=== PATIENT | male | born 1960 | race Caucasian/White ===

== ENCOUNTER 2017-07-24 09:09 | Emergency (ER) | payer OTHER, SELFPAY ==
[2017-07-24 09:10] VITALS: BP 201/116; PULSE 80; RESP 18; TEMP 36.2; O2SAT 95; BMI 38.9
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
[2017-07-24 09:46] LABS: Absolute Lymphocyte Count 0.96 X10^3/ul (0.83-4.51); Basophil# 0.01 X10^3/uL; Basophil% 0.2 % (0-1); Eosinophil# 0.09 X10^3/uL; Eosinophils% 1.6 % (0-5); Hematocrit 44.6 % (40-54); Hemoglobin 14.7 g/dl (13.0-16.5); Lymphocyte # 0.96 X10^3/ul (4.0); Lymphocyte % 17.1 % (19-41); Mean Corpuscular Hgb 29.1 pg (27.0-32.0); Mean Corpuscular Volume 88.1 fL (80-94); Mean Platelet Vol. 10.1 fl (6.2-12.0); Monocyte# 0.52 X10^3/uL; Monocyte% 9.2 % (0-10); Neutrophil # 4.04 X10^3/uL (2.7-7.7); Neutrophil % 71.7 % (47-70); POSITIVE COUNT NO; POSITIVE DIFFERENTIAL NO; POSITIVE MORPHOLOGY NO; Platelet Count 222 K/mm3 (150-450); RBC Distribution Width SD 41.1 fl (35.1-43.9); Red Blood Count 5.06 M/mm3 (4.6-6.2); White Blood Count 5.6 K/mm3 (4.4-11.0)
[2017-07-24 09:53] LABS: Prothrombin Time (Protime)PT. 13.3 SECONDS (11.7-14.9)
[2017-07-24 10:01] LABS: Anion Gap 5 (5-15); BUN 12 mg/dL (7-18); BUN/Creat Ratio 11.8 RATIO (10-20); Calcium,Total 9.2 mg/dL (8.5-10.1); Chloride 103 mmol/L (98-107); Creatinine, Serum 1.02 mg/dL (0.70-1.30); EST Glomerular Filtration Rate 80 mL/min (>60); Est Glom Filt Rate - Afr Amer 96 mL/min (>60); Estimated Creatinine Clearance 71.24 ml/min; Glucose 122 mg/dL (74-106); Potassium 3.8 mmol/L (3.5-5.1); Sodium Level 137 mmol/L (136-145)
[2017-07-24 12:08] VITALS: BP 160/90; PULSE 86; RESP 18; O2SAT 96
[2017-07-24] MEDS: 0.9% Normal Saline 1,000 ML 999 ML IV (12:09)
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
[2017-07-24 12:26] VITALS: BP 160/84; PULSE 82; RESP 18; O2SAT 98
== END 2017-07-24 12:27 | disposition home or self-care (01) ==
PROVIDERS: Emergency Provider Emergency Medicine; Family Provider Family Medicine; PCP Family Medicine
DX: S01.01XA Laceration without foreign body of scalp, initial encounter (principal); S60.511A Abrasion of right hand, initial encounter; S50.811A Abrasion of right forearm, initial encounter; V89.2XXA Person injured in unspecified motor-vehicle accident, traffic, initial encounter; Y93.89 Activity, other specified; Y92.9 Unspecified place or not applicable; Z72.0 Tobacco use
CPT/HCPCS: 70450; 71045; 72125; 80048; 80320; 85025; 85610; 93005; 99285; J7030; A4216; G0480

== ENCOUNTER 2024-06-24 14:37 | Inpatient (IN) | payer MEDICARE, SELFPAY ==
[2024-06-24 15:00] VITALS: BMI 43.7
[2024-06-24] MEDS: oxyCODONE 5 MG Tablet 10 MG PO ×2 (15:06→21:27)
[2024-06-24 15:23] VITALS: BP 189/82; PULSE 82; RESP 18; TEMP 36.8; O2SAT 92
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
[2024-06-24 17:15] VITALS: BP 168/78; PULSE 80
[2024-06-24] MEDS: HYDROmorphone 1 MG/ML Syringe IV (17:17)
[2024-06-24 19:34] VITALS: O2SAT 94
[2024-06-24] MEDS: Acetaminophen 500 MG Tablet 1000 MG PO (21:20)
[2024-06-24] MEDS: cycloBENZAPRine HCl 5 MG TABLET PO (21:20)
[2024-06-24] MEDS: Gabapentin 100 MG Capsule 200 MG PO (21:26)
[2024-06-24 21:32] VITALS: PULSE 80; O2SAT 94
[2024-06-25 03:37] LABS: Absolute Neutrophil Count 5.5 X10^3/uL (2.0-7.7); Basophil# 0.03 X10^3/uL; Basophil% 0.4 % (0-1); Eosinophil# 0.24 X10^3/uL; Hematocrit 42.3 % (40-54); Hemoglobin 13.8 g/dL (13.0-16.5); Lymphocyte % 18.5 % (19-41); Mean Corp Hgb Conc 32.6 g/dL (32-36); Mean Corpuscular Hgb 29.7 pg (27.0-32.0); Mean Platelet Vol. 9.4 fl (6.2-12.0); Monocyte# 0.78 X10^3/uL; Monocyte% 9.6 % (0-10); NRBC Flagged by Analyzer 0 % (0-5); Neutrophil # 5.49 X10^3/uL (2.7-7.7); Neutrophil % 67.6 % (47-70); Platelet Count 278 K/mm3 (150-450); RBC Distribution Width CV 13.2 % (11.6-14.6); RBC Distribution Width SD 44.4 fl (35.1-43.9); Red Blood Count 4.65 M/mm3 (4.6-6.2); White Blood Count 8.1 K/mm3 (4.4-11.0)
[2024-06-25] MEDS: HYDROmorphone 0.5 MG/0.5 ML SYRINGE IV ×2 (03:52→19:04)
[2024-06-25] MEDS: 0.9% Saline Lock 10 ML Syringe IV (03:52)
[2024-06-25 04:25] LABS: Magnesium 2.4 mg/dL (1.5-2.2); Phosphorus 3.4 mg/dL (2.7-4.5)
[2024-06-25 04:29] LABS: ALB/GLOB Ratio 1.4 RATIO (0.9-2.4); AST(SGOT) 45 U/L (<=37); Alanine Aminotransfer ALT/SGPT 43 U/L (<=46); Alkaline Phosphatase 50 U/L (40-129); Anion Gap 11 (5-15); BUN 12 mg/dL (4-19); BUN/Creat Ratio 15.9 RATIO (10-20); Calcium,Total 9.3 mg/dL (7.6-11.0); Carbon Dioxide 26.4 mmol/L (21.0-32.0); Chloride 99 mmol/L (98-108); Creatinine, Serum 0.76 mg/dL (0.70-1.20); EST Glomerular Filtration Rate 100 (>60); Estimated Creatinine Clearance 113.91 ml/min (50-250); Globulin 2.9 g/dL (2.2-4.2); Glucose 108 mg/dL (70-99); Potassium 4.2 mmol/L (3.3-5.1); Protein, Total 6.9 g/dL (5.9-8.4); Sodium Level 136 mmol/L (133-145); Total Bilirubin 1.05 mg/dL (0.00-1.30)
[2024-06-25 06:00] VITALS: BP 158/71; PULSE 68; RESP 18; TEMP 36.8; O2SAT 94
[2024-06-25] MEDS: Acetaminophen 500 MG Tablet 1000 MG PO ×3 (07:02→20:58)
[2024-06-25] MEDS: Lidocaine 5% Patch 2 PATCH TOPICAL (07:02)
[2024-06-25] MEDS: cycloBENZAPRine HCl 5 MG TABLET PO ×3 (07:03→20:57)
[2024-06-25] MEDS: Enoxaparin 40 MG/0.4 ML Syringe SC (07:03)
[2024-06-25] MEDS: oxyCODONE 5 MG Tablet 10 MG PO ×4 (07:03→20:59)
[2024-06-25] MEDS: Polyethylene Glycol 3350 17 GM PACKET PO (07:50)
[2024-06-25] MEDS: Senna/Docusate Sodium 1 Tablet 2 TABLET PO ×2 (07:50→20:58)
[2024-06-25 09:25] VITALS: O2SAT 93
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
[2024-06-25 10:20] VITALS: PULSE 82
[2024-06-25] MEDS: Metoprolol(XL)Succ 25 MG Tablet PO (10:20)
[2024-06-25] MEDS: guaiFENesin 1,200 MG Tablet 1200 MG PO ×2 (10:21→20:57)
--- NOTE | 2024-06-25 10:30 | RAD_ITS ---
PROCEDURE: CHEST PA AND LATERAL 06/25/2024 REASON FOR EXAM: COUGH TECHNIQUE: Frontal and lateral views of the chest. COMPARISON: No relevant prior. FINDINGS: Lungs: Lungs clear of pneumonia and congestion. Pleura: Pleural fluid blunts the lateral and posterior costophrenic angles, left Heart: Normal in size and configuration. Mediastinum/Whit: Unremarkable. Great vessels: Unremarkable. Bones/soft tissues: Postoperative findings related to dorsal fusion with instrumentation, upper thoracic. Multilevel spondylosis. RAD/Chest PA and Lateral IMPRESSION: Left pleural effusion. Postoperative findings related to upper thoracic dorsal fusion. Multilevel spondylosis. Reading Location: [id number]
[2024-06-25 13:04] LABS: Erythrocyte Sedimentation Rate 33 mm/hr (0-20)
[2024-06-25 14:47] LABS: Rheumatoid Factor 30.7 IU/mL (<15)
[2024-06-25 17:18] VITALS: BP 136/65; PULSE 64; RESP 18; TEMP 36.6; O2SAT 97
[2024-06-25] MEDS: Gabapentin 100 MG Capsule 200 MG PO (20:57)
[2024-06-25 22:02] VITALS: PULSE 77; O2SAT 92
[2024-06-26] MEDS: 0.9% Saline Lock 10 ML Syringe IV ×2 (01:03→21:09)
[2024-06-26] MEDS: HYDROmorphone 0.5 MG/0.5 ML SYRINGE IV ×2 (01:04→14:04)
[2024-06-26 06:00] VITALS: BP 129/69; PULSE 63; RESP 18; TEMP 36.4; O2SAT 93
[2024-06-26] MEDS: oxyCODONE 5 MG Tablet 10 MG PO ×4 (06:26→21:09)
[2024-06-26] MEDS: cycloBENZAPRine HCl 5 MG TABLET PO (06:26)
[2024-06-26] MEDS: Enoxaparin 40 MG/0.4 ML Syringe SC (06:27)
[2024-06-26] MEDS: Acetaminophen 500 MG Tablet 1000 MG PO ×3 (06:27→21:05)
[2024-06-26 06:47] VITALS: O2SAT 92
[2024-06-26] MEDS: guaiFENesin 1,200 MG Tablet 1200 MG PO ×2 (08:04→21:05)
[2024-06-26] MEDS: Juven (unflavored) Packet 1 PACKET PO ×2 (08:04→17:08)
[2024-06-26] MEDS: Lidocaine 5% Patch 2 PATCH TOPICAL (08:04)
[2024-06-26 08:06] VITALS: BP 128/57; PULSE 70
[2024-06-26] MEDS: Senna/Docusate Sodium 1 Tablet 2 TABLET PO ×2 (08:06→21:05)
[2024-06-26] MEDS: Metoprolol(XL)Succ 25 MG Tablet PO (08:06)
[2024-06-26] MEDS: Polyethylene Glycol 3350 17 GM PACKET PO (08:06)
[2024-06-26] MEDS: Methocarbamol 500 MG Tablet 1000 MG PO ×4 (08:57→21:05)
[2024-06-26 17:12] VITALS: BP 131/41; PULSE 58; RESP 16; TEMP 36.7; O2SAT 93
[2024-06-26] MEDS: Gabapentin 100 MG Capsule 200 MG PO (21:05)
[2024-06-27] MEDS: oxyCODONE 5 MG Tablet 10 MG PO ×4 (05:47→21:08)
[2024-06-27] MEDS: Acetaminophen 500 MG Tablet 1000 MG PO ×3 (05:47→21:08)
[2024-06-27] MEDS: Enoxaparin 40 MG/0.4 ML Syringe SC (05:47)
[2024-06-27] MEDS: Lidocaine 5% Patch 2 PATCH TOPICAL (05:48)
[2024-06-27 05:54] VITALS: BP 126/67; PULSE 59; RESP 17; TEMP 36.2; O2SAT 95
[2024-06-27] MEDS: guaiFENesin 1,200 MG Tablet 1200 MG PO ×2 (07:36→21:06)
[2024-06-27] MEDS: Senna/Docusate Sodium 1 Tablet 2 TABLET PO (07:36)
[2024-06-27] MEDS: Methocarbamol 500 MG Tablet 1000 MG PO ×4 (07:36→21:08)
[2024-06-27] MEDS: Juven (unflavored) Packet 1 PACKET PO ×2 (07:36→17:10)
[2024-06-27] MEDS: Polyethylene Glycol 3350 17 GM PACKET PO (07:36)
[2024-06-27 07:37] VITALS: PULSE 71
[2024-06-27] MEDS: Metoprolol(XL)Succ 25 MG Tablet PO (07:37)
[2024-06-27] MEDS: Magnesium Hydroxide 30 ML UDC PO (07:45)
[2024-06-27 17:14] VITALS: BP 132/51; PULSE 58; RESP 16; TEMP 37; O2SAT 94
[2024-06-27] MEDS: Gabapentin 100 MG Capsule 200 MG PO (21:07)
[2024-06-27] MEDS: 0.9% Saline Lock 10 ML Syringe IV (21:10)
[2024-06-28] MEDS: HYDROmorphone 0.5 MG/0.5 ML SYRINGE IV ×3 (00:17→22:59)
[2024-06-28] MEDS: 0.9% Saline Lock 10 ML Syringe IV ×3 (00:18→22:58)
[2024-06-28 05:01] VITALS: BP 142/71; PULSE 57; RESP 16; TEMP 36.6; O2SAT 97
[2024-06-28] MEDS: Enoxaparin 40 MG/0.4 ML Syringe SC (05:11)
[2024-06-28] MEDS: Acetaminophen 500 MG Tablet 1000 MG PO ×3 (05:11→20:47)
[2024-06-28] MEDS: oxyCODONE 5 MG Tablet 10 MG PO ×4 (05:11→20:51)
[2024-06-28] MEDS: Lidocaine 5% Patch 2 PATCH TOPICAL (05:11)
[2024-06-28] MEDS: Polyethylene Glycol 3350 17 GM PACKET PO (08:09)
[2024-06-28] MEDS: Juven (unflavored) Packet 1 PACKET PO ×2 (08:09→17:03)
[2024-06-28] MEDS: guaiFENesin 1,200 MG Tablet 1200 MG PO ×2 (08:09→20:46)
[2024-06-28] MEDS: Methocarbamol 500 MG Tablet 1000 MG PO ×4 (08:09→20:46)
[2024-06-28 08:10] VITALS: BP 142/71; PULSE 62
[2024-06-28] MEDS: Metoprolol(XL)Succ 25 MG Tablet PO (08:10)
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
[2024-06-28 12:08] LABS: ANTINUCLEAR ANTIBODIES DIRECT Negative (Negative)
--- NOTE | 2024-06-28 14:12 | CASEMGMT ---
Social Work IDT met with patient, ex-, janesdtr for Team meeting. Discussed patient's progress in PT/OT/SN. Educated to [facility] insurance with [employer] 06/29 and continued stay is not guaranteed with each review; advanced notice is not given for LCD. Pt's goal is to return home alone. Pt is improving well and has good safety awareness, using AE with ADLs. However, pt is still needing pain medication to manage daily pain. Pt is still having limitations to daily tasks and fatigues easily with therapy. See Dr de santiago for additional barriers to DC at this time. There is no family to assist at home. All family members work full-time. Pt will need AE and device at home and continued therapy at time of DC. Will ReTeam weekly. SW will continue to follow for DC planning. Fabienne Rodriguez TOPOGRAPHICAL SURVEYOR [employer]FET[employer]IA COOK
--- NOTE | 2024-06-28 16:01 | ECHOD_ITS ---
Reason For Study Reason For Study: Dyspnea/SOB Procedure This was a 2D Doppler, Color Flow transthoracic echocardiogram. Patient was scanned in supine position during reflux assessment. Exam performed portable in patient room. Left Ventricle Normal LV size. The estimated ejection fraction is 65 %. No evidence for diastolic dysfunction. No regional wall motion abnormalities noted. Right Ventricle Normal RV size. Normal systolic function. Atria Normal left atrium. Normal right atrium. Bubble study is positive for [id number] shunt with contrast reaching the left atrium in about 6 beats. Hypermobile atrial septum. Mitral Valve There is no mitral valve stenosis. Trivial mitral valve insufficiency. Tricuspid Valve There is no tricuspid stenosis. Trivial tricuspid valve insufficiency. Pulmonary artery systolic pressure is 50 mmHg. Aortic Valve Moderate diffuse aortic valve thickening. Trisinus/trileaflet aortic valve. Mild aortic stenosis. No aortic valve insufficiency. Pulmonic Valve There is no pulmonic valvular stenosis. No pulmonic valve insufficiency. Great Vessels Normal sized aortic root. Pericardium/Pleural No pericardial effusion. Medication Performed a rapid injection of agitated mix of 9 cc saline and 1cc air to assess for atrial septal defect. MMode/2D Measurements & Calculations LVIDd: 5.5 cm IVSd: 1.6 cm LVOT diam: 2.1 cm LVIDs: 2.8 cm LVPWd: 1.3 cm RVDd: 4.9 cm FS: 49.2 % LVOT area: 3.5 cm2 Ao root diam: 3.0 cm LAV(MOD-bp): 49.6 ml LVAd ap4: 24.5 cm2 LAV(MOD-bp) Indexed: 21.8 ml/m2 LVLd ap4: 7.2 cm LAV(MOD-sp2): 53.4 ml EDV(MOD-sp4): 68.9 ml LAV(MOD-sp4): 40.1 ml EDV(sp4-el): 70.7 ml LVAs ap4: 12.0 cm2 LVLs ap4: 6.0 cm ESV(MOD-sp4): 20.8 ml ESV(sp4-el): 20.2 ml EF(MOD-sp4): 69.8 % EF(sp4-el): 71.5 % SV(MOD-sp4): 48.1 ml SV(sp4-el): 50.6 ml LA A4 area: 16.5 cm2 SI(MOD-sp4): 21.1 ml/m2 LA dimension(2D): 3.4 cm RA A4 area: 15.3 cm2 TAPSE: 2.5 cm Time Measurements MV dec time: 0.24 sec Doppler Measurements & Calculations MV E max julio: 92.3 cm/sec Lat Peak E' Julio: 12.4 cm/sec Med Peak E' Julio: 12.3 cm/sec MV A max julio: 70.7 cm/sec E/E' lat: 7.5 E/E' med: 7.5 MV E/A: 1.3 MV dec slope: 388.9 cm/sec2 Ao V2 max: 283.1 cm/sec LV V1 max: 147.0 cm/sec Ao max P.1 mmHg LV V1 max P.7 mmHg Ao V2 mean: 194.7 cm/sec LV V1 mean P.4 mmHg Ao mean P.0 mmHg LV V1 mean: 112.3 cm/sec Ao V2 VTI: 58.3 cm LV V1 VTI: 31.3 cm AV (velocity ratio): 0.54 NUPUR(I,D): 1.9 cm2 NUPUR(V,D): 1.8 cm2 SV(LVOT): 110.1 ml PA V2 max: 98.1 cm/sec TR max julio: 334.5 cm/sec TR max P.8 mmHg ECHO/Echo Complete Interpretation Summary The estimated ejection fraction is 65 %. No evidence for diastolic dysfunction. Bubble study is positive for [id number] shunt with contrast reaching the lef t atrium in about 6 beats. Hypermobile atrial septum. Trivial mitral valve insufficiency. Mild aortic stenosis. Ordering Physician: Imelda Garcia Referring Physician: Brayden Montesinos Performed By: Alejandra Caballero, NELACS, RVT
[2024-06-28 18:00] VITALS: BP 137/62; PULSE 62; RESP 16; TEMP 36.1; O2SAT 94
[2024-06-28] MEDS: Gabapentin 100 MG Capsule 200 MG PO (20:46)
[2024-06-28] MEDS: Senna/Docusate Sodium 1 Tablet 2 TABLET PO (20:47)
[2024-06-29] MEDS: Acetaminophen 500 MG Tablet 1000 MG PO ×3 (05:29→21:40)
[2024-06-29] MEDS: oxyCODONE 5 MG Tablet 10 MG PO ×4 (05:29→21:41)
[2024-06-29] MEDS: Enoxaparin 40 MG/0.4 ML Syringe SC (05:29)
[2024-06-29] MEDS: Lidocaine 5% Patch 2 PATCH TOPICAL (05:29)
[2024-06-29 06:00] VITALS: BP 138/68; PULSE 61; RESP 15; TEMP 36.1; O2SAT 93
[2024-06-29 06:18] LABS: Hemoglobin A1c 5.9 % (<=5.6)
[2024-06-29 06:37] LABS: Cholesterol 155 mg/dL (<=200); High Density Lipoprotein 22 mg/dL; Low Density Lipoprotein Calc. 78 mg/dL; Triglycerides 275 mg/dL; Very Low Density Lipoprotein 55 mg/dL (5-40); cholesterol:hdl ratio screen 7.14
[2024-06-29] MEDS: Polyethylene Glycol 3350 17 GM PACKET PO (08:10)
[2024-06-29] MEDS: Juven (unflavored) Packet 1 PACKET PO ×2 (08:10→16:20)
[2024-06-29 08:11] VITALS: PULSE 61
[2024-06-29] MEDS: guaiFENesin 1,200 MG Tablet 1200 MG PO ×2 (08:11→21:40)
[2024-06-29] MEDS: Metoprolol(XL)Succ 25 MG Tablet PO (08:11)
[2024-06-29] MEDS: Senna/Docusate Sodium 1 Tablet 2 TABLET PO (08:11)
[2024-06-29] MEDS: Methocarbamol 500 MG Tablet 1000 MG PO ×4 (08:11→21:40)
[2024-06-29] MEDS: HYDROmorphone 0.5 MG/0.5 ML SYRINGE IV (10:17)
[2024-06-29] MEDS: 0.9% Saline Lock 10 ML Syringe IV (10:19)
[2024-06-29 17:00] VITALS: BP 148/55; PULSE 65; RESP 17; TEMP 36.6; O2SAT 95
[2024-06-29] MEDS: Gabapentin 100 MG Capsule 200 MG PO (21:40)
[2024-06-30 03:24] VITALS: BMI 43.2
[2024-06-30 03:25] VITALS: BP 167/74; PULSE 60; RESP 15; TEMP 36.3; O2SAT 98
[2024-06-30] MEDS: Enoxaparin 40 MG/0.4 ML Syringe SC (06:01)
[2024-06-30] MEDS: oxyCODONE 5 MG Tablet 10 MG PO (06:01)
[2024-06-30] MEDS: Acetaminophen 500 MG Tablet 1000 MG PO ×3 (06:01→21:16)
[2024-06-30] MEDS: Lidocaine 5% Patch 2 PATCH TOPICAL (06:02)
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
[2024-06-30 08:54] VITALS: PULSE 80
[2024-06-30] MEDS: guaiFENesin 1,200 MG Tablet 1200 MG PO ×2 (08:54→21:17)
[2024-06-30] MEDS: Metoprolol(XL)Succ 25 MG Tablet PO (08:54)
[2024-06-30] MEDS: Methocarbamol 500 MG Tablet 1000 MG PO ×4 (08:55→21:16)
[2024-06-30] MEDS: Polyethylene Glycol 3350 17 GM PACKET PO (08:55)
[2024-06-30] MEDS: Senna/Docusate Sodium 1 Tablet 2 TABLET PO ×2 (08:55→21:17)
[2024-06-30] MEDS: Juven (unflavored) Packet 1 PACKET PO (08:55)
[2024-06-30] MEDS: oxyCODONE 5 MG Tablet PO ×3 (10:12→21:20)
[2024-06-30] MEDS: hydroCHLOROthiazide 25 MG Tablet PO (10:13)
[2024-06-30 17:50] VITALS: BP 136/79; PULSE 64; RESP 17; TEMP 37.1; O2SAT 97
[2024-06-30] MEDS: Gabapentin 100 MG Capsule 200 MG PO (21:20)
[2024-07-01] MEDS: oxyCODONE 5 MG Tablet PO ×2 (05:22→14:09)
[2024-07-01] MEDS: Acetaminophen 500 MG Tablet 1000 MG PO ×3 (05:23→21:02)
[2024-07-01] MEDS: Lidocaine 5% Patch 2 PATCH TOPICAL (05:23)
[2024-07-01] MEDS: Enoxaparin 40 MG/0.4 ML Syringe SC (05:24)
[2024-07-01 06:00] VITALS: BP 165/80; PULSE 66; RESP 16; TEMP 36.2; O2SAT 96
[2024-07-01 07:28] VITALS: PULSE 66
[2024-07-01] MEDS: Metoprolol(XL)Succ 25 MG Tablet PO (07:28)
[2024-07-01] MEDS: Methocarbamol 500 MG Tablet 1000 MG PO ×4 (07:28→21:02)
[2024-07-01] MEDS: Juven (unflavored) Packet 1 PACKET PO (07:28)
[2024-07-01] MEDS: Polyethylene Glycol 3350 17 GM PACKET PO (07:28)
[2024-07-01] MEDS: hydroCHLOROthiazide 25 MG Tablet PO (07:28)
[2024-07-01] MEDS: guaiFENesin 1,200 MG Tablet 1200 MG PO ×2 (07:29→21:02)
[2024-07-01] MEDS: Senna/Docusate Sodium 1 Tablet 2 TABLET PO ×2 (07:29→21:02)
--- NOTE | 2024-07-01 11:18 | CASEMGMT ---
Addendum entered by Fabienne Rodriguez 07/01/24 15:46: samson applied for [facility] for pt. Pt now may apply for food and jett assistance, if he chooses. SW updated stepdtr. Original Note: Social Work SW spoke with pt to update on insurance approval with NRD 07/06. Pt inquired about assistance to apply for disability now that pt cannot return to work and has lost income. SW agreed to provide information on how to apply and what is needed, but it is an online application and family will likely need to assist pt. SW also offered to refer to Medicaid for jett and/or food assistance. Pt agreed and appreciative. - KELL sent referral to [facility] via secure email. - SW returned and provided information on SSDI application to pt. Fabienne Rodriguez VEGETABLE FARM WORKER PRINTING ESTIMATOR
[2024-07-01 14:00] VITALS: BP 136/62; PULSE 59
[2024-07-01 17:43] VITALS: BP 143/70; PULSE 57; RESP 17; TEMP 36; O2SAT 96
[2024-07-01] MEDS: Gabapentin 100 MG Capsule 200 MG PO (21:02)
[2024-07-01] MEDS: 0.9% Saline Lock 10 ML Syringe IV (21:04)
[2024-07-01 22:00] VITALS: BP 140/70; PULSE 63
[2024-07-02] MEDS: Acetaminophen 500 MG Tablet 1000 MG PO ×3 (05:32→21:12)
[2024-07-02] MEDS: Enoxaparin 40 MG/0.4 ML Syringe SC (05:32)
[2024-07-02] MEDS: Lidocaine 5% Patch 2 PATCH TOPICAL (05:33)
[2024-07-02 06:00] VITALS: BP 136/73; PULSE 80; RESP 17; TEMP 35.6; O2SAT 92
[2024-07-02 07:51] VITALS: PULSE 80
[2024-07-02] MEDS: Metoprolol(XL)Succ 25 MG Tablet PO (07:51)
[2024-07-02] MEDS: Methocarbamol 500 MG Tablet 1000 MG PO ×4 (07:51→21:12)
[2024-07-02] MEDS: guaiFENesin 1,200 MG Tablet 1200 MG PO ×2 (07:51→21:12)
[2024-07-02] MEDS: Polyethylene Glycol 3350 17 GM PACKET PO (07:51)
[2024-07-02] MEDS: oxyCODONE 5 MG Tablet PO ×3 (07:51→21:15)
[2024-07-02] MEDS: Senna/Docusate Sodium 1 Tablet 2 TABLET PO ×2 (07:51→21:12)
[2024-07-02] MEDS: hydroCHLOROthiazide 25 MG Tablet PO (07:51)
[2024-07-02 10:00] VITALS: BP 132/80; PULSE 60
[2024-07-02 14:00] VITALS: BP 128/74; PULSE 64
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
[2024-07-02 15:08] LABS: CCP IgG Antibodies 9 units (0-19)
[2024-07-02 17:08] LABS: HLA B27 Negative (.)
[2024-07-02 17:48] VITALS: BP 152/77; PULSE 60; RESP 16; TEMP 36.8; O2SAT 96
[2024-07-02 21:09] VITALS: BP 149/59; PULSE 59; RESP 16; O2SAT 95
[2024-07-02] MEDS: Gabapentin 100 MG Capsule 200 MG PO (21:12)
[2024-07-03] VITALS (7 sets, daily range): BP systolic 133–152; BP diastolic 52–71; PULSE 58–66; RESP 16–19; TEMP 36.1–36.6; O2SAT 92–94
[2024-07-03] MEDS: Enoxaparin 40 MG/0.4 ML Syringe SC (05:55)
[2024-07-03] MEDS: Lidocaine 5% Patch 2 PATCH TOPICAL (05:57)
[2024-07-03] MEDS: Acetaminophen 500 MG Tablet 1000 MG PO ×3 (05:57→21:58)
[2024-07-03] MEDS: Methocarbamol 500 MG Tablet 1000 MG PO ×4 (08:23→21:58)
[2024-07-03] MEDS: guaiFENesin 1,200 MG Tablet 1200 MG PO ×2 (08:24→21:57)
[2024-07-03] MEDS: Senna/Docusate Sodium 1 Tablet 2 TABLET PO ×2 (08:24→21:57)
[2024-07-03] MEDS: Metoprolol(XL)Succ 25 MG Tablet PO (08:24)
[2024-07-03] MEDS: Polyethylene Glycol 3350 17 GM PACKET PO (08:24)
[2024-07-03] MEDS: hydroCHLOROthiazide 25 MG Tablet PO (08:25)
[2024-07-03] MEDS: oxyCODONE 5 MG Tablet PO (10:41)
--- NOTE | 2024-07-03 13:20 | NURSING ---
Patient ambulated around unit with this RN x2 laps.
[2024-07-03] MEDS: Arthritis Pain Compound 60 CLICK TUBE TOPICAL ×2 (14:17→21:57)
[2024-07-03] MEDS: 0.9% Saline Lock 10 ML Syringe IV (20:12)
[2024-07-03] MEDS: Gabapentin 100 MG Capsule 200 MG PO (22:01)
[2024-07-04] MEDS: Arthritis Pain Compound 60 CLICK TUBE TOPICAL ×3 (05:55→22:07)
[2024-07-04] MEDS: Enoxaparin 40 MG/0.4 ML Syringe SC (05:58)
[2024-07-04] MEDS: Acetaminophen 500 MG Tablet 1000 MG PO ×3 (05:59→22:07)
[2024-07-04 06:00] VITALS: BP 143/75; PULSE 65; RESP 16; TEMP 36.3; O2SAT 96
[2024-07-04] MEDS: hydroCHLOROthiazide 25 MG Tablet PO (09:00)
[2024-07-04] MEDS: Senna/Docusate Sodium 1 Tablet 2 TABLET PO ×2 (09:00→22:07)
[2024-07-04] MEDS: guaiFENesin 1,200 MG Tablet 1200 MG PO ×2 (09:00→22:07)
[2024-07-04] MEDS: Methocarbamol 500 MG Tablet 1000 MG PO ×4 (09:00→22:08)
[2024-07-04 09:01] VITALS: PULSE 65
[2024-07-04] MEDS: Metoprolol(XL)Succ 25 MG Tablet PO (09:01)
[2024-07-04 10:00] VITALS: BP 145/68; PULSE 65; RESP 16; TEMP 36.6; O2SAT 95
[2024-07-04 14:00] VITALS: BP 141/66; PULSE 62; RESP 16; TEMP 36.4; O2SAT 94
[2024-07-04 18:00] VITALS: BP 129/74; PULSE 94; RESP 16; TEMP 37; O2SAT 95
[2024-07-04] MEDS: 0.9% Saline Lock 10 ML Syringe IV (20:37)
[2024-07-04 22:00] VITALS: BP 148/63; PULSE 65; RESP 16; TEMP 36.9; O2SAT 95
[2024-07-04] MEDS: Gabapentin 100 MG Capsule 200 MG PO (22:07)
[2024-07-05 00:26] VITALS: O2SAT 98
--- NOTE | 2024-07-05 00:26 | NURSING ---
Per S request for random O2 check, pt SpO2 level was 98% on 2L O2 while sleeping.
[2024-07-05] MEDS: Acetaminophen 500 MG Tablet 1000 MG PO ×3 (06:19→20:11)
[2024-07-05] MEDS: Arthritis Pain Compound 60 CLICK TUBE TOPICAL ×3 (06:20→20:12)
[2024-07-05] MEDS: Enoxaparin 40 MG/0.4 ML Syringe SC (06:20)
[2024-07-05 06:23] VITALS: BP 143/71; PULSE 61; RESP 16; TEMP 36.3; O2SAT 96
[2024-07-05 07:50] VITALS: PULSE 61
[2024-07-05] MEDS: guaiFENesin 1,200 MG Tablet 1200 MG PO ×2 (07:50→20:12)
[2024-07-05] MEDS: Metoprolol(XL)Succ 25 MG Tablet PO (07:50)
[2024-07-05] MEDS: Polyethylene Glycol 3350 17 GM PACKET PO (07:50)
[2024-07-05] MEDS: hydroCHLOROthiazide 25 MG Tablet PO (07:50)
[2024-07-05] MEDS: Methocarbamol 500 MG Tablet 1000 MG PO ×4 (07:51→20:11)
[2024-07-05] MEDS: Senna/Docusate Sodium 1 Tablet 2 TABLET PO (07:51)
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
--- NOTE | 2024-07-05 13:35 | CASEMGMT ---
Social Work IDT met with patient, ex- and stepdtr for Team meeting. Discussed patient's progress in PT/OT/SN. [facility] Pt is progressing well and IDT recommending DC. Pt and family agreeable. Sleep study can be scheduled for 5/6 prior to DC home. All in agreement. SW to finalize DC. SW offered skilled HHC vs OP therapy and any DME needs. Pt/family prefers HHC since pt cannot drive. SW offered list of skilled HHC agencies within geographical area, INN with insurance, that include quality and resource data via [employer] guide. Pt denied and family/pt agreed to [facility]. Pt needs a FWW and a cane. SW to coordinate [place] [facility] and family to buy a cane. Pt/family appreciative. Pt will DC to ex-'s home - received address and updated in [employer]. - SW phoned referral to [facility] PT/OT/SN SW sent [place] [facility] [place] [employer] [place] FWW and overnight O2. Plan: DC 5/ to sleep study, then home, with [facility] PT/OT/SN, FWW and overnight O2. Fabienne Rodriguez PRODUCT SUPPORT TECHNICIAN CONTROL ROOM TENDER
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
[2024-07-05 17:16] VITALS: BP 142/70; PULSE 75; RESP 16; TEMP 36.6; O2SAT 95
[2024-07-05 20:00] VITALS: PULSE 75; RESP 16; O2SAT 95
[2024-07-05] MEDS: Gabapentin 100 MG Capsule 200 MG PO (20:12)
[2024-07-06 05:48] LABS: Hematocrit 40.6 % (40-54); Hemoglobin 13.8 g/dL (13.0-16.5); Mean Corpuscular Hgb 29.5 pg (27.0-32.0); Mean Corpuscular Volume 86.8 fL (80-94); Platelet Count 338 K/mm3 (150-450); RBC Distribution Width CV 12.8 % (11.6-14.6); RBC Distribution Width SD 39.9 fl (35.1-43.9); Red Blood Count 4.68 M/mm3 (4.6-6.2); White Blood Count 8.9 K/mm3 (4.4-11.0)
[2024-07-06 06:00] VITALS: BP 145/61; PULSE 70; RESP 17; TEMP 36.3; O2SAT 93
[2024-07-06 06:17] LABS: Anion Gap 12 (5-15); BUN 20 mg/dL (4-19); BUN/Creat Ratio 23.8 RATIO (10-20); Calcium,Total 9.8 mg/dL (7.6-11.0); Carbon Dioxide 26.3 mmol/L (21.0-32.0); Chloride 99 mmol/L (98-108); Creatinine, Serum 0.83 mg/dL (0.70-1.20); EST Glomerular Filtration Rate 97 (>60); Estimated Creatinine Clearance 109.04 ml/min (50-250); Glucose 110 mg/dL (70-99); Potassium 3.9 mmol/L (3.3-5.1); Sodium Level 137 mmol/L (133-145)
[2024-07-06] MEDS: Enoxaparin 40 MG/0.4 ML Syringe SC (06:21)
[2024-07-06] MEDS: Acetaminophen 500 MG Tablet 1000 MG PO ×3 (06:21→19:55)
[2024-07-06] MEDS: Arthritis Pain Compound 60 CLICK TUBE TOPICAL ×3 (06:21→20:01)
[2024-07-06 07:37] VITALS: PULSE 70
[2024-07-06] MEDS: guaiFENesin 1,200 MG Tablet 1200 MG PO ×2 (07:37→19:56)
[2024-07-06] MEDS: Metoprolol(XL)Succ 25 MG Tablet PO (07:37)
[2024-07-06] MEDS: Methocarbamol 500 MG Tablet 1000 MG PO ×4 (07:37→19:55)
[2024-07-06] MEDS: hydroCHLOROthiazide 25 MG Tablet PO (07:37)
--- NOTE | 2024-07-06 12:26 | PCM.DC ---
Discharge Instructions Diet Discharge Diet: Low fat / Low cholesterol, Carb Control Diet and - (low salt) DC O2, CPAP, BIPAP needs Home O2 Discharge instructions: Yes Type of respiratory needs?: Oxygen (2 LPM) Oxygen frequency: With Sleeping Oxygen liters per minute when sleepin LPM Dressing / Incision Discharge Activity: May Not Drive, May Shower and Use Walker (use a walker or a can when ambulating) Weight Bearing Status: Full weight bearing Lifting Restrictions: No more than 8 lbs until surgery releases you to lift more. Dressing / Incision Call your doctor if your incision/area has: Continuous Slow Oozing, Sudden Increased Bleeding, Increased Pain/ Swelling, Increased Redness, Foul Smelling Discharge and Swelling at the incision site Call your doctor if you observe: Fever of 101 or Higher, Shortness of breath, Dizziness, Fainting spells, Swelling in the ankles, Chest pain, Increased palpitations (irregular heartbeat), Calf discomfort and Uncontrolled pain Cleanse incision/area with: Soap & Water Follow Up Care Please Follow Up With: Trey Marte, SECURITY INSTALLATION SALES TECHNICIAN-C When: appts are listed later on in this document. Test Results: Test results from this visit will be discussed in further detail at your follow-up appointment, if applicable. Pending Tests Upon Discharge: None Discharge Plan Admission Admit Date/Time: 06/24/24 14:37 Primary Reason for Your Visit: DEBILITY DUE TO MULTIPLE TRAUMATIC INJURIES Attending Provider: Imelda Garcia Primary Care Provider: Brayden Montesinos Instructions Patient Instructions: Patent Foramen [place]vale, Understanding Oxygen Therapy, What Are Snoring and Sleep Apnea?, CPAP, CAD, Understanding Lumbar Radiculopathy, Caring for Your Incision, Cervical Radiculopathy Additional Instructions / Restrictions: 1. An appointment has been scheduled for you to follow-up with Dr. Bola Brown for suspected right rotator cuff tear. 2. You will follow up with Dr. 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 You also have calcification of the arteries in your heart that were seen on the CT scan of the chest. This can be seen with coronary artery disease. It addition to the calcifications in the arteries you have been having shortness of breath with exertion and stair climbing and this can be associated with heart disease. I suspect he may want o have you do a stress test to make sure that you do not have significant coronary artery disease. 3. You have a lot of disease in the spine and there are dinesh bridges between the vertebrae that cause stiffness and chronic back pain. This is called DISH and I gave you a handout that describes what this is. You have degenerating discs and with the degenerating discs and the increased bone osteophytes (spurs) in the spine you have some neuroforaminal stenosis. This is narrowing of the openings where the nerves come out of the spine and then go into the arms and legs. This can lead to nerve pain....also called radicular pain). Nerve pain causes burning pain and electric shock like pain in the extremities. Any swelling due to trauma/strain on the back will make this worse. You have disease in all 3 areas of the spine...the cervical, thoracic and lumbar spine. You are taking a medication called Gabapentin (also called Neurontin) which treats nerve pain. You need to avoid any further trauma to the spine or things will get a lot worse. I suspect you are going to have some more problems going forward due to DISH. You may want to see a attending radiologist. Excess weight really puts a burden on the back and it would be best if you could lose weight. There are medications now that can help with appetite control and weight loss. Your new PCP will be able to discuss these meds with you and help you with weight loss. Bending, lifting and twisting all can increase back pain when you have DISH. 4. You are prediabetic. You are not diabetic but, you are at risk for developing diabetes if you do not get your weight under control and start some type of regular exercise routine. Watch your carbohydrate intake. The dietitians at the hospital have a program called why weight and they can see you as an outpatient to help you with your diet and appropriate carbohydrate restriction. Carbohydrates increase blood sugar. 5. Your oxygen drops at night when you are sleeping and this can lead to many different problems......problems with the rhythm of the heart called AF which can lead to strokes, depression, poor sleep quality and chronic fatigue, falling asleep while driving, restless legs, memory loss, high blood pressure in the lungs, etc. After the sleep study you will follow up with the pulmonary dept to discuss the results. You will likely need CPAP and they will explain this to you. Until you can get treated for sleep apnea you are going to need to wear oxygen anytime you are sleeping and the social studies teacher is arranging this for you. 6. I have given you a lot to think about. You are only 64 years old and hopefully will have a long life ahead of you. If you take care of some of these problems it will be a much healthier, less painful life. 7. We have made you an appt to follow up with Dr. Toscano from pain management. He can help manage the chronic back pain and the nerve pain. 8. If you or your family have any questions after you leave rehab please do not hesitate to call me. OFFICE: [phone] CELL: [phone] NURSES ST[facility] ON REHAB: [phone] Discharge Orders/Prescriptions Prescriptions: New Arthritis Pain Compound 2 click topical TID Qty: 0 0RF hydrochlorothiazide 25 mg Tablet 25 mg PO DAILY Qty: 30 0RF tizanidine 2 mg tablet 2 mg PO TID PRN (Reason: muscle spasticity) Qty: 90 0RF Rx Instructions: take 1-2 tabs every 8 hours as needed for muscle spasms. This can make you sleepy. niacin 500 mg Tablet Extended Release 24 Hr 500 mg PO QHS Qty: 30 0RF metoprolol succinate 25 mg Tablet Extended Release 24 Hr 25 mg PO DAILY Qty: 30 0RF oxycodone 5 mg Tablet 5 - 10 mg PO Q4H PRN PRN (Reason: pain 3-10) 7 Days Qty: 40 0RF Continued acetaminophen 500 mg tablet 1,000 mg PO Q8 Discontinued cyclobenzaprine 5 mg tablet 5 mg PO TID gabapentin 100 mg capsule 200 mg PO QHS lidocaine [Lidoderm] 5 % adhesive patch,medicated 2 patch topical DAILY Rx Instructions: leave on most painful area for up to 12 hrs Referrals / Follow Up: Jyoti Richardson [Other] - 07/07/24 2:15 pm Andre Castro [Other] - 08/03/24 2:20 pm Claire Vera MD [Med Staff - Active Staff] - 08/04/24 10:00 am Sadi Toscano MD [Med Staff - Active Staff] - 07/13/24 3:00 pm Bola Brown MD [Med Staff - Active Staff] - 07/12/24 11:00 am Trey Marte NP-C [[facility]] - 07/08/24 2:15 pm Disposition Disposition (needs filled in before D/C Order can be placed): Home Health Service
--- NOTE | 2024-07-06 13:29 | PCM.DC.SUM ---
Providers Date of Admission: 06/24/24 Date of Discharge: 07/06/24 Primary Care Physician: Dr. Brayden Montesinos MD Reason For Visit: MULTIPLE TRAUMA Diagnosis Discharge Diagnosis (1) Physical debility: Status: Acute Code(s): R53.81 - Other malaise (2) Multiple injuries due to trauma: Status: Acute Code(s): T07.XXXA - Unspecified multiple injuries, initial encounter Plan: Sustained in an encounter with a steer he was trimming the hooves on. (3) Multiple fractures of ribs: Status: Acute Code(s): S22.49XA - Multiple fractures of ribs, unspecified side, initial encounter for closed fracture Qualifiers: Encounter type: subsequent encounter Fracture type: closed Laterality: left Plan: Left anterolateral fractures of the 4th, 5th and 6th ribs and posterior fractures of the left 8th, 9th and 10th ribs. (4) History of thoracic spinal fusion: Status: Acute Code(s): Z98.1 - Arthrodesis status Plan: Posterior thoracic fusion of T4-T7 for a closed 3 column vertebral fracture at [facility]. (5) Cough: Status: Resolved Code(s): R05.9 - Cough, unspecified Qualifiers: Cough type: subacute Qualified Code(s): R05.2 - Subacute cough Plan: More likely than not due to atelectasis. (6) Pleural effusion: Status: Resolved Code(s): J90 - Pleural effusion, not elsewhere classified Plan: traumatic (7) DISH (diffuse idiopathic skeletal hyperostosis): Status: Suspected Code(s): M48.10 - Ankylosing hyperostosis [[place]], site unspecified Plan: Involves the cervical, thoracic and lumbosacral spine. (8) Radicular pain of lower extremity: Status: Chronic Code(s): M54.10 - Radiculopathy, site unspecified (9) Neural foraminal stenosis of lumbar spine: Status: Chronic Code(s): M48.061 - Spinal stenosis, lumbar region without neurogenic claudication (10) Lumbar canal stenosis: Status: Chronic Code(s): M48.061 - Spinal stenosis, lumbar region without neurogenic claudication Qualifiers: Neurogenic claudication status: unspecified Qualified Code(s): M48.061 - Spinal stenosis, lumbar region without neurogenic claudication (11) Protrusion of lumbar intervertebral disc: Status: Chronic Code(s): M51.26 - Other intervertebral disc displacement, lumbar region (12) Spinal stenosis of cervicothoracic region: Status: Chronic Code(s): M48.03 - Spinal stenosis, cervicothoracic region (13) Thoracic disc herniation: Status: Chronic Code(s): M51.24 - Other intervertebral disc displacement, thoracic region (14) Degenerative disc disease, thoracic: Status: Chronic Code(s): M51.34 - Other intervertebral disc degeneration, thoracic region (15) Protrusion of cervical intervertebral disc: Status: Chronic Code(s): M50.20 - Other cervical disc displacement, unspecified cervical region (16) Foraminal stenosis of cervical region: Status: Chronic Code(s): M48.02 - Spinal stenosis, cervical region (17) Morbid obesity with BMI of 40.0-44.9, adult: Status: Chronic Code(s): E66.01 - Morbid (severe) obesity due to excess calories; Z68.41 - Body mass index [BMI] 40.0-44.9, adult (18) ROBSON (obstructive sleep apnea): Status: Chronic Code(s): G47.33 - Obstructive sleep apnea (adult) (pediatric) Plan: STOP BANG score is 7 out of a possible 8. Overnight trending pulse ox abnormal. Scheduled for a overnight sleep study on the night of discharge from acute rehab. Will follow-up with pulmonary medicine. Supplemental oxygen has been ordered by the social media specialist and he is to wear this anytime he is sleeping. (19) Mild aortic stenosis by prior echocardiogram: Status: Chronic Code(s): I35.0 - Nonrheumatic aortic (valve) stenosis (20) Cardiomegaly: Status: Chronic Code(s): I51.7 - Cardiomegaly (21) Interatrial cardiac shunt: Status: Chronic Code(s): Q24.8 - Other specified congenital malformations of heart Plan: PFO with R-L shunt between the atria and a hypermobile septum. Follow-up has been scheduled with Dr. Vera from cardiology. (22) PFO (patent foramen ovale): Status: Chronic Code(s): Q21.12 - Patent foramen ovale (23) Coronary artery calcification seen on CAT scan: Status: Chronic Code(s): I25.10 - Atherosclerotic heart disease of [place] coronary artery without angina pectoris (24) Low HDL (under 40): Status: Chronic Code(s): E78.6 - Lipoprotein deficiency Plan: HDL is only 22 and he was started on Niaspan at at bedtime. (25) Hypertriglyceridemia without hypercholesterolemia: Status: Chronic Code(s): E78.1 - Pure hyperglyceridemia (26) Prediabetes: Status: Chronic Code(s): R73.03 - Prediabetes Plan: Hemoglobin A1c is 5.9%. Patient counseled to lose weight and has met with the dietitian on a few occasions to discuss alterations in diet. (27) Colon polyps: Status: Chronic Code(s): K63.5 - Polyp of colon Qualifiers: Colon polyp type: unspecified Plan: Follow-up as directed for repeat colonoscopies. (28) Diverticulosis: Status: Chronic Code(s): K57.90 - Diverticulosis of intestine, part unspecified, without perforation or abscess without bleeding (29) HTN (hypertension): Status: Chronic Code(s): I10 - Essential (primary) hypertension Qualifiers: Hypertension type: primary hypertension Qualified Code(s): I10 - Essential (primary) hypertension (30) Fatty infiltration of liver: Status: Chronic Code(s): K76.0 - Fatty (change of) liver, not elsewhere classified Plan 1. Discharge to the sleep lab for an overnight sleep study and then home with home health care in the a.m. 2. The patient is unsafe to use a cane and requires a walker for ambulation in the home and the community. 3. Overnight trending pulse ox last night confirms need for Oxygen 2 LPM anytime he is sleeping. I reviewed the documentation and agree with the findings. SW is arranging home O2. 4. Will follow up with [facility] spine surgery tomorrow to have abigail removed. 5. F/U scheduled with Cryus Marte BINGO CASHIER, [facility] to establish Darci as a new primary care patient 6. Follow-up has been scheduled with Dr. Bola Brown for suspected right rotator cuff tear. 7. Follow-up has been scheduled with Dr. Sadi Toscano for chronic pain management 8. Follow-up has been scheduled with Dr. Vera for PFO, aortic stenosis, increased coronary calcifications with dyspnea with minimal exertion....suspect he may have CAD. Medications at Discharge Home Medications acetaminophen 500 mg tablet 1,000 mg PO Q8 pain 06/24/24 Arthritis Pain Compound 2 click topical TID #0 tubes 07/06/24 gabapentin 300 mg capsule 300 mg PO TID #90 caps 07/06/24 hydrochlorothiazide 25 mg tablet 25 mg PO DAILY #30 tabs 07/06/24 metoprolol succinate 25 mg tablet,extended release 24 hr 25 mg PO DAILY #30 tabs 07/06/24 niacin 500 mg tablet,extended release 24 hr 500 mg PO QHS #30 tabs 07/06/24 oxycodone 5 mg tablet 5 - 10 mg (1 - 2 x 5 mg) PO Q4H PRN PRN pain 3-10 7 days #40 tabs 07/06/24 tizanidine 2 mg tablet 2 mg PO TID PRN muscle spasticity #90 tabs 07/06/24 Hospital Course Operations - (Posterior spinal fusion of thoracic vertebrae T4-T7 at [facility] on 06/21/2024) Procedures 2-D Echocardiogram (Interpretation Summary The estimated ejection fraction is 65 %. No evidence for diastolic dysfunction. Bubble study is positive for wlvri-ko-orsa shunt with contrast reaching the left atrium in about 6 beats. Hypermobile atrial septum. Trivial mitral valve insufficiency. Mild aortic stenosis.) Summary of Care Provided Minutes Spent on Discharge: 42 Hospital Course: DARCI HAMM, is a 64-year-old M with a past medical history of hypertension, morbid obesity, basal cell carcinoma of the face, diastases rectus abdominis, chronic back pain, ROBSON (diagnosed on a home sleep study but, has never been treated), diverticulosis and colon polyps who presented to [facility] on 06/19/24 after he had been dragged to the ground and kicked/stomped by a steer. He was trimming the hoofs. He had a LOC at the scene but, presented to the ED by private car. He was confused and c/o R shoulder pain and left side rib and back pain. X-rays of the pelvis showed no acute fracture or dislocation. Right shoulder x-ray showed no acute abnormality. CT of the cervical spine showed no acute fracture or traumatic malalignment. CT of the brain showed no acute intracranial abnormality. CT of the chest/abdomen/pelvis showed numerous rib fractures present on the left (anterolateral fourth, fifth, 6 ribs and posterior fractures of the left 8th, 9th and 10th ribs. . All of which were nondisplaced. There was no pneumothorax and no hemothorax. There was an unstable fracture extending through an anterior bridging osteophyte at the T5/T6 level (due to hyperextension) in the setting of DISH. He had bridging osteophytes present between T3 and T12-L1 compatible with DISH. He had marked cardiomegaly. No evidence of visceral injury in the abdomen/pelvis. No bony abnormality of the lumbar spine. He was transferred to [facility] on 06/20/2024 to see spine surgery. On 06/21/2024 he underwent posterior thoracic fusion T4-7 for a closed 3 column vertebral fracture. He was transferred to the acute inpt rehab unit at [facility] on 06/24/24 for 3 hours of therapy daily to restore function/independence at or near his baseline prior to the trauma. At presentation to acute rehab Darci was noted to have a systolic ejection murmur at the second right intercostal space that radiated to the left ventricular outflow tract, lower left sternal border, apex and into the left axilla. He denied any history of rheumatic fever and had never had an echocardiogram. Documentation from [facility] and [facility] showed significant cardiomegaly on the CT chest. Darci complained of shortness of breath with stair climbing and even with minimal exertion that caused him to stop. He denied chest pain or palpitations prior to his recent trauma. The CT scan of the chest also showed an increased amount of coronary calcifications. Blood pressure was uncontrolled at admission on 25 mg of metoprolol daily. We could not increase the beta-torie due to bradycardia and so he was started on hydrochlorothiazide 25 mg daily and the blood pressure has improved although the systolic is frequently mildly above 140. Diastolics are controlled. An echocardiogram was obtained and surprisingly showed a [id number] intra-atrial shunt with contrast reaching the left atrium and about 6 beats. The atrial septum was hypermobile. Ejection fraction was 65% with no evidence of diastolic dysfunction. There was mild aortic valve stenosis present with moderate diffuse aortic valve thickening. The right ventricle was normal size and had normal systolic function. Both atria were of normal size. I reviewed all the imaging reports from the previous hospitals and there are spinal changes consistent with DISH. HLA B-27 and JOANN were negative. The RF was 30 but, CCP was negative. He has disease present in the cervical, thoracic and LS spines with disc protrusions, DDD, neuroforaminal stenosis and spinal canal stenosis. He has had radicular pain in his right lower extremity in the past. He complains of chronic back pain and stiffness, especially in the AM. Pain was adequately controlled on rehab with Tylenol 1 g p.o. every 8 hours, Robaxin 1000 mg every 6 hours, gabapentin 300 mg twice daily and 400 mg at at bedtime and PRN Oxycodone which he has not needed for a few days prior to DC. He has also been getting a compounded arthritis cream containing baclofen, Voltaren and lidocaine TID with good relief of the posterior rib pain. He is sleeping well at night and pain control is good. Darci did well in therapy and at the time of DC he has ambulated up to 525 feet on various surfaces at supervision with a front wheel walker. He is ambulated 165 feet with a straight cane at supervision. He is able to ascend/descend 20 steps with 2 handrails at supervision. He is independent with eating and supervision/set up for grooming. He requires minimal assistance with bathing and upper body dressing. He is supervision/set up for lower body dressing, toileting, toilet transfer and tub/shower transfer. Darci has a STOP BANG score of 7 out of a possible 8....he lives alone and says no one has said he stops breathing when sleeping but, his told me when they lived together she would wake him up because he was not breathing which would make the STOP BANG score 8 out of a possible 8. An overnight trending pulse ox was abnormal with hypoxia and desaturations. He was placed on supplemental oxygen at 2 L/min while sleeping. Mansoor was discharged on 07/06/2024 and will go directly to the sleep lab for an overnight sleep study. He will follow-up with pulmonary medicine for the results. The social media specialist arranged for 2 L/min oxygen supplementation at night when he is sleeping. He has a follow-up appointment with the spine surgeon on 07/07/2024 to remove the abigail. He has a follow-up appointment with a new PCP, Cyrus MOLINAC at the [facility] on 07/08/24. An appt was made for him to follow up christopher Vera from cardiology for PFO and . I suspect he needs a stress test to evaluate for CAD since he has RANGEL with even minimal exertion (prior to the trauma) and has increased coronary calcifications on a CT chest. While on rehab he had a HGBA1C that was elevated at 5.9% consistent with glucose intolerance/prediabetes. He was seen by the housemaid and counselled on a carb restricted/wt loss diet. He may be a good candidate for pharmacologic intervention to assist with weight loss. Wt loss would also be beneficial for chronic back pain. He is also going to follow up with Dr. Toscano from pain management for chronic back pain with radicular pain. He also has an appointment with Dr. Bola Brown from orthopedics to be evaluated for suspected right rotator cuff tear. The patient is unsafe to use a cane and requires a walker for ambulation in the home and the community. I have reviewed the oxygen testing, and this patient qualifies for the home equipment and portability. The patient is mobile in the home and the community. He will need 2 LPM of oxygen supplementation anytime he is sleeping. Physical Exam Const alert, oriented x3 and no apparent distress Constitutional Narrative: Has not had any oxycodone today and tolerated therapy well with no yelling out. Has not had to take Oxycodone since 07/03/24 and has not had to have Dilaudid since prior to 07/03/24. General Appearance: cooperative, comfortable and well kempt HEENT moist oral mucous membranes Head and Scalp: normocephalic and atraumatic Eyes PERRL, EOMs intact bilaterally, conjunctivae normal and no scleral icterus Eyes Narrative: No discharge from the eyes. Neck No nodes and no carotid bruits General: trachea midline Resp clear to auscultation bilaterally Resp Narrative: No conversational dyspnea. No cough with deep breathing. Symmetrical chest expansion. Effort and Inspection: able to speak in complete sentences; Negative for tachypneic or labored Cardio regular rate, regular rhythm and no gallops Cardio Narrative: No ectopy. He has a 2/6 systolic ejection murmur heard at the second right intercostal space with radiation to the left ventricular outflow tract, lower left sternal border, apex and into the left axilla. GI normal to inspection, nondistended, normoactive bowel sounds, soft to palpation and non-tender Extremity no calf tenderness Extremity Narrative: He has weakness with external rotation in the right upper extremity and pain with raising his arm above his head. A rotator cuff tear is suspected. General Extremity: Negative for edema Skin no jaundice General Skin Exam: no breakdown Rashes: no rashes Wound Narrative: Abigail are intact with no dehiscence. There is no melody-incisional erythema and no swelling around the incisions. No discharge from the incisions. Neuro CN's II-XII intact bilaterally and moves all extremities Psych thought process normal, cooperative and affect normal Appearance: appropriate Weight / BMI Weight Weight: 267 lb 13.786 oz Body Mass Index (BMI) 43.2 ABG / Lab / Microbiology Data 07/06/24 05:34 07/06/24 05:34 Laboratory: Laboratory Results - last 24 hr 07/06/24 05:34: WBC 8.9, RBC 4.68, Hgb 13.8, Hct 40.6, MCV 86.8, MCH 29.5, MCHC 34.0, RDW Std Deviation 39.9, RDW Coeff of Theresa 12.8, Plt Count 338, MPV 9.0, Sodium 137, Potassium 3.9, Chloride 99, Carbon Dioxide 26.3, Anion Gap 12, BUN 20 H, Creatinine 0.83, Estim Creat Clear Calc 109.04, Est GFR (MDRD) Non-Af 97, BUN/Creatinine Ratio 23.8 H, Glucose 110 H, Calcium 9.8 D/C Instructions Discharge Diet: Low fat / Low cholesterol, Carb Control Diet and - (low salt) Weight Bearing Status: Full weight bearing Call your doctor if your incision/area has: Continuous Slow Oozing, Sudden Increased Bleeding, Increased Pain/ Swelling, Increased Redness, Foul Smelling Discharge and Swelling at the incision site Call your doctor if you observe: Fever of 101 or Higher, Shortness of breath, Dizziness, Fainting spells, Swelling in the ankles, Chest pain, Increased palpitations (irregular heartbeat), Calf discomfort and Uncontrolled pain Cleanse incision/area with: Soap & Water DC O2, CPAP, BIPAP Needs Home O2 Discharge instructions: Yes Type of respiratory needs?: Oxygen (2 LPM) Oxygen frequency: With Sleeping Oxygen liters per minute when sleepin LPM DC home with Oxygen: Yes Home O2 MD Review: I have reviewed the oxygen testing, and the patient qualifies for home oxygen equipment and portability. The patient is mobile in the home and the community. Pending Tests Upon Discharge: None Please Follow Up With: Trey Marte, GLORIA When: appts are listed later on in this document. Meaningful Use Info Meaningful Use Meaningful Use Diagnoses (Choose all that apply): None applicable Ischemic Stroke Statin Dosing Therapy Reference: STATIN DOSE THERAPY REFERENCE: * Patients > 75 years receive moderate or high dose statin therapy. * Patients 75 years or YOUNGER should receive HIGH intensity statin dose unless contraindicated. You will be required to document reason for non-treatment if statin daily dose does not meet guidelines. HIGH DOSE STATIN THERAPY DAILY Atorvastatin > than or = to 40 mg Rosuvastatin > than or = to 20 mg Amlodipine + Atorvastatin > than or = to 2.5/40 mg Ezetimibe + Simvastatin 10/80 mg Simvastatin 80mg Discharge Plan Admission Admit Date/Time: 06/24/24 14:37 Primary Reason for Your Visit: DEBILITY DUE TO MULTIPLE TRAUMATIC INJURIES Attending Provider: Imelda Garcia Primary Care Provider: Brayden Montesinos Instructions Patient Instructions: Patent Foramen [place], Understanding Oxygen Therapy, What Are Snoring and Sleep Apnea?, CPAP, CAD, Understanding Lumbar Radiculopathy, Caring for Your Incision, Cervical Radiculopathy Additional Instructions / Restrictions: 1. An appointment has been scheduled for you to follow-up with Dr. Bola Brown for suspected right rotator cuff tear. 2. You will follow up with Dr. Vera who is a retail advertising account executive for the hole between the upper 2 chambers of your heart (called a PFO) and for aortic valve disease. You also have calcification of the arteries in your heart that were seen on the CT scan of the chest. This can be seen with coronary artery disease. It addition to the calcifications in the arteries you have been having shortness of breath with exertion and stair climbing and this can be associated with heart disease. I suspect he may want o have you do a stress test to make sure that you do not have significant coronary artery disease. 3. You have a lot of disease in the spine and there are dinesh bridges between the vertebrae that cause stiffness and chronic back pain. This is called DISH and I gave you a handout that describes what this is. You have degenerating discs and with the degenerating discs and the increased bone osteophytes (spurs) in the spine you have some neuroforaminal stenosis. This is narrowing of the openings where the nerves come out of the spine and then go into the arms and legs. This can lead to nerve pain....also called radicular pain). Nerve pain causes burning pain and electric shock like pain in the extremities. Any swelling due to trauma/strain on the back will make this worse. You have disease in all 3 areas of the spine...the cervical, thoracic and lumbar spine. You are taking a medication called Gabapentin (also called Neurontin) which treats nerve pain. You need to avoid any further trauma to the spine or things will get a lot worse. I suspect you are going to have some more problems going forward due to DISH. You may want to see a before school babysitter. Excess weight really puts a burden on the back and it would be best if you could lose weight. There are medications now that can help with appetite control and weight loss. Your new PCP will be able to discuss these meds with you and help you with weight loss. Bending, lifting and twisting all can increase back pain when you have DISH. 4. You are prediabetic. You are not diabetic but, you are at risk for developing diabetes if you do not get your weight under control and start some type of regular exercise routine. Watch your carbohydrate intake. The dietitians at the hospital have a program called why weight and they can see you as an outpatient to help you with your diet and appropriate carbohydrate restriction. Carbohydrates increase blood sugar. 5. Your oxygen drops at night when you are sleeping and this can lead to many different problems......problems with the rhythm of the heart called AF which can lead to strokes, depression, poor sleep quality and chronic fatigue, falling asleep while driving, restless legs, memory loss, high blood pressure in the lungs, etc. After the sleep study you will follow up with the pulmonary dept to discuss the results. You will likely need CPAP and they will explain this to you. Until you can get treated for sleep apnea you are going to need to wear oxygen anytime you are sleeping and the social media specialist is arranging this for you. 6. I have given you a lot to think about. You are only 64 years old and hopefully will have a long life ahead of you. If you take care of some of these problems it will be a much healthier, less painful life. 7. We have made you an appt to follow up with Dr. Toscano from pain management. He can help manage the chronic back pain and the nerve pain. 8. If you or your family have any questions after you leave rehab please do not hesitate to call me. OFFICE: [phone] CELL: [phone] NURSES STATION ON REHAB: [phone] Discharge Orders/Prescriptions Prescriptions: New Arthritis Pain Compound 2 click topical TID Qty: 0 0RF hydrochlorothiazide 25 mg Tablet 25 mg PO DAILY Qty: 30 0RF tizanidine 2 mg tablet 2 mg PO TID PRN (Reason: muscle spasticity) Qty: 90 0RF Rx Instructions: take 1-2 tabs every 8 hours as needed for muscle spasms. This can make you sleepy. niacin 500 mg Tablet Extended Release 24 Hr 500 mg PO QHS Qty: 30 0RF metoprolol succinate 25 mg Tablet Extended Release 24 Hr 25 mg PO DAILY Qty: 30 0RF oxycodone 5 mg Tablet 5 - 10 mg PO Q4H PRN PRN (Reason: pain 3-10) 7 Days Qty: 40 0RF gabapentin 300 mg capsule 300 mg PO TID Qty: 90 0RF Continued acetaminophen 500 mg tablet 1,000 mg PO Q8 Discontinued cyclobenzaprine 5 mg tablet 5 mg PO TID gabapentin 100 mg capsule 200 mg PO QHS lidocaine [Lidoderm] 5 % adhesive patch,medicated 2 patch topical DAILY Rx Instructions: leave on most painful area for up to 12 hrs Referrals / Follow Up: Jyoti Richardson [Other] - 07/07/24 2:15 pm Andre Castro [Other] - 08/03/24 2:20 pm Claire Vera MD [Med Staff - Active Staff] - 08/04/24 10:00 am Sadi Toscano MD [Med Staff - Active Staff] - 07/13/24 3:00 pm Bola Brown MD [Med Staff - Active Staff] - 07/12/24 11:00 am Trey Marte, BINGO CASHIER-C [[facility]] - 07/08/24 2:15 pm Disposition Disposition (needs filled in before D/C Order can be placed): Home Health Service Charges/Coding Visit Charges Inpatient E&M: 81281 Disch Hosp >30min
[2024-07-06 17:20] VITALS: BP 138/60; PULSE 70; RESP 18; TEMP 36.8; O2SAT 94
[2024-07-06] MEDS: Niacin SA 500 MG Tablet PO (19:55)
[2024-07-06] MEDS: Gabapentin 100 MG Capsule 200 MG PO (19:56)
[2024-07-06] MEDS: oxyCODONE 5 MG Tablet PO (19:59)
--- NOTE | 2024-07-06 20:00 | NURSING ---
Discharged at this time to sleep lab for appointment. Verbalized understanding to discharge instruct provided.
== END 2024-07-06 20:00 | disposition home health service (06) | DRG 560 ==
PROVIDERS: Admitting Provider Internal Medicine; PCP Family Medicine; Referring Provider Internal Medicine; Visit Provider Internal Medicine
DX: S22.42XD Multiple fractures of ribs, left side, subsequent encounter for fracture with routine healing (principal); Z68.41 Body mass index [BMI] 40.0-44.9, adult; J90 Pleural effusion, not elsewhere classified; Q21.12 Patent foramen ovale; I10 Essential (primary) hypertension; K76.0 Fatty (change of) liver, not elsewhere classified; K57.90 Diverticulosis of intestine, part unspecified, without perforation or abscess without bleeding; I25.10 Atherosclerotic heart disease of native coronary artery without angina pectoris; G47.33 Obstructive sleep apnea (adult) (pediatric); K63.5 Polyp of colon; M51.17 Intervertebral disc disorders with radiculopathy, lumbosacral region; M51.16 Intervertebral disc disorders with radiculopathy, lumbar region; E66.01 Morbid (severe) obesity due to excess calories; M51.14 Intervertebral disc disorders with radiculopathy, thoracic region; M48.061 Spinal stenosis, lumbar region without neurogenic claudication; E78.1 Pure hyperglyceridemia; M50.10 Cervical disc disorder with radiculopathy, unspecified cervical region; M75.101 Unspecified rotator cuff tear or rupture of right shoulder, not specified as traumatic; M48.03 Spinal stenosis, cervicothoracic region; M85.80 Other specified disorders of bone density and structure, unspecified site; G89.29 Other chronic pain; Z98.1 Arthrodesis status; R73.03 Prediabetes; R09.02 Hypoxemia; S22.058D Other fracture of T5-T6 vertebra, subsequent encounter for fracture with routine healing; W55.89XD Other contact with other mammals, subsequent encounter; Z79.899 Other long term (current) drug therapy
CPT/HCPCS: 36415; 71046; 80048; 80053; 80061; 81374; 83036; 83735; 84100; 85025; 85027; 85652; 86038; 86140; 86200; 86225; 86235; 86431; 93306; 94668; 94762; 97110; 97116; 97162; 97166; 97530; 97535; 97802; 97803; A4216

== ENCOUNTER → 2024-07-06 | Outpatient (CLI) | payer MEDICARE, SELFPAY | END | disposition home or self-care (01) | LOC: SL 20:10 | PROVIDERS: PCP Family Medicine; Referring Provider Internal Medicine; Visit Provider Internal Medicine | DX: G47.33 Obstructive sleep apnea (adult) (pediatric) (principal) | CPT/HCPCS: 95811 ==

== ENCOUNTER → 2024-08-04 | Outpatient (CLI) | payer MEDICARE, SELFPAY ==
--- OUTSIDE RECORDS SUMMARY | 2024-08-04 21:55 | XMS RPT_ITS | CCD ---
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] 07/27/2021 Elevated hemoglobin A1c [R73.09] 07/28/2021 Basal cell carcinoma (BCC) of skin of face [C44*09/13/2021 Skin cancer screening [Z12.83] 07/31/2022 History of colonic polyps [Z86.0100] 08/01/2023 Screening for colon cancer [Z12.11] 08/01/2023 Closed fracture of multiple ribs of left side [*07/05/2024 Closed fracture of fifth thoracic vertebra (HCC*07/05/2024 Encounter Status:Closed by TAMIKA MICHAUD on 07/08/24 Normal [facility] Anion gap in Serum or Plasma Ordered By: Kelly Garcia on 05-06-2025 Anion gap [Moles/Vol] 12 mmol/L 5-15 [facility] BUN/creatinine ratioOrdered By: Kelly Garcia on 07-06-2024 Urea nitrogen/Creatinine [Mass ratio] 23.8 mg/mg High 10- [facility] Basic Metabolic Profile (BMP )on 07-06-2024 BUN/CRE 23.8 RATIO High 10- [facility] Comment on above: Performed By: #### L 100.0500, L500.2500 ####[facility] [address] [place], [address] Calcium [Mass/Vol] 9.8 mg/dL Normal 7.6-11.0 [facility] Comment on above: Performed By: #### L 100.0500, L500.2500 ####[facility] [address] [place], [address] Chloride [Moles/Vol] 99 mmol/L Normal 98-108 [facility] Comment on above: Performed By: #### L 100.0500, L500.2500 ####[facility] [address] [place], [address] CO2 [Moles/Vol] 26.3 mmol/L Normal 21.0-32.0 [facility] Comment on above: Performed By: #### L 100.0500, L500.2500 ####[facility] [address] [place], [address] Creatinine [Mass/Vol] 0.83 mg/dL Normal 0.70-1.20 [facility] Comment on above: Performed By: #### L 100.0500, L500.2500 ####[facility] [address] [place], [address] ECRCL 109.04 ml/min Normal 50-250 [facility] Comment on above: Performed By: #### L 100.0500, L500.2500 ####[facility] [address] [place], [address] GAP 12 Normal 5-15 [facility] Comment on above: Performed By: #### L 100.0500, L500.2500 ####[facility] [address] [place], [address] GFR/1.73 sq M.predicted among non-blacks MDRD (S/P/Bld) [Vol rate/Area] 97 mL/min/{1.73_m2} Normal >60 [facility] Comment on above: Result Comment: mL/m in/1.73m2 CKD-EPI Creatinine Equation (2020) Performed By: #### L 100.0500, L500.2500 ####[facility] [address] [place], [address] Glucose [Mass/Vol] 110 mg/dL High 70-99 [facility] Comment on above: Performed By: #### L 100.0500, L500.2500 ####[facility] [address] [place], [address] Potassium [Moles/Vol] 3.9 mmol/L Normal 3.3-5.1 [facility] Comment on above: Performed By: #### L 100.0500, L500.2500 ####[facility] [address] [place], [address] Sodium [Moles/Vol] 137 mmol/L Normal 133-145 [facility] Comment on above: Performed By: #### L 100.0500, L500.2500 ####[facility] [address] [place], [address] Urea nitrogen [Mass/Vol] 20 mg/dL High 4-19 [facility] Comment on above: Performed By: #### L 100.0500, L500.2500 ####[facility] [address] [place], [address] CBC-Complete Blood Cnt No Di ffon 07-06-2024 Erythrocyte distribution width (RBC) [Ratio] 12.8 % Normal 11.6-14.6 [facility] Comment on above: Performed By: #### L 100.0500, L500.2500 ####[facility] [address] [place], [address] Hematocrit (Bld) [Volume fraction] 40.6 % Normal 40-54 [facility] Comment on above: Performed By: #### L 100.0500, L500.2500 ####[facility] [address] [place], [address] Hemoglobin (Bld) [Mass/Vol] 13.8 g/dL Normal 13.0-16.5 [facility] Comment on above: Performed By: #### L 100.0500, L500.2500 ####[facility] [address] [place], [address] MCH (RBC) [Entitic mass] 29.5 pg Normal 27.0-32.0 [facility] Comment on above: Performed By: #### L 100.0500, L500.2500 ####[facility] [address] [place], [address] MCHC (RBC) [Mass/Vol] 34.0 g/dL Normal 32-36 [facility] Comment on above: Performed By: #### L 100.0500, L500.2500 ####[facility] [address] [place], [address] MCV (RBC) [Entitic vol] 86.8 fL Normal 80-94 [facility] Comment on above: Performed By: #### L 100.0500, L500.2500 ####[facility] [address] [place], [address] Platelet mean volume (Bld) [Entitic vol] 9.0 fL Normal 6.2-12.0 [facility] Comment on above: Performed By: #### L 100.0500, L500.2500 ####[facility] [address] [place], [address] Platelets (Bld) [#/Vol] 338 10*3/uL Normal 150-450 [facility] Comment on above: Performed By: #### L 100.0500, L500.2500 ####[facility] [address] [place], [address] RBC (Bld) [#/Vol] 4.68 10*6/uL Normal 4.6-6.2 [facility] Comment on above: Performed By: #### L 100.0500, L500.2500 ####[facility] [address] [place], [address] RDW SD 39.9 fl Normal 35.1-43.9 [facility] Comment on above: Performed By: #### L 100.0500, L500.2500 ####[facility] [address] [place], [address] WBC (Bld) [#/Vol] 8.9 10*3/uL Normal 4.4-11.0 [facility] Comment on above: Performed By: #### L 100.0500, L500.2500 ####[facility] [address] [place], [address] CNPChandrika 07-06-2024 [facility] DARCI HAMM ([id number]) 1960 M Date Time Provider Department 07/06/24 BRAYDEN CHAO [facility] During your visit today, we recorded the following information about you: Swetha Fernandez, JD 07/06/2024 12:56 PM Signed Gladys from [facility] calls and states that patient was discharged from [facility] on 07/06/2024 with the diagnosis of spinal surgery. Gladys asking if provider willing to follow patient with orders for care home, physical therapy, and occupational therapy. If agreeable please give Gladys a call back . Thank you, JD Gray Jeffrey A, MD 07/06/2024 1:10 PM Signed Yes I will follow. The F2F form needs signed by the provider who ordered HHC and felt the patient qualified for it. Angella Krishna RN 07/06/2024 1:29 PM Signed Phoned Gladys and given provider's message below with verbalized understanding. Gladys agreeable. Allergies As of Date: 07/06/2024 (No Known Allergies) Date Reviewed: 12/24/2023 Reviewed by: Chelsea Caballero RN - Fully Assessed Reason for Visit: Home Health Orders [Other] Prescriptions as of 07/06/2024 - benzonatate (TESSALON PERLES) 100 mg capsule Take 1 capsule by mouth three times a day as needed for cough. - fluconazole (DIFLUCAN) 200 mg tablet Take 400 mg by mouth one time a week. Per Derm: Dr. Akbar - Blood Pressure Kit-Extra Large kit Check BP as directed by physician. Dx: I10 - naproxen sodium (ANAPROX) 220 mg tablet Take 220 mg by mouth as needed. 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] 07/27/2021 Elevated hemoglobin A1c [R73.09] 07/28/2021 Basal cell carcinoma (BCC) of skin of face [C44*09/13/2021 Skin cancer screening [Z12.83] 07/31/2022 History of colonic polyps [Z86.0100] 08/01/2023 Screening for colon cancer [Z12.11] 08/01/2023 Closed fracture of multiple ribs of left side [*07/05/2024 Closed fracture of fifth thoracic vertebra (HCC*07/05/2024 Encounter Status:Closed by Angella KRISHNA on 07/06/24 [facility] Carbon dioxide, total [Moles /volume] in Central venous bloodOrdered By: Kelly Garcia on 07-06-2024 CO2 [Moles/Vol] 26.3 mmol/L 21.0-32.0 [facility] Chloride assayOrdered By: Kartik Garcia on 07-06-2024 Chloride [Moles/Vol] 99 mmol/L 98-108 [facility] Discharge Instructionon Discharge Instruction [facility] Medical Records Department [address] [place] [address] Instructions for Home/Discharge Instructions 07/06/24 1226 MR#: [id number] Acct: [id number] Name: DARCI HAMM Rep #: [id number] : 1960 64 From: Kelly Garcia DO PCP: Dr. Brayden Chao MD Status:ADM IN Discharge Instructions Diet Discharge Diet: Low fat / Low cholesterol, Carb Control Diet and - (low salt) DC O2, CPAP, BIPAP needs Home O2 Discharge instructions: Yes Type of respiratory needs?: Oxygen (2 LPM) Oxygen frequency: With Sleeping Oxygen liters per minute when sleepin LPM Dressing / Incision Discharge Activity: May Not Drive, May Shower and Use Walker (use a walker or a can when ambulating) Weight Bearing Status: Full weight bearing Lifting Restrictions: No more than 8 lbs until surgery releases you to lift more. Dressing / Incision Call your doctor if your incision/area has: Continuous Slow Oozing, Sudden Increased Bleeding, Increased Pain/ Swelling, Increased Redness, Foul Smelling Discharge and Swelling at the incision site Call your doctor if you observe: Fever of 101 or Higher, Shortness of breath, Dizziness, Fainting spells, Swelling in the ankles, Chest pain, Increased palpitations (irregular heartbeat), Calf discomfort and Uncontrolled pain Cleanse incision/area with: Soap Water Follow Up Care Please Follow Up With: Trey Marte, MECHANISM ASSEMBLERPaulineC When: appts are listed later on in this document. Test Results: Test results from this visit will be discussed in further detail at your follow-up appointment, if applicable. Pending Tests Upon Discharge: None Discharge Plan Admission Admit Date/Time: 06/24/24 14:37 Primary Reason for Your Visit: DEBILITY DUE TO MULTIPLE TRAUMATIC INJURIES Attending Provider: Kelly Garcia Primary Care Provider: Brayden Chao Instructions Patient Instructions: Patent Foramen [place], Understanding Oxygen Therapy, What Are Snoring and Sleep Apnea?, CPAP, CAD, Understanding Lumbar Radiculopathy, Caring for Your Incision, Cervical Radiculopathy Additional Instructions / Restrictions: 1. An appointment has been scheduled for you to follow-up with Dr. Bola Brown for suspected right rotator cuff tear. 2. You will follow up with Dr. Vera who is a manager workers compensation for the hole between the upper 2 chambers of your heart (called a PFO) and for aortic valve disease. You also have calcification of the arteries in your heart that were seen on the CT scan of the chest. This can be seen with coronary artery disease. It addition to the calcifications in the arteries you have been having shortness of breath with exertion and stair climbing and this can be associated with heart disease. I suspect he may want o have you do a stress test to make sure that you do not have significant coronary artery disease. 3. You have a lot of disease in the spine and there are dinesh bridges between the vertebrae that cause stiffness and chronic back pain. This is called DISH and I gave you a handout that describes what this is. You have degenerating discs and with the degenerating discs and the increased bone osteophytes (spurs) in the spine you have some neuroforaminal stenosis. This is narrowing of the openings where the nerves come out of the spine and then go into the arms and legs. This can lead to nerve pain....also called radicular pain). Nerve pain causes burning pain and electric shock like pain in the extremities. Any swelling due to trauma/strain on the back will make this worse. You have disease in all 3 areas of the spine...the cervical, thoracic and lumbar spine. You are taking a medication called Gabapentin (also called Neurontin) which treats nerve pain. You need to avoid any further trauma to the spine or things will get a lot worse. I suspect you are going to have some more problems going forward due to DISH. You may want to see a ent consultant. Excess weight really puts a burden on the back and it would be best if you could lose weight. There are medications now that can help with appetite control and weight loss. Your new PCP will be able to discuss these meds with you and help you with weight loss. Bending, lifting and twisting all can increase back pain when you have DISH. 4. You are prediabetic. You are not diabetic but, you are at risk for developing diabetes if you do not get your weight under control and start some type of regular exercise routine. Watch your carbohydrate intake. The dietitians at the hospital have a program called why weight and they can see you as an outpatient to help you with your diet and appropriate carbohydrate restriction. Carbohydrates increase blood sugar. 5. Your oxygen drops at night when you are sleeping and this can lead to many different problems......problems with the rhythm of the heart called AF which can lead to strokes, depression, poor sleep (more content not included)... Normal [facility] Erythrocyte distribution wid th (RBC) [Ratio]Ordered By: Kelly Garcia on 07-06-2024 Erythrocyte distribution width (RBC) [Entitic vol] 39.9 fL 35.1-43.9 [facility] Erythrocyte distribution wid th ratioOrdered By: Kelly Garcia on 07-06-2024 Erythrocyte distribution width (RBC) [Ratio] 12.8 % 11.6-14.6 [facility] Erythrocyte distribution wid th standard deviationOrdered By: Kelly Garcia on 07-06-2024 Erythrocyte distribution width (RBC) [Ratio] 39.9 fl 35.1-43.9 [facility] Estimation of creatinine jeffrey aranceOrdered By: Kelly Garcia on 07-06-2024 Estimated Creatinine Clearance Calc 109.04 ml/min 50-250 [facility] GFR/1.73 sq M.predicted rip g non-blacks MDRD (S/P/Bld) [Vol rate/Area]Ordered By: Kelly Garcia on 07-06-2024 Estimated GFR (MDRD) Non-Af Amer 97 >60 [facility] Comment on above: mL/min/1.73m2 CKD-EP I Creatinine Equation (2020) Glomerular filtration rate ( GFR) estimation/1.73 sq m using serum, plasma, or whole bOrdered By: Kelly Garcia on 07-06-2024 GFR/1.73 sq M.predicted among non-blacks MDRD (S/P/Bld) [Vol rate/Area] 97 mL/min/{1.73_m2} >60 [facility] Comment on above: mL/min/1.73m2 CKD-EP I Creatinine Equation (2020) Hematocrit Auto (Bld) [Volum e fraction]Ordered By: Kelly Garcia on 07-06-2024 Hematocrit (Bld) [Volume fraction] 40.6 % 40-54 [facility] Hemoglobin measurementOrdere d By: Kelly Garcia on 07-06-2024 Hemoglobin (Bld) [Mass/Vol] 13.8 g/dL 13.0-16.5 [facility] MCV (mean corpuscular volume ) determinationOrdered By: Kelly Garcia on 07-06-2024 MCV (RBC) [Entitic vol] 86.8 fL 80-94 [facility] Mean corpuscular hemoglobin (MCH) determinationOrdered By: Kelly Garcia on 07-06-2024 MCH (RBC) [Entitic mass] 29.5 pg 27.0-32.0 [facility] Mean corpuscular hemoglobin concentration (MCHC) determinationOrdered By: Kelly Garcia on 07-06-2024 MCHC (RBC) [Mass/Vol] 34.0 g/dL 32-36 [facility] Mean platelet volume determi nationOrdered By: Kelly Garcia on 07-06-2024 Platelet mean volume (Bld) [Entitic vol] 9.0 fL 6.2-12.0 [facility] Platelet countOrdered By: Kartik Garcia on 07-06-2024 Platelets (Bld) [#/Vol] 338 10*3/uL 150-450 [facility] Potassium (Unsp spec) [Mass/ Vol]Ordered By: Kelly Garcia on 07-06-2024 Potassium [Moles/Vol] 3.9 mmol/L 3.3-5.1 [facility] Potassium measurement (mass/ volume)Ordered By: Kelly Radha on 07-06-2024 Potassium (Unsp spec) [Mass/Vol] 3.9 mmol/L 3.3-5.1 [facility] RBC Auto (Bld) [#/Vol]Ordere d By: Kelly Radha on 07-06-2024 RBC (Bld) [#/Vol] 4.68 10*6/uL 4.6-6.2 [facility] Serum creatinine measurement (mass/volume)Ordered By: Kelly Radha on 07-06-2024 Creatinine [Mass/Vol] 0.83 mg/dL 0.70-1.20 [facility] Serum glucose measurement (m ass/volume)Ordered By: Kelly Garcia on 07-06-2024 Glucose [Mass/Vol] 110 mg/dL High 70-99 [facility] Serum or plasma calcium erik urement (mass/volume)Ordered By: Kelly Garcia on 07-06-2024 Calcium [Mass/Vol] 9.8 mg/dL 7.6-11.0 [facility] Serum or plasma urea nitroge n measurement (mass/volume)Ordered By: Kelly Radha on 07-06-2024 Urea nitrogen [Mass/Vol] 20 mg/dL High 4-19 [facility] Sodium levelOrdered By: Kelly Radha on 07-06-2024 Sodium [Moles/Vol] 137 mmol/L 133-145 [facility] White blood cell (WBC) count Ordered By: Kelly Radha on 07-06-2024 WBC (Bld) [#/Vol] 8.9 10*3/uL 4.4-11.0 [facility] CCP IgG Antibodieson 025 CCP IgG Ab. 9 units Normal 0-19 [facility] Comment on above: Result Comment: Nega tive <20 Weak positive 20 - 39 Moderate positive 40 - 59 Strong positive >59 Performed By: #### L 4600.0100 ####[facility] [address] [place], [address] HLA B27on 07-02-2024 HLA B27 Negative Normal . [facility] Comment on above: Result Comment: HLA- B*27 Negative B27 allele interpretation for all loci based on IMGT/HLA database version 3.58 This test was developed and its performance characteristics determined by [facility]. It has not been cleared or approved by the Food and Drug Administration. The FDA has determined that such clearance or approval is not necessary. [facility] CLIA ID Number [id number] This test was performed using Polymerase Chain Reaction (PCR) and Sequence Specific Oligonucleotide Probes (SSOP) technique. Sequence Based Typing (SBT) may be used as a supplemental method when necessary. If you have questions, please call HLA customer service at or email at [email or web address]. Performed at: [facility] [address] [id number] Director Of Strategic Initiatives: Polina Mcgregor PhD, Phone: [phone] Performed By: #### L 501.6710, L3100.5450, L101.9900, L505.7010, L3410.1400 ####[facility] [address] [place], [address] Calculated very low density lipoprotein (VLDL) cholesterol measurementOrdered By: Kelly Garcia on 06-29-2024 Calculated very low density lipoprotein (VLDL) cholesterol measurement 55 mg/dL High 5-40 [facility] VLDL Cholesterol 55 mg/dL High 5-40 [facility] Echocardiogram study reportO rdered By: Randall Moscoso on 06-29-2024 Study report [facility] [address] [place] [address] Echo Complete 06/29/24 1021 MR#: [id number] Acct: [id number] Name: DARCI HAMM Rep #:[id number] : 1960 64 From: Randall blakely MD Attending Dr: Dr. Kelly Garcia, Status: ADM IN Ordering Dr: Kelly Garcia DO Date: 06/28/24 Location: RU Sex: M C Admitted: 06/24/24 Reason For Study Reason For Study: Dyspnea/SOB Procedure This was a 2D Doppler, Color Flow transthoracic echocardiogram. Patient was scanned in supine position during reflux assessment. Exam performed portable in patient room. Left Ventricle Normal LV size. The estimated ejection fraction is 65 %. No evidence for diastolic dysfunction. No regional wall motion abnormalities noted. Right Ventricle Normal RV size. Normal systolic function. Atria Normal left atrium. Normal right atrium. Bubble study is positive for kifhz-fa-odck shunt with contrast reaching the left atrium in about 6 beats. Hypermobile atrial septum. Mitral Valve There is no mitral valve stenosis. Trivial mitral valve insufficiency. Tricuspid Valve There is no tricuspid stenosis. Trivial tricuspid valve insufficiency. Pulmonaryartery systolic pressure is 50 mmHg. Aortic Valve Moderate diffuse aortic valve thickening. Trisinus/trileaflet aortic valve. Mildaortic stenosis. No aortic valve insufficiency. Pulmonic Valve There is no pulmonic valvular stenosis. No pulmonic valve insufficiency. Great Vessels Normal sized aortic root. Pericardium/Pleural No pericardial effusion. Medication Performed a rapid injection of agitated mix of 9 cc saline and 1cc air to assessfor atrial septal defect. MMode/2D Measurements & Calculations LVIDd: 5.5 cm IVSd: 1.6 cm LVOT diam: 2.1 cm LVIDs: 2.8 cm LVPWd: 1.3 cm RVDd: 4.9 cm FS: 49.2 % LVOT area: 3.5 cm2 Ao root diam: 3.0 cm LAV(MOD-bp): 49.6 ml LVAd ap4: 24.5 cm2 LAV(MOD-bp) Indexed: 21.8 ml/m2 LVLd ap4: 7.2 cm LAV(MOD-sp2): 53.4 ml EDV(MOD-sp4): 68.9 ml LAV(MOD-sp4): 40.1 ml EDV(sp4-el): 70.7 ml LVAs ap4: 12.0 cm2 LVLs ap4: 6.0 cm ESV(MOD-sp4): 20.8 ml ESV(sp4-el): 20.2 ml EF(MOD-sp4): 69.8 % EF(sp4-el): 71.5 % SV(MOD-sp4): 48.1 ml SV(sp4-el): 50.6 ml LA A4 area: 16.5 cm2 SI(MOD-sp4): 21.1 ml/m2 LA dimension(2D): 3.4 cm RA A4 area: 15.3 cm2 TAPSE: 2.5 cm Time Measurements MV dec time: 0.24 sec Doppler Measurements & Calculations MV E max dimitri: 92.3 cm/sec Lat Peak E' Dimitri: 12.4 cm/sec Med Peak E' Dimitri: 12.3 cm/sec MV A max dimitri: 70.7 cm/sec E/E' lat: 7.5 E/E' med: 7.5 MV E/A: 1.3 MV dec slope: 388.9 cm/sec2 Ao V2 max: 283.1 cm/sec LV V1 max: 147.0 cm/sec Ao max P.1 mmHg LV V1 max P.7 mmHg Ao V2 mean: 194.7 cm/sec LV V1 mean P.4 mmHg Ao mean P.0 mmHg LV V1 mean: 112.3 cm/sec Ao V2 VTI: 58.3 cm LV V1 VTI: 31.3 cm AV (velocity ratio): 0.54 NUPUR(I,D): 1.9 cm2 NUPUR(V,D): 1.8 cm2 SV(LVOT): 110.1 ml PA V2 max: 98.1 cm/sec TR max dimitri: 334.5 cm/sec TR max P.8 mmHg ECHO/Echo Complete Interpretation Summary The estimated ejection fraction is 65 %. No evidence for diastolic dysfunction. Bubble study is positive for bwlkf-zn-hgxx shunt with contrast reaching the leftatrium in about 6 beats. Hypermobile atrial septum. Trivial mitral valve insufficiency. Mild aortic stenosis. Ordering Physician: Kelly Garcia Referring Physician: Brayden Chao Performed By: Alejandra Caballero, NELACS, RVT 06/29/24 1518 Date _ Randall Moscoso MD CC: Dr. Brayden Chao MD; Dr. Kelly Garcia, DO ~ Date Dictated: 06/29/24 1021 Date Transcribed: 06/29/24 1518 Car Storer: Signed [facility] Work Phone: Hemoglobin A1con 06-29-2024 HbA1c (Bld) [Mass fraction] 5.9 % High <=5.6 [facility] Comment on above: Result Comment: Norm al < 5.7 % Prediabetic 5.7 - 6.4 % Diabetic >or= 6.5 % Please note range changes. Performed By: #### L 501.9985, L500.4100 #### [facility] [address] [place], [place], [id number] Hemoglobin A1c percentageOrd ered By: Kelly Garcia on 06-29-2024 HbA1c (Bld) [Mass fraction] 5.9 % High <5.7 [facility] Comment on above: Normal < 5.7 % Predi abetic 5.7 - 6.4 % Diabetic >or= 6.5 % Please note range changes. LDL calc ser/plasOrdered By: Kelly Radha on 06-29-2024 Cholesterol in LDL [Mass/Vol] 78 mg/dL [facility] Comment on above: Yescxdppkw=008-784 m g/dL & Higher Skun=392 mg/dL or greater LDL Cholesterol, Calculated 78 mg/dL [facility] Comment on above: Bfsybfkohv=063-944 m g/dL & Higher Hgxy=100 mg/dL or greater Lipid Profileon 06-29-2024 CHOL:HDL 7.14 Normal [facility] Comment on above: Performed By: #### L 501.9985, L500.4100 #### [facility] [address] [place], [place], [id number] Cholesterol [Mass/Vol] 155 mg/dL Normal <=200 [facility] Comment on above: Result Comment: Chol esterol level, Desirable <200 mg/dL Borderline high cholesterol 200-239 mg/dL High cholesterol >=240 mg/dL Recommendations of the NCEP Adult Treatment Panel for the following risk-cutoff thresholds for the [place] population. Performed By: #### L 501.9985, L500.4100 #### [facility] [address] [place], [address] Cholesterol in HDL [Mass/Vol] 22 mg/dL Low [facility] Comment on above: Result Comment: Christina onal Cholesterol Education Program (NCEP) guidelines: <40 mg/dL: Low HDL-cholesterol (major risk factor for CHD) >= 60 mg/dL: High HDL-cholesterol (negative risk factor for CHD) HDL-cholesterol is affected by a number of factors, e.g. smoking, exercise, hormones, sex and age. Performed By: #### L 501.9985, L500.4100 #### [facility] [address] [place], [address] Cholesterol in LDL [Mass/Vol] 78 mg/dL Normal [facility] Comment on above: Result Comment: Bord hngbnu=662-677 mg/dL Higher Hpco=476 mg/dL or greater Performed By: #### L 501.9985, L500.4100 #### [facility] [address] [place], [address] Cholesterol in VLDL [Mass/Vol] 55 mg/dL High 5-40 [facility] Comment on above: Performed By: #### L 501.9985, L500.4100 #### [facility] [address] [place], [address] Triglyceride [Mass/Vol] 275 mg/dL High [facility] Comment on above: Result Comment: The drugs N-Acetylcysteine and Metamizole may falsely depress this assay. Normal range: <150 mg/dL Borderline High: 150-199 mg/dL High: 200-499 mg/dL Very High: >500 mg/dL Performed By: #### L 501.9985, L500.4100 #### [facility] [address] [place], [address] Screening total cholesterol/ high density lipoprotein (HDL) cholesterol ratioOrdered By: Kelly Garcia on 06-29-2024 Cholesterol.total/Chol esterol in HDL [Mass ratio] 7.14 {ratio} [facility] Serum or plasma cholesterol in HDL measurement (mass/volume)Ordered By: Kelly Garcai on 06-29-2024 Cholesterol in HDL [Mass/Vol] 22 mg/dL Low >40 [facility] Comment on above: National Cholesterol Education Program (NCEP) guidelines:<40 mg/dL: Low HDL-cholesterol (major risk factor for CHD)>= 60 mg/dL: High HDL-cholesterol (negative risk factor for CHD)HDL-cholesterol is affected by a number of factors, e.g. smoking, exercise, hormones, sex and age. Serum or plasma cholesterol measurement (mass/volume)Ordered By: Kelly Hongchiki on 06-29-2024 Cholesterol [Mass/Vol] 155 mg/dL <201 [facility] Comment on above: Cholesterol level, D esirable <200 mg/dLBorderline high cholesterol 200-239 mg/dLHigh cholesterol >=240 mg/dLRecommendations of the NCEP Adult Treatment Panel for the following risk-cutoff thresholds for the [place] population. Triglycerides measurementOrd ered By: Kelly Garcia on 06-29-2024 Triglyceride [Mass/Vol] 275 mg/dL High <199 [facility] Comment on above: The drugs N-Acetylcy steine and Metamizole may falsely depress this assay. Normal range: <150 mg/dLBorderline High: 150-199 mg/dLHigh: 200-499 mg/dLVery High: >500 mg/dL Cyclic citrullinated peptide IgG QnOrdered By: Kelly Garcia on 06-28-2024 Cyclic Citrullinated Peptide IgG Ab 9 units 0-19 [facility] Comment on above: Negative <20 Weak po sitive 20 - 39 Moderate positive 40 - 59 Strong positive >59 Echo Completeon 06-28-2024 Echo Complete [facility] [address] [place] [address] Echo Complete 06/29/24 1021 MR#: [id number] Acct: [id number] Name: DARCI HAMM Rep #: [id number] : 1960 64 From: Randall Moscoso MD Attending Dr: DO Nano Burroughs tus: ADM IN Ordering Dr: Kelly Garcia DO Date: 06/28/24 Location: Sex: M C Admitted: 06/24/24 Reason For Study Reason For Study: Dyspnea/SOB Procedure This was a 2D Doppler, Color Flow transthoracic echocardiogram. Patient was scanned in supine position during reflux assessment. Exam performed portable in patient room. Left Ventricle Normal LV size. The estimated ejection fraction is 65 %. No evidence for diastolic dysfunction. No regional wall motion abnormalities noted. Right Ventricle Normal RV size. Normal systolic function. Atria Normal left atrium. Normal right atrium. 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 Hypermobile atrial septum. Mitral Valve There is no mitral valve stenosis. Trivial mitral valve insufficiency. Tricuspid Valve There is no tricuspid stenosis. Trivial tricuspid valve insufficiency. Pulmonary artery systolic pressure is 50 mmHg. Aortic Valve Moderate diffuse aortic valve thickening. Trisinus/trileaflet aortic valve. Mild aortic stenosis. No aortic valve insufficiency. Pulmonic Valve There is no pulmonic valvular stenosis. No pulmonic valve insufficiency. Great Vessels Normal sized aortic root. Pericardium/Pleural No pericardial effusion. Medication Performed a rapid injection of agitated mix of 9 cc saline and 1cc air to assess for atrial septal defect. MMode/2D Measurements Calculations LVIDd: 5.5 cm IVSd: 1.6 cm LVOT diam: 2.1 cm LVIDs: 2.8 cm LVPWd: 1.3 cm RVDd: 4.9 cm FS: 49.2 % LVOT area: 3.5 cm2 Ao root diam: 3.0 cm LAV(MOD-bp): 49.6 ml LVAd ap4: 24.5 cm2 LAV(MOD-bp) Indexed: 21.8 ml/m2 LVLd ap4: 7.2 cm LAV(MOD-sp2): 53.4 ml EDV(MOD-sp4): 68.9 ml LAV(MOD-sp4): 40.1 ml EDV(sp4-el): 70.7 ml LVAs ap4: 12.0 cm2 LVLs ap4: 6.0 cm ESV(MOD-sp4): 20.8 ml ESV(sp4-el): 20.2 ml EF(MOD-sp4): 69.8 % EF(sp4-el): 71.5 % SV(MOD-sp4): 48.1 ml SV(sp4-el): 50.6 ml LA A4 area: 16.5 cm2 SI(MOD-sp4): 21.1 ml/m2 LA dimension(2D): 3.4 cm RA A4 area: 15.3 cm2 TAPSE: 2.5 cm Time Measurements MV dec time: 0.24 sec Doppler Measurements Calculations MV E max dimitri: 92.3 cm/sec Lat Peak E' Dimitri: 12.4 cm/sec Med Peak E' Dimitri: 12.3 cm/sec MV A max dimitri: 70.7 cm/sec E/E' lat: 7.5 E/E' med: 7.5 MV E/A: 1.3 MV dec slope: 388.9 cm/sec2 Ao V2 max: 283.1 cm/sec LV V1 max: 147.0 cm/sec Ao max P.1 mmHg LV V1 max P.7 mmHg Ao V2 mean: 194.7 cm/sec LV V1 mean P.4 mmHg Ao mean P.0 mmHg LV V1 mean: 112.3 cm/sec Ao V2 VTI: 58.3 cm LV V1 VTI: 31.3 cm AV (velocity ratio): 0.54 NUPUR(I,D): 1.9 cm2 NUPUR(V,D): 1.8 cm2 SV(LVOT): 110.1 ml PA V2 max: 98.1 cm/sec TR max dimitri: 334.5 cm/sec TR max P.8 mmHg ECHO/Echo Complete Interpretation Summary The estimated ejection fraction is 65 %. No evidence for diastolic dysfunction. Bubble study is positive for dcipe-sl-ndfl shunt with contrast reaching the left atrium in about 6 beats. Hypermobile atrial septum. Trivial mitral valve insufficiency. Mild aortic stenosis. Ordering Physician: Kelly Garcia Referring Physician: Brayden Chao Performed By: Alejandra Caballero, RDTRAN, RVT 06/29/24 1518 Date Randall Moscoso MD CC: Dr. Brayden Chao MD; Dr. Kelly Garcia, Date Dictated: 06/29/24 1021 Date Transcribed: 06/29/241517 Car Storer: Signed Normal [facility] Serum or plasma cyclic citru llinated peptide IgG antibody assay (units/volume)Ordered By: Kelly Garcia on 06-28-2024 Cyclic citrullinated peptide IgG Qn 9 units 0-19 [facility] Comment on above: Negative <20 Weak po sitive 20 - 39 Moderate positive 40 - 59 Strong positive >59 JOANN serumOrdered By: Kelly roe on 06-25-2024 Anti-Nuclear Antibody Screen Negative Negative [facility] Comment on above: Performed at: [place] [id number] Director: Jose M Allan PhD, Phone: [phone] Absolute lymphocyte countOrd ered By: Kelly Garcia on 06-25-2024 Lymphocytes Auto (Unsp spec) [#/Vol] 1.50 10*3/uL 0.83-4.51 [facility] Absolute neutrophil countOrd ered By: Kelly Garcia on 06-25-2024 Neutrophils (Bld) [#/Vol] 5.5 10*3/uL 2.0-7.7 [facility] Automated lymphocyte count a s percentage of total leukocytesOrdered By: Kelly Garcia on 06-25-2024 Lymphocytes/100 WBC Auto (Unsp spec) 18.5 % Low 19-41 [facility] Basophil percentageOrdered B y: Kelly Garcia on 06-25-2024 Basophils/100 WBC (Bld) 0.4 % 0-1 [facility] Bilirubin, totalOrdered By: Kelly Garcia on 06-25-2024 Bilirubin [Mass/Vol] 1.05 mg/dL 0.00-1.30 [facility] CBC W/Diff, Automatedon 06-02 Absolute Lymph 1.50 X10 3/uL Normal 0.83-4.51 [facility] Comment on above: Performed By: #### L 501.5200, L500.4050, L100.0100, L501.2300 #### [facility] [address] [place], [address] Absolute Neut 5.5 X10 3/uL Normal 2.0-7.7 [facility] Comment on above: Performed By: #### L 501.5200, L500.4050, L100.0100, L501.2300 #### [facility] [address] [place], [address] Basophils/100 WBC (Bld) 0.4 % Normal 0-1 [facility] Comment on above: Performed By: #### L 501.5200, L500.4050, L100.0100, L501.2300 #### [facility] [address] [place], [address] Eosinophils/100 WBC (Bld) 3.0 % Normal 0-5 [facility] Comment on above: Performed By: #### L 501.5200, L500.4050, L100.0100, L501.2300 #### [facility] [address] [place], [address] Erythrocyte distribution width (RBC) [Ratio] 13.2 % Normal 11.6-14.6 [facility] Comment on above: Performed By: #### L 501.5200, L500.4050, L100.0100, L501.2300 #### [facility] [address] [place], [address] Hematocrit (Bld) [Volume fraction] 42.3 % Normal 40-54 [facility] Comment on above: Performed By: #### L 501.5200, L500.4050, L100.0100, L501.2300 #### [facility] [address] [place], [address] Hemoglobin (Bld) [Mass/Vol] 13.8 g/dL Normal 13.0-16.5 [facility] Comment on above: Performed By: #### L 501.5200, L500.4050, L100.0100, L501.2300 #### [facility] [address] [place], [address] IG% 0.900 Normal 0.0-0.9 [facility] Comment on above: Result Comment: IG% - Immature Granulocytes (promyelocytes, myelocytes and metamyelocytes) > 1% indicates that a LEFT SHIFT is Present. Performed By: #### L 501.5200, L500.4050, L100.0100, L501.2300 #### [facility] [address] [place], [address] Lymphocytes/100 WBC (Bld) 18.5 % Low 19-41 [facility] Comment on above: Performed By: #### L 501.5200, L500.4050, L100.0100, L501.2300 #### [facility] [address] [place], [address] MCH (RBC) [Entitic mass] 29.7 pg Normal 27.0-32.0 [facility] Comment on above: Performed By: #### L 501.5200, L500.4050, L100.0100, L501.2300 #### [facility] [address] [place], [address] MCHC (RBC) [Mass/Vol] 32.6 g/dL Normal 32-36 [facility] Comment on above: Performed By: #### L 501.5200, L500.4050, L100.0100, L501.2300 #### [facility] [address] [place], [address] MCV (RBC) [Entitic vol] 91.0 fL Normal 80-94 [facility] Comment on above: Performed By: #### L 501.5200, L500.4050, L100.0100, L501.2300 #### [facility] [address] [place], [address] Monocytes/100 WBC (Bld) 9.6 % Normal 0-10 [facility] Comment on above: Performed By: #### L 501.5200, L500.4050, L100.0100, L501.2300 #### [facility] [address] [place], [address] Neutrophils/100 WBC (Bld) 67.6 % Normal 47-70 [facility] Comment on above: Performed By: #### L 501.5200, L500.4050, L100.0100, L501.2300 #### [facility] [address] [place], [address] Nucleated RBC (Bld) [#/Vol] 0 10*3/uL Normal 0-5 [facility] Comment on above: Performed By: #### L 501.5200, L500.4050, L100.0100, L501.2300 #### [facility] [address] [place], [address] Platelet mean volume (Bld) [Entitic vol] 9.4 fL Normal 6.2-12.0 [facility] Comment on above: Performed By: #### L 501.5200, L500.4050, L100.0100, L501.2300 #### [facility] [address] [place], [address] Platelets (Bld) [#/Vol] 278 10*3/uL Normal 150-450 [facility] Comment on above: Performed By: #### L 501.5200, L500.4050, L100.0100, L501.2300 #### [facility] [address] [place], [address] RBC (Bld) [#/Vol] 4.65 10*6/uL Normal 4.6-6.2 [facility] Comment on above: Performed By: #### L 501.5200, L500.4050, L100.0100, L501.2300 #### [facility] [address] [place], [address] RDW SD 44.4 fl High 35.1-43.9 [facility] Comment on above: Performed By: #### L 501.5200, L500.4050, L100.0100, L501.2300 #### [facility] [address] [place], [address] WBC (Bld) [#/Vol] 8.1 10*3/uL Normal 4.4-11.0 [facility] Comment on above: Performed By: #### L 501.5200, L500.4050, L100.0100, L501.2300 #### [facility] [address] [place], [address] CRPon 06-25-2024 C-REACTIVE PROT 68.90 mg/L High 0.0-3.0 [facility] Comment on above: Performed By: #### L 501.6710, L3100.5450, L101.9900, L505.7010, L3410.1400 ####[facility] [address] [place], [address] CRP [Mass/Vol]Ordered By: Kartik Garcia on 06-25-2024 C-Reactive Protein Extended Range 68.90 mg/L High 0.0-3.0 [facility] Chest PA and Lateralon 06-25 Chest PA and Lateral [facility] [address] [place], [place] [address] Chest PA and Lateral MR#: [id number] Acct: [id number] Name: DARCI HAMM Rep #: [id number] : 1960 M 64 From: Alvin Plasencia MD PCP: Dr. Brayden Chao MD Status: ADM IN Study: Chest PA and Lateral Date of Exam: 06/25/24 Exam# [id number] Ordering Dr: Kelly Garcia DO PROCEDURE: CHEST PA AND LATERAL 06/25/2024 REASON FOR EXAM: COUGH TECHNIQUE: Frontal and lateral views of the chest. COMPARISON: No relevant prior. FINDINGS: Lungs: Lungs clear of pneumonia and congestion. Pleura: Pleural fluid blunts the lateral and posterior costophrenic angles, left Heart: Normal in size and configuration. Mediastinum/Whit: Unremarkable. Great vessels: Unremarkable. Bones/soft tissues: Postoperative findings related to dorsal fusion with instrumentation, upper thoracic. Multilevel spondylosis. RAD/Chest PA and Lateral IMPRESSION: Left pleural effusion. Postoperative findings related to upper thoracic dorsal fusion. Multilevel spondylosis. Reading Location: [id number] CC: Dr. Brayden Chao MD; Dr. Kelly Garcia DO Car Storer: Signed Normal [facility] Comprehensive Metabolic Prof ilon 06-25-2024 Albumin [Mass/Vol] 4.0 g/dL Normal 3.4-4.8 [facility] Comment on above: Performed By: #### L 501.5200, L500.4050, L100.0100, L501.2300 #### [facility] [address] [place], [place], [id number] Albumin/Globulin [Mass ratio] 1.4 {ratio} Normal 0.9-2.4 [facility] Comment on above: Performed By: #### L 501.5200, L500.4050, L100.0100, L501.2300 #### [facility] [address] [place], [address] ALK PHOS 50 U/L Normal 40-129 [facility] Comment on above: Performed By: #### L 501.5200, L500.4050, L100.0100, L501.2300 #### [facility] [address] [place], [address] ALT [Catalytic activity/Vol] 43 U/L Normal <=46 [facility] Comment on above: Performed By: #### L 501.5200, L500.4050, L100.0100, L501.2300 #### [facility] [address] [place], [address] AST [Catalytic activity/Vol] 45 U/L High <=37 [facility] Comment on above: Performed By: #### L 501.5200, L500.4050, L100.0100, L501.2300 #### [facility] [address] [place], [address] Bilirubin [Mass/Vol] 1.05 mg/dL Normal 0.00-1.30 [facility] Comment on above: Performed By: #### L 501.5200, L500.4050, L100.0100, L501.2300 #### [facility] [address] [place], [address] BUN/CRE 15.9 RATIO Normal 10-20 [facility] Comment on above: Performed By: #### L 501.5200, L500.4050, L100.0100, L501.2300 #### [facility] [address] [place], [address] Calcium [Mass/Vol] 9.3 mg/dL Normal 7.6-11.0 [facility] Comment on above: Performed By: #### L 501.5200, L500.4050, L100.0100, L501.2300 #### [facility] [address] [place], [address] Chloride [Moles/Vol] 99 mmol/L Normal 98-108 [facility] Comment on above: Performed By: #### L 501.5200, L500.4050, L100.0100, L501.2300 #### [facility] [address] [place], [address] CO2 [Moles/Vol] 26.4 mmol/L Normal 21.0-32.0 [facility] Comment on above: Performed By: #### L 501.5200, L500.4050, L100.0100, L501.2300 #### [facility] [address] [place], [address] Creatinine [Mass/Vol] 0.76 mg/dL Normal 0.70-1.20 [facility] Comment on above: Performed By: #### L 501.5200, L500.4050, L100.0100, L501.2300 #### [facility] [address] [place], [address] ECRCL 113.91 ml/min Normal 50-250 [facility] Comment on above: Performed By: #### L 501.5200, L500.4050, L100.0100, L501.2300 #### [facility] [address] [place], [address] GAP 11 Normal 5-15 [facility] Comment on above: Performed By: #### L 501.5200, L500.4050, L100.0100, L501.2300 #### [facility] [address] [place], [address] GFR/1.73 sq M.predicted among non-blacks MDRD (S/P/Bld) [Vol rate/Area] 100 mL/min/{1.73_m2} Normal >60 [facility] Comment on above: Result Comment: mL/m in/1.73m2 CKD-EPI Creatinine Equation (2020) Performed By: #### L 501.5200, L500.4050, L100.0100, L501.2300 #### [facility] [address] [place], [address] Globulin (S) [Mass/Vol] 2.9 g/dL Normal 2.2-4.2 [facility] Comment on above: Performed By: #### L 501.5200, L500.4050, L100.0100, L501.2300 #### [facility] [address] [place], [address] Glucose [Mass/Vol] 108 mg/dL High 70-99 [facility] Comment on above: Performed By: #### L 501.5200, L500.4050, L100.0100, L501.2300 #### [facility] [address] [place], [address] Potassium [Moles/Vol] 4.2 mmol/L Normal 3.3-5.1 [facility] Comment on above: Result Comment: Hemo lysis present, Results??could be affected. ?? Performed By: #### L 501.5200, L500.4050, L100.0100, L501.2300 #### [facility] [address] [place], [address] Sodium [Moles/Vol] 136 mmol/L Normal 133-145 [facility] Comment on above: Performed By: #### L 501.5200, L500.4050, L100.0100, L501.2300 #### [facility] [address] [place], [address] T PROT 6.9 g/dL Normal 5.9-8.4 [facility] Comment on above: Performed By: #### L 501.5200, L500.4050, L100.0100, L501.2300 #### [facility] [address] [place], [address] Urea nitrogen [Mass/Vol] 12 mg/dL Normal 4-19 [facility] Comment on above: Performed By: #### L 501.5200, L500.4050, L100.0100, L501.2300 #### [facility] [address] [place], [address] Eosinophil percentageOrdered By: Kelly Garcia on 06-25-2024 Eosinophils/100 WBC (Bld) 3.0 % 0-5 [facility] Erythrocyte Sed Rateon 06-25 SED RATE 33 mm/hr High 0-20 [facility] Comment on above: Performed By: #### L 501.6710, L3100.5450, L101.9900, L505.7010, L3410.1400 ####[facility] [address] [place], [address] Erythrocyte sedimentation ra teOrdered By: Kelly Garcia on 06-25-2024 ESR (Bld) [Velocity] 33 mm/h High 0-20 [facility] Human leukocyte antigen (HLA ) B27 typingOrdered By: Kelly Garcia on 06-25-2024 HLA-B27 Negative . [facility] Comment on above: HLA-B*27 LwxfkhzpD38 allele interpretation for all loci based on IMGT/HLAdatabase version 3.58This test was developed and its performance characteristicsdetermined by [employer]. It has not been cleared or approvedby the Food and Drug Administration.The FDA has determined that such clearance or approval isnot necessary.[facility] CLIA ID Number [id number] test was performed using Polymerase Chain Reaction(PCR) and Sequence Specific Oligonucleotide Probes (SSOP)technique. Sequence Based Typing (SBT) may be used as asupplemental method when necessary.If you have questions, please call [facility] customer service or email at [email or web address].Performed at: [address] [place] [id number] Director: Polina Mcgregor PhD, Phone: [phone] Immature granulocytes/100 WB C Auto (Bld)Ordered By: Kelly Garcia on 06-25-2024 Immature granulocytes/100 WBC (Bld) 0.900 % 0.0-0.9 [facility] Comment on above: IG% - Immature Granu locytes (promyelocytes, myelocytes and metamyelocytes) > 1% indicates that a LEFT SHIFT is Present. Laboratory - Chemistry and C hemistry - challengeOrdered By: Kelly Hongchiki on 06-25-2024 AST [Catalytic activity/Vol] 45 U/L High <38 [facility] Lymphocytes Auto (Unsp spec) [#/Vol]Ordered By: Kelly Hongchiki on 06-25-2024 Lymphocytes (Bld) [#/Vol] 1.50 10*3/uL 0.83-4.51 [facility] Lymphocytes/100 WBC Auto (Un sp spec)Ordered By: Kelly Hongchiki on 06-25-2024 Lymphocytes/100 WBC (Bld) 18.5 % Low 19-41 [facility] Magnesiumon 06-25-2024 Magnesium [Mass/Vol] 2.4 mg/dL High 1.5-2.2 [facility] Comment on above: Performed By: #### L 501.5200, L500.4050, L100.0100, L501.2300 #### [facility] [address] [place] [address], [address] Magnesium (Unsp spec) [Mass/ Vol]Ordered By: Kelly Hongchiki on 06-25-2024 Magnesium [Mass/Vol] 2.4 mg/dL High 1.5-2.2 [facility] Magnesium measurement (mass/ volume)Ordered By: Kelly Hongchiki on 06-25-2024 Magnesium (Unsp spec) [Mass/Vol] 2.4 mg/dL High 1.5-2.2 [facility] Monocyte percentageOrdered B y: Kelly Hongchiki on 06-25-2024 Monocytes/100 WBC (Bld) 9.6 % 0-10 [facility] Neutrophil percentageOrdered By: Kelly Hongchiki on 06-25-2024 Neutrophils/100 WBC (Bld) 67.6 % 47-70 [facility] Nucleated red blood cell per centageOrdered By: Kelly Hongchiki on 06-25-2024 Nucleated RBC/100 WBC (Bld) [Ratio] 0 % 0-5 [facility] Phosphoruson 06-25-2024 Phosphate [Mass/Vol] 3.4 mg/dL Normal 2.7-4.5 [facility] Comment on above: Performed By: #### L 501.5200, L500.4050, L100.0100, L501.2300 #### [facility] [address] [place], [place], [address] Rheumatoid Factoron 06-26-19 RHEUMATOID FAC 30.7 IU/mL High <15 [facility] Comment on above: Performed By: #### L 501.6710, L3100.5450, L101.9900, L505.7010, L3410.1400 ####[facility] [address] [place], [place], [id number] Rheumatoid factor Ql (S)Orde red By: Kelly Radha on 06-25-2024 Rheumatoid Factor 30.7 IU/mL High <15 [facility] SCL-70 extractable nuclear A b Qn (S)Ordered By: Kelly Garcia on 06-25-2024 Scl-70 (Scleroderma) Antibody [facility] Comment on above: Test not performed Serum DNA double strand anti body assay (units/volume)Ordered By: Kelyl Garcia on 06-25-2024 DNA double strand Ab Qn (S) [facility] Comment on above: Test not performed Serum Scl-70 antibody assay (units/volume)Ordered By: Kelly Garcia on 06-25-2024 SCL-70 extractable nuclear Ab Qn (S) [facility] Comment on above: Test not performed Serum globulin measurementOr dered By: Kelly Garcia on 06-25-2024 Globulin (S) [Mass/Vol] 2.9 g/dL 2.2-4.2 [facility] Serum or plasma C reactive p rotein measurement (mass/volume)Ordered By: Kelly Garcia on 06-25-2024 CRP [Mass/Vol] 68.90 mg/L High 0.0-3.0 [facility] Serum or plasma alanine sneed otransferase (ALT) measurementOrdered By: Kelly Hongchiki on 06-25-2024 ALT [Catalytic activity/Vol] 43 U/L <47 [facility] Serum or plasma albumin erik urement (mass/volume)Ordered By: Kelly Radha on 06-25-2024 Albumin [Mass/Vol] 4.0 g/dL 3.4-4.8 [facility] Serum or plasma albumin/glob ulin mass ratioOrdered By: Kelly Radha on 06-25-2024 Albumin/Globulin [Mass ratio] 1.4 {ratio} 0.9-2.4 [facility] Serum or plasma alkaline chayo sphatase measurementOrdered By: Kelly Radha on 06-25-2024 ALP [Catalytic activity/Vol] 50 U/L 40-129 [facility] Serum phosphorus measurement Ordered By: Kelly Radha on 06-25-2024 Phosphorus Level 3.4 mg/dL 2.7-4.5 [facility] Serum rheumatoid factor dete ctionOrdered By: Kelly Radha on 06-25-2024 Rheumatoid factor Ql (S) 30.7 IU/mL High <15 [facility] Total proteinOrdered By: Heide desouza Radha on 06-25-2024 Protein [Mass/Vol] 6.9 g/dL 5.9-8.4 [facility] EXTRA MINT GREEN TOPon 06-24 [facility] PLATELET COUNTon 06-24-2024 Interpretation and review of laboratory results Normal [facility] Platelet mean volume (Bld) [Entitic vol] 9.5 fL 8.7 - 12.3 fL [facility] Platelets (Bld) [#/Vol] 235 10*3/uL 146 - 337 K/uL [facility] Platelet mean volume (Bld) [Entitic vol] 9.5 fL Normal 8.7-12.3 [facility] Comment on above: Performed By: #### P LAT #### [facility] (DEFAULT) [address] [place] [address] Platelets (Bld) [#/Vol] 235 10*3/uL Normal 146-337 [facility] Comment on above: Performed By: #### P [facility] #### [facility] (DEFAULT) [address] [place] [address] CBC,PLATELETSon 06-23-2024 Erythrocyte distribution width (RBC) [Ratio] 13.2 % 10.9 - 14.3 % [facility] Hematocrit (Bld) [Volume fraction] 41.7 % 39.6 - 48.8 % [facility] Hemoglobin (Bld) [Mass/Vol] 13.3 g/dL Low 13.4 - 16.8 g/dL [facility] Interpretation and review of laboratory results Abnormal [facility] MCH (RBC) [Entitic mass] 30 pg 26.1 - 33.3 pg [facility] MCHC (RBC) [Mass/Vol] 31.9 g/dL 31.9 - 36.5 g/dL [facility] MCV (RBC) [Entitic vol] 94.1 fL 79.0 - 94.5 fL [facility] Platelet mean volume (Bld) [Entitic vol] 9.9 fL 8.7 - 12.3 fL [facility] Platelets (Bld) [#/Vol] 190 10*3/uL 146 - 337 K/uL [facility] RBC (Bld) [#/Vol] 4.43 10*6/uL [facility] WBC (Bld) [#/Vol] 9.2 10*3/uL 3.73 - 10.10 K/uL [facility] Hematocrit (Bld) [Volume fraction] 41.7 % Normal 39.6-48.8 [facility] Comment on above: Performed By: #### H [facility] #### [facility] (DEFAULT) [address] [place] [address] Hemoglobin (Bld) [Mass/Vol] 13.3 g/dL Low 13.4-16.8 [facility] Comment on above: Performed By: #### H [facility] #### [facility] (DEFAULT) [address] [place] [address] MCV (RBC) [Entitic vol] 94.1 fL Normal 79.0-94.5 [facility] Comment on above: Performed By: #### H EMOGC #### [facility] (DEFAULT) [address] [place] [address] Mean Cell Hgb 30.0 pg Normal 26.1-33.3 [facility] Comment on above: Performed By: #### H EMOGC #### [facility] (DEFAULT) [address] [address] Mean Cell Hgb Conc 31.9 g/dL Normal 31.9-36.5 [facility] Comment on above: Performed By: #### H EMOGC #### [facility] (DEFAULT) [address] [place] [address] Platelet mean volume (Bld) [Entitic vol] 9.9 fL Normal 8.7-12.3 [facility] Comment on above: Performed By: #### H EMO #### [facility] (DEFAULT) [address] [address] Platelets (Bld) [#/Vol] 190 10*3/uL Normal 146-337 [facility] Comment on above: Performed By: #### H EMOGC #### [facility] (DEFAULT) [address] [address] RBC (Bld) [#/Vol] 4.43 10*6/uL Normal 4.38-5.83 [facility] Comment on above: Performed By: #### H EMOGC #### [facility] (DEFAULT) [address] [address] RBC Distribution 13.2 % Normal 10.9-14.3 [facility] Comment on above: Performed By: #### H EMOGC #### [facility] (DEFAULT) [address] [address] WBC (Bld) [#/Vol] 9.20 10*3/uL Normal 3.73-10.10 [facility] Comment on above: Performed By: #### H [facility] #### [facility] (DEFAULT) [address] [place] [address] CHEM 7 (LYTES,BUN,CREA,GLUC) on 06-23-2024 Anion gap [Moles/Vol] 14 mmol/L 7 - 17 mmol/L [facility] Chloride [Moles/Vol] 100 mmol/L 98 - 10 8 [facility] CO2 [Moles/Vol] 27 mmol/L 21 - 31 mmol/L [facility] Creatinine [Mass/Vol] 0.64 mg/dL Low 0.70 - 1.30 mg/dL [facility] eGFR, CKD-EPI, Male - PINF [facility] Comment on above: Reported eGFR is bas ed on the CKD-EPI 2020 equation using creatinine, age, and sex. Glucose [Mass/Vol] 133 mg/dL 70 - 179 mg/dL [facility] Interpretation and review of laboratory results Abnormal [facility] Osmolality Calc [Osmolality] 289 [facility] Potassium [Moles/Vol] 4.4 mmol/L 3.5 - 5.0 mmol/L [facility] Sodium [Moles/Vol] 137 mmol/L 135 - 145 mmol/L [facility] Urea nitrogen [Mass/Vol] 9 mg/dL 7 - 25 mg/dL [facility] Urea nitrogen/Creatinine [Mass ratio] 14 mg/mg [facility] Anion gap [Moles/Vol] 14 mmol/L Normal 7-17 [facility] Comment on above: Performed By: #### M JENNI ABARCA, IPB #### [facility] (DEFAULT) [address] [place] [address] Chloride [Moles/Vol] 100 mmol/L Normal 98-108 [facility] Comment on above: Performed By: #### JENNI GARNER, IPB #### [facility] (DEFAULT) [address] [place] [address] CO2 [Moles/Vol] 27 mmol/L Normal 21-31 [facility] Comment on above: Performed By: #### JENNI GARNER, IPB #### [facility] (DEFAULT) [address] [place] [address] Creatinine [Mass/Vol] 0.64 mg/dL Low 0.70-1.30 [facility] Comment on above: Performed By: #### JENNI GARNER, IPB #### [facility] (DEFAULT) [address] [place] [address] eGFR, CKD-EPI, Male > Normal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 High 1.8-7.7 [facility] Comment on above: Performed By: #### . Automated Diff #### [address] [address] Neutro Auto 77.9 % High 47.2-70.8 [facility] Comment on above: Performed By: #### . Automated Diff #### [address] [address] MRSA, PCRon 06-20-2024 LAB ONLY Result Called? No Normal [facility] Comment on above: Performed By: #### M RSAPC #### [address] [address] Methicillin Resistant Staph aurus(MRSA) Not detected Normal Not Detected [facility] Comment on above: Result Comment: Mut ations or polymorphisms in primer or probe binding regions may affect detection of new or unknown MRSA variants resulting in a false negative. The [employer] Xpert MRSA Assay is a qualitative in vitro diagnostic test designed for rapid detection of Methicillin-Resistant Staphylococcus aureus (MRSA) from nasal swabs in patients at risk for nasal colonization.The test utilizes automated real-time polymerase chain reaction (PCR) to detect MRSA DNA,because the detection of MRSA is dependent on the number of organisms present. A positive test result does not necessarily indicate the presence of viable organism. It is however,presumptive for the presence of MRSA.Test results might be affected by concurrent antibiotic therapy. Therefore, therapeutic success or failure cannot be assessed using this test because DNA might persist following antimicrobial therapy. Mutations or polymorphisms in primer or probe binding regions may affect detection of new or unknown MRSA variants resulting in a false negative result. Results from the Xpert MRSA Assay should be interpreted in conjunction with other laboratory and clinical data available to the clinician. Performed By: #### M RSAPC #### [address] [address] Magnesiumon 06-20-2024 Magnesium [Mass/Vol] 2.1 mg/dL Normal 1.7-2.4 [facility] Comment on above: Performed By: #### E GFR #### [facility] [address] [place] [address] Phosphoruson 06-20-2024 Phosphate [Mass/Vol] 4.8 mg/dL High 2.5-4.6 [facility] Comment on above: Performed By: #### P HOS #### [facility] [address] [place] [address] Surgical Progress Noteon Surgical Progress Note pain controlled w ith rib block and flexeril/dilaudid saturating well denies weakness sleepy this am abd soft nontender, abrasion left upper abdomen posterior scalp ecchymosis without cephalohematoma warm well perfused distal extremities Trampled by steer DVT prophylaxis Added Narcan Concussion reorientation Limit narcotics No plan for interval CT given no blood thinners multiple left-sided rib fractures without pneumothorax, flail chest, hemothorax Multimodal pain control limit narcotics dilaudid oxycodone ofirmev Rib block completed Flexeril T4-T5 osteophyte fracture in the setting of DISH Discussed with our neurosurgery team who is on-call tomorrow given the anatomy of this could be unstable patient's comorbidities not a candidate for neurosurgical intervention at our hospital recommend transfer, discussed with family they would like transfer to [facility] we will work on this today. Hold on MRI given plans for transfer bedrest Electronically signed by Kymberly Bills MD 06/20/24 09:12 EDT Normal [facility] .eGFRon 06-19-2024 GFR/1.73 sq M.predicted MDRD (S/P/Bld) [Vol rate/Area] mL/min/{1.73_m2} Normal >=60 [facility] Comment on above: Result Comment: [facility] have implemented the eGFR calculation approach that does not have a coefficient for race and that conforms to the NKF-ASN Task Force Recommendations. Stages of Chronic Kidney Disease GFR Stage 3a Mild to moderate loss of kidney function 59 to 45 Stage 3b Moderate to severe loss of kidney function 44 to 33 Stage 4 Severe loss of kidney function 29 to 15 Stage 5 Kidney failure Less than 15 GFR calculated using the CKD-Epi Creatinine Equation (2020): eGFR = 142 X min(SCr/?, 1)? X max(SCr /?, 1)-1.200 X 0.9938Age X 1.012 [if female] Abbreviations/Units: eGFR (estimated glomerular filtration rate) = mL/min/1.73 m2 SCr (standardized serum creatinine) = mg/dL ? = 0.7 (females) or 0.9 (males) ? = -0.241 (females) or -0.302 (males) min = indicates the minimum of SCr/? or 1 max = indicates the maximum of SCr/? or 1 Age = years Performed By: #### E GFR #### [place] [address] CBC w/ Diffon 06-19-2024 Erythrocyte distribution width (RBC) [Ratio] 14.0 % Normal 11.6-14.8 [facility] Comment on above: Performed By: #### C BC #### [place] [id number] Hematocrit (Bld) [Volume fraction] 45.2 % Normal 41.0-53.0 [facility] Comment on above: Performed By: #### C BC #### [place] [id number] Hemoglobin (Bld) [Mass/Vol] 15.5 g/dL Normal 13.5-17.5 [facility] Comment on above: Performed By: #### C BC #### [place] [id number] MCH (RBC) [Entitic mass] 30.5 pg Normal 27.0-35.0 [facility] Comment on above: Performed By: #### C BC #### [place] [id number] MCHC 34.3 % Normal 31.0-37.0 [facility] Comment on above: Performed By: #### C BC #### [address] [address] MCV (RBC) [Entitic vol] 88.8 fL Normal 80.0-100.0 [facility] Comment on above: Performed By: #### C BC #### [address] [address] Platelet 233 x10*3/mcL Normal 150-450 [facility] Comment on above: Performed By: #### C BC #### [address] [address] Platelet mean volume (Bld) [Entitic vol] 8.4 fL Normal 6.7-10.6 [facility] Comment on above: Performed By: #### C BC #### [address] [address] RBC 5.09 x10*6/mcL Normal 4.30-5.80 [facility] Comment on above: Performed By: #### C BC #### [address] [address] WBC 7.2 x10*3/mcL Normal 4.5-11.0 [facility] Comment on above: Performed By: #### C BC #### [address] [address] CMPon 06-19-2024 Albumin [Mass/Vol] 4.1 g/dL Normal 3.2-4.9 [facility] Comment on above: Performed By: #### C OMP #### [address] [address] Albumin/Globulin [Mass ratio] 1.2 {ratio} Normal 1.1-2.2 [facility] Comment on above: Performed By: #### C OMP #### [address] [address] Alk Phos 43 IU/L Normal 32-91 [facility] Comment on above: Performed By: #### C OMP #### [address] [address] ALT [Catalytic activity/Vol] 39 U/L Normal 17-63 [facility] Comment on above: Performed By: #### C OMP #### [address] [address] Anion gap [Moles/Vol] 10 mmol/L Normal 4-12 [facility] Comment on above: Performed By: #### C OMP #### [address] [address] AST [Catalytic activity/Vol] 29 U/L Normal 15-41 [facility] Comment on above: Performed By: #### C OMP #### [address] [address] Bili Total 1.0 mg/dL Normal 0.3-1.2 [facility] Comment on above: Performed By: #### C OMP #### [address] [address] Calcium [Mass/Vol] 9.4 mg/dL Normal 8.5-10.3 [facility] Comment on above: Performed By: #### C OMP #### [address] [address] Chloride [Moles/Vol] 99 mmol/L Normal 98-110 [facility] Comment on above: Performed By: #### C OMP #### [address] [place] [address] CO2 [Moles/Vol] 28 mmol/L Normal 22-32 [facility] Comment on above: Performed By: #### C OMP #### [address] [place] [address] Creatinine [Mass/Vol] 0.92 mg/dL Normal 0.61-1.24 [facility] Comment on above: Performed By: #### C OMP #### [address] [place] [address] Glucose [Mass/Vol] 147 mg/dL High 70-99 [facility] Comment on above: Performed By: #### C OMP #### [address] [place] [address] Potassium [Moles/Vol] 3.9 mmol/L Normal 3.4-4.8 [facility] Comment on above: Performed By: #### C OMP #### [address] [address] Protein [Mass/Vol] 7.5 g/dL Normal 6.5-8.1 [facility] Comment on above: Performed By: #### C OMP #### [address] [address] Sodium [Moles/Vol] 137 mmol/L Normal 133-142 [facility] Comment on above: Performed By: #### C OMP #### [address] [address] Urea nitrogen [Mass/Vol] 17 mg/dL Normal 8-26 [facility] Comment on above: Performed By: #### C OMP #### [address] [address] Urea nitrogen/Creatinine [Mass ratio] 18.5 mg/mg Normal 10.0-20.0 [facility] Comment on above: Performed By: #### C OMP #### [address] [address] [address] Brain w/o Contraston 06-01 CT Brain w/o Contrast EXAMINATION: CT Ch est Abd Pelvis w/ IV + TS/LS Recon, CT Brain w/o Contrast HISTORY: Injury. COMPARISON: None. TECHNIQUE: CT brain without IV contrast. Coronal and sagittal reformations were performed. Images of the chest, abdomen, and pelvis obtained with IV contrast. Dose reduction techniques were achieved by using automated exposure control and/or adjustment of mA and/or kV according to patient size and/or use of iterative reconstruction technique. FINDINGS: The visualized paranasal sinuses and mastoid air cells are clear. Orbital contents are normal. No evidence of intracranial hemorrhage, mass effect, or midline shift. Ventricles and cisternal spaces are age appropriate. There is no axillary or mediastinal thoracic lymphadenopathy. Heart is enlarged. Aorta is normal caliber. No pericardial fluid. Lung volumes are low. There is no consolidation or effusion. No evidence of pneumothorax. There are nondisplaced fractures on the left involving the anterolateral fourth, fifth, sixth ribs as well as the posterior left eighth, ninth, tenth ribs. The ribs on the right appear intact. Thoracic alignment is normal. There are bridging anterior osteophytes present between T3 and T12-L1 compatible with DISH. There is a fracture noted extending through a bridging anterior osteophyte at the T5-T6 level, with mild diastasis of the disc space and distraction of the fracture measuring 5 mm. There is no associated bony retropulsion or osseous canal stenosis. No adrenal mass or retroperitoneal lymphadenopathy. No obstructive uropathy. No indication of splenic, renal, or hepatic laceration. No bowel obstruction, pneumatosis, or pneumoperitoneum. No abdominal or pelvic ascites or hemoperitoneum. Lumbar alignment is normal. There is no evidence of lumbar fracture. There are bilateral pars defects present at the L2 level which are chronic and not associated with any significant malalignment. Osseous structures in the pelvis are intact. Spinous processes and transverse processes are intact. IMPRESSION: 1. No acute intracranial abnormality. 2. Numerous rib fractures are present on the left all of which are nondisplaced. No evidence of hemothorax or pneumothorax. 3. There is a mildly distracted fracture extending through an anterior bridging osteophyte at the T5-T6 level in the setting of DISH. There is no associated subluxation. 4. Marked cardiomegaly. Lung volumes are low. 5. No evidence of visceral injury in the abdomen/pelvis. 6. No acute bony abnormality of the lumbar spine. Radiation Dose Estimate: CTDI(mGy):0.541438 / / / kVp:120.673192 / mAs:0.403772 / / / DLP(mGy-cm):6.948971Uxkd Part: Head CTDI(mGy):51.040338 / / / kVp:120.275038 / mAs:205.983818 / / / DLP(mGy-cm):989.090177Oseo Part: Head CTDI(mGy):33.788366 / / / kVp:120.063501 / mAs:347.660959 / / / DLP(mGy-cm):592.139903Mtib Part: Final Dictated by: Jose BONILLABruce Dictated DT/TM: 06.19.2024 1:30 pm Signed by: Bruce Garcia MD Signed (Electronic Signature): 06.19.2024 1:57 pm Transcribed DT/TM: 06.19.2024 1:54 pm (If Report Is Signed, Electronically Signed in Other Vendor System) Normal [facility] CT Chest Abd Pelvis w/ IV + TS/LS Reconon 06-19-2024 CT Chest Abd Pelvis w/ IV + TS/LS Recon EXAMINATION: CT Chest Abd Pelvis w/ IV + TS/LS Recon, CT Brain w/o Contrast HISTORY: Injury. COMPARISON: None. TECHNIQUE: CT brain without IV contrast. Coronal and sagittal reformations were performed. Images of the chest, abdomen, and pelvis obtained with IV contrast. Dose reduction techniques were achieved by using automated exposure control and/or adjustment of mA and/or kV according to patient size and/or use of iterative reconstruction technique. FINDINGS: The visualized paranasal sinuses and mastoid air cells are clear. Orbital contents are normal. No evidence of intracranial hemorrhage, mass effect, or midline shift. Ventricles and cisternal spaces are age appropriate. There is no axillary or mediastinal thoracic lymphadenopathy. Heart is enlarged. Aorta is normal caliber. No pericardial fluid. Lung volumes are low. There is no consolidation or effusion. No evidence of pneumothorax. There are nondisplaced fractures on the left involving the anterolateral fourth, fifth, sixth ribs as well as the posterior left eighth, ninth, tenth ribs. The ribs on the right appear intact. Thoracic alignment is normal. There are bridging anterior osteophytes present between T3 and T12-L1 compatible with DISH. There is a fracture noted extending through a bridging anterior osteophyte at the T5-T6 level, with mild diastasis of the disc space and distraction of the fracture measuring 5 mm. There is no associated bony retropulsion or osseous canal stenosis. No adrenal mass or retroperitoneal lymphadenopathy. No obstructive uropathy. No indication of splenic, renal, or hepatic laceration. No bowel obstruction, pneumatosis, or pneumoperitoneum. No abdominal or pelvic ascites or hemoperitoneum. Lumbar alignment is normal. There is no evidence of lumbar fracture. There are bilateral pars defects present at the L2 level which are chronic and not associated with any significant malalignment. Osseous structures in the pelvis are intact. Spinous processes and transverse processes are intact. IMPRESSION: 1. No acute intracranial abnormality. 2. Numerous rib fractures are present on the left all of which are nondisplaced. No evidence of hemothorax or pneumothorax. 3. There is a mildly distracted fracture extending through an anterior bridging osteophyte at the T5-T6 level in the setting of DISH. There is no associated subluxation. 4. Marked cardiomegaly. Lung volumes are low. 5. No evidence of visceral injury in the abdomen/pelvis. 6. No acute bony abnormality of the lumbar spine. Radiation Dose Estimate: CTDI(mGy):0.439174 / / / kVp:120.298393 / mAs:0.718639 / / / DLP(mGy-cm):5.963258Gjsq Part: Chest CTDI(mGy):28.330097 / / / kVp:140.958143 / mAs:223.388249 / / / DLP(mGy-cm):848.684303Mzsk Part: Chest CTDI(mGy):47.946973 / / / kVp:140.794370 / mAs:163.254647 / / / DLP(mGy-cm):2427.439362Lzmf Part: Abdomen Final Dictated by: Bruce Garcia MD Dictated DT/TM: 06.19.2024 1:30 pm Signed by: Bruce Garcia MD Signed (Electronic Signature): 06.19.2024 1:57 pm Transcribed DT/TM: 06.19.2024 1:54 pm (If Report Is Signed, Electronically Signed in Other Vendor System) Normal [facility] CT Spine Cervical w/o Contra ston 06-19-2024 CT Spine Cervical w/o Contrast EXAM TYPE: CT Spine Cervical w/o Contrast EXAM DATE AND TIME: 06/19/2024 1:12 PM EDT INDICATION: 64 years old Male with pain following trauma COMPARISON: None. TECHNIQUE: CT imaging of the cervical spine was obtained without contrast. Dose reduction techniques were achieved by using automated exposure control and/or adjustment of mA and/or kV according to patient size and/or use of iterative reconstruction technique. FINDINGS: There is normal cervical lordosis. No subluxation. Vertebral body heights are maintained. No fracture. Craniocervical junction is normal in appearance. Atlantodental distance is not widened. No prevertebral soft tissue swelling. Moderate to severe multilevel degenerative disc facet arthropathy, most C5-C6 and C6 levels. No CT or spinal canal stenosis. IMPRESSION: No acute fracture or traumatic malalignment. Final Dictated by: Saji Veliz MD Dictated DT/TM: 06.19.2024 3:11 pm Signed by: Saji Veliz MD Signed (Electronic Signature): 06.19.2024 3:13 pm (If Report Is Signed, Electronically Signed in Other Vendor System) Normal [facility] Diff Autoon 06-19-2024 Baso Absolute 0.0 x10*3/mcL Normal 0.0-0.2 [facility] Comment on above: Performed By: #### . Automated Diff #### [address] [address] Basophils/100 WBC (Bld) 0.5 % Normal 0.0-1.2 [facility] Comment on above: Performed By: #### . Automated Diff #### [address] [address] Eos Absolute 0.2 x10*3/mcL Normal 0.0-0.4 [facility] Comment on above: Performed By: #### . Automated Diff #### [address] [address] Eosinophils/100 WBC (Bld) 2.2 % Normal 0.0-6.1 [facility] Comment on above: Performed By: #### . Automated Diff #### [address] [address] Lymph Absolute 1.4 x10*3/mcL Normal 1.0-4.8 [facility] Comment on above: Performed By: #### . Automated Diff #### [address] [address] Lymphocytes/100 WBC (Bld) 19.6 % Low 27.2-40.8 [facility] Comment on above: Performed By: #### . Automated Diff #### [address] [address] Mower Absolute 0.6 x10*3/mcL Normal 0.3-1.1 [facility] Comment on above: Performed By: #### . Automated Diff #### [address] [address] Monocytes/100 WBC (Bld) 8.2 % Normal 4.7-13.9 [facility] Comment on above: Performed By: #### . Automated Diff #### [address] [address] Neutro Absolute 5.0 x10*3/mcL Normal 1.8-7.7 [facility] Comment on above: Performed By: #### . Automated Diff #### [address] [address] Neutro Auto 69.5 % Normal 47.2-70.8 [facility] Comment on above: Performed By: #### . Automated Diff #### [address] [address] ED Clinical Summaryon 2024 ED Clinical Summary (Inserted Image. Phoebe ble to display) [place] [id number] ED Clinical Summary Person Information Name: Darci Hamm [facility] Age: 64 Years : 1960 Sex: Male PCP: Kymberly Dolan MD Marital Status: Phone: Race: White Ethnicity: Not or Language: Tongan Visit Reason: Back pain; trampled by steer Acuity: 2 Enc Type: Inpatient Med Service: Surgery Arrival: 06/19/2024 12:09:46 Discharge: LOS: 000 04:25 Checkin: 06/19/2024 12:09:46 Checkout: 06/19/2024 16:34:09 Dispo Type: Address: [address] [id number] Provider Notes: Diagnosis: 1:Victim of trampling from animal; 2:Multiple abrasions; 3:Sprain of right shoulder; 4:Multiple rib fractures Problems No Problems Documented Smoking Status: Smoking Status Smoker, current status unknown Functional Status: Sensory Deficits: History of Falls: Mobility Assistance Prior to Admission: ADLs: Current Level of Assistance for Self-Care/Mobility: Cognitive Status: Allergies No Known Medication Allergies Laboratory or Other Results This Visit (last charted value for your 06/19/2024 visit) Hematology 06/19/2024 12:30 PM WBC: 7.2 x10 RBC: 5.09 x10 Neutro Auto: 69.5 % -- Normal range between ( 47.2 and 70.8 ) Lymph Auto: 19.6 % -- Normal range between ( 27.2 and 40.8 ) Mower Auto: 8.2 % -- Normal range between ( 4.7 and 13.9 ) Eos Auto: 2.2 % -- Normal range between ( 0.0 and 6.1 ) Basophil Auto: 0.5 % -- Normal range between ( 0.0 and 1.2 ) Baso Absolute: 0.0 x10 MCV: 88.8 fL -- Normal range between ( 80.0 and 100.0 ) MCHC: 34.3 % -- Normal range between ( 31.0 and 37.0 ) Lymph Absolute: 1.4 x10 Hct: 45.2 % -- Normal range between ( 41.0 and 53.0 ) Mower Absolute: 0.6 x10 MCH: 30.5 pg -- Normal range between ( 27.0 and 35.0 ) Neutro Absolute: 5.0 x10 Hgb: 15.5 g/dL -- Normal range between ( 13.5 and 17.5 ) Mean Platelet Volume: 8.4 fL -- Normal range between ( 6.7 and 10.6 ) Platelet: 233 x10 Eos Absolute: 0.2 x10 RDW: 14.0 % -- Normal range between ( 11.6 and 14.8 ) Coagulation 06/19/2024 12:30 PM PT: 11.0 seconds -- Normal range between ( 10.2 and 12.9 ) INR: 0.9 ratio PTT: 32.0 seconds -- Normal range between ( 25.1 and 36.5 ) Chemistry 06/19/2024 12:30 PM Creatinine Lvl: 0.92 mg/dL -- Normal range between ( 0.61 and 1.24 ) BUN: 17 mg/dL -- Normal range between ( 8 and 26 ) Glucose Lvl: 147 mg/dL -- Normal range between ( 70 and 99 ) Potassium Lvl: 3.9 mmol/L -- Normal range between ( 3.4 and 4.8 ) AST: 29 IU/L -- Normal range between ( 15 and 41 ) ALT: 39 IU/L -- Normal range between ( 17 and 63 ) Sodium Lvl: 137 mmol/L -- Normal range between ( 133 and 142 ) Calcium Lvl: 9.4 mg/dL -- Normal range between ( 8.5 and 10.3 ) Albumin Lvl: 4.1 g/dL -- Normal range between ( 3.2 and 4.9 ) Total Protein: 7.5 g/dL -- Normal range between ( 6.5 and 8.1 ) Bili Total: 1.0 mg/dL -- Normal range between ( 0.3 and 1.2 ) Alk Phos: 43 IU/L -- Normal range between ( 32 and 91 ) Chloride: 99 mmol/L -- Normal range between ( 98 and 110 ) CO2: 28 mmol/L -- Normal range between ( 22 and 32 ) Anion Gap: 10 -- Normal range between ( 4 and 12 ) Estimated GFR: >60 mL/min/1.73m? BUN Crea Ratio: 18.5 -- Normal range between ( 10.0 and 20.0 ) AG Ratio: 1.2 -- Normal range between ( 1.1 and 2.2 ) hs Troponin I: 12 ng/L -- Normal range between ( 0 and 20 ) Toxicology 06/19/2024 12:30 PM Ethanol, Plasma: <10 mg/dL Computed Tomography 06/19/2024 1:[address] Spine Cervical w/o Contrast: CT Spine Cervical w/o Contrast CT Brain w/o Contrast: CT Brain w/o Contrast CT Chest Abd Pelvis w/ IV & TS/LS Recon: CT Chest Abd Pelvis w/ IV & TS/LS Recon Diagnostic Radiology 06/19/2024 1:58 PM XR Shoulder Complete Right: XR Shoulder Complete Right 06/19/2024 12:33 PM XR Pelvis 1 or 2 Views: XR Pelvis 1 or 2 Views XR Chest 1 View: XR Chest 1 View Measurements: Height: Weight: 121.9 kg Blood Pressure: /73 mmHg BMI: Procedures No Procedures Documented Immunizations tetanus/diphth/pertuss (Tdap) adult/adol (06/19/2024) Final Med List: Medications that have not changed Other Medications folic acid (folic acid 1 mg oral tablet) 1 Tabs Oral (given by mouth) every day. Last Dose: Misc Medication (Tumeric) 500 Milligram Oral (given by mouth) every day. Last Dose: multivitamin with minerals (Alive Men's Multivitamin) 1 Tabs Oral (given by mouth) every day. Last Dose: omega-3 polyunsaturated fatty acids (Fish Oil 1200 mg oral capsule) 1 Capsules Oral (given by mouth) every day. Last Dose: zinc (as bisglycinate)-copper (as bisglycinate) (zinc (as bisglycinate)-copper (as bisglycinate) 25 mg-2 mg oral capsule) 1 Capsules Oral (given by mouth) every day. Last Dose: (more content not included)... Normal [facility] ED Note-Physicianon 06-20-19 ED Note-Physician Chief Complaint arrived via private car. was kicked/stomped by a steer. c/o back pain. does not remember incident History of Present Illness Patient is 64 year old male presenting to the ED status post-trauma. 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 They were trying to pham the steer, and the patient was holding the steer by a rope when the steer pulled the rope, causing the patient to fall forward onto his stomach. After this, the steer bucked back, and the steer's legs hit the patient's back. Patient states that he does not think he lost consciousness, but he does not remember the event fully. He is experiencing pain in his mid-upper back and right shoulder. Patient denies numbness, tingling, nausea, vomiting, or vision issues. He did not was EMS to be called, so his friend helped him up, and he was able to walk to the vehicle to be brought in. Patient has a history of a prior back injury from wrestling but no prior back surgeries. He is not on blood thinners. His last tetanus was many years ago. Review of Systems As reviewed in the HPI. All other systems reviewed are negative or normal. Physical Exam CONSTITUTIONAL: [morbidly obese, minimal distress secondary to ongoing pain, FAST exam was negative] SKIN: [abrasion over anterior abdomen, abrasion to upper back, warm, dry, no jaundice, hives or petechiae] EYES: [pupils are equally round, extraocular movements intact without nystagmus, clear conjunctiva, non-icteric sclera] HENT: [small superficial laceration to base of occiput, normocephalic, atraumatic, moist mucus membranes, oropharynx clear without exudates] NECK: [Nontender and supple with no nuchal rigidity, no lymphadenopathy, full range of motion] PULMONARY: [clear to auscultation without wheezes, rhonchi, or rales, normal excursion, no accessory muscle use and no stridor] CARDIOVASCULAR: [regular rate, rhythm, normal S1 and S2. No appreciated murmurs. Strong radial pulses with intact distal perfusion] GASTROINTESTINAL: [soft, non-tender, non-distended, no palpable masses, no rebound or guarding] GENITOURINARY: [No costovertebral angle tenderness to palpation] LYMPHATICS: [no edema in lower extremities, no lymphadenopathy] MUSCULOSKELETAL: [Tenderness with active and passive ROM to right shoulder, neurovascularly intact. midline tenderness to mid and lower thoracic spine. Extremities are nontender to palpation and have no gross deformity, no edema, redness, or swelling] NEUROLOGIC: [alert, normal mentation and speech. Moves all extremities x 4 without motor or sensory deficit] PSYCHIATRIC: [normal mood and affect, thought process is clear and linear] Vitals & Measurements T: 37.1 ?C (Axillary) HR: 67 (Monitored) RR: 15 BP: 131/73 SpO2: 99% HT: 185 cm WT: 121.5 kg WT: 121.5 kg (Dosing) BMI: 35.5 Additional Vitals No qualifying data available. Procedure No qualifying data available. ASA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 denies eye injury/surgery, does not wear glasses or contacts. Ear/Nose/Throat: The patient denies allergies, denies hayfever, denies ear infections, and denies bloody noses. Cardiovascular: The patient denies chest pain, denies heart disease, NOTES high blood pressure,denies cardiac stent, denies prior heart attack, denies irregular heart beat, denies high cholesterol, denies poor circulation, denies heart failure, other cardiac issues, denies claudication, denies cold feet, denies peripheral arterial stent. Respiratory: The patient denies tuberculosis, denies pneumonia, denies frequent cough, denies pulmonary embolism, denies shortness of breath, and denies coughing up blood. Gastrointestinal: The patient denies difficulty swallowing, denies acid reflux, denies ulcers, denies vomiting, denies jaundice/hepatitis, denies gallbladder problems, denies black or tarry stools, NOTES hemorrhoids, denies bleeding from rectum, denies diverticulitis, denies constipation, denies diarrhea, denies loss of stool control, and NOTES hernias. Kidney/Bladder: The patient denies kidney stones, denies urine infections, and denies bloody urine. Skin: The patient NOTES a history of skin cancer, denies bleeding/changing moles, and denies a history of skin rash. Neurologic: The patient denies a history of epilepsy/convulsions, denies headaches, denies head/spinal injuries, and denies stroke/TIA. Psychiatric: The patient denies psychiatric medications, denies depression, and denies voices, denies substance abuse. Endocrine: The patient denies thyroid disorders, denies diabetes, and denies hormonal problems. Hematologic: The patient denies a history (more content not included)... [facility] NURSING PROGon 12-24-2023 NURSING PROG HNO ID: [id number] Author: CHELSEA CABALLERO RN Service: ? Author Type: Registered Nurse Type: Nursing Progress Note Filed: 12/24/2023 10:53 Note Text: Arrived in phase II via cart. Left lateral position. Sedated, but responds to verbal stimuli. Color normal; skin warm and dry. Respirations wnl and unlabored. Abdomen soft and with + bowel sounds in quads X 4. Patient resting comfortably. Family at bedside. Dr. Valles at bedside to review procedure and recommendations. Chelsea Caballero RN [facility] SURGICAL PATHOLOGYon 024 CASE REPORT [facility] Comment on above: Order Comment: Speci men Type: TISSUE SPECIMENOrdering Facility: [facility] Address: [address] [place] [address] Result Comment: Surg ica Pathology Report Case: [id number] Authorizing Provider: Jed Valles MD Collected: 12/24/2023 10:04 AM Ordering Location: Ambulatory Surgery Received: 12/24/2023 12:19 PM Pathologist: Lake Weaver MD Specimen: Colon, Descending, Polyp, Proximal descending colon polyp Performed By: #### S ####[facility] [id number] [place] FINAL DIAGNOSIS [facility] Comment on above: Order Comment: Speci men Type: TISSUE SPECIMENOrdering Facility: [facility] Address: [address] [place] [address] Result Comment: Janell benz descending, polyp, polypectomy: -Fragments of tubular adenoma. Performed By: #### S ####[facility] [id number] [address] OF [facility] FINAL PERFORMING LAB Normal [facility] Comment on above: Order Comment: Speci men Type: TISSUE SPECIMENOrdering Facility: [facility] Address: [address] [place] [address] Result Comment: Diag nostic interpretation performed at [facility], [address] [place] [address] CLIA# [id number] [place] Net: Rigo Rodas M.D. Performed By: #### S ####[facility] [id number] [address] OF [place]OSS DESCRIPTION Normal [facility] Comment on above: Order Comment: Speci men Type: TISSUE SPECIMENOrdering Facility: [facility] Address: [address] [place] [address] Result Comment: Cassie. Sander benz, Descending, Polyp Received in formalin are multiple segments of mallory-brown polypoid tissue ranging in size from 0.8 x 0.5 x 0.1 cm to 0.2 x 0.1 x 0.1 cm. No stalks are noted. The lines of resections are noted. The larger specimens are bisected. The smaller specimens are not sectioned. Totally submitted in formalin in two cassettes. December 24, 2023 8:44 PM Gross examination performed at [facility], [address] [place] [address] Performed By: #### S ####[facility] [id number] [address] [id number] [address] [place] CNPChandrika 11-07-2023 CNPN Telephone ([facility]) DARCI HAMM ([id number]) 1960 M Date Time Provider Department 11/07/23 CHERISE RIBEIRO [facility] During your visit today, we recorded the following information about you: Cherise Ribeiro PA 11/07/2023 7:18 AM Signed Negative for COVID flu RSV Emi Kincaid LPN 11/07/2023 7:41 AM Signed Patient given results and verbalized understanding of instructions given. Emi Kincaid LPN Allergies As of Date: 11/07/2023 (No Known Allergies) Date Reviewed: 11/06/2023 Reviewed by: Emi Kincaid LPN - Fully Assessed Reason for Visit: Results [95] Prescriptions as of 11/07/2023 - benzonatate (TESSALON PERLES) 100 mg capsule Take 1 capsule by mouth three times a day as needed for cough. - fluconazole (DIFLUCAN) 200 mg tablet Take 400 mg by mouth one time a week. Per Derm: Dr. Akbar - Blood Pressure Kit-Extra Large kit Check BP as directed by physician. Dx: I10 - naproxen sodium (ANAPROX) 220 mg tablet Take 220 mg by mouth as needed. Problem List As Of Date 11/07/2023 Noted Resolved Umbilical hernia without obstruction or gangren*11/14/2014 07/27/2021 Hypertension, essential [I10] 02/16/2019 Cough syncope [R55, R05.4] 02/16/2019 Obesity, Class III, BMI 40-49.9 (morbid obesity*02/16/2019 Diastasis of rectus abdominis [M62.08] 04/07/2019 Screening for prostate cancer [Z12.5] 07/27/2021 Encounter for screening for diabetes mellitus [*07/27/2021 Well adult exam [Z00.00] 07/27/2021 Absent testis, acquired [Z90.79] 07/27/2021 Elevated hemoglobin A1c [R73.09] 07/28/2021 Basal cell carcinoma (BCC) of skin of face [C44*09/13/2021 Skin cancer screening [Z12.83] 07/31/2022 History of colonic polyps [Z86.010] 08/01/2023 Screening for colon cancer [Z12.11] 08/01/2023 Encounter Status:Closed by EMI KINCAID on 11/07/23 [facility] CNOVon 11-06-2023 CNOV Office Visit ([facility] ) DARCI HAMM ([id number]) 1960 M Date Time Provider Department 11/06/23 5:45 PM JOANN WARREN [facility] During your visit today, we recorded the following information about you: Temperature Pulse Respiration Blood pressure 102 degrees 94/minute 20/minute 188/96 Weight 121 kg Lavell Traylor APRN.CNP 11/06/2023 6:58 PM Signed CC: Patient presents with: Cough: Chest congestion, fever, chill, heaviness in chest, rattle x 4 days HPI: Darci Hamm is a 63 year old male who presents to the office with complaint of cough, nonproductive and fever for a few days. Symptoms are staying the same. Associated symptoms includes bodyaches and fatigue chills. Denies nausea, vomiting , and diarrhea. Treatments tried include nothing so far. with no relief of symptoms. Sick contacts: unknown. History of asthma, frequent episodes of bronchitis, chronic bronchitis, bronchiectasis or COPD: No Smoker: No Seasonal/environmental allergies: No The ROS is otherwise negative. The patient's pmh, medications, allergies, and past visits are reviewed. PHYSICAL EXAM: BP 188/96 Pulse 94 Temp (!) 38.9 ?C (102 ?F) Resp 20 Wt 121 kg (266 lb 12.1 oz) SpO2 97% BMI 44.39 kg/m? General appearance: alert, cooperative, pleasant, in no acute distress Head: Normocephalic Eyes: EOM's intact, conjunctiva pink and moist, no icterus, sclera white, non-injected Ears: Right ear: External ear/canal- Normal, TM - clear with good landmarks. Left ear: External ear/canal- Normal, TM - clear with good landmarks Oropharynx:moist without lesions, No erythema, exudates or tonsillar hypertrophy. Neck:mild cervical adenopathy Heart: Negative. RRR without obvious murmur, gallop, or rubs. No ectopy. Lungs: diminished breath sounds, wheezing expiratory right middle lobe PAST MEDICAL HISTORY 07/27/2021: Absent testis, acquired Comment: On the right No date: Arthritis 09/13/2021: Basal cell carcinoma (BCC) of skin of face Comment: Above left mid eyebrow. Removed 08/202102/16/2019: Cough syncope 04/07/2019: Diastasis of rectus abdominis 07/28/2021: Elevated hemoglobin A1c 03/07/2015: Hernia, umbilical 02/16/2019: Hypertension, essential 02/16/2019: Obesity, Class III, BMI 40-49.9 (morbid obesity) (FORMERLY [facility]) 07/27/2021: Screening for prostate cancer 07/31/2022: Skin cancer screening Comment: Dr. Akbar No date: Tubular adenoma of colon 07/27/2021: Well adult exam Comment: Last done: 07/27/2021 PAST SURGICAL HISTORY No date: ABDOMINAL SURGERY HX No date: APPENDECTOMY No date: APPENDECTOMY HX 04/16/2019: COLONOSCOPY FLX DX W/COLLJ SPEC WHEN PFRMD Comment: Colonoscopy 09/19/2021: COLONOSCOPY SCREENING No date: FRACTURE SURGERY No date: HERNIA REPAIR HX : LX UMBILICAL HERNIA REPAIR Comment: [facility] No date: PAST SURGICAL HISTORY OF Comment: orif left lower leg No date: PAST SURGICAL HISTORY OF Comment: amputation left ring finger No date: PAST SURGICAL HISTORY OF Comment: removal right testicle due to trauma 03/07/2015: REPAIR UMBILICAL HERNIA No date: SKIN BIOPSY HX ALLERGIES Patient has no known allergies. MEDICATIONS fluconazole (DIFLUCAN) 200 mg tablet Take 400 mg by mouth one time a week. Per Derm: Dr. Akbar Blood Pressure Kit-Extra Large kit Check BP as directed by physician. Dx: I10 naproxen sodium (ANAPROX) 220 mg tablet Take 220 mg by mouth as needed. FAMILY HISTORY Problem Relation Age of Onset Dementia Mother Coronary Artery Disease Father Diabetes Father type 2 DM Migraines Sister Prostate Cancer Brother 57 Social History Tobacco Use Smoking status: Never Smokeless tobacco: Current Types: Snuff Vaping Use Vaping status: Never Used Substance Use Topics Alcohol use: No Drug use: No ASSESSMENT/PLAN: 1. Acute cough - ICD9: 786.2, ICD10: R05.1 (primary diagnosis) - XR CHEST 2V FRONTAL/LAT * * * * Physician Interpretation * * * * CHEST X-RAY CLINICAL HISTORY: Acute cough TECHNIQUE: Upright frontal and lateral views. COMPARISON: None. RESULT: Heart/mediastinum: Within normal limits. Lungs/pleura: Clear. Bones/soft tissues: Unremarkable. Lines/tubes/devices: None visualized. IMPRESSION IMPRESSION: No active disease in the chest. Car Storer: MALIHA Transcribe Date/Time: Nov 06 2023 6:44P Dictated by : TORI BARROW MD - COVID AND INFLUENZA A/B AND RSV PCR, ROUTINE 2. URI, acute - ICD9: 465.9, ICD10: J06.9 - COVID AND INFLUENZA A/B AND RSV PCR, ROUTINE Tessalon pearls prescribed. Potential red flag symptoms discussed with the patient. Reviewed appropriate action plan to take if red flag symptoms occur. Patient agreeable to treatment plan. Lavell Traylor APRN.[employer] Allergies As of Date: 11/06/2023 (No Known Allergies) Date Reviewed: 11/06/2023 Reviewed by: Emi Kincaid LPN - Fully Assessed Reason for V (more content not included)... Normal [facility] COVID AND INFLUENZA A/B AND RSV PCR, ROUTINEon 11-06-2023 SARS-CoV-2 (COVID-19) RNA YORDAN+probe Ql (Unsp spec) SARS-COV-2 (AGENT OF COVID-19) RNA: Not detected INFLUENZA A RNA: Not detected INFLUENZA B RNA: Not detected RESPIRATORY SYNCYTIAL VIRUS (RSV) RNA: Not detected Normal [facility] Comment on above: Performed By: #### C VFLRS ####[facility]CLIA [id number] [address] OF [facility] XR CHEST 2V FRONTAL/LATon XR CHEST 2V FRONTAL/LAT * * *Final Report* * * DATE OF EXAM: Nov 06 2023 6:33PM WOX [id number] - XR CHEST 2V FRONTAL/LAT / PROCEDURE REASON: Acute cough * * * * Physician Interpretation * * * * CHEST X-RAY CLINICAL HISTORY: Acute cough TECHNIQUE: Upright frontal and lateral views. COMPARISON: None. RESULT: Heart/mediastinum: Within normal limits. Lungs/pleura: Clear. Bones/soft tissues: Unremarkable. Lines/tubes/devices: None visualized. IMPRESSION: No active disease in the chest. Car Storer: [employer] Transcribe Date/Time: Nov 06 2023 6:44P Dictated by : TORI BARROW MD This examination was interpreted and the report reviewed and electronically signed by: TORI BARROW MD on Nov 06 2023 6:44PM EST [id number] Normal [facility] XR Chest PA and Lateralon IMPRESSION: No active disease in the chest. Car Storer: [employer] Transcribe Date/Time: Nov 06 2023 6:44P Dictated by : TORI BARROW MD This examination was interpreted and the report reviewed and electronically signed by: TORI BARROW MD on Nov 06 2023 6:44PM EST DIVISION OF RADIOLOGY * * *Final Report* * * DATE OF EXAM: Nov 06 2023 6:33PM WOX [id number] - XR CHEST 2V FRONTAL/LAT / PROCEDURE REASON: Acute cough * * * * Physician Interpretation * * * * CHEST X-RAY CLINICAL HISTORY: Acute cough TECHNIQUE: Upright frontal and lateral views. COMPARISON: None. RESULT: Heart/mediastinum: Within normal limits. Lungs/pleura: Clear. Bones/soft tissues: Unremarkable. Lines/tubes/devices: None visualized. DIVISION OF RADIOLOGY Provider, Angelita galvin [place] - 11/06/2023 * * *Final Report* * * DATE OF EXAM: Nov 06 2023 6:33PM WOX 5291 - XR CHEST 2V FRONTAL/LAT / PROCEDURE REASON: Acute cough * * * * Physician Interpretation * * * * CHEST X-RAY CLINICAL HISTORY: Acute cough TECHNIQUE: Upright frontal and lateral views. COMPARISON: None. RESULT: Heart/mediastinum: Within normal limits. Lungs/pleura: Clear. Bones/soft tissues: Unremarkable. Lines/tubes/devices: None visualized. IMPRESSION IMPRESSION: No active disease in the chest. Car Storer: PSCKenna Transcribe Date/Time: Nov 06 2023 6:44P Dictated by : TORI BARROW MD This examination was interpreted and the report reviewed and electronically signed by: TORI BARROW MD on Nov 06 2023 6:44PM EST [facility] Radiology Study observation (narrative) [facility] XR Chest PA and LateralOrder ed By: [facility] Provider on 11-06-2023 [facility] CNOVon 09-01-2023 CNOV Office Visit (GENSWS ) DARCI HAMM ([id number]) 1960 M Date Time Provider Department 09/01/23 8:15 AM KERLINE EDWARDS GENSHMUEL During your visit today, we recorded the following information about you: Temperature Pulse Blood pressure Weight 97.2 degrees 68/minute 130/86 119.5 kg Height 1.651 m Kerline Edwards MD 09/02/2023 7:33 AM Signed HISTORY AND PHYSICAL Darci Hamm 1960 REFERRING PHYSICIAN: Brayden Chao MD CHIEF COMPLAINT: Consult (colonoscopy) HPI: The patient is a 63 year old male referred for endoscopy. Darci notes rectal bleeding. It is intermittent and noted for unknown period of time He had undergone colonoscopy in 2021 with findings of < 1 cm tubular adenoma. He denies chronic abdominal pain. He denies changes in bowel habits. He notes no family history of colon cancer. Patient has BMI 43, DM with persistent elevated HgbA1c, hypertension - anesthesia assessment - ASA III PAST MEDICAL HISTORY Diagnosis Date Absent testis, acquired 07/27/2021 On the right Arthritis Basal cell carcinoma (BCC) of skin of face 09/13/2021 Above left mid eyebrow. Removed 08/2021 Cough syncope 02/16/2019 Diastasis of rectus abdominis 04/07/2019 Elevated hemoglobin A1c 07/28/2021 Hernia, umbilical 03/07/2015 Hypertension, essential 02/16/2019 Obesity, Class III, BMI 40-49.9 (morbid obesity) ([facility]) 02/16/2019 Screening for prostate cancer 07/27/2021 Skin cancer screening 07/31/2022 Dr. Akbar Tubular adenoma of colon Well adult exam 07/27/2021 Last done: 07/27/2021 PAST SURGICAL HISTORY Procedure Laterality Date ABDOMINAL SURGERY HX APPENDECTOMY APPENDECTOMY HX COLONOSCOPY FLX DX W/COLLJ SPEC WHEN PFRMD 04/16/2019 Colonoscopy COLONOSCOPY SCREENING 09/19/2021 FRACTURE SURGERY HERNIA REPAIR HX LX UMBILICAL HERNIA REPAIR [facility] PAST SURGICAL HISTORY OF orif left lower leg PAST SURGICAL HISTORY OF amputation left ring finger PAST SURGICAL HISTORY OF removal right testicle due to trauma REPAIR UMBILICAL HERNIA 03/07/2015 SKIN BIOPSY HX Current Outpatient Medications Medication Sig fluconazole (DIFLUCAN) 200 mg tablet Take 400 mg by mouth one time a week. Per Derm: Dr. Akbar Blood Pressure Kit-Extra Large kit Check BP as directed by physician. Dx: I10 naproxen sodium (ANAPROX) 220 mg tablet Take 220 mg by mouth as needed. peg 3350-Electrolytes (GOLYTELY) 236-22.74-6.74 -5.86 gram suspension Take 4,000 mL by mouth one time only for 1 dose. Refer to printed prep instructions from your provider. No current facility-administered medications for this visit. ALLERGIES: Patient has no known allergies. PERSONAL HISTORY: Social History Tobacco Use Smoking status: Never Smokeless tobacco: Current Types: Snuff Vaping Use Vaping Use: Never used Substance Use Topics Alcohol use: No Drug use: No FAMILY HISTORY Problem Relation Age of Onset Dementia Mother Coronary Artery Disease Father Diabetes Father type 2 DM Migraines Sister Prostate Cancer Brother 57 The review of systems data was entered by the nurse and reviewed by me Nursing Notes: Kasey Gray RN 09/01/2023 8:15 AM Signed REVIEW OF SYSTEMS: General: The patient denies fatigue, denies weight loss, denies weight gain, denies feeling hot, and denies feelings of cold. Eyes: The patient denies glaucoma, denies eye injury/surgery, does not wear glasses or contacts. Ear/Nose/Throat: The patient denies allergies, denies hayfever, denies ear infections, and denies bloody noses. Cardiovascular: The patient denies chest pain, denies heart disease, NOTES high blood pressure,denies cardiac stent, denies prior heart attack, denies irregular heart beat, denies high cholesterol, denies poor circulation, denies heart failure, other cardiac issues, denies claudication, denies cold feet, denies peripheral arterial stent. Respiratory: The patient denies tuberculosis, denies pneumonia, denies frequent cough, denies pulmonary embolism, denies shortness of breath, and denies coughing up blood. Gastrointestinal: The patient denies difficulty swallowing, denies acid reflux, denies ulcers, denies vomiting, denies jaundice/hepatitis, denies gallbladder problems, denies black or tarry stools, NOTES hemorrhoids, denies bleeding from rectum, denies diverticulitis, denies constipation, denies diarrhea, denies loss of stool control, and NOTES hernias. Kidney/Bladder: The patient denies kidney stones, denies urine infections, and denies bloody urine. Skin: The patient NOTES a history of skin cancer, denies bleeding/changing moles, and denies a history of skin rash. Neurologic: The patient denies a history of epilepsy/convulsions, denies headaches, denies head/spinal injuries, and denies stroke/TIA. Psychiatric: The patient denies psychiatric medications, denies depression (more content not included)... Normal [facility] CNOVon 08-22-2023 CNOV Office Visit (FAMPWS ) DARCI HAMM ([id number]) 1960 M Date Time Provider Department 08/22/23 8:00 AM TERRI ROMERO During your visit today, we recorded the following information about you: Temperature Pulse Respiration Blood pressure 97.7 degrees 60/minute 18/minute 124/74 Weight 119.3 kg Terri Romero PA-C 08/22/2023 8:27 AM Signed Chief Complaint Patient presents with: Recheck: Blood pressure HPI Darci Hamm is a 63 year old male who presents here today for BP recheck. At last visit, patient's bp was elevated. He has not been checking bp at home yet. Not sure if insurance will cover BP cuff. Last 3 Encounter BP Readings: Date: BP: 08/22/2023 124/74 08/01/2023 150/84 07/31/2022 138/84 Past medical history, appointments, medications, allergies reviewed. Previous Medical History PAST MEDICAL HISTORY Diagnosis Date Absent testis, acquired 07/27/2021 On the right Arthritis Basal cell carcinoma (BCC) of skin of face 09/13/2021 Above left mid eyebrow. Removed 08/2021 Cough syncope 02/16/2019 Diastasis of rectus abdominis 04/07/2019 Elevated hemoglobin A1c 07/28/2021 Hernia, umbilical 03/07/2015 Hypertension, essential 02/16/2019 Obesity, Class III, BMI 40-49.9 (morbid obesity) (HCC) 02/16/2019 Screening for prostate cancer 07/27/2021 Skin cancer screening 07/31/2022 Dr. Akbar Well adult exam 07/27/2021 Last done: 07/27/2021 Previous Surgical History PAST SURGICAL HISTORY Procedure Laterality Date ABDOMINAL SURGERY HX APPENDECTOMY APPENDECTOMY HX COLONOSCOPY FLX DX W/COLLJ SPEC WHEN PFRMD 04/16/2019 Colonoscopy COLONOSCOPY SCREENING 09/19/2021 FRACTURE SURGERY HERNIA REPAIR HX LX UMBILICAL HERNIA REPAIR [facility] PAST SURGICAL HISTORY OF orif left lower leg PAST SURGICAL HISTORY OF amputation left ring finger PAST SURGICAL HISTORY OF removal right testicle due to trauma REPAIR UMBILICAL HERNIA 03/07/2015 SKIN BIOPSY HX Family History FAMILY HISTORY Problem Relation Age of Onset Dementia Mother Coronary Artery Disease Father Diabetes Father type 2 DM Migraines Sister Prostate Cancer Brother 57 Patient Allergies ALLERGIES No Known Allergies Current Medications Current Outpatient Medications on File Prior to Visit Medication Sig fluconazole (DIFLUCAN) 200 mg tablet Take 400 mg by mouth one time a week. Per Derm: Dr. Akbar naproxen sodium (ANAPROX) 220 mg tablet Take 220 mg by mouth as needed. Blood Pressure Kit-Extra Large kit Check BP as directed by physician. Dx: I10 No current facility-administered medications on file prior to visit. Social History Social History Tobacco Use Smoking status: Never Smokeless tobacco: Current Types: Snuff Vaping Use Vaping Use: Never used Substance Use Topics Alcohol use: No Drug use: No Review of Symptoms REVIEW OF SYSTEMS GENERAL: No weight loss, malaise or fevers EXAM: BP 124/74 (BP Site: Right Arm, BP Position: Sitting, BP Cuff Size: Large Adult) Pulse 60 Temp 36.5 ?C (97.7 ?F) Resp 18 Wt 119.3 kg (263 lb) BMI 43.10 kg/m? General Appearance: Well appearing, alert, in no acute distress, well-hydrated, well nourished. and Morbidly obese. Health Maintenance List Colorectal Cancer Screening due on 09/20/2023 Behavioral Health Screening due on 03/02/2024 RSV Vaccine(1 - 1-dose 60+ series) due on 07/31/2024 Influenza Vaccine(Season Ended) due on 11/02/2023 Annual PCP Team Chronic Disease Visit due on 07/31/2024 BP Controlled (<130/80) due on 07/31/2024 DTaP,Tdap,Td Vaccine(3 - Td or Tdap) due on 08/09/2025 Diabetes Screening due on 07/31/2026 Lipid Screening due on 07/31/2028 Prostate Cancer Screening Discussion due on 07/31/2028 Hepatitis C Screening Completed HPV Vaccine Aged Out HIV Screening Discontinued Shingrix Vaccine Discontinued Covid-19 Vaccine Discontinued Data reviewed ASSESSMENT/PLAN: 1. Hypertension, essential - ICD9: 401.9, ICD10: I10 (primary diagnosis) - Improving control - Recommend home blood pressure monitoring, to bring results to next visit - Encouraged sodium restriction, DASH or Mediterranean diet - Recommend regular aerobic exercise 2. Obesity, Class III, BMI 40-49.9 (morbid obesity) ([facility]) - ICD9: 278.01, ICD10: E66.01 Stable - Behavioral intervention Terri Romero PA-C Referring Provider: BRAYDEN CHAO [[id number]] Allergies As of Date: 08/22/2023 (No Known Allergies) Date Reviewed: 08/22/2023 Reviewed by: Millie Villegas LPN - Fully Assessed Reason for Visit: Recheck [92] Cmt: Blood pressure Primary Visit Diagnosis:Hypertension, essential [I10] Other Visit Diagnosis:Obesity, Class III, BMI 40-49.9 (morbid obesity) ([facility]) [E66.01] Prescriptions as of 08/22/2023 - fluconazole (DIFLUCAN) 200 mg tablet Take 400 mg by mouth one time a week. Per Derm: Dr. Akbar (more content not included)... [facility] D[facility]M ([id number]) 1960 M Date Time Provider Department 08/03/23 BRAYDEN CHAO [facility] During your visit today, we recorded the following information about you: Brayden Chao MD 08/03/2023 8:08 PM Signed Let patient now his lipid panel showed his Trigs elevated at 231 (goal<150), HDL low at 33 (goal>40) and LDL good at 82. Increased exercise such as walking can help and reduced fat in diet. HIs A1c is higher at 5.9%, goal is 5.6% or less and diabetes is 6.5% and higher and was 5.7%. work on reduced carbs, sugars, sweets and starches in diet. The rest of his labs and UA were all ok. Ryder Traylor MA 08/04/2023 10:05 AM Signed Patient notified and voiced understanding. Ryder Traylor MA Allergies As of Date: 08/03/2023 (No Known Allergies) Date Reviewed: 08/01/2023 Reviewed by: Brayden Chao MD - Fully Assessed Reason for Visit: Results [95] Prescriptions as of 08/04/2023 - fluconazole (DIFLUCAN) 200 mg tablet Take 400 mg by mouth one time a week. Per Derm: Dr. Akbar - Blood Pressure Kit-Extra Large kit Check BP as directed by physician. Dx: I10 - naproxen sodium (ANAPROX) 220 mg tablet Take 220 mg by mouth as needed. 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] 07/27/2021 Elevated hemoglobin A1c [R73.09] 07/28/2021 Basal cell carcinoma (BCC) of skin of face [C44*09/13/2021 Skin cancer screening [Z12.83] 07/31/2022 History of colonic polyps [Z86.010] 08/01/2023 Screening for colon cancer [Z12.11] 08/01/2023 Encounter Status:Closed by RYDER TRAYLOR on 08/04/23 Normal [facility] CBC W Auto Differential pane l (Bld)on 08-01-2023 Basophils (Bld) [#/Vol] 0.05 10*3/uL [facility] Basophils/100 WBC (Bld) 0.7 % [facility] Differential cell count method Nom (Bld) Auto [facility] Eosinophils (Bld) [#/Vol] 0.16 10*3/uL [facility] Eosinophils/100 WBC (Bld) 2.1 % [facility] Erythrocyte distribution width (RBC) [Ratio] 13.1 % 11.5 - 15.0 % [facility] Hematocrit (Bld) [Volume fraction] 46.7 % 39.0 - 51.0 % [facility] Hemoglobin (Bld) [Mass/Vol] 15.2 g/dL 13.0 - 17.0 g/dL [facility] Immature granulocytes (Bld) [#/Vol] [facility].05 10[facility] Immature granulocytes/100 WBC (Bld) 0.7 % [facility] Lymphocytes (Bld) [#/Vol] 1.60 10*3/uL [facility] Lymphocytes/100 WBC (Bld) 21.1 % [facility] MCH (RBC) [Entitic mass] 29.2 pg 26.0 - 34.0 pg [facility] MCHC (RBC) [Mass/Vol] 32.5 g/dL 30.5 - 36.0 g/dL [facility] MCV (RBC) [Entitic vol] 89.6 fL 80.0 - 100.0 fL [facility] Monocytes (Bld) [#/Vol] 0.77 10[facility] Monocytes/100 WBC (Bld) 10.2 % [facility] Neutrophils (Bld) [#/Vol] 4.95 10*3/uL [facility] Neutrophils/100 WBC (Bld) 65.2 % [facility] Nucleated RBC (Bld) [#/Vol] NINF [facility] Nucleated RBC/100 WBC (Bld) [Ratio] 0.0 % /100 WBC [facility] Platelet mean volume (Bld) [Entitic vol] 10.8 fL 9.0 - 12.7 fL [facility] Platelets (Bld) [#/Vol] 229 10*3/uL [facility] RBC (Bld) [#/Vol] 5.21 10*6/uL 4.20 - 6.00 m/uL [facility] WBC (Bld) [#/Vol] 7.58 10*3/uL [facility] Comprehensive metabolic 2000 panelon 08-01-2023 Albumin [Mass/Vol] 4.3 g/dL 3.9 - 4.9 g/dL [facility] ALP [Catalytic activity/Vol] 48 U/L 38 - 113 U/L [facility] ALT [Catalytic activity/Vol] 30 U/L 10 - 54 U/L [facility] Anion gap [Moles/Vol] 10 mmol/L 9 - 18 mmol/L [facility] AST [Catalytic activity/Vol] 24 U/L 14 - 40 U/L [facility] Bilirubin [Mass/Vol] 0.6 mg/dL 0.2 - 1 .3 mg/dL [facility] Calcium [Mass/Vol] 9.5 mg/dL 8.5 - 10. 2 mg/dL [facility] Chloride [Moles/Vol] 102 mmol/L 97 - 10 5 mmol/L [facility] CO2 [Moles/Vol] 25 mmol/L 22 - 30 mmol/L [facility] Creatinine [Mass/Vol] 0.90 mg/dL 0.73 - 1.22 mg/dL [facility] GFR/1.73 sq M.predicted among non-blacks MDRD (S/P/Bld) [Vol rate/Area] 95 mL/min/{1.73_m2} - PINF [facility] Comment on above: Estimated Glomerular Filtration Rate (eGFR) is calculated using the 2020 CKD-EPI creatinine equation. This equation utilizes serum creatinine, sex, and age as parameters. The creatinine assay has traceable calibration to isotope dilution-mass spectrometry. Refer to KDIGO guidelines for clinical interpretation. In patients with unstable renal function, e.g. those with acute kidney injury, the eGFR may not accurately reflect actual GFR. Glucose [Mass/Vol] 102 mg/dL High 74 - 99 mg/dL [facility] Comment on above: The [place] Diabete s Association (ADA) provides guidance for cutoff values for fasting glucose and random glucose. The ADA defines fasting as no caloric intake for at least 8 hours. Fasting plasma glucose results between 100 to 125 mg/dL indicate increased risk for diabetes (prediabetes). Fasting plasma glucose results greater than or equal to 126 mg/dL meet the criteria for diagnosis of diabetes. In the absence of unequivocal hyperglycemia, results should be confirmed by repeat testing. In a patient with classic symptoms of hyperglycemia or hyperglycemic crisis, random plasma glucose results greater than or equal to 200 mg/dL meet the criteria for diagnosis of diabetes. Reference: Standards of Medical Care in Diabetes 2016, [place] Diabetes Association. Diabetes Care. 2016.39(Suppl 1). Potassium [Moles/Vol] 4.6 mmol/L 3.7 - 5.1 mmol/L [facility] Protein [Mass/Vol] 7.2 g/dL 6.3 - 8.0 g/dL [facility] Sodium [Moles/Vol] 137 mmol/L 136 - 144 mmol/L [facility] Urea nitrogen [Mass/Vol] 16 mg/dL 9 - 24 mg/dL [facility] HbA1c (Bld)on 08-01-2023 Average glucose Estimated from glycated hemoglobin (Bld) [Mass/Vol] 123 mg/dL [facility] Comment on above: eAG: (Estimated aver age glucose) is a calculated value from HgbA1c and is food service sales representatives of the average blood glucose level in the last 2-3 month period. HbA1c (Bld) [Mass fraction] 5.9 % High 4.3 - 5.6 % [facility] Comment on above: [place] Diabetes As sociation guidelines indicate that patients with HgbA1c in the range 5.7-6.4% are at increased risk for development of diabetes, and intervention by lifestyle modification may be beneficial. HgbA1c greater or equal to 6.5% is considered diagnostic of diabetes. Interpretation and review of laboratory results Abnormal [facility] LIPID PANEL, NONFASTINGon Cholesterol [Mass/Vol] 161 mg/dL NINF - 200 mg/dL [facility] Comment on above: <200 mg/dL, Desirabl e 200-239 mg/dL, Borderline high >239 mg/dL, High HDL Cholesterol, Nonfasting 33 mg/dL Low 39 - PINF mg/dL [facility] Comment on above: 40-59 mg/dL, Accepta ble >59 mg/dL, High: Negative risk factor for coronary heart disease <40 mg/dL, Low: Positive risk factor for coronary heart disease LDL Cholesterol, Nonfasting 82 mg/dL NINF - 100 mg/dL [facility] Comment on above: <100 mg/dL, Optimal 100-129 mg/dL, Near optimal/above optimal 130-159 mg/dL, Borderline high 160-189 mg/dL, High >189 mg/dL, Very high Secondary prevention optimal LDL Cholesterol levels are recommended to be < 70 mg/dL LDL/HDL Ratio, Nonfasting 2.48 mg/dL NINF - 2.54 mg/dL [facility] Comment on above: Reference: 1. National Cholesterol Education Program ATP III Guideline At-A-Glance Quick Desk Reference: National Heart, Lung, and Blood [place]. National Institutes of Health. 2001: NIH Publication No. 01-3305. 2. An International Atherosclerosis Society position paper: global recommendations for the management of dyslipidemia: executive summary, Atherosclerosis. 2014: 232(2):410-413. Non HDL Cholesterol, Nonfasting 128 mg/dL NINF - 130 mg/dL [facility] Comment on above: <130 mg/dL, Optimal 130-159 mg/dL, Near optimal/above optimal 160-189 mg/dL, Borderline high 190-219 mg/dL, High >219 mg/dL, Very high Secondary prevention optimal non HDL Cholesterol levels are recommended to be <100 mg/dL Total Chol/HDL Ratio, Nonfasting 4.88 mg/dL NINF - 5.10 mg/dL [facility] Triglycerides, Nonfasting 231 mg/dL High NINF - 150 mg/dL [facility] Comment on above: <150 mg/dL, Normal 150-199 mg/dL, Borderline high 200-499 mg/dL, High >499 mg/dL, Very high VLDL Cholesterol, Nonfasting 46 mg/dL High NINF - 30 mg/dL [facility] No Panel Informationon 07-31 Interpretation and review of laboratory results Normal [facility] Interpretation and review of laboratory results Abnormal [facility] PROSTATE-SPECIFIC ANTIGEN DI AGNOSTICon 08-01-2023 Prostate specific Ag [Mass/Vol] 0.62 ng/mL NINF - 2.60 ng/mL [facility] Comment on above: Total PSA test metho dology used is the Electrochemiluminescence Immunoassay by [employer]. Total PSA values by differing methodologies cannot be interchanged. Prostate specific Ag [Mass/V ol]on 08-01-2023 Interpretation and review of laboratory results Normal [facility] T4 FREE/FREE THYROXINEon Free T4 [Mass/Vol] 1.1 ng/dL 0.9 - 1.7 ng/dL [facility] THYROID STIMULATING HORMONEo n 08-01-2023 TSH Qn 3.230 m[IU]/L [facility] Urinalysis complete panel (U )on 08-01-2023 Bacteria LM.HPF (Urine sed) [#/Area] Negative Negative /HPF [facility] Bilirubin Ql (U) Negative Negative [facility] Clarity (Unsp spec) Clear Clear [place] Color (U) Yellow Yellow [facility] Epithelial cells LM.HPF (Urine sed) [#/Area] None Seen /HPF [facility] Glucose Test strip (U) [Mass/Vol] Negative Negative [facility] Hemoglobin Ql (U) Negative Negative [facility] Hyaline casts (Urine sed) [#/Area] 0 /[LPF] 0 /LPF [facility] Ketones Ql (U) Negative Negative [facility] Leukocyte esterase Test strip Ql (U) Negative Negative [facility] Nitrite Ql (U) Negative Negative [facility] pH (U) 6.0 [pH] NINF - 8.5 [facility] Protein (U) [Mass/Vol] Negative Negative Cl [facility] RBC LM.HPF (Urine sed) [#/Area] 0-2 /HPF 0-2 /HPF [facility] Specific gravity (U) [Rel density] 1.016 1.005 - 1.030 [facility] Urobilinogen Ql (U) 0.2 EU/dL 0.2-1.0 EU/dL [facility] WBC LM.HPF (Urine sed) [#/Area] 0-5 /HPF 0-5 /HPF [facility] This test was chan cruz and its performance characteristics determined by [facility]'s [facility] [place] [facility] It has not been cleared or approved by the FDA. [facility] is regulated under CLIA as qualified to perform high-complexity testing. This test is used for clinical purposes. It should not be regarded as investigational or for research. [facility] Comprehensive metabolic 2000 panelon 07-31-2022 Albumin [Mass/Vol] 4.4 g/dL 3.9 - 4.9 g/dL [facility] ALP [Catalytic activity/Vol] 44 U/L 38 - 113 U/L [facility] ALT [Catalytic activity/Vol] 32 U/L 10 - 54 U/L [facility] Anion gap [Moles/Vol] 10 mmol/L 9 - 18 mmol/L [facility] AST [Catalytic activity/Vol] 29 U/L 14 - 40 U/L [facility] Bilirubin [Mass/Vol] 0.5 mg/dL 0.2 - 1 .3 mg/dL [facility] Calcium [Mass/Vol] 9.8 mg/dL 8.5 - 10. 2 mg/dL [facility] Chloride [Moles/Vol] 102 mmol/L 97 - 10 5 mmol/L [facility] CO2 [Moles/Vol] 26 mmol/L 22 - 30 mmol/L [facility] Creatinine [Mass/Vol] 0.88 mg/dL 0.73 - 1.22 mg/dL [facility] Estimated Glomerular Filtration Rate 97 mL/min/1.73m >=60 mL/min/1.7 3m [facility] Glucose [Mass/Vol] 107 mg/dL High 74 - 99 mg/dL [facility] Potassium [Moles/Vol] 4.2 mmol/L 3.7 - 5.1 mmol/L [facility] Protein [Mass/Vol] 7.1 g/dL 6.3 - 8.0 g/dL [facility] Sodium [Moles/Vol] 138 mmol/L 136 - 144 mmol/L [facility] Urea nitrogen [Mass/Vol] 19 mg/dL 9 - 24 mg/dL [facility] LIPID PANEL, NONFASTINGon Cholesterol [Mass/Vol] 150 mg/dL <200 mg/dL [facility] HDL Cholesterol, Nonfasting 31 mg/dL Low >39 mg/dL [facility] LDL Cholesterol, Nonfasting 89 mg/dL <100 mg/dL [facility] LDL/HDL Ratio, Nonfasting 2.87 mg/dL High <2.54 mg/dL [facility] Non HDL Cholesterol, Nonfasting 119 mg/dL <130 mg/dL [facility] Total Chol/HDL Ratio, Nonfasting 4.84 mg/dL <5.10 mg/dL [facility] Triglycerides, Nonfasting 148 mg/dL <150 mg/dL [facility] VLDL Cholesterol, Nonfasting 30 mg/dL High <30 mg/dL [facility] PSA/PROSTSPECAG DIAGon 07-31 Prostate specific Ag [Mass/Vol] 0.77 ng/mL <2.60 ng/mL [facility] Urinalysis complete panel (U )on 07-31-2022 Bilirubin Ql (U) Negative Negative [facility] Clarity (Unsp spec) Clear Clear [place] Color (U) Light Yellow Yellow [facility] Glucose Test strip (U) [Mass/Vol] Negative Trace, Negative [facility] Hemoglobin Ql (U) Trace Negative, Trace [facility] Ketones Ql (U) Negative Trace, Negative [facility] Leukocyte esterase Test strip Ql (U) Negative Negative, 25 Anjel/uL [facility] Nitrite Ql (U) Negative Negative [facility] pH (U) 6.5 [pH] 5.0 - 8.0 [facility] Protein (U) [Mass/Vol] Negative Trace , Negative [facility] RBC LM.HPF (Urine sed) [#/Area] 0-3 /HPF 0-3 /HPF [facility] Specific gravity (U) [Rel density] 1.021 1.005 - 1.030 [facility] Urobilinogen Ql (U) Negative Negative [place] WBC LM.HPF (Urine sed) [#/Area] 0-5 /HPF 0-5 /HPF [facility] SURGICAL PATHOLOGYon 022 Case Report Surgical Pathology R eport Case: [id number] Authorizing Provider: Brayden Chao MD Collected: 10/04/2021 12:39 PM Ordering Location: [facility] Received: 10/04/2021 01:09 PM Pathologist: Jyoti Rojas MD Specimen: SKIN EXCISION [facility] Clinical History area with Basal cell . re-excision for completeness. the extra small piece was a deeper portion that I was concened about at the oriniginal biopsy. [facility] Gross Description A. SKIN EXCISION. Received in formalin labeled as skin excision is a segment of unoriented white-mallory skin measuring 1.8 x 0.5 x 0.4 cm. No epidermal lesions are present. The soft tissue margin is inked black. Also appreciated detached is a segment of smaller unoriented yellow-mallory soft tissue measuring 0.8 x 0.5 x 0.5 cm which is entirely inked black and bisected. The specimen is entirely submitted as follows: A1 largest piece serially sectioned, A2 small piece bisected. TN/los 10/05/2021 Gross examination performed at [facility], [address] [id number] CLIA# [id number] [facility] Performing Lab Diagnostic interpret ation performed at [facility], [address] [facility] [address] CLIA# [id number] [employer]: Rigo Rodas M.D. [facility] COLONOSCOPY SCREENINGon 09-01 [facility] SURGICAL PATHOLOGYon 022 Case Report Surgical Pathology R eport Case: [id number] Authorizing Provider: Brayden Chao MD Collected: 09/05/2021 08:47 PM Ordering Location: [facility] Received: 09/06/2021 07:41 AM Pathologist: Keily Mendez MD Specimen: SKIN EXCISION [facility] Clinical History suspecious for cancer [facility] Diagnosis Comment A. Carcinoma appears excised within the planes of section available for examination. [facility] FINAL DIAGNOSIS A. Skin, left forehe ad above medial upper eyebrow, excision: - Basal cell carcinoma, nodular type, see comment. SR/NL/kr 09/07/2021 [facility] Gross Description A. SKIN EXCISION. Received in formalin is an unoriented elliptical segment of skin and subcutaneous tissue measuring 1.9 x 1.1 x 0.6 cm. The skin surface demonstrates an irregular mallory elevated area measuring 1.1 x 0.9 cm, and extends to both margins. The marigns are inked black. The specimen is sectioned and totally submitted as follows: A1 tips, A2 A3 remainder of tissue. Gross examination performed at [facility], [address] [place] [address] FFS 09/06/2021 6:19 PM [facility] Performing Lab Diagnostic interpret ation performed at [facility], [address] [place] [address] CLIA# [id number] [employer]: Rigo Rodas M.D. [facility] Vital Signs Date Time Vital Sign Value Performing Clinician Facility 07-21-2024 09:18-0400 Body mass index (BMI) [Ratio] 40.6 kg/m2 Dr. Brayden Chao MD Work Phone: [facility] 07-21-2024 09:18-040 Body temperature 97.3 [degF] Dr. Brayden Chao MD Work Phone: [facility] 07-21-2024 09:18-0400 Body weight 114.[address] Brayden Chao MD Work Phone: [facility] 07-21-2024 09:18-0400 Diastolic blood pressure 81 mm[Hg] Dr. Brayden Chao MD Work Phone: [facility] 07-21-2024 09:18-0400 Heart rate 67 /min Dr. Brayden Chao MD Work Phone: [facility] 07-21-2024 09:18-0400 Respiratory rate 16 /min Dr. Brayden Chao MD Work Phone: [facility] 07-21-2024 09:18-0400 SaO2% (BldA) [Mass fraction] 97 % Dr. Brayden Chao MD Work Phone: [facility] 07-21-2024 09:18-0400 Systolic blood pressure 135 mm[Hg] Dr. Brayden Chao MD Work Phone: [facility] 07-07-2024 14:05-0400 Body height 167.6 cm Jyoti Mojicaodell [facility] DIRECTOR-[employer] Work Phone: [facility] 07-07-2024 14:05-0400 Body mass index (BMI) [Ratio] 40.35 kg/m2 Jyoti Mojicaodell [facility] DIRECTOR-[employer] Work Phone: [facility] 07-07-2024 14:05-0400 Body temperature 98.1 [degF] Jyoti Mojicaodell [facility] DIRECTOR-[employer] Work Phone: [facility] 07-07-2024 14:05-0400 Body weight 113.4 kg Jyoti Mojicaodell [facility] DIRECTOR[employer] Work Phone: [facility] 07-07-2024 14:05-0400 Heart rate 86 /min Jyoti Dylan [facility] DIRECTOR[employer] Work Phone: [facility] 07-07-2024 14:05-0400 SaO2% (BldA) [Mass fraction] 96 % Jyoti Richardson [facility] DIRECTOR[employer] Work Phone: [facility] 07-06-2024 17:20-0400 Body temperature 98.2 [degF] Dr. Brayden Chao MD Work Phone: 3(455)164-974070 [place] [address] 07-06-2024 17:20-0400 Diastolic blood pressure 60 mm[Hg] Dr. Brayden Chao MD Work Phone: 3(166)061-099670 [place] [address] 07-06-2024 17:20-0400 Heart rate 70 /min Dr. Brayden Chao MD Work Phone: 3(784)951-063070 [place] [address] 07-06-2024 17:20-0400 Respiratory rate 18 /min Dr. Brayden Chao MD Work Phone: 6(071)385-506870 [place] [address] 07-06-2024 17:20-0400 SaO2% (BldA) [Mass fraction] 94 % Dr. Brayden Chao MD Work Phone: 0(013)707-534870 [place] [address] 07-06-2024 17:20-0400 Systolic blood pressure 138 mm[Hg] Dr. Brayden Chao MD Work Phone: 6(298)129-872970 [place] [address] 07-06-2024 13:07-0400 Body height 167.[address] Braydne Chao MD Work Phone: 5(536)705-037970 [place] [address] 07-06-2024 13:07-0400 Body weight 121.[address] Brayden Chao MD Work Phone: 4(479)379-712370 [place] [address] 07-05-2024 06:23-0400 Inhaled oxygen flow rate 2 L/min Dr. Brayden Chao MD Work Phone: 7(651)845-788070 [place] [address] 06-30-2024 03:24-0400 Body mass index (BMI) [Ratio] 43.2 kg/m2 Dr. Brayden Chao MD Work Phone: 8(541)303-214370 [place] [address] 06-25-2024 22:02-0400 Inhaled oxygen concentration 21 % Dr. Brayden Chao MD Work Phone: 8(695)416-026470 [place] [address] 06-24-2024 07:36-0400 Body temperature 98.49 [degF] Jose Roper MD Work Phone: [facility] 06-24-2024 07:36-0400 Diastolic blood pressure 67 mm[Hg] Jose Roper MD Work Phone: [facility] 06-24-2024 07:36-0400 Heart rate 76 /min Jose Roper MD Work Phone: [facility] 06-24-2024 07:36-0400 Respiratory rate 16 /min Jose Roper MD Work Phone: [facility] 06-24-2024 07:36-0400 SaO2% (BldA) [Mass fraction] 94 % Jose Roper MD Work Phone: [facility] 06-24-2024 07:36-0400 Systolic blood pressure 147 mm[Hg] Jose Roper MD Work Phone: [facility] 06-21-2024 00:00-0400 Body height 167.6 cm Jose Roper MD Work Phone: [facility] 06-21-2024 00:00-0400 Body mass index (BMI) [Ratio] 43.74 kg/m2 Jose Roper MD Work Phone: [facility] 06-21-2024 00:00-0400 Body weight 122.92 kg Jose Roper MD Work Phone: [facility] 12-24-2023 10:50-0400 Diastolic blood pressure 68 mm[Hg] Jed Valles MD Work Phone: [facility] 12-24-2023 10:50-0400 Heart rate 63 /min Jed Valles MD Work Phone: [facility] 12-24-2023 10:50-0400 Respiratory rate 16 /min Jed Valles MD Work Phone: [facility] 12-24-2023 10:50-0400 SaO2% (BldA) [Mass fraction] 94 % Jed Valles MD Work Phone: [facility] 12-24-2023 10:50-0400 Systolic blood pressure 134 mm[Hg] Jed Valles MD Work Phone: [facility] 12-24-2023 08:59-0400 Body mass index (BMI) [Ratio] 44.39 kg/m2 Jed Valles MD Work Phone: [facility] 12-24-2023 08:59-0400 Body temperature 97.11 [degF] Jed Valles MD Work Phone: [facility] 12-24-2023 08:59-0400 Body weight 121 kg Jed Valles MD Work Phone: [facility] 11-06-2023 17:41-0400 Body mass index (BMI) [Ratio] 44.39 kg/m2 Joann Warren [facility] DIRECTOR.[employer] Work Phone: [facility] 11-06-2023 17:41-0400 Body temperature 102 [degF] Joann Warren [facility] DIRECTOR.[employer] Work Phone: [facility] 11-06-2023 17:41-0400 Body weight 121 kg Joann Warren [facility] [facility] DIRECTOR.[employer] Work Phone: [facility] 11-06-2023 17:41-0400 Diastolic blood pressure 96 mm[Hg] Joann Warren [facility] DIRECTOR.[employer] Work Phone: [facility] 11-06-2023 17:41-0400 Heart rate 94 /min Joann Wraren [facility] DIRECTOR.[employer] Work Phone: [facility] 11-06-2023 17:41-0400 Respiratory rate 20 /min Joann Warren [facility] DIRECTOR.[employer] Work Phone: [facility] 11-06-2023 17:41-0400 SaO2% (BldA) [Mass fraction] 97 % Joann Warren [facility] DIRECTOR.[employer] Work Phone: [facility] 11-06-2023 17:41-0400 Systolic blood pressure 188 mm[Hg] Joann Warren GERALD Work Phone: [facility] 09-01-2023 08:17-0400 Body height 165.1 cm Kerline Edwards MD Work Phone: [facility] 09-01-2023 08:17-0400 Body mass index (BMI) [Ratio] 43.83 kg/m2 Kerline Edwards MD Work Phone: [facility] 09-01-2023 08:17-0400 Body temperature 97.2 [degF] Kerline Edwards MD Work Phone: [facility] 09-01-2023 08:17-0400 Body weight 119.48 kg Kerline Edwards MD Work Phone: [facility] 09-01-2023 08:17-0400 Diastolic blood pressure 86 mm[Hg] Kerline Edwards MD Work Phone: [facility] 09-01-2023 08:17-0400 Heart rate 68 /min Kerline Edwards MD Work Phone: [facility] 09-01-2023 08:17-0400 SaO2% (BldA) [Mass fraction] 93 % Kerline Edwards MD Work Phone: [facility] 09-01-2023 08:17-0400 Systolic blood pressure 130 mm[Hg] Kerline Edwards MD Work Phone: [facility] 08-22-2023 08:00-0400 Body mass index (BMI) [Ratio] 43.1 kg/m2 Terri Romero PA-C Work Phone: [facility] 08-22-2023 08:00-0400 Body temperature 97.7 [degF] Terri Romero PA-C Work Phone: [facility] 08-22-2023 08:00-0400 Body weight 119.3 kg Terri Romero PA-C Work Phone: [facility] 08-22-2023 08:00-0400 Diastolic blood pressure 74 mm[Hg] Terri Romero PA-C Work Phone: [facility] 08-22-2023 08:00-0400 Heart rate 60 /min Terri DELGADO-C Work Phone: [facility] 08-22-2023 08:00-0400 Respiratory rate 18 /min Terri Romero PA-C Work Phone: [facility] 08-22-2023 08:00-0400 Systolic blood pressure 124 mm[Hg] Terri DELGADO-C Work Phone: [facility] 08-01-2023 08:58-0400 Diastolic blood pressure 84 mm[Hg] Brayden Chao MD Work Phone: [facility] 08-01-2023 08:58-0400 Systolic blood pressure 150 mm[Hg] Brayden Chao MD Work Phone: [facility] 08-01-2023 08:00-0400 Heart rate 74 /min Brayden Chao MD Work Phone: [facility] 08-01-2023 07:53-0400 Body height 166.4 cm Brayden Chao MD Work Phone: [facility] 08-01-2023 07:53-0400 Body mass index (BMI) [Ratio] 42.94 kg/m2 Brayden Chao MD Work Phone: [facility] 08-01-2023 07:53-0400 Body weight 118.84 kg Brayden Chao MD Work Phone: [facility] 08-01-2023 07:53-0400 Respiratory rate 18 /min Brayden Chao MD Work Phone: [facility] 07-31-2022 08:06-0400 Body height 166 cm Brayden Chao MD Work Phone: [facility] 07-31-2022 08:06-0400 Body weight 115.21 kg Brayden Chao MD Work Phone: [facility] 07-31-2022 08:06-0400 Diastolic blood pressure 84 mm[Hg] Brayden Chao MD Work Phone: [facility] 07-31-2022 08:06-0400 Heart rate 78 /min Brayden Chao MD Work Phone: [facility] 07-31-2022 08:06-0400 Respiratory rate 14 /min Brayden Chao MD Work Phone: [facility] 07-31-2022 08:06-0400 Systolic blood pressure 138 mm[Hg] Brayden Chao MD Work Phone: [facility] 10-15-2021 07:50-0400 Body temperature 97.39 [degF] Terri Romero PA-C Work Phone: [facility] 10-15-2021 07:50-0400 Body weight 115.67 kg Terri Romreo PA-C Work Phone: [facility] 10-15-2021 07:50-0400 Diastolic blood pressure 86 mm[Hg] Terri Romero PA-C Work Phone: [facility] 10-15-2021 07:50-0400 Heart rate 60 /min Terri Romero PA-C Work Phone: [facility] 10-15-2021 07:50-0400 Respiratory rate 18 /min Terri Romero PA-C Work Phone: [facility] 10-15-2021 07:50-0400 Systolic blood pressure 138 mm[Hg] Terri Romero PA-C Work Phone: [facility] 10-04-2021 08:04-0400 Body weight 112.95 kg Brayden Chao MD Work Phone: [facility] 10-04-2021 08:04-0400 Diastolic blood pressure 80 mm[Hg] Brayden Chao MD Work Phone: [facility] 10-04-2021 08:04-0400 Heart rate 60 /min Brayden Chao MD Work Phone: [facility] 10-04-2021 08:04-0400 Respiratory rate 16 /min Brayden Chao MD Work Phone: [facility] 10-04-2021 08:04-0400 Systolic blood pressure 140 mm[Hg] Brayden Chao MD Work Phone: [facility] 10-03-2021 10:39-0400 Body height 167.6 cm Mary [place] PA-C Work Phone: [facility] 10-03-2021 10:39-0400 Body temperature 97.39 [degF] Mary Landen PA-C Work Phone: [facility] 10-03-2021 10:39-0400 Body weight 111.58 kg Mary [place] PA-C Work Phone: [facility] 10-03-2021 10:39-0400 Diastolic blood pressure 70 mm[Hg] Mary Landen PA-C Work Phone: [facility] 10-03-2021 10:39-0400 Heart rate 76 /min Mary [place] PA-C Work Phone: [facility] 10-03-2021 10:39-0400 SaO2% (BldA) [Mass fraction] 94 % Mary Landen PA-C Work Phone: [facility] 10-03-2021 10:39-0400 Systolic blood pressure 150 mm[Hg] Mary Landen PA-C Work Phone: [facility] 09-19-2021 09:22-0400 Body temperature 97.39 [degF] Terri Romero PA-C Work Phone: [facility] 09-19-2021 09:22-0400 Body weight 111.58 kg Terri Romero PA-C Work Phone: [facility] 09-19-2021 09:22-0400 Diastolic blood pressure 70 mm[Hg] Terri Romero PA-C Work Phone: [facility] 09-19-2021 09:22-0400 Heart rate 60 /min Terri Romero PA-C Work Phone: [facility] 09-19-2021 09:22-0400 Respiratory rate 16 /min Terri Romero PA-C Work Phone: [facility] 09-19-2021 09:22-0400 Systolic blood pressure 120 mm[Hg] Terri Romero PA-C Work Phone: [facility] 09-19-2021 08:50-0400 Diastolic blood pressure 70 mm[Hg] Kerline Edwards MD Work Phone: [facility] 09-19-2021 08:50-0400 Heart rate 66 /min Kerline Edwards MD Work Phone: [facility] 09-19-2021 08:50-0400 SaO2% (BldA) [Mass fraction] 94 % Kerline Edwards MD Work Phone: [facility] 09-19-2021 08:50-0400 Systolic blood pressure 148 mm[Hg] Kerline Edwards MD Work Phone: [facility] 09-19-2021 08:40-0400 Respiratory rate 16 /min Kerline Edwards MD Work Phone: [facility] 09-19-2021 07:37-0400 Body temperature 97.59 [degF] Kerline Edwards MD Work Phone: [facility] 09-05-2021 19:16-0400 Body weight 114.31 kg Brayden Chao MD Work Phone: [facility] 09-05-2021 19:16-0400 Diastolic blood pressure 84 mm[Hg] Brayden Chao MD Work Phone: [facility] 09-05-2021 19:16-0400 Systolic blood pressure 136 mm[Hg] Brayden Chao MD Work Phone: [facility] Encounters Encounter Date Encounter Type Care Provider Facility Start: 08-04-2024 ambulatory Amy Hilli ty:[facility] Start: 08-03-2024 ambulatory SELF SELF Facility:[facility] Start: 07-30-2024 End: 07-30-2024 Home visit Brayden Chao MD Work Phone: [facility] Comment on above: Spinal stenosis, lum bar region, without neurogenic claudication (Primary Dx) Start: 07-21-2024 End: 07-21-2024 Patient encounter procedure MECH[employer]ISM [employer]SEM[employer]ER Amy Campbell [facility] Work Phone: Start: 07-21-2024 End: 07-21-[address] Brayden Chao MD Work Phone: [facility] Work Phone: Start: 07-15-2024 End: 07-15-2024 Chart abstracting Ryder Traylor MA [facility] [place] Comment on above: Hospital F[facility] ([facility] ) Start: 07-15-2024 End: 07-15-2024 Telephone encounter Brayden Chao MD Work Phone: Family [facility] [place] Comment on above: Home Care Management Start: 07-12-2024 End: 07-12-[address] Darell Peguero MD -[facility] Start: 07-12-2024 End: 07-12-2024 ambulatory Brayden Chao Facility:[facility] Start: 07-08-2024 End: 07-08-2024 Telephone encounter Brayden Chao MD Work Phone: Family [facility] [place] Comment on above: Patient Update Start: 07-07-2024 End: 07-07-2024 Postop follow up visit related to original px Jyoti Mojicau FAMILY SERVICE CENTER DIRECTOR-SAMPLE MAKER HAND Work Phone: [facility] Comment on above: Status post thoracic spinal fusion (Primary Dx) Start: 07-07-2024 ambulatory SELF SELF Facility:[facility] Start: 07-06-2024 End: 07-06-[address] Brayden Chao MD Work Phone: [facility] Work Phone: Start: 07-06-2024 End: 07-06-[address] Kelly Garcia DO -Sleep Lab Work Phone: Start: 07-06-2024 End: 07-06-2024 Telephone encounter Brayden Chao MD Work Phone: [facility] [place] Comment on above: Home Health Orders Start: 07-06-2024 Non-patient / Non-visit Dr. Kartik Garcia [facility] Work Phone: Start: 07-06-2024 End: 07-06-2024 ambulatory Kelly Garcia Facility:[facility] Start: 07-05-2024 Non-patient / Non-visit Dr. Kartik Garcia [facility] Work Phone: Start: 07-02-2024 Non-patient / Non-visit Dr. Kartik Garcia [facility] Work Phone: Start: 06-30-2024 Non-patient / Non-visit Dr. Kartik Garcia [facility] Work Phone: Start: 06-29-2024 ambulatory Randall Moscoso Fa cility:[facility] Start: 06-29-2024 Non-patient / Non-visit Dr. Astrid Moscoso MD -[facility] Start: 06-28-2024 Non-patient / Non-visit Dr. Kartik Garcia [facility] Work Phone: Start: 06-25-2024 Non-patient / Non-visit Dr. Kartik Garcia [facility] Work Phone: Start: 06-24-2024 Non-patient / Non-visit Dr. Kartik Garcia [facility] Work Phone: Start: 06-24-2024 ambulatory Kelly Palafox Halchiki Facility:[facility] Start: 06-24-2024 End: 07-06-2024 Evaluation and management of inpatient Dr. Kelly Garcia DO -Rehab Unit Work Phone: Start: 06-20-2024 End: 06-24-2024 Evaluation and management of inpatient Jose Roper MD Work Phone: [facility] Comment on above: Thoracic spine fract ure Start: 06-19-2024 End: 06-20-2024 Evaluation and management of inpatient Kymberly Bills MD Facility:[facility] Start: 01-06-2024 End: 01-06-2024 ambulatory JED VALLES Facility:[facility] Start: 01-06-2024 End: 01-06-2024 Patient encounter procedure Nuria Horne FAMILY SERVICE CENTER DIRECTOR.SAMPLE MAKER [employer] Work Phone: General Surgery Comment on above: History of colonic p olyps (Primary Dx) Start: 01-01-2024 End: 01-01-2024 Telephone encounter Jed Valles MD Work Phone: General Surgery Comment on above: Results Start: 12-24-2023 End: 12-24-2023 ambulatory [facility] Facility:[facility] Start: 12-24-2023 End: 12-24-2023 Subsequent hospital visit by physician Jed Valles MD Work Phone: Ambulatory Surgery Comment on above: Rectal bleeding [K62 .5] Start: 11-07-2023 End: 11-07-2023 Telephone encounter Cherise DELGADO Work Phone: [facility] Comment on above: Results Start: 11-06-2023 End: 11-06-2023 Subsequent hospital visit by physician Nusrat [facility] [place] Work Phone: Radiology Comment on above: Acute cough [R05.1] Start: 11-06-2023 End: 11-06-2023 ambulatory [facility] Facility:[facility] Start: 11-06-2023 End: 11-06-2023 Patient encounter procedure Joann Diandra FAMILY SERVICE CENTER DIRECTOR.SAMPLE MA[employer] Work Phone: [facility] Comment on above: Acute cough (Primary Dx); URI, acute Start: 09-01-2023 End: 09-01-2023 [facility] Facility:[facility] Start: 09-01-2023 End: 09-01-2023 Patient encounter procedure Kerline Edwards MD Work Phone: General Surgery Comment on above: Rectal bleeding (Ilda kelly Dx); History of colonic polyps; Screening for colon cancer Start: 08-22-2023 End: 08-22-2023 ambulatory BRAYDEN CHAO Facility:[facility] Start: 08-22-2023 End: 08-22-2023 Patient encounter procedure Terri Romero PA-C Work Phone: [facility] [place] Comment on above: Hypertension, essent ial (Primary Dx); Obesity, Class III, BMI 40-49.9 (morbid obesity) (HCC) Start: 08-03-2023 Telephone encounter Brayden Chao MD Work Phone: [facility] [place] Comment on above: Results Start: 08-01-2023 End: 08-01-2023 Patient encounter procedure Brayden Chao MD Work Phone: [facility] [place] Comment on above: Well adult exam (Ilda kelly Dx); Hypertension, essential; Elevated hemoglobin A1c; Obesity, Class III, BMI 40-49.9 (morbid obesity) (HCC); Cold intolerance; Heat intolerance; Plantar fasciitis, bilateral; History of colonic polyps; Skin cancer screening; Screening for colon cancer; Screening for prostate cancer Start: 08-01-2023 End: 08-01-2023 Patient encounter status Brayden Chao MD Work Phone: [facility] Work Phone: Start: 08-01-2022 Telephone encounter Brayden Chao MD Work Phone: [facility] [place] Comment on above: Results Start: 07-31-2022 End: 07-31-2022 Patient encounter procedure Brayden Chao MD Work Phone: [facility] [place] Comment on above: Well adult exam (Ilda kelly Dx); Hypertension, essential; Elevated hemoglobin A1c; Obesity, Class III, BMI 40-49.9 (morbid obesity) (HCC); AK (actinic keratosis); Screening for prostate cancer; Encounter for screening for diabetes mellitus Start: 07-31-2022 End: 07-31-2022 Patient encounter status Brayden Chao MD Work Phone: [facility] [place] Start: 11-19-2021 Telephone encounter Terri bruce PA-C Work Phone: [facility] [place] Comment on above: Results Start: 10-15-2021 End: 10-15-2021 Patient encounter procedure Terri Romero PA-C Work Phone: [facility] [place] Comment on above: Visit for suture rem oval (Primary Dx); Basal cell carcinoma (BCC) of skin of face, unspecified part of face; Epidermal inclusion cyst Start: 10-09-2021 Telephone encounter Brayden Chao MD Work Phone: [facility] [place] Comment on above: Results Start: 10-04-2021 End: 10-04-2021 Patient encounter procedure Brayden Chao MD Work Phone: [facility] [place] Comment on above: Basal cell carcinoma (BCC) of skin of face, unspecified part of face (Primary Dx); Epidermal inclusion cyst Start: 10-03-2021 End: 10-03-2021 Patient encounter procedure Mary Schuster PA-C Work Phone: General Surgery Comment on above: Tubular adenoma (Ilda kelly Dx); History of colonic polyps Start: 09-28-2021 Telephone encounter Terri bruce PA-C Work Phone: [facility] [place] Comment on above: Results Start: 09-19-2021 End: 09-19-2021 Patient encounter procedure Terri Romero PA-C Work Phone: [facility] [place] Comment on above: Visit for suture rem oval (Primary Dx); Basal cell carcinoma (BCC) of skin of face, unspecified part of face; Snoring; Hypersomnia Start: 09-19-2021 End: 09-19-2021 Subsequent hospital visit by physician Kerline Edwards MD Work Phone: Ambulatory Surgery Comment on above: History of colonic p olyps [Z86.010] Start: 09-13-2021 Telephone encounter Brayden Chao MD Work Phone: [facility] [place] Comment on above: Results Start: 09-05-2021 End: 09-05-2021 Patient encounter procedure Brayden Chao MD Work Phone: [facility] [place] Comment on above: Basal cell carcinoma (BCC) of skin of face, unspecified part of face (Primary Dx); Neoplasm of uncertain behavior of skin of forehead Start: 08-06-2021 Telephone encounter Kerline Hung MD Work Phone: General Surgery Comment on above: 09/19 colon asc Start: 08-01-2021 Telephone encounter Brayden Chao MD Work Phone: [facility] [place] Comment on above: error Start: 07-31-2021 Telephone encounter Kerline Hung MD Work Phone: General Surgery Comment on above: Schedule Surgery Start: 07-28-2021 Telephone encounter Brayden Chao MD Work Phone: [facility] [place] Comment on above: Results Start: 07-27-2021 Orders Only Kerline velasquez MD Work Phone: General Surgery Comment on above: History of colonic p olyps (Primary Dx); Colon cancer screening Start: 07-27-2021 Patient encounter status Kerline Edwards MD Work Phone: [facility] Work Phone: Procedures Date Procedure Procedure Detail Performing Clinician Start: 07-12-2024 Plain X-ray of shoulder Dr. Brayden pina MD Work Phone: Start: 07-06-[address] Rudy Chao MD Work Phone: Start: 06-25-[address] Brayedn Chao MD Work Phone: Comment on above: Performed at: [facility] [place], [place] [id number] Director: Jose M Allan PhD, Phone: [phone] Start: 06-25-2024 Antibody to TERESA-[address] Brayden Chao MD Work Phone: Comment on above: Test not performed Start: 06-25-2024 Antibody to SS-A measurement Dr. Brayden Chao MD Work Phone: Comment on above: Test not performed Start: 06-25-2024 Human leukocyte antigen B27 antigen phenotyping Dr[address] Brayden Chao MD Work Phone: Comment on above: HLA-B*27 [id number] allele interpretati on for all loci based on IMGT/HLAdatabase version 3.58This test was developed and its performance characteristicsdetermined by [employer]. It has not been cleared or approvedby the Food and Drug Administration.The FDA has determined that such clearance or approval isnot necessary.[facility] CLIA ID Number [id number] test was performed using Polymerase Chain Reaction(PCR) and Sequence Specific Oligonucleotide Probes (SSOP)technique. Sequence Based Typing (SBT) may be used as asupplemental method when necessary.If you have questions, please call [employer] serviceat or email at [email or web address].Performed at: [facility] [id number] [place], [place] [id number] Director: Polina Mcgregor PhD, Phone: [phone] Start: 06-25-2024 X-ray of chest, PA and lateral views Dr. Brayden Chao MD Work Phone: Start: 06-25-2024 Serum inorganic phosphate measurement Dr. Brayden Chao MD Work Phone: Start: 06-24-2024 Blood count platelet automated An Singer MD Work Phone: Start: 06-24-2024 EXTRA MINT GREEN TOP Provider Not In System Start: 06-24-2024 EXTRA TUBES Provider Not In System Start: 06-23-2024 Radex entir thrc lmbr crv sac spi w/skull 2/3 vw Liz Singer MD Work Phone: Start: 06-23-2024 Assay of magnesium Sydni Gutierrez MD Work Phone: Start: 06-22-2024 Assay of magnesium Sydni Gutierrez MD Work Phone: Start: 06-21-2024 End: 06-21-2024 Arthrodesis posterior/posterolateral thoracic Andre Castro MD Work Phone: Start: 06-21-2024 End: 06-21-2024 Stereotactic computer assisted px spinal Andre Castro MD Work Phone: Start: 06-21-2024 Mri spinal canal lumbar w/o contrast material Pancho Sheldon MD Work Phone: Start: 06-21-2024 Ct abdomen & pelvis w/contrast material Sydni Gutierrez MD Work Phone: Start: 06-21-2024 Radex humerus minimum 2 views John mays MD Work Phone: Start: 06-21-2024 Radiologic exam chest single view Coby Gutierrez MD Work Phone: Start: 06-21-2024 Antibody screen Jose Roper MD Work Phone: Start: 06-21-2024 ABORH TYPE RECONFIRMATION Halie Townsend DO Work Phone: Start: 06-21-2024 Antibody screen SELF SELF Comment on above: Performed By: #### MGO, CHM7, IPB #### [facility] [address] [place] [address] Start: 06-21-2024 Bilirubin direct Sydni Gutierrez MD Work Phone: Start: 06-21-2024 Blood typing serologic abo Sydni Gutierrez MD Work Phone: Start: 06-21-2024 CBC AND ELECTRONIC DIFF Sydni Gutierrez MD Work Phone: Start: 06-21-2024 Complete blood count with white cell differential, automated Sydni Gutierrez MD Work Phone: Start: 12-24-2023 Colonoscopy flx dx w/collj spec when pfrmd Kerline Edwards MD Work Phone: Start: 12-24-2023 Colonoscopy Jed Valles MD Work Phone: Start: 09-05-2024 Radiologic exam chest 2 views Lavell Traylor FAMILY SERVICE CENTER DIRECTOR.SAMPLE MAKER [employer] Work Phone: Start: 08-01-2023 Lipid 1996 panel - Serum or Plasma Rudy Chao MD Work Phone: Start: 10-04-2021 SURGICAL PATHOLOGY Brayden Chao MD Work Phone: Start: 09-19-2021 Colon ca scrn not hi rsk ind Kerline Edwards MD Work Phone: Start: 09-19-2021 Colonoscopy Terri Romero PA-C Work Phone: Start: 09-05-2021 Level iv surg pathology gross&microscopic exam Brayden Chao MD Work Phone: Start: 07-27-2021 Adult depression screening assessment Kerline Edwards MD Work Phone: Start: 07-12-2020 Colonoscopy Kerline Edwards MD Work Phone: Plan of Treatment Date Care Activity Detail Author Start: 09-20-2031 Colonoscopy COLONOSCOPY [facility] Start: 09-20-2031 COLORECTAL CANCER SCREENING COLORECTAL CANCER SCREENING [facility] Start: 07-12-2030 Colonoscopy COLONOSCOPY [facility] Start: 07-12-2030 COLORECTAL CANCER SCREENING COLORECTAL CANCER SCREENING [facility] Start: 07-31-2028 Lipid panel Lipid Screening [facility] Start: 07-31-2028 Prostate specific an tigen measurement Prostate Cancer Screening Discussion [facility] Start: 08-01-2027 LIPID SCREEN LIPID SCREEN [facility] Start: 08-01-2027 PROSTATE CANCER SCRE ENING DISCUSSION PROSTATE CANCER SCREENING DISCUSSION [facility] Start: 07-31-2026 Diabetes Screening Diabetes Screenin g [facility] Start: 07-27-2026 LIPID SCREEN LIPID SCREEN [facility] Start: 07-27-2026 PROSTATE CANCER SCRE ENING DISCUSSION PROSTATE CANCER SCREENING DISCUSSION [facility] Start: 12-23-2025 Screening for malign ant neoplasm of colon [facility] Start: 08-09-2025 [facility] Start: 08-09-2025 Urine microalbumin profile [facility] Start: 07-31-2025 DIABETES SCREEN [facility] Start: 11-01-2024 Influenza vaccination INFLUENZ A VACCINE (Season Ended) [facility] Start: 09-16-2024 End: 09-16-2024 Patient encounter procedure 09/16/2024 1:30 PM EDT Office Visit [facility] [address] [place] [address] Jyoti Richardson, FAMILY SERVICE CENTER DIRECTOR-SAMPLE MAKER HAND [address] [place] [address] [facility] Start: 08-21-2024 Annual PCP Team [employer] Rep[employer] concetta Disease Visit Annual PCP Team Chronic Disease Visit [facility] Start: 08-21-2024 BP Controlled (<130/80) BP Controlle d (<130/80) [facility] Start: 08-03-2024 End: 08-03-2024 Patient encounter procedure 08/03/2024 2:20 PM EDT Office Visit [facility] [address] [place] [address] Andre Castro MD [address] [place] [address] [facility] [place] Start: 07-31-2024 Annual PCP Team [employer] concetta Disease Visit Annual PCP Team Chronic Disease Visit [facility] Start: 07-31-2024 BP Controlled (<130/80) BP Controlle d (<130/80) [facility] Start: 07-31-2024 RSV Vaccine (1 - 1-d ose 60+ series) RSV Vaccine (1 - 1-dose 60+ series) [facility] Comment on above: Postponed from 01/19 (Declined at this time) Start: 07-31-2024 RSV Vaccine (1 - Ris k 60-74 years 1-dose series) RSV Vaccine (1 - Risk 60-74 years 1-dose series) [facility] Comment on above: Postponed from 01/19 (Declined at this time) Start: 07-30-2024 End: 07-30-2024 Patient encounter procedure [facility] [place] Comment on above: physical Start: 07-27-2024 DIABETES SCREEN DIABETES SCREEN [facility] Start: 07-12-2024 Plain X-ray of shoulder Shoulder min 2 Views [facility] Start: 07-12-2024 XR Shoulder GE 2 Views [facility] Start: 07-06-2024 End: 07-06-2024 Patient encounter procedure 07/06/2024 2:30 PM EDT Office Visit [facility] [address] [phone] Jyoti Richardson, FAMILY SERVICE CENTER DIRECTOR-SAMPLE MAKER HAND [address] [phone] [facility] Start: 07-06-2024 Patient discharge [facility] Start: 07-05-2024 Referral to service [facility] Start: 06-30-2024 [facility] Start: 06-24-2024 Following clinical pathway protocol [facility] Start: 06-24-2024 Recommendation to continue with treatment [facility] Start: 06-24-2024 Referral to service [facility] Start: 06-24-2024 Urinary bladder training [facility] Start: 06-24-2024 Admission procedure [facility] Start: 06-24-2024 Measuring intake and output [facility] Start: 06-24-2024 Patient referral to dietitian [facility] Start: 06-24-2024 Referral to occupati onal therapist [facility] Start: 06-24-2024 Vital signs measurements [facility] Start: 06-24-2024 End: 06-24-2024 [facility] Start: 06-24-2024 Catheterization of vein [facility] Start: 04-14-2024 LIPID SCREEN LIPID SCREEN [facility] Start: 04-14-2024 PROSTATE CANCER SCRE ENING DISCUSSION PROSTATE CANCER SCREENING DISCUSSION [facility] Start: 03-03-2024 Advance Directive Discussion Advance Directive Discussion [facility] Start: 03-02-2024 Behavioral Health Screening Behavioral Health Screening [facility] Comment on above: Postponed from 03/03 (Declined at this time) Start: 01-20-2024 Abdominal aortic ane urysm screening ABDOMINAL AORTIC ANEURYSM HIGH RISK SCREEN [facility] Start: 01-06-2024 End: 01-06-2024 Patient encounter procedure 01/06/2024 11:30 AM EST Office Visit General Surgery [address] [place] [address] Nuria Horne APRN.SAMPLE MAKER HAND [address] [place] [address] 12-23 colonoscopy follow up General Surgery Comment on above: 12-23 colonoscopy fo llow up Start: 12-24-2023 End: 12-24-2023 Patient encounter procedure 12/24/2023 8:15 AM EDT Appointment Ambulatory Surgery [address] [place] [address] Rectal bleeding [K62.5] Ambulatory Surgery Comment on above: Rectal bleeding [K62 .5] Start: 11-02-2023 COVID-19 VACCINE ( season) COVID-19 VACCINE () [facility] Start: 11-02-2023 Influenza vaccination [facility] Start: 10-01-2023 End: 10-01-2023 Patient encounter procedure 10/01/2023 7:30 AM EDT Appointment Ambulatory Surgery [address] [place], [place] [phone] Kerline Edwards MD [address] [place] [phone] Ambulatory Surgery Start: 09-20-2023 Colonoscopy COLONOSCOPY [facility] Start: 09-20-2023 COLORECTAL CANCER SCREENING COLORECTAL CANCER SCREENING [facility] Start: 09-20-2023 Screening for malign ant neoplasm of colon [facility] Start: 09-01-2023 End: 09-01-2023 Patient encounter procedure 09/01/2023 8:15 AM EDT Office Visit General Surgery [address] [place], [place] [phone] Kerline Edwards MD [address] [place] [phone] History of colonic polyps [Z86.010] General Surgery Comment on above: History of colonic p olyps [Z86.010] Start: 08-22-2023 End: 08-22-2023 Patient encounter procedure 08/22/2023 8:00 AM EDT Office Visit [facility] [place] [address] [place], [place] [phone] Terri Romero PA-C [address] [place], [place] [phone] recheck bp [facility] Comment on above: recheck bp Start: 08-01-2023 ANNUAL PCP TEAM [employer]NER [employer] DISEASE VISIT ANNUAL PCP TEAM CHRONIC DISEASE VISIT [facility] Start: 08-01-2023 COVID-19 VACCINE (#1) COVID-19 VACCI NE (#1) [facility] Comment on above: Postponed from 07/19 (Declined at this time) Start: 11-01-2022 Influenza vaccination INFLUENZ A (Season Ended) [facility] Start: 10-15-2022 ANNUAL PCP TEAM S[employer]IOR [employer]NER [employer] DISEASE VISIT ANNUAL PCP TEAM CHRONIC DISEASE VISIT [facility] Start: 10-04-2022 ANNUAL PCP TEAM SENIOR [employer]S PLANNER [employer] DISEASE VISIT ANNUAL PCP TEAM CHRONIC DISEASE VISIT [facility] Start: 09-19-2022 ANNUAL PCP TEAM S[employer]IOR [employer]NER [employer] DISEASE VISIT ANNUAL PCP TEAM CHRONIC DISEASE VISIT [facility] Start: 09-19-2022 BP CONTROLLED (<130/80) BP CONTROLLE D (<130/80) [facility] Start: 09-05-2022 ANNUAL PCP TEAM [employer] DISEASE VISIT ANNUAL PCP TEAM CHRONIC DISEASE VISIT [facility] Start: 07-31-2022 End: 09-30-2022 Hemoglobin A1c in Blood [facility] Work Phone: Comment on above: Expected: 07/31/2022 , Expires: 09/30/2022 Start: 07-27-2022 Adult depression screening assessment DEPRESSION SCREENING [facility] Start: 07-27-2022 ANNUAL PCP TEAM [employer]IOR [employer] DISEASE VISIT ANNUAL PCP TEAM CHRONIC DISEASE VISIT [facility] Start: 07-27-2022 BP CONTROLLED (<130/80) BP CONTROLLE D (<130/80) [facility] Start: 07-27-2022 COVID-19 VACCINE (#1) COVID-19 VACCI NE (#1) [facility] Comment on above: Postponed from 01/19 (Declined at this time) Postponed from 07/19 (Declined at this time) Start: 04-14-2022 DIABETES SCREEN DIABETES SCREEN [facility] Start: 11-01-2021 Influenza vaccination [facility] Start: 07-12-2021 Screening for malign ant neoplasm of colon COLORECTAL CANCER SCREENING DISCUSSION [facility] Start: 2019 RSV VACCINE (1 - Ris k 60-74 years 1-dose series) RSV VACCINE (1 - Risk 60-74 years 1-dose series) [facility] Start: 2014 Prostate specific an tigen measurement PROSTATE CANCER SCREENING DISCUSSION [facility] Start: 2009 Pneumococcal vaccination PNEUM OCOCCAL VACCINE SERIES (1 of 1 - PCV) [facility] Start: 2009 Pneumococcal Vaccine : 50+ (1 of 1 - PCV) Pneumococcal Vaccine: 50+ (1 of 1 - PCV) [facility] Start: 2009 Zoster vaccine hzv l jannie for subcutaneous use ZOSTER (SHINGLES) VACCINE (1 of 2) [facility] Start: 01-20-2004 COLOGUARD (FIT-DNA) COLOGUARD (FIT-D NA) [facility] Start: 01-20-[address] COLONOGRAPHY [facility] Start: 01-20-2004 FECAL OCCULT BLOOD FECAL OCCULT BLOO D [facility] Start: 01-20-2004 Screening for malign ant neoplasm of colon [facility] Start: 01-20-2004 SIGMOIDOSCOPY SIGMOIDOSCOPY [facility] Start: 1999 Lipid panel LIPID SCREENING [facility] Start: 1977 Anxiety Screening Anxiety Screening [facility] Start: 1977 Depression Screening Depression Scre ening [facility] Start: 1959 Hepatitis C screening HEPATITI S C VIRUS SCREENING [facility] Antibody to SS-A measurement [facility] COVID & INFLUENZA A/ B & RSV PCR, ROUTINE COVID & INFLUENZA A/B & RSV PCR, ROUTINE Microbiology Routine Acute cough URI, acute Ordered: 11/06/2023 [facility] Work Phone: Comment on above: Ordered: 11/06/2023 DNA double strand Ab [Units/volume] in [facility] End: 08-31-2024 Flexible sigmoidoscopy study COLONOSCOPY DIAGNOSTIC Endoscopy Routine Rectal bleeding 1 Occurrences starting 09/01/2023 until 08/31/2024 [facility] Work Phone: Comment on above: 1 Occurrences starti ng 09/01/2023 until 08/31/2024 End: 10-01-2022 HOME SLEEP APNEA TEST (HSAT) HOME SLEEP APNEA TEST (HSAT) Procedures Routine Hypersomnia Snoring 1 Occurrences starting 10/01/2021 until 10/01/2022 [facility] Work Phone: Comment on above: 1 Occurrences starti ng 10/01/2021 until 10/01/2022 Teresa-1 extractable nuc lear Ab [Units/volume] in [facility] MR Lower Extremity Joint [facility] End: 12-19-2022 PAP TITRATION PSG (CPAP, BIPAP, ASV) PAP TITRATION PSG (CPAP, BIPAP, ASV) Procedures Routine ROBSON (obstructive sleep apnea) 1 Occurrences starting 11/19/2021 until 12/19/2022 [facility] Work Phone: Comment on above: 1 Occurrences starti ng 11/19/2021 until 12/19/2022 Patient Education Patent Foramen Ovale Understanding Oxygen Therapy What Are Snoring and Sleep Apnea? CPAP CAD Understanding Lumbar Radiculopathy Caring for Your Incision Cervical Radiculopathy [facility] Work Phone: Patient referral [facility] Work Phone: End: 06-21-2024 RF Greater than 1 hour [facility] Comment on above: One Time for 1 Occur rences starting 06/21/2024 until 06/21/2024 End: 07-27-2022 Screening colonoscopy COLONOSCOPY SCREENING Endoscopy Routine History of colonic polyps 1 Occurrences starting 07/27/2021 until 07/27/2022 [facility] Work Phone: Comment on above: 1 Occurrences starti ng 07/27/2021 until 07/27/2022 SURGICAL PATHOLOGY [facility]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 hyperextension) in the setting of DISH. He had bridging osteophytes present between T3 and T12-L1 compatible with DISH. He had marked cardiomegaly. No evidence of visceral injury in the abdomen/pelvis. No bony abnormality of the lumbar spine. He was transferred to [facility] on 06/20/2024 to see spine surgery. On 06/21/2024 he underwent posterior thoracic fusion T4-7 for a closed 3 column vertebral fracture. He was transferred to the acute inpt rehab unit at [facility] on 06/24/24 for 3 hours of therapy daily to restore function/independence at or near his baseline prior to the trauma. At presentation to acute rehab Darci was noted to have a systolic ejection murmur at the second right intercostal space that radiated to the left ventricular outflow tract, lower left sternal border, apex and into the left axilla. He denied any history of rheumatic fever and had never had an echocardiogram. Documentation from [facility] and [facility] showed significant cardiomegaly on the CT chest. Darci complained of shortness of breath with stair climbing and even with minimal exertion that caused him to stop. He denied chest pain or palpitations prior to his recent trauma. The CT scan of the chest also showed an increased amount of coronary calcifications. Blood pressure was uncontrolled at admission on 25 mg of metoprolol daily. We could not increase the beta-torie due to bradycardia and so he was started on hydrochlorothiazide 25 mg daily and the blood pressure has improved although the systolic is frequently mildly above 140. Diastolics are controlled. An echocardiogram was obtained and surprisingly showed a [id number]-[id number]-bobt intra-atrial shunt with contrast reaching the left atrium and about 6 beats. The atrial septum was hypermobile. Ejection fraction was 65% with no evidence of diastolic dysfunction. There was mild aortic valve stenosis present with moderate diffuse aortic valve thickening. The right ventricle was normal size and had normal systolic function. Both atria were of normal size. I reviewed all the imaging reports from the previous hospitals and there are spinal changes consistent with DISH. HLA B-27 and JOANN were negative. The RF was 30 but, CCP was negative. He has disease present in the cervical, thoracic and LS spines with disc protrusions, DDD, neuroforaminal stenosis and spinal canal stenosis. He has had radicular pain in his right lower extremity in the past. He complains of chronic back pain and stiffness, especially in the AM. Pain was adequately controlled on rehab with Tylenol 1 g p.o. every 8 hours, Robaxin 1000 mg every 6 hours, gabapentin 300 mg twice daily and 400 mg at at bedtime and PRN Oxycodone which he has not needed for a few days prior to DC. He has also been getting a compounded arthritis cream containing baclofen, Voltaren and lidocaine TID with good relief of the posterior rib pain. He is sleeping well at night and pain control is good. Darci did well in therapy and at the time of DC he has ambulated up to 525 feet on various surfaces at supervision with a front wheel walker. He is ambulated 165 feet with a straight cane at supervision. He is able to ascend/descend 20 steps with 2 handrails at supervision. He is independent with eating and supervision/set up for grooming. He requires minimal assistance with bathing and upper body dressing. He is supervision/set up for lower body dressing, toileting, toilet transfer and tub/shower transfer. Darci has a STOP BANG score of 7 out of a possible 8....he lives alone and says no one has said he stops breathing when sleeping but, his told me when they lived together she would wake him up because he was not breathing which would make the STOP BANG score 8 out of a possible 8. An overnight trending pulse ox was abnormal with hypoxia and desaturations. He was placed on supplemental oxygen at 2 L/min while sleeping. Mansoor was discharged on 07/06/2024 and will go directly to the sleep lab for an overnight sleep study. He will follow-up with pulmonary medicine for the results. The manager social arranged for 2 L/min oxygen supplementation at night when he is sleeping. He has a follow-up appointment with the spine surgeon on 07/07/2024 to remove the jalyn. He has a follow-up appointment with a new PCP, Cyrus MEDINA at the [facility] on 07/08/24. An appt was made for him to follow up christopher Vera from cardiology for PFO and . I suspect he needs a stress test to evaluate for CAD since he has RANGEL with even minimal exertion (prior to the trauma) and has increased coronary calcifications on a CT chest. While on rehab he had a HGBA1C that was elevated at 5.9% consistent with glucose intolerance/prediabetes. He was seen by the letter of credit document examiner and counselled on a carb restricted/wt loss diet. He may be a good candidate for pharmacologic intervention to assist with weight loss. Wt loss would also be beneficial for chronic back pain. He is also going to follow up with Dr. Toscano from pain management for chronic back pain with radicular pain. He also has an appointment with Dr. Bola Brown from orthopedics to be evaluated for suspected right rotator cuff tear. The patient is unsafe to use a cane and requires a walker for ambulation in the home and the community. I have reviewed the oxygen testing, and this patient qualifies for the home equipment and portability. The patient is mobile in the home and the community. He will need 2 LPM of oxygen supplementation anytime he is sleeping. Physical Exam Const alert, oriented x3 and no apparent distress Constitutional Narrative: Has not had any oxycodone today and tolerated therapy well with no yelling out. Has not had to take Oxycodone since 07/03/24 and has not had to have Dilaudid since prior to 07/03/24. General Appearance: cooperative, comfortable and well kempt HEENT moist oral mucous membranes Head and Scalp: normocephalic and atraumatic Eyes PERRL, EOMs intact bilaterally, conjunctivae normal and no scleral icterus Eyes Narrative: No discharge from the eyes. Neck No nodes and no carotid bruits General: trachea midline Resp clear to auscultation bilaterally Resp Narrative: No conversational dyspnea. No cough with deep breathing. Symmetrical chest expansion. Effort and Inspection: able to speak in complete sentences; Negative for tachypneic or labored Cardio regular rate, regular rhythm and no gallops Cardio Narrative: No ectopy. He has a 2/6 systolic ejection murmur heard at the second right intercostal space with radiation to the left ventricular outflow tract, lower left sternal border, apex and into the left axilla. GI normal to inspection, nondistended, normoactive bowel sounds, soft to palpation and non-tender Extremity no calf tenderness Extremity Narrative: He has weakness with external rotation in the right upper extremity and pain with raising his arm above his head. A rotator cuff tear is suspected. General Extremity: Negative for edema Skin no jaundice General Skin Exam: no breakdown Rashes: no rashes Wound Narrative: [place] are intact with no dehiscence. There is no melody-incisional erythema and no swelling around the incisions. No discharge from the incisions. Neuro CN's II-XII intact bilaterally and moves all extremities Psych thought process normal, cooperative and affect normal Appearance: appropriate Weight / BMI Weight Weight: 267 lb 13.786 oz Body Mass Index (BMI) 43.2 ABG / Lab / Microbiology Data 07/06/24 05:34 07/06/24 05:34 Laboratory: Laboratory Results - last 24 hr 07/06/24 05:34: WBC 8.9, RBC 4.68, Hgb 13.8, Hct 40.6, MCV 86.8, MCH 29.5, MCHC 34.0, RDW Std Deviation 39.9, RDW Coeff of Theresa 12.8, Plt Count 338, MPV 9.0, Sodium 137, Potassium 3.9, Chloride 99, Carbon Dioxide 26.3, Anion Gap 12, BUN 20 H, Creatinine 0.83, Estim Creat Clear Calc 109.04, Est GFR (MDRD) Non-Af 97, BUN/Creatinine Ratio 23.8 H, Glucose 110 H, Calcium 9.8 D/C Instructions Discharge Diet: Low fat / Low cholesterol, Carb Control Diet and - (low salt) Weight Bearing Status: Full weight bearing Call your doctor if your incision/area has: Continuous Slow Oozing, Sudden Increased Bleeding, Increased Pain/ Swelling, Increased Redness, Foul Smelling Discharge and Swelling at the incision site Call your doctor if you observe: Fever of 101 or Higher, Shortness of breath, Dizziness, Fainting spells, Swelling in the ankles, Chest pain, Increased palpitations (irregular heartbeat), Calf discomfort and Uncontrolled pain Cleanse incision/area with: Soap & Water DC O2, CPAP, BIPAP Needs Home O2 Discharge instructions: Yes Type of respiratory needs?: Oxygen (2 LPM) Oxygen frequency: With Sleeping Oxygen liters per minute when sleepin LPM DC home with Oxygen: Yes Home O2 MD Review: I have reviewed the oxygen testing, and the patient qualifies for home oxygen equipment and portability. The patient is mobile in the home and the community. Pending Tests Upon Discharge: None Please Follow Up With: Trey Marte, MECHANISM ASSEMBLERPaulineC When: appts are listed later on in this document. Meaningful Use Info Meaningful Use Meaningful Use Diagnoses (Choose all that apply): None applicable Ischemic Stroke Statin Dosing Therapy Reference: STATIN DOSE THERAPY REFERENCE: * Patients > 75 years receive moderate or high dose statin therapy. * Patients 75 years or YOUNGER should receive HIGH intensity statin dose unless contraindicated. You will be required to document reason for non-treatment if statin daily dose does not meet guidelines. HIGH DOSE STATIN THERAPY DAILY Atorvastatin > than or = to 40 mg Rosuvastatin > than or = to 20 mg Amlodipine + Atorvastatin > than or = to 2.5/40 mg Ezetimibe + Simvastatin 10/80 mg Simvastatin 80mg Discharge Plan Admission Admit Date/Time: 06/24/24 14:37 Primary Reason for Your Visit: DEBILITY DUE TO MULTIPLE TRAUMATIC INJURIES Attending Provider: Kelly Gracia Primary Care Provider: Brayden Chao Instructions Patient Instructions: Patent Foramen [place], Understanding Oxygen Therapy, What Are Snoring and Sleep Apnea?, CPAP, CAD, Understanding Lumbar Radiculopathy, Caring for Your Incision, Cervical Radiculopathy Additional Instructions / Restrictions: 1. An appointment has been scheduled for you to follow-up with Dr. Bola Brown for suspected right rotator cuff tear. 2. You will follow up with Dr. Vera who is a manager workers compensation for the hole between the upper 2 chambers of your heart (called a PFO) and for aortic valve disease. You also have calcification of the arteries in your heart that were seen on the CT scan of the chest. This can be seen with coronary artery disease. It addition to the calcifications in the arteries you have been having shortness of breath with exertion and stair climbing and this can be associated with heart disease. I suspect he may want o have you do a stress test to make sure that you do not have significant coronary artery disease. 3. You have a lot of disease in the spine and there are dinesh bridges between the vertebrae that cause stiffness and chronic back pain. This is called DISH and I gave you a handout that describes what this is. You have degenerating discs and with the degenerating discs and the increased bone osteophytes (spurs) in the spine you have some neuroforaminal stenosis. This is narrowing of the openings where the nerves come out of the spine and then go into the arms and legs. This can lead to nerve pain....also called radicular pain). Nerve pain causes burning pain and electric shock like pain in the extremities. Any swelling due to trauma/strain on the back will make this worse. You have disease in all 3 areas of the spine...the cervical, thoracic and lumbar spine. You are taking a medication called Gabapentin (also called Neurontin) which treats nerve pain. You need to avoid any further trauma to the spine or things will get a lot worse. I suspect you are going to have some more problems going forward due to DISH. You may want to see a ent consultant. Excess weight really puts a burden on the back and it would be best if you could lose weight. There are medications now that can help with appetite control and weight loss. Your new PCP will be able to discuss these meds with you and help you with weight loss. Bending, lifting and twisting all can increase back pain when you have DISH. 4. You are prediabetic. You are not diabetic but, you are at risk for developing diabetes if you do not get your weight under control and start some type of regular exercise routine. Watch your carbohydrate intake. The dietitians at the hospital have a program called why weight and they can see you as an outpatient to help you with your diet and appropriate carbohydrate restriction. Carbohydrates increase blood sugar. 5. Your oxygen drops at night when you are sleeping and this can lead to many different problems......problems with the rhythm of the heart called AF which can lead to strokes, depression, poor sleep quality and chronic fatigue, falling asleep while driving, restless legs, memory loss, high blood pressure in the lungs, etc. After the sleep study you will follow up with the pulmonary dept to discuss the results. You will likely need CPAP and they will explain this to you. Until you can get treated for sleep apnea you are going to need to wear oxygen anytime you are sleeping and the manager social is arranging this for you. 6. I have given you a lot to think about. You are only 64 years old and hopefully will have a long life ahead of you. If you take care of some of these problems it will be a much healthier, less painful life. 7. We have made you an appt to follow up with Dr. Toscano from pain management. He can help manage the chronic back pain and the nerve pain. 8. If you or your family have any questions after you leave rehab please do not hesitate to call me. OFFICE: [phone] CELL: [phone] NURSES STATION ON REHAB: [phone] Discharge Orders/Prescriptions Prescriptions: New Arthritis Pain Compound 2 click topical TID Qty: 0 0RF hydrochlorothiazide 25 mg Tablet 25 mg PO DAILY Qty: 30 0RF tizanidine 2 mg tablet 2 mg PO TID PRN (Reason: muscle spasticity) Qty: 90 0RF Rx Instructions: take 1-2 tabs every 8 hours as needed for muscle spasms. This can make you sleepy. niacin 500 mg Tablet Extended Release 24 Hr 500 mg PO QHS Qty: 30 0RF metoprolol succinate 25 mg Tablet Extended Release 24 Hr 25 mg PO DAILY Qty: 30 0RF oxycodone 5 mg Tablet 5 - 10 mg PO Q4H PRN PRN (Reason: pain 3-10) 7 Days Qty: 40 0RF gabapentin 300 mg capsule 300 mg PO TID Qty: 90 0RF Continued acetaminophen 500 mg tablet 1,000 mg PO Q8 Discontinued cyclobenzaprine 5 mg tablet 5 mg PO TID gabapentin 100 mg capsule 200 mg PO QHS lidocaine [Lidoderm] 5 % adhesive patch,medicated 2 patch topical DAILY Rx Instructions: leave on most painful area for up to 12 hrs Referrals / Follow Up: Jyoti Richardson [Other] - 07/07/24 2:15 pm Andre Castro [Other] - 08/03/24 2:20 pm Claire Vera MD [Med Staff - Active Staff] - 08/04/24 10:00 am Sadi Toscano MD [Med Staff - Active Staff] - 07/13/24 3:00 pm Bola Brown MD [Med Staff - Active Staff] - 07/12/24 11:00 am Trey Marte, MECHANISM ASSEMBLER-C [[facility]] - 07/08/24 2:15 pm Disposition Disposition (needs filled in before D/C Order can be placed): Home Health Service Charges/Coding Visit Charges Inpatient E&M: 26111 Disch Hosp >30min 07/06/24 1545 <Electronically signed by Kelly Garcia DO> Cosigner Signature (if applicable): CC: Dr. Claire Vera MD; Dr. Brayden Chao MD; Dr. Kelly Garcia DO; Dr. Sadi Toscano MD; Dr. Bola Brown MD; Trey [facility] MECHANISM ASSEMBLER-C Beam~ Signed [facility] Work Phone: [phone] 948-843105-06-2025 Discharge summary [facility] Medical Records Department [address] [place] [id number] Discharge Summary 07/06/24 1329 MR#: [id number] Acct: [id number] Name: DARCI HAMM Rep #:[id number] : 1960 64 From: Kelly Garcia DO PCP: Dr. Brayden Chao MD Status:ADM IN Location: [address] Date of Admission: 06/24/24 Date of Discharge: 07/06/24 Primary Care Physician: Dr. Brayden Chao MD Reason For Visit: MULTIPLE TRAUMA Diagnosis Discharge Diagnosis (1) Physical debility: Status: Acute Code(s): R53.81 - Other malaise (2) Multiple injuries due to trauma: Status: Acute Code(s): T07.XXXA - Unspecified multiple injuries, initial encounter Plan: Sustained in an encounter with a steer he was trimming the hooves on. (3) Multiple fractures of ribs: Status: Acute Code(s): S22.49XA - Multiple fractures of ribs, unspecified side, initial encounter for closed fracture Qualifiers: Encounter type: subsequent encounter Fracture type: closed Laterality:left Plan: Left anterolateral fractures of the 4th, 5th and 6th ribs and posterior fractures of the left 8th, 9th and 10th ribs. (4) History of thoracic spinal fusion: Status: Acute Code(s): Z98.1 - Arthrodesis status Plan: Posterior thoracic fusion of T4-T7 for a closed 3 column vertebral fracture at [facility]. (5) Cough: Status: Resolved Code(s): R05.9 - Cough, unspecified Qualifiers: Cough type: subacute Qualified Code(s): R05.2 - Subacute cough Plan: More likely than not due to atelectasis. (6) Pleural effusion: Status: Resolved Code(s): J90 - Pleural effusion, not elsewhere classified Plan: traumatic (7) DISH (diffuse idiopathic skeletal hyperostosis): Status: Suspected Code(s): M48.10 - Ankylosing hyperostosis [[place]], site unspecified Plan: Involves the cervical, thoracic and lumbosacral spine. (8) Radicular pain of lower extremity: Status: Chronic Code(s): M54.10 - Radiculopathy, site unspecified (9) Neural foraminal stenosis of lumbar spine: Status: Chronic Code(s): M48.061 - Spinal stenosis, lumbar region without neurogenic claudication (10) Lumbar canal stenosis: Status: Chronic Code(s): M48.061 - Spinal stenosis, lumbar region without neurogenic claudication Qualifiers: Neurogenic claudication status: unspecified Qualified Code(s): M48.061 - Spinal stenosis, lumbar region without neurogenic claudication (11) Protrusion of lumbar intervertebral disc: Status: Chronic Code(s): M51.26 - Other intervertebral disc displacement, lumbar region (12) Spinal stenosis of cervicothoracic region: Status: Chronic Code(s): M48.03 - Spinal stenosis, cervicothoracic region (13) Thoracic disc herniation: Status: Chronic Code(s): M51.24 - Other intervertebral disc displacement, thoracic region (14) Degenerative disc disease, thoracic: Status: Chronic Code(s): M51.34 - Other intervertebral disc degeneration, thoracic region (15) Protrusion of cervical intervertebral disc: Status: Chronic Code(s): M50.20 - Other cervical disc displacement, unspecified cervical region (16) Foraminal stenosis of cervical region: Status: Chronic Code(s): M48.02 - Spinal stenosis, cervical region (17) Morbid obesity with BMI of 40.0-44.9, adult: Status: Chronic Code(s): E66.01 - Morbid (severe) obesity due to excess calories; Z68.41 - Body mass index [BMI] 40.0-44.9, adult (18) ROBSON (obstructive sleep apnea): Status: Chronic Code(s): G47.33 - Obstructive sleep apnea (adult) (pediatric) Plan: STOP BANG score is 7 out of a possible 8. Overnight trending pulse ox abnormal. Scheduled for a overnight sleep study on the night of discharge from acute rehab. Will follow-up with pulmonary medicine. Supplemental oxygen has been ordered by the manager social and he is to wear this anytime he is sleeping. (19) Mild aortic stenosis by prior echocardiogram: Status: Chronic Code(s): I35.0 - Nonrheumatic aortic (valve) stenosis (20) Cardiomegaly: Status: Chronic Code(s): I51.7 - Cardiomegaly (21) Interatrial cardiac shunt: Status: Chronic Code(s): Q24.8 - Other specified congenital malformations of heart Plan: PFO with R-L shunt between the atria and a hypermobile septum. Follow-up has been scheduled with Dr. Vera from cardiology. (22) PFO (patent foramen ovale): Status: Chronic Code(s): Q21.12 - Patent foramen ovale (23) Coronary artery calcification seen on CAT scan: Status: Chronic Code(s): I25.10 - Atherosclerotic heart disease of belk[place] coronary artery without angina pectoris (24) Low HDL (under 40): Status: Chronic Code(s): E78.6 - Lipoprotein deficiency Plan: HDL is only 22 and he was started on Niaspan at at bedtime. (25) Hypertriglyceridemia without hypercholesterolemia: Status: Chronic Code(s): E78.1 - Pure hyperglyceridemia (26) Prediabetes: Status: Chronic Code(s): R73.03 - Prediabetes Plan: Hemoglobin A1c is 5.9%. Patient counseled to lose weight and has met with the dietitian on a few occasions to discuss alterations in diet. (27) Colon polyps: Status: Chronic Code(s): K63.5 - Polyp of colon Qualifiers: Colon polyp type: unspecified Plan: Follow-up as directed for repeat colonoscopies. (28) Diverticulosis: Status: Chronic Code(s): K57.90 - Diverticulosis of intestine, part unspecified, without perforation or abscess without bleeding (29) HTN (hypertension): Status: Chronic Code(s): I10 - Essential (primary) hypertension Qualifiers: Hypertension type: primary hypertension Qualified Code(s): I10 - Essential (primary) hypertension (30) Fatty infiltration of liver: Status: Chronic Code(s): K76.0 - Fatty (change of) liver, not elsewhere classified Plan 1. Discharge to the sleep lab for an overnight sleep study and then home with home health care in the a.m. 2. The patient is unsafe to use a cane and requires a walker for ambulation in the home and the community. 3. Overnight trending pulse ox last night confirms need for Oxygen 2 LPM anytime he is sleeping. I reviewed the documentation and agree with the findings. SW is arranging home O2. 4. Will follow up with [facility] spine surgery tomorrow to have jalyn removed. 5. F/U scheduled with Cyrus Marte MECHANISM ASSEMBLER, VSC to establish Darci as a new primary care patient 6. Follow-up has been scheduled with Dr. Bola Brown for suspected right rotator cuff tear. 7. Follow-up has been scheduled with Dr. Sadi Toscano for chronic pain management 8. Follow-up has been scheduled with Dr. Vera for PFO, aortic stenosis, increased coronary calcifications with dyspnea with minimal exertion....suspect he may have CAD. Medications at Discharge Home Medications acetaminophen 500 mg tablet 1,000 mg PO Q8 pain 06/24/24 Arthritis Pain Compound 2 click topical TID #0 tubes 07/06/24 gabapentin 300 mg capsule 300 mg PO TID #90 caps 07/06/24 hydrochlorothiazide 25 mg tablet 25 mg PO DAILY #30 tabs 07/06/24 metoprolol succinate 25 mg tablet,extended release 24 hr 25 mg PO DAILY #30 tabs 07/06/24 niacin 500 mg tablet,extended release 24 hr 500 mg PO QHS #30 tabs 07/06/24 oxycodone 5 mg tablet 5 - 10 mg (1 - 2 x 5 mg) PO Q4H PRN PRN pain 3-10 7 days #40 tabs 07/06/24 tizanidine 2 mg tablet 2 mg PO TID PRN muscle spasticity #90 tabs 07/06/24 Hospital Course Operations - (Posterior spinal fusion of thoracic vertebrae T4-T7 at [facility] on 06/21/2024) Procedures 2-D Echocardiogram (Interpretation Summary The estimated ejection fraction is 65 %. No evidence fordiastolic dysfunction. Bubble study is positive for qokun-tv-knot shunt with contrast reaching the left atrium in about 6 beats. Hypermobile atrial septum. Trivial mitral valve insufficiency. Mild aortic stenosis.) Summary of Care Provided Minutes Spent on Discharge: 42 Hospital Course: DARCI HAMM, is a 64-year-old M with a past medical history of hypertension, morbid obesity, basal cell carcinoma of the face, diastases rectus abdominis, chronic back pain, ROBSON (diagnosed on a home sleep study but, has never been treated), diverticulosis and colon polyps who presented to [facility] on 06/19/24 after he had been dragged to the ground and kicked/stomped by a steer. He was trimming the hoofs. He had a LOC at the scene but, presented to the ED by private car. He was confused and c/o R shoulder pain and left side rib and back pain. X-rays of the pelvis showed no acutefracture or dislocation. Right shoulder x-ray showed no acute abnormality. CT of the cervical spineshowed no acute fracture or traumatic malalignment. CT of the brain showed no acute intracranial abnormality. CT of the chest/abdomen/pelvis showed numerous rib fractures present on the left (anterolateral fourth, fifth, 6 ribs and posterior fractures of the left 8th, 9th and 10th ribs. . All of which were nondisplaced. There was no pneumothorax and no hemothorax. There was an unstable fracture ex tending through an anterior bridging osteophyte at the T5/T6 level (due to hyperextension) in the setting of DISH. He had bridging osteophytes present between T3 and T12-L1 compatible with DISH. He had marked cardiomegaly. No evidence of visceral injury in the abdomen/pelvis. No bony abnormality ofthe lumbar spine. He was transferred to [facility] on 06/20/2024 to see spine surgery. On 06/21/2024 he underwent posterior thoracic fusion T4-7 for a closed 3 column vertebral fracture. He was transferred tothe acute inpt rehab unit at [facility] on 06/24/24 for 3 hours of therapy daily to restore function/independence at or near his baseline prior to the trauma. At presentation to acute rehab Darci was noted to have a systolic ejection murmur at the second right intercostal space that radiated to the left ventricular outflow tract, lower left sternal border, apex and into the left axilla. He denied any history of rheumatic fever and had never had an echocardiogram. Documentation from [facility] and [facility] showed significant cardiomegaly on theCT chest. Darci complained of shortness of breath with stair climbing and even with minimal exertionthat caused him to stop. He denied chest pain or palpitations prior to his recent trauma. The CT scan of the chest also showed an increased amount of coronary calcifications. Blood pressure was uncont rolled at admission on 25 mg of metoprolol daily. We could not increase the beta-torie due to bradycardia and so he was started on hydrochlorothiazide 25 mg daily and the blood pressure has improved although the systolic is frequently mildly above 140. Diastolics are controlled. An echocardiogramwas obtained and surprisingly showed a hpkay-zy-vepf intra-atrial shunt with contrast reaching the left atrium and about 6 beats. The atrial septum was hypermobile. Ejection fraction was 65% with no evidence of diastolic dysfunction. There was mild aortic valve stenosis present with moderate diffuse aortic valve thickening. The right ventricle was normal size and had normal systolic function. Both atria were of normal size. I reviewed all the imaging reports from the previous hospitals and there are spinal changes consistent with DISH. HLA B-27 and JOANN were negative. The RF was 30 but, CCP was negative. He has disease present in the cervical, thoracic and LS spines with disc protrusions, DDD, neuroforaminal stenosis and spinal canal stenosis. He has had radicular pain in his right lower extremity in the past. He complains of chronic back pain and stiffness, especially in the AM. Pain was adequately controlled on rehab with Tylenol 1 g p.o. every 8 hours, Robaxin 1000 mg every 6 hours, gabapentin 300 mg twice daily and 400 mg at at bedtime and PRN Oxycodone which he has not needed for a few days prior to DC. Hehas also been getting a compounded arthritis cream containing baclofen, Voltaren and lidocaine TID with good relief of the posterior rib pain. He is sleeping well at night and pain control is good. Darci did well in therapy and at the time of DC he has ambulated up to 525 feet on various surfaces at supervision with a front wheel walker. He is ambulated 165 feet with a straight cane at supervision. He is able to ascend/descend 20 steps with 2 handrails at supervision. He is independent with eating and supervision/set up for grooming. He requires minimal assistance with bathing and upper bodydressing. He is supervision/set up for lower body dressing, toileting, toilet transfer and tub/shower transfer. Darci has a STOP BANG score of 7 out of a possible 8....he lives alone and says no one has said he stops breathing when sleeping but, his told me when they lived together she would wake him up because he was not breathing which would make the STOP BANG score 8 out of a possible 8. An overnight trending pulse ox was abnormal with hypoxia and desaturations. He was placed on supplemental oxygen at 2 L/min while sleeping. Mansoor was discharged on 07/06/2024 and will go directly to the sleep lab for an overnight sleep study. He will follow-up with pulmonary medicine for the results. The manager social arranged for 2 L/min oxygen supplementation at night when he is sleeping. He has a follow-up appointment with the spine surgeon on 07/07/2024 to remove the jalyn. He has a follow-up appointment with a new PCP, Cyrus MEDINA at the [facility] on 07/08/24. An appt was made for him to follow up christopher Vera from cardiology for PFO and . I suspect he needs a stress test to evaluate for CAD since he has RANGEL with even minimal exertion (prior to the trauma) and has increased coronary calcifications on a CT chest. While on rehab he had a HGBA1C that was elevated at 5.9% consistent with glucose intolerance/prediabetes. He was seen by the letter of credit document examiner and counselled on a carb restricted/wt loss diet. He may nathalie good candidate for pharmacologic intervention to assist with weight loss. Wt loss would also be beneficial for chronic back pain. He is also going to follow up with Dr. Toscnao from pain managementfor chronic back pain with radicular pain. He also has an appointment with Dr. Bola Brown from orthopedics to be evaluated for suspected right rotator cuff tear. The patient is unsafe to use a cane and requires a walker for ambulation in the home and the community. I have reviewed the oxygen testing, and this patient qualifies for the home equipment and portability. The patient is mobile in the home and the community. He will need 2 LPM of oxygen supplementation anytime he is sleeping. Physical Exam Const alert, oriented x3 and no apparent distress Constitutional Narrative: Has not had any oxycodone today and tolerated therapy well with no yelling out. Has not had to takeOxycodone since 07/03/24 and has not had to have Dilaudid since prior to 07/03/24. General Appearance: cooperative, comfortable and well kempt HEENT moist oral mucous membranes Head and Scalp: normocephalic and atraumatic Eyes PERRL, EOMs intact bilaterally, conjunctivae normal and no scleral icterus Eyes Narrative: No discharge from the eyes. Neck No nodes and no carotid bruits General: trachea midline Resp clear to auscultation bilaterally Resp Narrative: No conversational dyspnea. No cough with deep breathing. Symmetrical chest expansion. Effort and Inspection: able to speak in complete sentences; Negative for tachypneic or labored Cardio regular rate, regular rhythm and no gallops Cardio Narrative: No ectopy. He has a 2/6 systolic ejection murmur heard at the second right intercostal space with radiation to the left ventricular outflow tract, lower left sternal border, apex and into the left axilla. GI normal to inspection, nondistended, normoactive bowel sounds, soft to palpation and non-tender Extremity no calf tenderness Extremity Narrative: He has weakness with external rotation in the right upper extremity and pain with raising his arm above his head. A rotator cuff tear is suspected. General Extremity: Negative for edema Skin no jaundice General Skin Exam: no breakdown Rashes: no rashes Wound Narrative: Jalyn are intact with no dehiscence. There is no melody-incisional erythema and no swelling around the incisions. No discharge from the incisions. Neuro CN's II-XII intact bilaterally and moves all extremities Psych thought process normal, cooperative and affect normal Appearance: appropriate Weight / BMI Weight Weight: 267 lb 13.786 oz Body Mass Index (BMI) 43.2 ABG / Lab / Microbiology Data 07/06/24 05:34 05/06/25 05:34 Laboratory: Laboratory Results - last 24 hr 07/06/24 05:34: WBC 8.9, RBC 4.68, Hgb 13.8, Hct 40.6, MCV 86.8, MCH 29.5, MCHC 34.0, RDW Std Deviation 39.9, RDW Coeff of Theresa 12.8, Plt Count 338, MPV 9.0, Sodium 137, Potassium 3.9, Chloride 99, Carbon Dioxide 26.3, Anion Gap 12, BUN 20 H, Creatinine 0.83, Estim Creat Clear Calc 109.04, Est GFR (MDRD) Non-Af 97, BUN/Creatinine Ratio 23.8 H, Glucose 110 H, Calcium 9.8 D/C Instructions Discharge Diet: Low fat / Low cholesterol, Carb Control Diet and - (low salt) Weight Bearing Status: Full weight bearing Call your doctor if your incision/area has: Continuous Slow Oozing, Sudden Increased Bleeding, Increased Pain/ Swelling, Increased Redness, Foul Smelling Discharge and Swelling at the incision site Call your doctor if you observe: Fever of 101 or Higher, Shortness of breath, Dizziness, Fainting spells, Swelling in the ankles, Chest pain, Increased palpitations (irregular heartbeat), Calf discomfort and Uncontrolled pain Cleanse incision/area with: Soap & Water DC O2, CPAP, BIPAP Needs Home O2 Discharge instructions: Yes Type of respiratory needs?: Oxygen (2 LPM) Oxygen frequency: With Sleeping Oxygen liters per minute when sleepin LPM DC home with Oxygen: Yes Home O2 MD Review: I have reviewed the oxygen testing, and the patient qualifies for home oxygen equipment and portability. The patient is mobile in the home and the community. Pending Tests Upon Discharge: None Please Follow Up With: Trey Marte, MECHANISM ASSEMBLERPaulineC When: appts are listed later on in this document. Meaningful Use Info Meaningful Use Meaningful Use Diagnoses (Choose all that apply): None applicable Ischemic Stroke Statin Dosing Therapy Reference: STATIN DOSE THERAPY REFERENCE: * Patients > 75 years receive moderate or high dose statin therapy. * Patients 75 years or YOUNGER should receive HIGH intensity statin dose unless contraindicated. You will be required to document reason for non-treatment if statin daily dose does not meet guidelines. HIGH DOSE STATIN THERAPY DAILY Atorvastatin > than or = to 40 mg Rosuvastatin > than or = to 20 mg Amlodipine + Atorvastatin > than or = to 2.5/40 mg Ezetimibe + Simvastatin 10/80 mg Simvastatin 80mg Discharge Plan Admission Admit Date/Time: 06/24/24 14:37 Primary Reason for Your Visit: DEBILITY DUE TO MULTIPLE TRAUMATIC INJURIES Attending Provider: Kelly Garcia Primary Care Provider: Brayden Chao Instructions Patient Instructions: Patent Foramen [place], Understanding Oxygen Therapy, What Are Snoring and Sleep Apnea?, CPAP, CAD, Understanding Lumbar Radiculopathy, Caring for Your Incision, Cervical Radiculopathy Additional Instructions / Restrictions: 1. An appointment has been scheduled for you to follow-up with Dr. Bola Brown for suspected right rotator cuff tear. 2. You will follow up with Dr. Vera who is a manager workers compensation for the hole between the upper 2 chambers of your heart (called a PFO) and for aortic valve disease. You also have calcification of the arteries in your heart that were seen on the CT scan of the chest. This can be seen with coronary arterydisease. It addition to the calcifications in the arteries you have been having shortness of breath with exertion and stair climbing and this can be associated with heart disease. I suspect he may want o have you do a stress test to make sure that you do not have significant coronary artery disease. 3. You have a lot of disease in the spine and there are dinesh bridges between the vertebrae that cause stiffness and chronic back pain. This is called DISH and I gave you a handout that describes what this is. You have degenerating discs and with the degenerating discs and the increased bone osteophytes (spurs) in the spine you have some neuroforaminal stenosis. This is narrowing of the openings where the nerves come out of the spine and then go into the arms and legs. This can lead to nerve pain....also called radicular pain). Nerve pain causes burning pain and electric shock like pain in the extremities. Any swelling due to trauma/strain on the back will make this worse. You have disease in all 3 areas of the spine...the cervical, thoracic and lumbar spine. You are taking a medicationcalled Gabapentin (also called Neurontin) which treats nerve pain. You need to avoid any further trauma to the spine or things will get a lot worse. I suspect you are going to have some more problemsgoing forward due to DISH. You may want to see a ent consultant. Excess weight really puts a burdenon the back and it would be best if you could lose weight. There are medications now that can help with appetite control and weight loss. Your new PCP will be able to discuss these meds with you and help you with weight loss. Bending, lifting and twisting all can increase back pain when you have DISH. 4. You are prediabetic. You are not diabetic but, you are at risk for developing diabetes if you do not get your weight under control and start some type of regular exercise routine. Watch your carbohydrate intake. The dietitians at the hospital have a program called why weight and they can seeyou as an outpatient to help you with your diet and appropriate carbohydrate restriction. Carbohydrates increase blood sugar. 5. Your oxygen drops at night when you are sleeping and this can lead to many different problems......problems with the rhythm of the heart called AF which can lead to strokes, depression, poor sleepquality and chronic fatigue, falling asleep while driving, restless legs, memory loss, high blood pressure in the lungs, etc. After the sleep study you will follow up with the pulmonary dept to discuss the results. You will likely need CPAP and they will explain this to you. Until you can get treated for sleep apnea you are going to need to wear oxygen anytime you are sleeping and the manager social is arranging this for you. 6. I have given you a lot to think about. You are only 64 years old and hopefully will have a long life ahead of you. If you take care of some of these problems it will be a much healthier, less painful life. 7. We have made you an appt to follow up with Dr. Toscano from pain management. He can help manage the chronic back pain and the nerve pain. 8. If you or your family have any questions after you leave rehab please do not hesitate to call me. OFFICE: [phone] CELL: [phone] NURSES STATION ON REHAB: [phone] Discharge Orders/Prescriptions Prescriptions: New Arthritis Pain Compound 2 click topical TID Qty: 0 0RF hydrochlorothiazide 25 mg Tablet 25 mg PO DAILY Qty: 30 0RF tizanidine 2 mg tablet 2 mg PO TID PRN (Reason: muscle spasticity) Qty: 90 0RF Rx Instructions: take 1-2 tabs every 8 hours as needed for muscle spasms. This can make you sleepy. niacin 500 mg Tablet Extended Release 24 Hr 500 mg PO QHS Qty: 30 0RF metoprolol succinate 25 mg Tablet Extended Release 24 Hr 25 mg PO DAILY Qty: 30 0RF oxycodone 5 mg Tablet 5 - 10 mg PO Q4H PRN PRN (Reason: pain 3-10) 7 Days Qty: 40 0RF gabapentin 300 mg capsule 300 mg PO TID Qty: 90 0RF Continued acetaminophen 500 mg tablet 1,000 mg PO Q8 Discontinued cyclobenzaprine 5 mg tablet 5 mg PO TID gabapentin 100 mg capsule 200 mg PO QHS lidocaine [Lidoderm] 5 % adhesive patch,medicated 2 patch topical DAILY Rx Instructions: leave on most painful area for up to 12 hrs Referrals / Follow Up: Jyoti Richardson [Other] - 07/07/24 2:15 pm Andre Castro [Other] - 08/03/24 2:20 pm Claire Vera MD [Med Staff - Active Staff] - 08/04/24 10:00 am Sadi Toscano MD [Med Staff - Active Staff] - 07/13/24 3:00 pm Bola Brown MD [Med Staff - Active Staff] - 07/12/24 11:00 am Trey Marte, LACEY-C [[facility]] - 07/08/24 2:15 pm Disposition Disposition (needs filled in before D/C Order can be placed): Home Health Service Charges/Coding Visit Charges Inpatient E&M: 56146 Disch Hosp >30min 07/06/24 2298 Cosigner Signature (if applicable): CC: Dr. Claire Vera MD; Dr. Brayden Chao MD; Dr. Kelly Garcia DO; Dr. Sadi Toscano MD; Dr. Bola Brwon MD; Trey MEDINA NP-Sander Beam~ Signed [facility]05-06-2025 Discharge summary Author Kelly Garcia [facility] Note Date/Time July 06, 2024 1:29pm [facility] Medical Records Department [address] [place] [address] Instructions for Home/Discharge Instructions 07/06/24 1226 MR#: [id number] Acct: [id number] Name: DARCI HAMM Rep #:[id number] : 1960 64 From: Kelly Garcia DO PCP: Dr. Brayden Chao MD Status:ADM IN Discharge Instructions Diet Discharge Diet: Low fat / Low cholesterol, Carb Control Diet and - (low salt) DC O2, CPAP, BIPAP needs Home O2 Discharge instructions: Yes Type of respiratory needs?: Oxygen (2 LPM) Oxygen frequency: With Sleeping Oxygen liters per minute when sleepin LPM Dressing / Incision Discharge Activity: May Not Drive, May Shower and Use Walker (use a walker or a can when ambulating) Weight Bearing Status: Full weight bearing Lifting Restrictions: No more than 8 lbs until surgery releases you to lift more. Dressing / Incision Call your doctor if your incision/area has: Continuous Slow Oozing, Sudden Increased Bleeding, Increased Pain/ Swelling, Increased Redness, Foul Smelling Discharge and Swelling at the incision site Call your doctor if you observe: Fever of 101 or Higher, Shortness of breath, Dizziness, Fainting spells, Swelling in the ankles, Chest pain, Increased palpitations (irregular heartbeat), Calf discomfort and Uncontrolled pain Cleanse incision/area with: Soap & Water Follow Up Care Please Follow Up With: Trey Marte, MECHANISM ASSEMBLER-C When: appts are listed later on in this document. Test Results: Test results from this visit will be discussed in further detail at your follow- up appointment, if applicable. Pending Tests Upon Discharge: None Discharge Plan Admission Admit Date/Time: 06/24/24 14:37 Primary Reason for Your Visit: DEBILITY DUE TO MULTIPLE TRAUMATIC INJURIES Attending Provider: Kelly Garcia Primary Care Provider: Brayden Chao Patient Instructions: Patent Foramen [place], Understanding Oxygen Therapy, What Are Snoring and Sleep Apnea?, CPAP, CAD, Understanding Lumbar Radiculopathy, Caring for Your Incision, Cervical Radiculopathy Additional Instructions / Restrictions: 1. An appointment has been scheduled for you to follow-up with Dr. Bola Brown for suspected right rotator cuff tear. 2. You will follow up with Dr. Vera who is a manager workers compensation for the hole betweenthe upper 2 chambers of your heart (called a PFO) and for aortic valve disease. You also have calcification of the arteries in your heart that were seen on the CT scan of the chest. This can be seen with coronary artery disease. It addition to the calcifications in the arteries you have been having shortness ofbreath with exertion and stair climbing and this can be associated with heart disease. I suspect he may want o have you do a stress test to make sure that you do not have significant coronary artery disease. 3. You have a lot of disease in the spine and there are dinesh bridges between the vertebrae that cause stiffness and chronic back pain. This is called DISH and I gave you a handout that describes what this is. You have degenerating discs and with the degenerating discs and the increased bone osteophytes (spurs)in the spine you have some neuroforaminal stenosis. This is narrowing of the openings where the nerves come out of the spine and then go into the arms and legs. This can lead to nerve pain....also called radicular pain). Nerve paincauses burning pain and electric shock like pain in the extremities. Any swelling due to trauma/strain on the back will make this worse. You have disease in all 3 areas of the spine...the cervical, thoracic and lumbar spine. You are taking a medication called Gabapentin (also called Neurontin) which treats nerve pain. You need to avoid any further trauma to the spine or thingswill get a lot worse. I suspect you are going to have some more problems going forward due to DISH. You may want to see a ent consultant. Excess weight really puts a burden on the back and it would be best if you could lose weight. There are medications now that can help with appetite control and weight loss. Your new PCP will be able to discuss these meds with you and help you with weight loss. Bending, lifting and twisting all can increase back pain when you have DISH. 4. You are prediabetic. You are not diabetic but, you are at risk for developing diabetes if you do not get your weight under control and start some type of regular exercise routine. Watch your carbohydrate intake. The dietitians at the hospital have a program called why weight and they can see you as an outpatient to help you with your diet and appropriate carbohydrate restriction. Carbohydrates increase blood sugar. 5. Your oxygen drops at night when you are sleeping and this can lead to many different problems......problems with the rhythm of the heart called AF which can lead to strokes, depression, poor sleep quality and chronic fatigue, fallingasleep while driving, restless legs, memory loss, high blood pressure in the lungs, etc. After the sleep study you will follow up with the pulmonary dept todiscuss the results. You will likely need CPAP and they will explain this to you. Until you can get treated for sleep apnea you are going to need to wear oxygen anytime you are sleeping and the manager social is arranging this for you. 6. I have given you a lot to think about. You are only 64 years old and hopefully will have a long life ahead of you. If you take care of some of theseproblems it will be a much healthier, less painful life. 7. We have made you an appt to follow up with Dr. Toscano from pain management. He can help manage the chronic back pain and the nerve pain. 8. If you or your family have any questions after you leave rehab please do nothesitate to call me. OFFICE: [phone] CELL: [phone] NURSES STATION ON REHAB: [phone] Discharge Orders/Prescriptions Prescriptions: New Arthritis Pain Compound 2 click topical TID Qty: 0 0RF hydrochlorothiazide 25 mg Tablet 25 mg PO DAILY Qty: 30 0RF tizanidine 2 mg tablet 2 mg PO TID PRN (Reason: muscle spasticity) Qty: 90 0RF Rx Instructions: take 1-2 tabs every 8 hours as needed for muscle spasms. This can make you sleepy. niacin 500 mg Tablet Extended Release 24 Hr 500 mg PO QHS Qty: 30 0RF metoprolol succinate 25 mg Tablet Extended Release 24 Hr 25 mg PO DAILY Qty: 30 0RF oxycodone 5 mg Tablet 5 - 10 mg PO Q4H PRN PRN (Reason: pain 3-10) 7 Days Qty: 40 0RF Continued acetaminophen 500 mg tablet 1,000 mg PO Q8 Discontinued cyclobenzaprine 5 mg tablet 5 mg PO TID gabapentin 100 mg capsule 200 mg PO QHS lidocaine [Lidoderm] 5 % adhesive patch,medicated 2 patch topical DAILY Rx Instructions: leave on most painful area for up to 12 hrs Referrals / Follow Up: Jyoti Richardson [Other] - 07/07/24 2:15 pm Andre Castro [Other] - 08/03/24 2:20 pm Claire Vera MD [Med Staff - Active Staff] - 08/04/24 10:00 am Sadi Toscano MD [Med Staff - Active Staff] - 07/13/24 3:00 pm Bola Brown MD [Med Staff - Active Staff] - 07/12/24 11:00 am Trey Marte, MECHANISM ASSEMBLER-C [[facility]] - 07/08/24 2:15 pm Disposition Disposition (needs filled in before D/C Order can be placed): Home Health Service 07/06/24 1329<Electronically signed by Kelly Garcia DO>Kelly Garcia DO CC: Dr. Claire Vera MD; Dr. Brayden Chao MD; Dr. Sadi Toscano MD; Dr.Scott Kevin MD; Trey MEDINA MECHANISM ASSEMBLER-C Beam ~ Signed [facility] Work Phone: [phone]) 388-489405-06-2025 Telephone encounter Note* Telephone Encounter - Angella Krishna RN - 07/06/2024 1:29 PM EDT Phoned Gladys and given provider's message below with verbalized understanding. Gladys agreeable. [facility]05-06-2025 Discharge summary [facility] Medical Records Department [facility] [place] [address] Instructions for Home/Discharge Instructions 07/06/24 1226 MR#: [id number] Acct: [id number] Name: DARCI HAMM Rep #:[id number] : 1960 64 From: Kelly Garcia DO PCP: Dr. Brayedn Chao MD Status:ADM IN Discharge Instructions Diet Discharge Diet: Low fat / Low cholesterol, Carb Control Diet and - (low salt) DC O2, CPAP, BIPAP needs Home O2 Discharge instructions: Yes Type of respiratory needs?: Oxygen (2 LPM) Oxygen frequency: With Sleeping Oxygen liters per minute when sleepin LPM Dressing / Incision Discharge Activity: May Not Drive, May Shower and Use Walker (use a walker or a can when ambulating) Weight Bearing Status: Full weight bearing Lifting Restrictions: No more than 8 lbs until surgery releases you to lift more. Dressing / Incision Call your doctor if your incision/area has: Continuous Slow Oozing, Sudden Increased Bleeding, Increased Pain/ Swelling, Increased Redness, Foul Smelling Discharge and Swelling at the incision site Call your doctor if you observe: Fever of 101 or Higher, Shortness of breath, Dizziness, Fainting spells, Swelling in the ankles, Chest pain, Increased palpitations (irregular heartbeat), Calf discomfort and Uncontrolled pain Cleanse incision/area with: Soap & Water Follow Up Care Please Follow Up With: Trey Marte, MECHANISM ASSEMBLERPaulineC When: appts are listed later on in this document. Test Results: Test results from this visit will be discussed in further detail at your follow- up appointment, if applicable. Pending Tests Upon Discharge: None Discharge Plan Admission Admit Date/Time: 06/24/24 14:37 Primary Reason for Your Visit: DEBILITY DUE TO MULTIPLE TRAUMATIC INJURIES Attending Provider: Kelly Garcia Primary Care Provider: Brayden Chao Instructions Patient Instructions: Patent Foramen [place], Understanding Oxygen Therapy, What Are Snoring and Sleep Apnea?, CPAP, CAD, Understanding Lumbar Radiculopathy, Caring for Your Incision, Cervical Radiculopathy Additional Instructions / Restrictions: 1. An appointment has been scheduled for you to follow-up with Dr. Bola Brown for suspected right rotator cuff tear. 2. You will follow up with Dr. Vera who is a manager workers compensation for the hole betweenthe upper 2 chambersof your heart (called a PFO) and for aortic valve disease. You also have calcification of the arteries in your heart that were seen on the CT scan of the chest. This can be seen with coronary artery disease. It addition to the calcifications in the arteries you have been having shortness ofbreath with exertion and stair climbing and this can be associated with heart disease. I suspect he may wanto have you do a stress test to make sure that you do not have significant coronary artery disease. 3. You have a lot of disease in the spine and there are dinesh bridges between the vertebrae that cause stiffness and chronic back pain. This is called DISH and I gave you a handout that describes what this is. You have degenerating discs and with the degenerating discs and the increased bone osteophytes (spurs)in the spine you have some neuroforaminal stenosis. This is narrowing of the openings where the nerves come out of the spine and then go into the arms and legs. This can lead to nerve pain....also called radicular pain). Nerve paincauses burning pain and electric shock like pain in the extremities. Any swelling due to trauma/strain on the back will make this worse. You have disease in all 3 areas of the spine...the cervical, thoracic and lumbar spine. You are taking a medication called Gabapentin (also called Neurontin) which treats nerve pain. You need to avoid any further trauma to the spine or thingswill get a lot worse. I suspect you are going to have some more problems going forward due to DISH. You may want to see a ent consultant. Excess weight really puts a burden onthe back and it would be best if you could lose weight. There are medications now that can help with appetite control and weight loss. Your new PCP will be able to discuss these meds with you and help you with weight loss. Bending, lifting and twisting all can increase back pain when you have DISH. 4. You are prediabetic. You are not diabetic but, you are at risk for developing diabetes if you do not get your weight under control and start some type of regular exercise routine. Watch your carbohydrate intake. The dietitians at the hospital have a program called why weight and they can seeyou as an outpatient to help you with your diet and appropriate carbohydrate restriction. Carbohydrates increase blood sugar. 5. Your oxygen drops at night when you are sleeping and this can lead to many different problems......problems with the rhythm of the heart called AF which can lead to strokes, depression, poor sleepquality and chronic fatigue, fallingasleep while driving, restless legs, memory loss, high blood pressure in the lungs, etc. After the sleep study you will follow up with the pulmonary dept todiscussthe results. You will likely need CPAP and they will explain this to you. Until you can get treatedfor sleep apnea you are going to need to wear oxygen anytime you are sleeping and the social workeris arranging this for you. 6. I have given you a lot to think about. You are only 64 years old and hopefully will have a long life ahead of you. If you take care of some of theseproblems it will be a much healthier, less painful life. 7. We have made you an appt to follow up with Dr. Toscano from pain management. He can help manage the chronic back pain and the nerve pain. 8. If you or your family have any questions after you leave rehab please do nothesitate to call me. OFFICE: [phone] CELL: [phone] NURSES STATION ON REHAB: [phone] Discharge Orders/Prescriptions Prescriptions: New Arthritis Pain Compound 2 click topical TID Qty: 0 0RF hydrochlorothiazide 25 mg Tablet 25 mg PO DAILY Qty: 30 0RF tizanidine 2 mg tablet 2 mg PO TID PRN (Reason: muscle spasticity) Qty: 90 0RF Rx Instructions: take 1-2 tabs every 8 hours as needed for muscle spasms. This can make you sleepy. niacin 500 mg Tablet Extended Release 24 Hr 500 mg PO QHS Qty: 30 0RF metoprolol succinate 25 mg Tablet Extended Release 24 Hr 25 mg PO DAILY Qty: 30 0RF oxycodone 5 mg Tablet 5 - 10 mg PO Q4H PRN PRN (Reason: pain 3-10) 7 Days Qty: 40 0RF Continued acetaminophen 500 mg tablet 1,000 mg PO Q8 Discontinued cyclobenzaprine 5 mg tablet 5 mg PO TID gabapentin 100 mg capsule 200 mg PO QHS lidocaine [Lidoderm] 5 % adhesive patch,medicated 2 patch topical DAILY Rx Instructions: leave on most painful area for up to 12 hrs Referrals / Follow Up: Jyoti Richardson [Other] - 07/07/24 2:15 pm Andre Castro [Other] - 08/03/24 2:20 pm Claire Vera MD [Med Staff - Active Staff] - 08/04/24 10:00 am Sadi Toscano MD [Med Staff - Active Staff] - 07/13/24 3:00 pm Bola Brown MD [Med Staff - Active Staff] - 07/12/24 11:00 am Trey Marte [facility], MECHANISM ASSEMBLER-C [[facility]] - 07/08/24 2:15 pm Disposition Disposition (needs filled in before D/C Order can be placed): Home Health Service 07/06/24 1329Kelly Garcia CC: Dr. Claire Vera MD; Dr. Brayden Chao MD; Dr. Sadi Toscano MD; Dr.Scott Kevin MD; Reganlizzy [facility] MECHANISM ASSEMBLER-C Beam ~ Signed [facility]05-06-2025 Miscellaneous Notes* Telephone Encounter - Angella Krishna RN - 07/06/2024 1:29 PM EDT Phoned Gladys and given provider's message below with verbalized understanding. Gladys agreeable. * Telephone Encounter - Brayden Chao MD - 07/06/2024 1:09 PM EDT Yes I will follow. The F2F form needs signed by the provider who ordered HHC and felt the patient qualified for it. * Telephone Encounter - Swetha Fernandez RN - 07/06/2024 12:54 PM EDT Gladys from [facility] calls and states that patient was discharged from [facility] on 07/06/2024 with the diagnosis of spinal surgery. Gladys asking if provider willing to follow patient with orders for care home, physical therapy, and occupational therapy. If agreeable please give Gladys a call back . Thank you, Swetha Fernandez RN [facility] Medical Records Department [address] [place] [address] Discharge Summary 07/06/24 1329 MR#: [id number] Acct: [id number] Name: DARCI HAMM Rep #: [id number] : 1960 64 From: Kelly Garcia PCP: Dr. Brayden Chao MD Status:ADM IN Location: [address] Date of Admission: 06/24/24 Date of Discharge: 07/06/24 Primary Care Physician: Dr. Brayden Chao MD Reason For Visit: MULTIPLE TRAUMA Diagnosis Discharge Diagnosis (1) Physical debility: Status: Acute Code(s): R53.81 - Other malaise (2) Multiple injuries due to trauma: Status: Acute Code(s): T07.XXXA - Unspecified multiple injuries, initial encounter Plan: Sustained in an encounter with a steer he was trimming the hooves on. (3) Multiple fractures of ribs: Status: Acute Code(s): S22.49XA - Multiple fractures of ribs, unspecified side, initial encounter for closed fracture Qualifiers: Encounter type: subsequent encounter Fracture type: closed Laterality: left Plan: Left anterolateral fractures of the 4th, 5th and 6th ribs and posterior fractures of the left 8th, 9th and 10th ribs. (4) History of thoracic spinal fusion: Status: Acute Code(s): Z98.1 - Arthrodesis status Plan: Posterior thoracic fusion of T4-T7 for a closed 3 column vertebral fracture at [facility]. (5) Cough: Status: Resolved Code(s): R05.9 - Cough, unspecified Qualifiers: Cough type: subacute Qualified Code(s): R05.2 - Subacute cough Plan: More likely than not due to atelectasis. (6) Pleural effusion: Status: Resolved Code(s): J90 - Pleural effusion, not elsewhere classified Plan: traumatic (7) DISH (diffuse idiopathic skeletal hyperostosis): Status: Suspected Code(s): M48.10 - Ankylosing hyperostosis [[place]], site unspecified Plan: Involves the cervical, thoracic and lumbosacral spine. (8) Radicular pain of lower extremity: Status: Chronic Code(s): M54.10 - Radiculopathy, site unspecified (9) Neural foraminal stenosis of lumbar spine: Status: Chronic Code(s): M48.061 - Spinal stenosis, lumbar region without neurogenic claudication (10) Lumbar canal stenosis: Status: Chronic Code(s): M48.061 - Spinal stenosis, lumbar region without neurogenic claudication Qualifiers: Neurogenic claudication status: unspecified Qualified Code(s): M48.061 - Spinal stenosis, lumbar region without neurogenic claudication (11) Protrusion of lumbar intervertebral disc: Status: Chronic Code(s): M51.26 - Other intervertebral disc displacement, lumbar region (12) Spinal stenosis of cervicothoracic region: Status: Chronic Code(s): M48.03 - Spinal stenosis, cervicothoracic region (13) Thoracic disc herniation: Status: Chronic Code(s): M51.24 - Other intervertebral disc displacement, thoracic region (14) Degenerative disc disease, thoracic: Status: Chronic Code(s): M51.34 - Other intervertebral disc degeneration, thoracic region (15) Protrusion of cervical intervertebral disc: Status: Chronic Code(s): M50.20 - Other cervical disc displacement, unspecified cervical region (16) Foraminal stenosis of cervical region: Status: Chronic Code(s): M48.02 - Spinal stenosis, cervical region (17) Morbid obesity with BMI of 40.0-44.9, adult: Status: Chronic Code(s): E66.01 - Morbid (severe) obesity due to excess calories; Z68.41 - Body mass index [BMI] 40.0-44.9, adult (18) ROBSON (obstructive sleep apnea): Status: Chronic Code(s): G47.33 - Obstructive sleep apnea (adult) (pediatric) Plan: STOP BANG score is 7 out of a possible 8. Overnight trending pulse ox abnormal. Scheduled for a overnight sleep study on the night of discharge from acute rehab. Will follow-up with pulmonary medicine. Supplemental oxygen has been ordered by the manager social and he is to wear this anytime he is sleeping. (19) Mild aortic stenosis by prior echocardiogram: Status: Chronic Code(s): I35.0 - Nonrheumatic aortic (valve) stenosis (20) Cardiomegaly: Status: Chronic Code(s): I51.7 - Cardiomegaly (21) Interatrial cardiac shunt: Status: Chronic Code(s): Q24.8 - Other specified congenital malformations of heart Plan: PFO with R-L shunt between the atria and a hypermobile septum. Follow-up has been scheduled with Dr. Vera from cardiology. (22) PFO (patent foramen ovale): Status: Chronic Code(s): Q21.12 - Patent foramen ovale (23) Coronary artery calcification seen on CAT scan: Status: Chronic Code(s): I25.10 - Atherosclerotic heart disease of belk[place]ski coronary artery without angina pectoris (24) Low HDL (under 40): Status: Chronic Code(s): E78.6 - Lipoprotein deficiency Plan: HDL is only 22 and he was started on Niaspan at at bedtime. (25) Hypertriglyceridemia without hypercholesterolemia: Status: Chronic Code(s): E78.1 - Pure hyperglyceridemia (26) Prediabetes: Status: Chronic Code(s): (more content not included)...[facility]05-06-2025 Telephone encounter Note* Telephone Encounter - Brayden Chao MD - 07/06/2024 1:09 PM EDT Yes I will follow. The F2F form needs signed by the provider who ordered HHC and felt the patient qualified for it. [facility]05-06-2025 Telephone encounter Note* Telephone Encounter - Swetha Fernandez RN - 07/06/2024 12:54 PM EDT Gladys from [facility] calls and states that patient was discharged from [facility] on 07/06/2024 with the diagnosis of spinal surgery. Gladys asking if provider willing to follow patient with orders for care home, physical therapy, and occupational therapy. If agreeable please give Gladys a call back . Thank you, Swetha Fernandez RN [facility]05-05-2025 Progress note Author Kelly Garcia [facility] Note Date/Time July 05, 2024 3:12pm [facility] Medical Records Department [address] [place] [address] Progress Note 07/05/24 0915 MR#: [id number] Acct: [id number] Name: DARCI HAMM Rep #:[id number] : 1960 64 From: Kelly Garcia DO PCP: Dr. Brayden Chao MD Status:ADM IN Location: [place] [address] Subjective Subjective Darci was seen on team rounds today. His Nikkie and his daughter Kim were present in the room for rounds. All questions were answered to their satisfaction. Afebrile VSS -blood pressure over the weekend has ranged from 129/74 to 152/68. More often than not the systolic is mildly increased. Heart rate is within normal limits. Maintaining appropriate oxygen saturation on RA Oral intake - FOOD good FLUIDS good Having regular bowel movements Discussed with nursing - no problems that need addressed Reviewed the THERAPY notes -he is mod I in his room today. Medication list reviewed. Did not need any Oxycodone yesterday.....had no therapy yesterday. He only had 1 dose on Friday. Anti-CCP is negative. HLA-B27 was negative. Likely does not have ankylosing spondylitis but has changes consistent with DISH in the cervical, thoracic and lumbosacral spine. Darci reports that the arthritis cream is more effective than the Lidocaine patchin controlling pain. He is sleeping well at night and is now able to do toilet transfer and toileting with no assist. Feels like he is ready to go home. Denies cough, shortness of breath, palpitations, nausea/vomiting/abdominal pain,dysuria and calf pain. Objective Data Objective Data Vital Signs: Vital Signs Temp Pulse Resp BP Pulse Ox O2 Del Method O2 Flow Rate 97.3 F L 61 16 143/71 H 96 Nasal Cannula 2 07/05/24 06:23 07/05/24 07:50 07/05/24 06:23 07/05/24 06:23 07/05/24 06:23 07/05/24 06:23 07/05/24 06:23 FiO2 21 06/25/24 22:02 Oxygen Flow Rate (L/min) 2 Oxygen Delivery Method Nasal Cannula Weight: 267 lb 13.786 oz Body Mass Index (BMI) 43.2 Intake & Output: Intake and Output for Last 24 Hours 07/03/24 07/04/24 07/05/24 23:59 23:59 23:59 Intake Total 1640 / 1640 2750 / 2750 1120 / 1120 Output Total 950 / 950 1900 / 1900 1200 / 1200 Balance 690 / 690 850 / 850 -80 / -80 Lab / Micro Data 06/25/24 03:30 06/25/24 03:30 Physical Exam Const alert, oriented x3 and no apparent distress Constitutional Narrative: Has not had any oxycodone today and tolerated therapy well with no yelling out. General Appearance: cooperative HEENT moist oral mucous membranes Resp clear to auscultation bilaterally Resp Narrative: No conversational dyspnea. No cough with deep breathing. Effort and Inspection: Negative for tachypneic or labored Cardio regular rate, regular rhythm and no gallops Cardio Narrative: No ectopy. No change in the murmur. GI normal to inspection, nondistended, normoactive bowel sounds, soft to palpation and non-tender Extremity no calf tenderness General Extremity: Negative for edema Skin Wound Narrative: [place] are intact with no dehiscence. There is no melody-incisional erythema andno swelling around the incisions. No discharge from the incisions. Psych thought process normal, cooperative and affect normal Appearance: appropriate Assessment & Plan Assessment/Plan (1) Physical debility: (2) Multiple injuries due to trauma: (3) Multiple fractures of ribs: QUALIFIERS: Encounter type: subsequent encounter Fracture type: closed Laterality: left (4) History of thoracic spinal fusion: (5) Cough: QUALIFIERS: Cough type: subacute Qualified Code(s): R05.2 - Subacute cough (6) Pleural effusion: (7) DISH (diffuse idiopathic skeletal hyperostosis): (8) Heart murmur, systolic: (9) HTN (hypertension): QUALIFIERS: Hypertension type: primary hypertension Qualified Code(s): I10 - Essential (primary) hypertension (10) Morbid obesity with BMI of 40.0-44.9, adult: (11) ROBSON (obstructive sleep apnea): (12) Mild aortic stenosis by prior echocardiogram: (13) Interatrial cardiac shunt: (14) Low HDL (under 40): (15) Hypertriglyceridemia without hypercholesterolemia: PLAN: Plan 1. Continue therapy 2. CBC and BMP in the a.m. 3. Will need follow-up with the new primary care provider and he is [facility]. Will also need follow-up with Dr. Brown for right shoulder pain/suspected rotator cuff injury. Also needs to follow up with spinesurgeon. Will defer follow up for DISH to PCP. Will follow up with [facility] for MM and R-L atrial shunt 4. Plan DC home tomorrow with [facility] since he is not able to drive. 5. Schedule follow up with: 1. spine surgeon - Nikkie tells me that he has an appt in August. nursing will call surgeon's office today again to see if we are able to remove the jalyn prior to DC tommorrow evening. 2. Dr. Brown for suspected rotator cuff tear. 3. Cardiology for follow up of increased coronary calcification, R-L atrial shunt with hypermobile septum, RANGEL and aortic stenosis. 4. [facility] for PCP 5. Needs to follow up with possibly rheumatology for DISH 6. Weight loss recommended - consider Ozempic...defer to PCP. Darci wants to lose weight and asked for education from the letter of credit document examiner. Could follow up with the [employer] program run by the dieticians. Wt loss would really benefit his back/chronic pain. 7. sleep study scheduled for tomorrow night following DC from rehab Charges/Coding Visit Charges Inpatient E&M: 30610 Subs Hosp L2 07/05/24 1512 <Electronically signed by Kelly Garcia DO> Kelly Garcia DO Cosigner Signature (if applicable): CC: ~ Signed [facility] Work Phone: 1(586) 445-976305-05-2025 Progress note [facility] Medical Records Department [address] [place] [address] Progress Note 07/05/24 0915 MR#: [id number] Acct: [id number] Name: DARCI HAMM Rep #:[id number] : 1960 64 From: Kelly Garcia DO PCP: Dr. Brayden Chao MD Status:ADM IN Location: [id number] Subjective Subjective Darci was seen on team rounds today. His Nikkie and his daughter Kim were present in the room for rounds. All questions were answered to their satisfaction. Afebrile VSS -blood pressure over the weekend has ranged from 129/74 to 152/68. More often than not the systolic is mildly increased. Heart rate is within normal limits. Maintaining appropriate oxygen saturation on RA Oral intake - FOOD good FLUIDS good Having regular bowel movements Discussed with nursing - no problems that need addressed Reviewed the THERAPY notes -he is mod I in his room today. Medication list reviewed. Did not need any Oxycodone yesterday.....had no therapy yesterday. He only had 1 dose on Friday. Anti-CCP is negative. HLA-B27 was negative. Likely does not have ankylosing spondylitis but has changes consistent with DISH in the cervical, thoracic and lumbosacral spine. Darci reports that the arthritis cream is more effective than the Lidocaine patchin controlling pain. He is sleeping well at night and is now able to do toilet transfer and toileting with no assist. Feels like he is ready to go home. Denies cough, shortness of breath, palpitations, nausea/vomiting/abdominal pain,dysuria and calf pain. Objective Data Objective Data Vital Signs: Vital Signs Temp Pulse Resp BP Pulse Ox O2 Del Method O2 Flow Rate 97.3 F L 61 16 143/71 H 96 Nasal Cannula 2 07/05/24 06:23 07/05/24 07:50 07/05/24 06:23 07/05/24 06:23 07/05/24 06:23 07/05/24 06:23 07/05/24 06:23 FiO2 21 06/25/24 22:02 Oxygen Flow Rate (L/min) 2 Oxygen Delivery Method Nasal Cannula Weight: 267 lb 13.786 oz Body Mass Index (BMI) 43.2 Intake & Output: Intake and Output for Last 24 Hours 07/03/24 07/04/24 07/05/24 23:59 23:59 23:59 Intake Total 1640 / 1640 2750 / 2750 1120 / 1120 Output Total 950 / 950 1900 / 1900 1200 / 1200 Balance 690 / 690 850 / 850 -80 / -80 Lab / Micro Data 06/25/24 03:30 06/25/24 03:30 Physical Exam Const alert, oriented x3 and no apparent distress Constitutional Narrative: Has not had any oxycodone today and tolerated therapy well with no yelling out. General Appearance: cooperative HEENT moist oral mucous membranes Resp clear to auscultation bilaterally Resp Narrative: No conversational dyspnea. No cough with deep breathing. Effort and Inspection: Negative for tachypneic or labored Cardio regular rate, regular rhythm and no gallops Cardio Narrative: No ectopy. No change in the murmur. GI normal to inspection, nondistended, normoactive bowel sounds, soft to palpation and non-tender Extremity no calf tenderness General Extremity: Negative for edema Skin Wound Narrative: [place] are intact with no dehiscence. There is no melody-incisional erythema andno swelling around the incisions. No discharge from the incisions. Psych thought process normal, cooperative and affect normal Appearance: appropriate Assessment & Plan Assessment/Plan (1) Physical debility: (2) Multiple injuries due to trauma: (3) Multiple fractures of ribs: QUALIFIERS: Encounter type: subsequent encounter Fracture type: closed Laterality: left (4) History of thoracic spinal fusion: (5) Cough: QUALIFIERS: Cough type: subacute Qualified Code(s): R05.2 - Subacute cough (6) Pleural effusion: (7) DISH (diffuse idiopathic skeletal hyperostosis): (8) Heart murmur, systolic: (9) HTN (hypertension): QUALIFIERS: Hypertension type: primary hypertension Qualified Code(s): I10 - Essential (primary) hypertension (10) Morbid obesity with BMI of 40.0-44.9, adult: (11) ROBSON (obstructive sleep apnea): (12) Mild aortic stenosis by prior echocardiogram: (13) Interatrial cardiac shunt: (14) Low HDL (under 40): (15) Hypertriglyceridemia without hypercholesterolemia: PLAN: Plan 1. Continue therapy 2. CBC and BMP in the a.m. 3. Will need follow-up with the new primary care provider and [facility] is [facility]. Will also need follow-up with Dr. Brown for right shoulder pain/suspected rotator cuff injury. Also needs to follow up with spinesurgeon. Will defer follow up for DISH to PCP. Will follow up with [facility] for MM and R-L atrial shunt 4. Plan DC home tomorrow with [facility] since he is not able to drive. 5. Schedule follow up with: 1. spine surgeon - Nikkie tells me that he has an appt in August. nursing will call surgeon's office today again to see if we are able to remove the jalyn prior to DC tommorrow evening. 2. Dr. Brown for suspected rotator cuff tear. 3. Cardiology for follow up of increased coronary calcification, R-L atrial shunt with hypermobile septum, RANGEL and aortic stenosis. 4. [facility] for PCP 5. Needs to follow up with possibly rheumatology for DISH 6. Weight loss recommended - consider Ozempic...defer to PCP. Darci wants to lose weight and asked for education from the letter of credit document examiner. Could follow up with the [employer] program run by the dieticians. Wt loss would really benefit his back/chronic pain. 7. sleep study scheduled for tomorrow night following DC from rehab Charges/Coding Visit Charges Inpatient E&M: 97357 Subs Hosp L2 07/05/24 1512 Kelly Garcia DO Cosigner Signature (if applicable): CC: ~ Signed [facility]05-02-2025 Progress note Author Kelly [facility] Note Date/Time July 02, 2024 3:37pm [facility] Medical Records Department [address] [place] [address] Progress Note 07/02/24 1430 MR#: [id number] Acct: [id number] Name: DARCI HAMM Rep #:[id number] : 1960 64 From: Kelly Garcia DO PCP: Dr. Brayden Chao MD Status:ADM IN Location: [place] [address] Subjective Subjective Afebrile Weight is down 4 pounds since admission. Good appetite and oral intake, eating 75 to 100% of his meals.. Good fluid intake. Blood pressure over the past 24 hours has ranged from 132/62 to 143/70. He was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 improve functional mobility and safety. Outcome: Ongoing Goal: Sit <-> Stand Transfers - Patient will perform sit to/from stand transfers with supervision and least restrictive device in order to improve functional mobility and safety. Outcome: Ongoing Goal: Ambulation - Patient will ambulate 175 feet with supervision and least restrictive device to improve ability to safely navigate home and community. Outcome: Ongoing Goal: Stairs - Patient will ascend/descend 3 stairs with contact guard assistance, least restrictive device, and single railing(s) to improve ability to safely navigate home and community. Outcome: Ongoing Goal: Precautions - Patient will successfully adhere to post-operative precautions during 100% of functional mobility without verbal cueing in order to maintain safety and reduce risk of injury. Outcome: Ongoing * Plan of Care - Francesca Pace OT - 06/22/2024 10:07 AM EDT Problem: OT - ADLs Goal: Lower Body Dressing - Patient will complete lower body dressing tasks with modified independence using adaptive equipment/compensatory strategies as needed for improved ability to complete self-care activities. Outcome: Ongoing Goal: Grooming - Patient will complete grooming in standing with modified independence for improvedability to safely complete ADLs. Outcome: Ongoing Goal: Toileting - Patient will complete toileting task with modified independence and adaptive equipment as needed for improved ability to safely complete self-care activities. Outcome: Ongoing Goal: Bathing - Patient will perform full body bathing routine with modified independence while seated and standing for improved ability to complete self- care activities Outcome: Ongoing Problem: OT - Endurance Goal: Endurance Functional Mobility - Patient will complete distance needed for common household mobility with modified independence for improved tolerance to safely complete I/ADL's Outcome: Ongoing Problem: OT - Other Goal: Precaution Adherence - Patient will demonstrate 100% adherence to precautions during all ADLsand functional transfers to promote safety during daily routine. 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 Imaging demonstrated DISH appearance of the thoracic spine and unstable nature of T5-6 fracture through the anterior annulus through the disc space. After thorough discussion, patient did wished to undergo surgical treatment tostabilize the thoracic injury. Patient gave verbal and written consents to proceeding after understanding the risks, benefits, and alternatives. Description of procedure: Darci Hamm was met preoperatively. Further questions were answered. He was then seen by anesthesianursing and taken back to the operating room. Once in the operating room, 1st time-out was performed. Following this, he was intubated without difficulty. Lines and leads were placed. He was then positioned prone on a ProAxis table. Table was placed in flexion. Fluoroscopy was brought in from reduction of the fracture. Next, thoracic spine was prepped and draped in standard sterile fashion. Following a 2nd time-out, incision was made over the T9 level and dissection was carried down to the level of spinous process. Fiduciary clamp was placed. Next, O arm spin was obtained. Next, stereotactic navigation was used to plane incisions for percutaneous placement of T4-T5 T6 and T7 pedicle screws. This has done bilaterally. Navigated bur was used followed by a navigated tap, followed by a navigated screw placement. Facet joints were decorticated at T4-5, T5-6, T6-7. Rods were placed through the Tulip heads and set screws were placed. Next, this was checked under confirmatory O arm spin. Set screws were then final tightened. Tabs were broken off in wound was irrigated thoroughly. Closure was then performed using 0 Vicryl for fascia, 2-0 Vicryl for subcutaneous tissue, jalyn for skin. Sterile dressings were placed. Patient was then transferred back to hospital bed, extubated, andtaken to PACU in stable condition. Throughout the procedure, sponge and needle counts were correct. * Plan of Care - Liz Singer MD - 06/21/2024 4:07 PM EDT Spine Surgery Plan of Care Assessment 64 y.o. male, * Day of Surgery * S/P T4-[address] Castro on 06/21/24. PLEASE RELEASE SIGNED AND HELD ORDERS ONCE ON THE FLOOR! Plan Activity: WBAT, No bending twisting lifting greater than 5 pounds Antibiotics: Ancef for 24 hours postoperatively or when drain is in place Blood: Hemoglobin, Glucose control with goal of <120 Brace: None Cultures: none Diet: Liquid diet and progress to regular diet Drain: none Dressing:Ortho spine to change POD2. staff development coordinator to do daily dry dressing change afterwards. DVT Prophylaxis: SCD's, Lovenox to start 24 hours postoperatively Exercise: IS 10x/hr while awake, PT for mobilization (w/ or w/o walker TID), (walking QID) Macias: none Pain Regimen: multimodal Xrays: standing AP/Lateral Scoli spine Dispo: Anticipate discharge home/SNF in next few days. Appreciate SW assistance in placement and PTrecs. Follow-up: Follow up with Dr. Castro team 2 weeks from surgery for wound check Liz Singer MD Orthopaedic Surgery PGY-3 Pager [phone] * Brief Op Note - Liz Singer MD - 06/21/2024 4:06 PM EDT Darci Hamm ([id number]) PRE OPERATIVE DIAGNOSIS Closed three column fracture of thoracic vertebra [S22.008A] POST OPERATIVE DIAGNOSIS Closed three column fracture of thoracic vertebra [S22.008A] PROCEDURE PERFORMED Procedure(s) (LRB): FUSION POSTERIOR THORACIC (Midline) ASSISTANCE STEREOTACTIC NAVIGATION SPINAL ADD-ON PX (Midline) PRIMARY CLOSURE Yes INTRAOPERATIVE FINDINGS HyperExtension fracture at T5/6 SURGEON Surgeons and Role: * Andre Castro MD - Primary ANESTHESIOLOGIST Anesthesiologist: Joe Cordoba MD; Christopher Montoya MD CLIENT CARE REPRESENTATIVE: BENTLEY Nayak Russian History Professor: SERG Hernandes SURGICAL STAFF Police Crime Scene Technician: Rhona Traore RN Relief Police Crime Scene Technician: Lizbeth Torres RN Relief Scrub: Riki Shah Resident Assisting: Liz Singer MD Sales Executive Insurance: Edith Tiwari COMPLICATIONS None ESTIMATED BLOOD LOSS Minimal SPECIMENS No specimen sent * No specimens in log * Liz Singer MD June 21, 2024 4:06 PM Cosigned by Andre Castro MD at 06/22/2024 7:37 AM EDT * Plan of Care - DALE Musa - 06/21/2024 9:32 AM EDT Problem: VENEER LAYER - Cognition Goal: Ongoing Assessment - Patient will participate in ongoing dynamic assessment of motor speech, expressive/receptive language, and cognitive- linguistic skills across 1 session to better assess deficits and most appropriately guide VENEER LAYER plan of care Outcome: Ongoing * Plan of Care - VICKY Dupont - 06/21/2024 9:16 AM EDT Geriatrics Consult Note Pt scheduled for OR today. Geriatrics team will evaluate tomorrow. Thank you for involving us in Darci Hamm's care. Please contact us with any questions. For after hours and weekend needs, the Geriatrics Consult Service can be reached via [employer]. Arleth Desai DNP, VICKY Nurse Practitioner Geriatrics Inpatient Consult Service Pager #[phone] * Plan of Care - Sujatha Griffith RN - 06/21/2024 5:00 AM EDT Problem: Adult Inpatient Plan of Care Goal: Plan of Care Review Outcome: Progressing Goal: Patient-Specific Goal (Individualized) Outcome: Progressing Goal: Absence of Hospital-Acquired Illness or Injury Outcome: Progressing Goal: Optimal Comfort and Wellbeing Outcome: Progressing Goal: Readiness for Transition of Care Outcome: Progressing * Plan of Care - Alma Rosa Anderson MD - 06/21/2024 12:53 AM EDT Surgery Chief Resident Plan of Care 64M (BMI 43.7) w PMH including HTN who is admitted as a transfer from [facility] where he had initially presented on 06/19/2024 after being pulled to the ground/?kicked by a steer, sustaining T5-6 (anterior bridging osteophyte) spinal fractures and minimally displaced left 4-6/7-10 rib fractures. Patient states that he had been cleaning the steer's hooves when his torso became wrapped up in a cord, which pulled him to the ground; he is amnesic to details of the event but was told that he was kicked in the ?head/back. Rib fracture pain managed w block prior to transfer; OSH Neurosurgery unable to manage patient's operable spinal fractures due to body habitus. On evaluation patient is afebrile, haemodynamically stable and saturating well 97% on 2.5L NC. PIC score 8, able to pull ~1200cc on IS. He reports intermittent cramping abdominal pain and does have scattered ecchymosis and abrasions along abdomen, however had been tolerating clears at OSH w/o N/V and endorses baseline bowel function. OSH scans (CT brain, C spine, C/A/P) reviewed. PCU level care Admission labs Multimodal pain control PIC scores CXR NPO, gentle MIVF Orthopaedic Spine Surgery Consult Continue spine precautions pending Spine eval Geriatrics Consult PT/OT VENEER LAYER cog eval Please see full H&P Note for details. Patient was discussed with Acute Care Surgery attending, Dr Sky. Alma Rosa Anderson MD PhD General Surgery * Nursing Notes - Mega Cox RN - 06/21/2024 12:53 AM EDT Images from the original note were not included. On admission to [facility], from outside facility a dual RN initial assessment of skin condition was performed by Mega Cox RN and Alise Torres RN. Skin Assessment: Skin within defined limits:Yes Dandre Score: 18 LDA Added:No Mega Cox RN * Nursing Notes - Verna Walton RN - 06/21/2024 12:01 AM EDT Pager to [facility] B (Coby Gutierrez) [phone]: [phone] [phone] Direct admit is here, can we please get some orders. Thank you Verna MILES [phone] documented in [facility]U [facility] History of Present illness Narrative* Adrianne Mejía RN - 06/24/2024 8:53 AM EDT Final Discharge Planning and Transportation Final Discharge Planning Discharge Disposition: Inpatient Rehab Facility Services at Discharge: Physical Therapy, Occupational Therapy, Jail Selected Continued Care - Admitted Since 06/20/2024 Destination Coordination complete. Service Provider Services Address Phone Fax Patient Preferred [facility] [address] [address] -- -- Internal Comment last updated by Adrianne Mejía RN 06/22/2024 1442 [facility] Community Agency Name(s) For Handoff: [facility] Phone For Handoff: [phone] Fax For Handoff: [phone] Plan Plan: Patient will go to in-patient rehab facility for continued care and rehabilitation Patient/Family In Agreement With Plan: yes Plan Comments: Patient will discharge to an inpatient rehab facility and follow up as indicated on AVS. Transportation Transport Request Mode of Transfer: BLS Name of Discharge Transport Company: [employer] [facility]charge [facility] ETA: 06/24/2024 @ 1130 Adrianne Pierson RN BSN [address] Clinical [employer] Available by secure chat * Liz Singer MD - 06/24/2024 5:47 AM EDT Orthopaedic Spine Surgery Progress Note: Darci Hamm is a 64 y.o. male who is 3 Days Post-Op from T4-[address] Castro on 06/21/24 Last 24 Hours No acute events overnight. Pt seen and examined this morning. Pain is better controlled when sitting up in the chair. Plan to dc to IPR this morning Denies new symptoms of numbness, tingling, or weakness. Vitals Vitals: 06/24/24 0400 BP: 160/72 Pulse: 77 Resp: 16 Temp: 98 F (36.7 C) SpO2: 95% Physical Exam GEN: AOx3, resting in bed, NAD HEENT: NCAT, PERRLA, EOMI CV: normotensive LUNGS: non-labored breathing Spine Exam Incision: incision c/d/I , dressing changed this AM Neuro: Upper Extremity Strength: Right Left Deltoids C5 4/5 5/5 Biceps C6 4/5 5/5 Wrist Extensors 5/5 5/5 Triceps C7 5/5 5/5 Finger Flexors C8 5/5 5/5 First Dorsal Interossei 5/5 5/5 Lower Extremity Strength: Right Left Hip Flexors L2 5/5 5/5 Quadriceps L3 5/5 5/5 Anterior Tibialis L4 5/5 5/5 EHL L5 5/5 5/5 Hamstrings 5/5 5/5 Gastrocsoleus S1 5/5 5/5 Peroneals 5/5 5/5 Reflexes: Right Left Biceps C5 2+ 2+ Triceps C7 2+ 2+ Patellar L4 2+ 2+ Clonus (R/L): -/- Hoffmans (R/L): -/- Straight leg raise (R/L): -/- Sensation to light touch in the upper and lower extremities is grossly intact. Laboratory Studies Lab Results Component Value Date WBC 9.20 06/23/2024 HGB 13.3 (L) 06/23/2024 HCT 41.7 06/23/2024 PLATELET 235 06/24/2024 MCV 94.1 06/23/2024 Lab Results Component Value Date SODIUM 137 06/23/2024 POTASSIUM 4.4 06/23/2024 CHLORIDE 100 06/23/2024 CO2 27 06/23/2024 BUN 9 06/23/2024 CREATSERUM 0.64 (L) 06/23/2024 GLUCOSE 133 06/23/2024 Lab Results Component Value Date INR 1.1 06/21/2024 PT 14.3 (H) 06/21/2024 Imaging/Cultures/Drains New Imaging: XR Scoli: s/p T4-7 PSIF with intact hardware Drains: None Assessment Darci Hamm is a 64 y.o. male who is 3 Days Post-Op S/P T4-[address] Castro on 06/21/24. Plan Activity: WBAT, No bending twisting lifting greater than 5 pounds Antibiotics: completed Blood: Hemoglobin, Glucose control with goal of <120 Brace: None Cultures: none Diet: Liquid diet and progress to regular diet Drain: none Dressing:changed DVT Prophylaxis: SCD's, Lovenox to start 24 hours postoperatively Exercise: IS 10x/hr while awake, PT for mobilization (w/ or w/o walker TID), (walking QID) Macias: none Pain Regimen: multimodal Xrays: completed Dispo: IPR today. Follow-up: Follow up with Dr. Castro team 2 weeks from surgery for wound check Liz Singer MD Orthopaedic Surgery PGY-3 Pager [phone] * KOBY Schultz - 06/23/2024 1:47 PM EDT Placement Plan Expected Discharge Date: Referred Level of Care: IPR Barriers: N/A Current Referrals and Status 1. [facility] IPR - reserved Per facility insurance authorization was received; per medical team patient will be ready for discharge tomorrow; ambulance arranged for 11:30am tomorrow; patient and POA aware of and in agreement with plans. Message left for care management follow-up as needed. SHAUN Wolfe IRP Social Work * Dee Álvarez - 06/23/2024 11:22 AM EDT Care Management Progress Note Transportation for discharge arranged Mode of Transfer: (P) S Name of Discharge Transport Company: (P) [employer] [facility]charge [facility] ETA: (P) 06/24/2024 @ 1130 Pick-up from S 0716/A Destination [address] [place] [address] ITALIA Carranza, OUTSOLE SCHEDULER Bull Driver Geriatric Physical Therapist [phone] * Hollie Barber - 06/23/2024 11:05 AM EDT Acute Occupational Therapy Treatment Prior Gross Functional Mobility: independent Current AM-PAC score(s): CURRENT AM-PAC Activity Raw Score: 16 Based on the above AM-PAC score(s), and OT clinical judgment, discharge destination recommendation is: Inpatient Rehab Facility Supporting Factors (would benefit from skilled therapy services): Patient status is anticipated to be appropriate to tolerate inpatient rehab therapy requirements at time of discharge from acute care, Impaired functional status, Decreased strength, Impaired balance, Decreased endurance, Impaired self-care abilities, Assistance needed with functional mobility, Fall risk, Recent decline in functional mobility, Recent decline in self-care abilities, Patient has appropriate assistance and setup at home for ultimate discharge to home once patient has progressed functionally following inpatient rehab Mobility equipment available at home: none used ADL equipment available at home: none Equipment recommendations for discharge: to be determined Current therapy frequency recommendation(s) in acute: 5 times a week Activity Recommendations for outside of rehab session: OOB for all meals, functional mobility 3x/day with staff Precautions and Weightbearing Status: OT Existing Precautions/Restrictions: fall, spinal, supplemental oxygen Patient Safety Communication Prior to Visit: Nursing Current brace/orthoses: (none ordered) Subjective: Pt stated I would love to brush my teeth. Agreeable to therapy. Pain: General Pain Documentation (Adult, OB, Peds) Presence of Pain: reports pain/discomfort Pain Location: back DVPRS (Defense and Veterans Pain Rating Scale) DVPRS: Rest: 4- mild pain DVPRS: Activity: 8- severe pain Objective/Observation: Vitals/Vitals Responses to Treatment: Vitals WFL with no abnormal signs or symptoms reported or observed throughout session. O2 Device: nasal cannula Cognition Overall Cognitive Status: Within Functional Limits ADL Assessment/Intervention: ADLs: Grooming Assistance: Contact guard assist Grooming Location: standing at sink Grooming Deficit: Increased time to complete, Activity tolerance, Generalized weakness, Pain, Follows safety/precautions Grooming Skilled Rationale (Verbal/Tactile/Visual/Demonstration): Facilitate positioning, Techniqueof activity, Setup, Breathing strategies, Maintain precautions Grooming Intervention/Details: Pt completed oral care with cues and cup to spit to decrease risk ofbending. Bathing Assistance: Moderate Bathing Location: edge of bed Bathing Deficit: Increased time to complete, Activity tolerance, Generalized weakness, Pain, Wash/Dry Back, Wash/Dry Right arm, Wash/Dry Left arm, Wash/Dry Buttocks, Wash/Dry Right lower leg including foot, Wash/Dry Left lower leg including foot, Follows safety/precautions Bathing Skilled Rationale (Verbal/Tactile/Visual/Demonstration): Technique of activity, Setup, Breathing strategies, Maintain precautions Bathing Intervention/Details: Pt completed bathing while seated on edge of bed. Pt able to wash anterior B UE, anterior B thighs, chest and abdomen, melody care, and face. Pt required assistance for back, posterior care, posterior B UE, and B lower legs and feet. Pt maintained precautions throughout the bath. UE Dressing Assistance: Minimal UE Dressing Location: edge of bed UE Dressing Deficit: Activity tolerance, Generalized weakness, Pain UE Dressing Skilled Rationale (Verbal/Tactile/Visual/Demonstration): Technique of activity, Setup, Maintain precautions UE Dressing Intervention/Details: Pt Min A to rosa gown with assist to tie in back LE Dressing Assistance: Maximal LE Dressing Location: edge of bed LE Dressing Deficit: Activity tolerance, Generalized weakness, Pain, Don/doff R sock, Don/doff L sock LE Dressing Skilled Rationale (Verbal/Tactile/Visual/Demonstration): Technique of activity, Setup, Facilitate positioning, Maintain precautions LE Dressing Intervention/Details: Pt able to extend B LE to assist in rosa/doff of socks, pain/mobility limited to complete figure 4 position. Toilet Assistance: Moderate Toileting Location: toilet Toileting Deficit: Increased time to complete, Activity tolerance, Generalized weakness, Pain, Follows safety/precautions, Perineal hygiene Toilet Skilled Rationale (Verbal/Tactile/Visual/Demonstration): Facilitate positioning, Technique of activity, Maintain precautions Toileting Intervention/Details: Pt Min A for pericare due to limited mobility/pain/precautions Extremity Assessments: See OT Evaluation flowsheet for Extremity Measurement updates. Balance: Sitting Balance Static Sitting-Level of Assistance: Standby Dynamic Sitting-Level of Assistance: Standby Skilled Rationale: Positioning, Hand placement, Verbal cues, Facilitate anterior shift, Technique of activity, Initiation and execution of task, Breathing strategies, Maintain precautions Sitting Balance Skilled Intervention/Details: Pt sat on toilet with no back support, pt sat EOB forbedside bathing SBA with no LOB this date. Standing Balance Static Standing-Level of Assistance: Contact guard Dynamic Standing-Level of Assistance: Contact guard Standing-Balance Support: Gait belt, Front-wheeled walker Skilled Rationale: Positioning, Hand placement, Verbal cues, Technique of activity, Breathing strategies, Maintain precautions Standing Balance Skilled Intervention/Details: pt stood at toilet for posterior care, no LOB. Pt stood at sink to complete ADL tasks with cues to maintain precautions, and walker placement. Transfer Assessment/Intervention: Sit to Stand Transfer Russell Level: Sit->Stand: contact guard assist Assistive Device: Sit->Stand: front-wheeled walker, gait belt Skilled Rationale: Positioning, Hand placement, Verbal cues, Full extension to upright positioning/posture, Technique of activity, Initiation and execution of task, Energy conservation, Breathing strategies, Maintain precautions Skilled Intervention/Details: Sit->Stand: 1x armed chair, 1x toilet, 1x EOB CGA for balance, safety, and to maintain precautions. Stand to Sit Transfer Russell Level: Stand->Sit: contact guard assist Assistive Device: Stand->Sit: front-wheeled walker, gait belt Skilled Rationale: Positioning, Hand placement, Verbal cues, Controlled descent for sitting, Technique of activity, Breathing strategies Skilled Intervention/Details: Stand->Sit: 1x toilet, 1x EOB, 1x armed chair CGA for safety and to maintain precautions cues for reachback for decend Toilet Transfer Russell Level: Toilet: contact guard assist Assistive Device: Toilet: front-wheeled walker, grab bars, gait belt Skilled Rationale: Positioning, Hand placement, Verbal cues, Controlled descent for sitting, Finding/maintaining midline positioning, Technique of activity, Initiation and execution of task, Breathing strategies, Maintain precautions Skilled Intervention/Details: Toilet: pt maintained grasp on walker with decend, cues to utilize grab bars with standing. Cues to exhale with sitting/standing to decrease risk of holding his breath. Functional Mobility: Functional Mobility Russell Level: Functional Mobility/Gait: contact guard assist Assistive Device: Functional Mobility/Gait: front-wheeled walker, gait belt Functional Mobility Distance: Distance needed to access restroom Ambulation Distance (Feet): 40 Functional Mobility Deficits: Activity tolerance, Balance, Follow safety/precautions, Generalized weakness, Pain Functional Mobility Skilled Rationale: Breathing strategies, Energy conservation, Finding/maintaining midline positioning, Maintain precautions, Technique of activity, Verbal cues Skilled Intervention/Details - Functional Mobility/Gait: Functional mobility to bathroom, bathroom to sink, sink to bed, bed to chair CGA for balance, safety, and precaution adherence. Outcome Score(s): CURRENT -[facility] Daily Activity Inpatient Short Form Putting on/Taking Off Lower Body Clothin - A Lot of Assistance Bathin - A Lot of Assistance Toiletin - A Lot of Assistance Putting on/Taking Off Upper Body Clothin - A Little Assistance Groomin - A Little Assistance Eatin - No Assistance CURRENT -[facility] Activity Raw Score: 16 CURRENT -[facility] Activity Functional Limitation/Modifier: 53.32% Currently Impaired in Daily Activity- CK Assessment & Plan: Patient demonstrates progress towards OT plan of care as evidenced by decreased assist levels. Patient completed standing ADLs and seated bathing with moderate assistance. Patient continues with deficits that include activity tolerance, pain, and endurance which can impact ADL and functional mobility performance. Patient will benefit from continued skilled OT services to increase occupational performance and independence in ADL tasks and minimize burden of care at discharge. Patient Instruction/Education this session: Learners: Patient Education provided: Activity outside of therapy, Breathing exercises, Compensatory strategies, Energy conservation strategies, Functional transfers, Gait belt use, Precautions/weight bearing status, Safety Teaching method: Verbal Education/Instruction Learner response: Applies knowledge Learning preferences: Auditory Learning considerations: No barriers/ready to learn Patient Instruction/Education comments: Pt educated on safety with STS, maintaining precautions Plan for next session: Standing ADLs, functional mobility Acute OT Goals Plan of Care by Francesca Pace OT at 06/23/2024 11:06 AM Version 1 of 1 Problem: OT - ADLs Goal: Lower Body Dressing - Patient will complete lower body dressing tasks with modified independence using adaptive equipment/compensatory strategies as needed for improved ability to complete self-care activities. Outcome: Progressing Goal: Grooming - Patient will complete grooming in standing with modified independence for improvedability to safely complete ADLs. Outcome: Progressing Goal: Toileting - Patient will complete toileting task with modified independence and adaptive equipment as needed for improved ability to safely complete self-care activities. Outcome: Progressing Goal: Bathing - Patient will perform full body bathing routine with modified independence while seated and standing for improved ability to complete self- care activities Outcome: Progressing Problem: OT - Endurance Goal: Endurance Functional Mobility - Patient will complete distance needed for common household mobility with modified independence for improved tolerance to safely complete I/ADL's Outcome: Progressing Problem: OT - Other Goal: Precaution Adherence - Patient will demonstrate 100% adherence to precautions during all ADLsand functional transfers to promote safety during daily routine. Outcome: Progressing OT treatment consisted of the following to work and progress towards the above goal(s): OT Evaluation and Treatment Time Self Care/Home Management (ADLs) Time Entry: 45 Treating Therapist: Hollie Barber Additional Details: OT Co-Eval/Treatment Information Co-evaluation/co-treatment performed?: No simultaneous skilled care performed PPE used during patient interaction: gloves Patient location at end of session: chair Alarms on at end of session: none Needs in reach. Time In: 1105 Time Out: 1150 Total Visit Time: 45 minutes Total Treatment Time (skilled, billable minutes): 45 minutes Upon discontinuation of Acute Care Occupational Therapy Services or patient discharge from the hospital this note represents the current Occupational Therapy Discharge Summary. Cosigned by Francesca Pace OT at 06/23/2024 3:36 PM EDT Associated attestation - Francesca Pace OT - 06/23/2024 3:36 PM EDT I, Francesca Pace OT, provided line of sight supervision during this patient care session. I attest that all documentation reflects accurate skilled clinical decisions and judgements. Francesca Pace OTR/L License #: [id number] * Liz Singer MD - 06/23/2024 9:47 AM EDT Orthopaedic Spine Surgery Progress Note: Darci Hamm is a 64 y.o. male who is 2 Days Post-Op from T4-[address] Castro on 06/21/24 Last 24 Hours No acute events overnight. Pt seen and examined this morning. Patient states that pain is well controlled. Has been voiding spontaneously. Has been tolerating a general diet without nausea or vomiting. Has been working with PT/OT they recommend IPR Denies new symptoms of numbness, tingling, or weakness. Vitals Vitals: 06/23/24 0758 BP: 160/80 Pulse: 76 Resp: 17 Temp: 97.2 F (36.2 C) SpO2: 96% Physical Exam GEN: AOx3, resting in bed, NAD HEENT: NCAT, PERRLA, EOMI CV: normotensive LUNGS: non-labored breathing Spine Exam Incision: dressing c/d/i Neuro: Upper Extremity Strength: Right Left Deltoids C5 4/5 5/5 Biceps C6 4/5 5/5 Wrist Extensors 5/5 5/5 Triceps C7 5/5 5/5 Finger Flexors C8 5/5 5/5 First Dorsal Interossei 5/5 5/5 Lower Extremity Strength: Right Left Hip Flexors L2 5/5 5/5 Quadriceps L3 5/5 5/5 Anterior Tibialis L4 5/5 5/5 EHL L5 5/5 5/5 Hamstrings 5/5 5/5 Gastrocsoleus S1 5/5 5/5 Peroneals 5/5 5/5 Reflexes: Right Left Biceps C5 2+ 2+ Triceps C7 2+ 2+ Patellar L4 2+ 2+ Clonus (R/L): -/- Hoffmans (R/L): -/- Straight leg raise (R/L): -/- Sensation to light touch in the upper and lower extremities is grossly intact. Laboratory Studies Lab Results Component Value Date WBC 9.20 06/23/2024 HGB 13.3 (L) 06/23/2024 HCT 41.7 06/23/2024 PLATELET 190 06/23/2024 MCV 94.1 06/23/2024 Lab Results Component Value Date SODIUM 137 06/23/2024 POTASSIUM 4.4 06/23/2024 CHLORIDE 100 06/23/2024 CO2 27 06/23/2024 BUN 9 06/23/2024 CREATSERUM 0.64 (L) 06/23/2024 GLUCOSE 133 06/23/2024 Lab Results Component Value Date INR 1.1 06/21/2024 PT 14.3 (H) 06/21/2024 Imaging/Cultures/Drains New Imaging: XR pending Drains: None Assessment Darci Hamm is a 64 y.o. male who is 2 Days Post-Op S/P T4-[address] Castro on 06/21/24. Plan Activity: WBAT, No bending twisting lifting greater than 5 pounds Antibiotics: Ancef for 24 hours postoperatively or when drain is in place Blood: Hemoglobin, Glucose control with goal of <120 Brace: None Cultures: none Diet: Liquid diet and progress to regular diet Drain: none Dressing:Ortho spine to change POD2. staff development coordinator to do daily dry dressing change afterwards. DVT Prophylaxis: SCD's, Lovenox to start 24 hours postoperatively Exercise: IS 10x/hr while awake, PT for mobilization (w/ or w/o walker TID), (walking QID) Macias: none Pain Regimen: multimodal Xrays: standing AP/Lateral Scoli spine Dispo: Anticipate discharge home/SNF in next few days. Appreciate SW assistance in placement and PTrecs. Follow-up: Follow up with Dr. Castro team 2 weeks from surgery for wound check Liz Singer MD Orthopaedic Surgery PGY-3 Pager [phone] * Tomy Leija, PT - 06/23/2024 7:40 AM EDT Acute Physical Therapy Treatment Prior Gross Functional Mobility: independent Current AM-PAC score(s): CURRENT AM-PAC Mobility Raw Score: 15 Based on the above AM-PAC score(s) and PT clinical judgment, patient is a good candidate for discharge to Inpatient Rehab Facility Supporting Factors (would benefit from skilled therapy services): Patient status is anticipated to be appropriate to tolerate inpatient rehab therapy requirements at time of discharge from acute care Mobility equipment available at home: none used ADL equipment available at home: none Equipment needed for discharge: to be determined Current therapy frequency recommendation in acute: PT Therapy Frequency: 6 times a week Activity Recommendations for outside of rehab session: x1 person with walker ambulate TID Precautions and Weightbearing Status: Existing Precautions/Restrictions: fall, spinal Patient Safety Communication Prior to Visit: Nursing Current brace/orthoses: (none ordered) Subjective: wasnt able to get comfortable in the bed so I slept in the chair Pain: General Pain Documentation (Adult, OB, Peds) Presence of Pain: reports pain/discomfort Pain Location: back DVPRS (Defense and Veterans Pain Rating Scale) DVPRS: Activity: 6- moderate pain Objective/Observation: Vitals/Vitals Responses to Treatment: Tolerates session well Cognition Overall Cognitive Status: Within Functional Limits Arousal/Alertness: Appropriate responses to stimuli Orientation Level: Oriented X4 Following Commands: Follows all commands and directions without difficulty Safety Judgment: Good awareness of safety precautions Awareness of Errors: Good awareness of errors made Deficits: Fully aware of deficits Attention Span: Appears intact Extremity Assessments: See PT Evaluation flowsheet for Extremity Measurement updates. Skin and Edema: Balance: Sitting Balance Static Sitting-Level of Assistance: Supervision Dynamic Sitting-Level of Assistance: Supervision Standing Balance Static Standing-Level of Assistance: Contact guard Dynamic Standing-Level of Assistance: Contact guard Standing-Balance Support: Front-wheeled walker Mobility Assessment/Intervention: Supine to Sit Mobility Skilled Intervention/Details: Supine->Sit: Reports sleeping in recliner, and able to do so at home. Was doing at baseline Transfer Assessment/Intervention: Sit to Stand Transfer Russell Level: Sit->Stand: contact guard assist Assistive Device: Sit->Stand: front-wheeled walker Skilled Rationale: Positioning, Sequencing, Hand placement, Verbal cues, Tactile cues, Arm in arm, Patellar block, Ischial assist, Facilitate anterior shift, Full extension to upright positioning/posture, Technique of activity, Cues for increased safety Skilled Intervention/Details: Sit->Stand: x7 completed in session to work on LE strenght and sequencing. Initially min cues and maintains. Increased time due to SOB and fatigue Gait/Functional Mobility Assessment/Intervention: Gait Assessment Russell Level: Gait: contact guard assist Assistive Device: Gait: front-wheeled walker Ambulation Distance (Feet): 150 Gait Deviations Identified: antalgic, decreased aundrea, decreased gait speed, decreased heel strike, decreased step length, decreased stride length, decreased weight shifting, flexed posture Gait Skilled Rationale: verbal, tactile, increase step length, improve foot placement, increase foot clearance, hand placement on assistive device, proximity of assistive device Skilled Intervention/Details - Gait: Slow gait pattern and unable to improve due to fatigue. Education on fatigue insight for safety. Tolerates activity well but fatigues quickly. Reports RPE of 6 Stairs Assessment/Intervention: Outcome Score(s): CURRENT [facility] Basic Mobility Inpatient Short Form Turning over in bed: 3 - A Little Assistance Moving from lying on back to sittin - A Lot of Assistance Moving to and from bed to chair: 3 - A Little Assistance Sitting/standing from chair: 3 - A Little Assistance Walk in hospital room: 3 - A Little Assistance Climbing 3-5 steps with a railin - Total Assistance CURRENT [facility] Mobility Raw Score: 15 CURRENT [facility] Mobility Functional Limitation: 57.70% Impaired in Basic Mobility Assessment & Plan: Patient with min progression in session. Presents with pain, weakness, and limited endurance and conintues to benefit from further functional mobility training to address impairments Patient Instruction/Education this session: Learners: Patient Education provided: Functional transfers, Fall precautions, Pain management, Positioning, Role of this discipline Teaching method: Verbal Education/Instruction Learner response: Applies knowledge, States/Identifies/Teaches back Learning considerations: No barriers/ready to learn Plan for next session: gait and stairs Acute PT Goals Plan of Care by Tomy Leija PT at 06/23/2024 7:40 AM Version 1 of 1 Problem: PT - General Goals Goal: Supine <-> Sit Transfers - Patient will perform supine to/from sit transfers with supervision and without use of hospital bed features in order to improve functional mobility and safety. Outcome: Progressing Goal: Sit <-> Stand Transfers - Patient will perform sit to/from stand transfers with supervision and least restrictive device in order to improve functional mobility and safety. Outcome: Progressing Goal: Ambulation - Patient will ambulate 175 feet with supervision and least restrictive device to improve ability to safely navigate home and community. Outcome: Progressing Goal: Stairs - Patient will ascend/descend 3 stairs with contact guard assistance, least restrictive device, and single railing(s) to improve ability to safely navigate home and community. Outcome: Progressing Goal: Precautions - Patient will successfully adhere to post-operative precautions during 100% of functional mobility without verbal cueing in order to maintain safety and reduce risk of injury. Outcome: Progressing PT treatment consisted of the following to progress towards the above goal(s): PT Evaluation and Treatment Time Therapeutic Activity Time Entry: 12 Gait Training Time Entry: 12 Treating Therapist: Tomy Leija PT Additional Details: PT Co-Eval/Treatment Information Co-evaluation/co-treatment performed?: No simultaneous skilled care performed PPE used during patient interaction: gloves Patient location at end of session: chair Alarms on at end of session: none Needs in reach. Time In: 0734 Time Out: 0758 Total Visit Time: 24 minutes Total Treatment Time (skilled, billable minutes): 24 minutes Upon discontinuation of Acute Care Physical Therapy Services or patient discharge from the hospitalthis note represents the current Physical Therapy Discharge Summary. * Rahel Chin [facility] DIRECTOR-SAMPLE MAKER HAND - 06/23/2024 6:30 AM EDT TRAUMA & ACUTE CARE SURGERY DAILY PROGRESS NOTE Date: 06/23/2024 Admission: 06/20/2024 Attending: Zamzam Elias Jr., MD HD #: 3 POD #: 2 Days Post-Op Events Overnight: No acute events overnight. UPDATED PLAN OF CARE: Wean oxygen PIC scores per nursing Multimodal pain control Discharge planning: IPR will start precert today SUBJECTIVE: Patient reports back is sore, asking when he can get out of bed PHYSICAL EXAM: Constitutional: In no acute distress HEENT: Normocephalic, atraumatic, anicteric sclera Neurological: Awake, alert, follows commands, moves all extremities to commands Pulmonary: Respirations easy and regular, no accessory muscle use, no audible wheezing noted GI: Abdomen rounded, soft, non-distended, non-tender to palpation - no rebound, guarding or peritonitis : No suprapubic tenderness with palpation. Musculoskeletal: Good pulse, motor and sensory to all four extremities. Psych: Normal affect, asks appropriate questions, no evidence of psychosis TRAUMA CATALOGUE OF INJURIES & INCIDENTAL FINDINGS: Left minimally displaced 4-6 anterolateral rib fractures Left minimally displaced 8-11 posterior rib fractures T5/T6 hyperextension injury/ fractured osteophyte Incidental Findings: Hepatic steatosis ASSESSMENT: Darci Hamm is a 64 y.o.male admitted to the Trauma & Acute Care Surgery service with personal history of Snuff use who presented to [facility] on 06/21 as direct admit transfer from [facility] where he had initially presented 06/19 after suffering from a kick/stomp from a steer. 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 Trauma imaging revealed acute rib fractures and fractured osteophyte for which he was transferred for higher level of care (spine availability). PLAN: Findings, medications and treatment plan discussed with Attending Physician NEUROLOGICAL: Acute Traumatic Closed, Unstable T4/T5 Osteophyte Fracture: POA Orthopedic Spine Surgery consulted and following Hold chem ppx for 24hr post op (06/22 1600) 2 Days Post-Op Posterior thoracic Fusion WBAT with No bending twisting lifting greater than 5 pounds Follow up to be scheduled by Ortho - if not on AVS by discharge, pt should get a call from scheduling team RESPIRATORY: Acute Atelectasis Secondary to Morbid Obesity: POA Acute Bilateral Pleural Effusions Secondary to Acute Traumatic Injury: POA Traumatic Closed, Minimally Displaced Left Anterolateral Ribs 4-6 Fractures: POA Traumatic Closed, Minimally Displaced Left Posterior Ribs 8-10 Fractures: POA Oxygen Therapy O2 Sat (%): 96 % O2 Device: nasal cannula Flow (L/min): 3 PIC Score: PIC Score Total:: 8 Supplemental oxygen as needed to keep oxygen saturation > 92%, wean oxygen as able HOB elevated 30 degrees, OOB as much as possible Aggressive pulmonary toilet, frequent IS, positive pressure treatments and coughing and deep breathing MUSCULOSKELETAL/INTEGUMENTARY: Acute Physical Deconditioning PT/OT consulted for post op recommendations HEMATOLOGIC: Precipitous Drop in Hemoglobin Secondary to Fluid Resuscitation Admission Hemoglobin: 13.1 Optimize diet with oral supplements MENTAL HEALTH: Nicotine Dependence and Abuse Disorder - Snuff Cessation discussed with patient Complexity. Obesity, Class III Body mass index is 43.74 kg/m . - Follow with PCP for dietary and lifestyle modifications. Wound Documentation Wound Incision 06/21/24 1313 Thoracic Spine (Active) Date First Assessed/Time First Assessed: 06/21/24 1313 Primary Wound Type: Incision Incision Closure/Dressing: [place] Wound Description: percutaneous punctures x9 Location: Thoracic Spine Prophylaxis/Treatment: DVT Prophylaxis: SCD's Bowel Regimen: Senna and Miralax Restraints - Discussed During Rounds - None CENTRAL LINES:No line currently in place Fall Risk: Assessed for patient fall risk and discussed safety measures during rounding. ATB Time Out: An Antibiotic Time-Out was performed during patient rounds. Discharge Planning: Follow up: No follow up with ACS/Trauma attending Planned Discharge To: Inpatient Rehabilitation Please call with any questions - VICKY Sifuentes Pager # [phone] Cosigned by Zamzam Elias Jr., MD at 06/23/2024 1:15 PM EDT * Adrianne Mejía RN - 06/22/2024 2:00 PM EDT Progression of Care Note Expected Discharge Date: To be determined Assessment and Discharge Plan as of 06/22/2024 2:00 PM Patient/family requesting that patient goes to [facility]. PT/OT recommending IPR.Referral sent in aidin. Per provider, ok to start pre- cert as soon as they accept. Adrianne Pierson RN BSN [address] Clinical Bull Driver Available by secure chat * KOBY Mari - 06/22/2024 12:30 PM EDT Care Management Progress Note SW met w/pt and family (ex- Nikkie and stepdaughter Kim) at bedside at their request. They had questions family contacts and the IPR referral process. Nikkie verified that family contacts arelisted on facesheet as they have requested. SW explained that we will be referring pt to [facility] IPR once therapy evals are available and discharge date is identified. SW was informed that CM has made IPR referral in Aidin. SW also fax'd the referral to IPR since they had not reviewed the referral in Aidin. SW to follow up as needed. SHAUN Solomon Float Leaf Sorter Available via secure chat * Francesca Pace OT - 06/22/2024 10:07 AM EDT Acute Occupational Therapy Evaluation Prior Gross Functional Mobility: independent Current AM-PAC score(s): CURRENT AM-PAC Activity Raw Score: 16 Based on the above AM-PAC score(s) and OT clinical judgment, discharge destination recommendation is: Inpatient Rehab Facility Supporting Factors (would benefit from skilled therapy services): Patient status is anticipated to be appropriate to tolerate inpatient rehab therapy requirements at time of discharge from acute care, Impaired functional status, Decreased strength, Impaired balance, Decreased endurance, Impaired self-care abilities, Assistance needed with functional mobility, Fall risk, Recent decline in functional mobility, Recent decline in self-care abilities, Patient has appropriate assistance and setup at home for ultimate discharge to home once patient has progressed functionally following inpatient rehab Mobility equipment available at home: none used ADL equipment available at home: none Equipment recommendations for discharge: Equipment issued: Current therapy frequency recommendation(s) in acute: 5 times a week Precautions and Weightbearing Status: OT Existing Precautions/Restrictions: fall, spinal, supplemental oxygen Telemetry Patient Safety Communication Prior to Visit: Nursing Current brace/orthoses: (none ordered) Subjective: Pt agreeable to OT evaluation; supportive family at bedside Pain: General Pain Documentation (Adult, OB, Peds) Presence of Pain: reports pain/discomfort Pain Location: back DVPRS (Defense and Veterans Pain Rating Scale) DVPRS: Rest: 5- moderate pain DVPRS: Activity: 9- severe pain Home Setting Residence: House (trailer) Lives With: spouse Patient receives help from : children (adult), other relative(s), friends Patient reported support for discharge plannin hour supervision, 24 hour physical assistance First floor setup: bedroom, tub shower Number of stairs to enter home: 2 Mobility Equipment Available: none used ADL Equipment Available: none Previous Level of Function Gross Functional Mobility: independent Prior level ADL Overview: Independent with all ADLs Dominant Hand: Right Bed Mobility: independent Transfers: independent Stairs: independent Ambulation: independent with all needs 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 IADL History IADLs: independent Primary Language: Tongan Active Scenic Designer: Yes Objective/Observation: Vitals/Vitals Responses to Treatment: elevated BP, RN notified O2 Device: nasal cannula Vision Screen Currently wearing corrective lenses: Yes Visual Impairments Observed?: No Speech Speech: no gross deficits noted Hearing Hearing: no gross deficits noted Cognition Overall Cognitive Status: Within Functional Limits Arousal/Alertness: Appropriate responses to stimuli Orientation Level: Oriented X4 Following Commands: Follows all commands and directions without difficulty ADLs: ADL Anticipated Performance (ADLs not directly observed this session): Eating, Grooming, Bathing, UE Dressing, Toileting Eating Assistance: Independent Grooming Assistance: Stand by Grooming Location: edge of bed Bathing Assistance: Maximal UE Dressing Assistance: Minimal LE Dressing Assistance: Maximal LE Dressing Location: edge of bed LE Dressing Deficit: Activity tolerance, Generalized weakness, Pain, Balance, Don/doff R sock, Don/doff L sock LE Dressing Skilled Rationale (Verbal/Tactile/Visual/Demonstration): Facilitate positioning, Technique of activity, Setup, Maintain precautions LE Dressing Intervention/Details: pt extends LEs to assist with positioning for donning socks; pt unable to achieve figure four technique due to pain and decreased mobility Toilet Assistance: Maximal Extremity Assessments: RUE Assessment RUE Assessment: Within Functional Limits Right UE Assessment Details: observed functionally LUE Assessment LUE Assessment: Within Functional Limits Left UE Assessment Details: observed functionally Balance: Sitting Balance Static Sitting-Level of Assistance: Standby Dynamic Sitting-Level of Assistance: Standby Skilled Rationale: Verbal cues, Positioning Sitting Balance Skilled Intervention/Details: assist for adjusting hips at EOB to improve balance and positioning in preparation for sit>stand Standing Balance Static Standing-Level of Assistance: Minimum assistance, 2-person assist Dynamic Standing-Level of Assistance: Minimum assistance, 2-person assist Standing-Balance Support: Hand-held assist Skilled Rationale: Verbal cues, Tactile cues, Positioning, Facilitate anterior shift, Full extension to upright positioning/posture, Upright gaze/neck extension, Technique of activity Neuro: Sensation Overall Sensation: Intact Proprioception Proprioception: intact Skin and Edema: Skin Integrity Skin Integrity Description: Surgical incision Mobility Assessment: Supine to Sit Mobility Russell Level: Supine->Sit: maximum assist (25% patient effort) Physical Assist: Supine->Sit: 2 person assist Bed Features/Set-up: Supine->Sit: Head of bed elevated, Use of bed rail Skilled Rationale: Verbal cues, Tactile cues, Positioning, Sequencing, Hand placement, Technique ofactivity, Initiation and execution of task, Maintain precautions Skilled Intervention/Details: Supine->Sit: facilitated log roll technique Transfer Assessment: Sit to Stand Transfer Russell Level: Sit->Stand: minimum assist (75% patient effort) Physical Assist: Sit->Stand: 2 person assist Assistive Device: Sit->Stand: hand held assist Skilled Rationale: Verbal cues, Tactile cues, Positioning, Hand placement, Facilitate anterior shift, Full extension to upright positioning/posture, Upright gaze/neck extension, Technique of activity Skilled Intervention/Details: Sit->Stand: 1 rep from EOB Stand to Sit Transfer Russell Level: Stand->Sit: minimum assist (75% patient effort) Physical Assist: Stand->Sit: 2 person assist Assistive Device: Stand->Sit: hand held assist, armed chair Skilled Rationale: Verbal cues, Tactile cues, Positioning, Controlled descent for sitting, Technique of activity Skilled Intervention/Details: Stand->Sit: cues for reach back for eccentric control to bedside chair Bed-Chair Transfer Russell Level: Bed<->Chair: minimum assist (75% patient effort) Physical Assist: Bed<->Chair: 2 person assist Assistive Device: Bed<->Chair: hand held assist Skilled Rationale: Verbal cues, Tactile cues, Positioning, Technique of activity Skilled Intervention/Details: Bed<->Chair: pivot EOB to bedside chair Functional Mobility: Outcome Score(s): CURRENT AM-PAC Daily Activity Inpatient Short Form Putting on/Taking Off Lower Body Clothin - A Lot of Assistance Bathin - A Lot of Assistance Toiletin - A Lot of Assistance Putting on/Taking Off Upper Body Clothin - A Little Assistance Groomin - A Little Assistance Eatin - No Assistance CURRENT AM-PAC Activity Raw Score: 16 CURRENT AM-PAC Activity Functional Limitation/Modifier: 53.32% Currently Impaired in Daily Activity- CK Assessment & Plan: Patient is s/p T4-7 Percutaneous PSF. Pt was seen for therapy evaluation related to balance, mobility, strength, and activity tolerance needed for safe ADL performance. Exam findings include impairments in: balance, endurance, pain, transfers. These impairments contribute to occupational performance limitations including bathing, dressing, grooming, toileting, functional mobility, ADL transfers. The following factors impact the plan of care: Psychosocial Factors Positive indicators for performance: Adequate support system Patient will benefit from skilled occupational therapy to address these impairments, occupational performance limitations, and participation restrictions. Patient's rehab potential is: good. Planned Therapy Interventions (OT Eval): ADL retraining, balance training, bed mobility training, functional activity tolerance, transfer training Patient Instruction/Education this session: Learners: Patient, Family Education provided: Plan of care, Precautions/weight bearing status Teaching method: Verbal Education/Instruction Learner response: Applies knowledge Learning preferences: Auditory, Kinesthetic, Reading/writing, Visual Learning considerations: No barriers/ready to learn Patient Instruction/Education comments: pt and family were educated on spinal precautions, including use of log roll and figure four techniques; all verbalized understanding Plan for next session: standing tolerance with ADLs Acute OT Goals Plan of Care by Francesca Pace OT at 06/22/2024 10:07 AM Version 1 of 1 Problem: OT - ADLs Goal: Lower Body Dressing - Patient will complete lower body dressing tasks with modified independence using adaptive equipment/compensatory strategies as needed for improved ability to complete self-care activities. Outcome: Ongoing Goal: Grooming - Patient will complete grooming in standing with modified independence for improvedability to safely complete ADLs. Outcome: Ongoing Goal: Toileting - Patient will complete toileting task with modified independence and adaptive equipment as needed for improved ability to safely complete self-care activities. Outcome: Ongoing Goal: Bathing - Patient will perform full body bathing routine with modified independence while seated and standing for improved ability to complete self- care activities Outcome: Ongoing Problem: OT - Endurance Goal: Endurance Functional Mobility - Patient will complete distance needed for common household mobility with modified independence for improved tolerance to safely complete I/ADL's Outcome: Ongoing Problem: OT - Other Goal: Precaution Adherence - Patient will demonstrate 100% adherence to precautions during all ADLsand functional transfers to promote safety during daily routine. Outcome: Ongoing OT treatment consisted of the following to work and progress towards the above goal(s): OT Evaluation and Treatment Time OT Evaluation (Moderate) Time Entry: 17 Evaluating Therapist: Francesca Pace OT Additional Details: OT Co-Eval/Treatment Information Co-evaluation/co-treatment performed?: Yes, simultaneous billable skilled care was necessary due tomedical complexity and functional deficits Other discipline: PT Rationale for need to co-eval/treat: coordination, postural control OT Evaluation Complexity Occupational Profile and Client History: Moderate - expanded history Assessment of Occupational Performance: Moderate (3-5 performance deficits) Clinical Decision/Performance Deficits: Moderate (detailed assessments w/several treatment options) Time In: 1007 Time Out: 1024 Total Visit Time: 17 minutes Total Treatment Time (skilled, billable minutes): 17 minutes PPE used during patient interaction: gloves Patient location at end of session: chair Alarms on at end of session: Needs in reach. Upon discontinuation of Acute Care Occupational Therapy Services or patient discharge from the hospital this note represents the current Occupational Therapy Discharge Summary. * Beverly Johansen - 06/22/2024 10:06 AM EDT Acute Physical Therapy Evaluation Prior Gross Functional Mobility: independent Current AM-PAC score(s): CURRENT AM-PAC Mobility Raw Score: 15 Based on the above AM-PAC score(s) and PT clinical judgment, patient is a good candidate for discharge to Inpatient Rehab Facility Supporting Factors (would benefit from skilled therapy services): Patient status is anticipated to be appropriate to tolerate inpatient rehab therapy requirements at time of discharge from acute care Mobility equipment available at home: none used ADL equipment available at home: none Equipment needed for discharge: to be determined Current therapy frequency recommendation in acute: PT Therapy Frequency: 6 times a week Activity Recommendations for outside of rehab session: x2 arm in arm pivot Precautions and Weightbearing Status: Existing Precautions/Restrictions: fall, spinal Telemetry Patient Safety Communication Prior to Visit: Nursing Current brace/orthoses: (none ordered) Subjective: pt with 5 family members present, agreeable to therapy Pain: General Pain Documentation (Adult, OB, Peds) Presence of Pain: reports pain/discomfort Pain Location: back DVPRS (Defense and Veterans Pain Rating Scale) DVPRS: Rest: 5- moderate pain DVPRS: Activity: 9- severe pain Home Setting Residence: House (trailer) Lives With: spouse Patient receives help from : children (adult), other relative(s), friends Patient reported support for discharge plannin hour supervision, 24 hour physical assistance First floor setup: bedroom, tub shower Number of stairs to enter home: 2 Mobility Equipment Available: none used ADL Equipment Available: none Previous Level of Function Gross Functional Mobility: independent Prior level ADL Overview: Independent with all ADLs Dominant Hand: Right Bed Mobility: independent Transfers: independent Stairs: independent Ambulation: independent with all needs 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 O2 Device: nasal cannula Flow (L/min): 4 Cognition Overall Cognitive Status: Within Functional Limits Arousal/Alertness: Appropriate responses to stimuli Orientation Level: Oriented X4 Following Commands: Follows all commands and directions without difficulty Safety Judgment: Good awareness of safety precautions Awareness of Errors: Good awareness of errors made Deficits: Fully aware of deficits Vision Screen Currently wearing corrective lenses: Yes Visual Impairments Observed?: No Speech Speech: no gross deficits noted Hearing Hearing: no gross deficits noted Extremity Assessments: RLE Assessment RLE Assessment: Within Functional Limits Right LE Assessment Details: assessed functional with standing tolerance and transfer LLE Assessment LLE Assessment: Within Functional Limits Left LE Assessment Details: assessed functionally with standing tolerance and transfer Sensation Overall Sensation: Intact Mobility Assessment: Supine to Sit Mobility Russell Level: Supine->Sit: maximum assist (25% patient effort) Physical Assist: Supine->Sit: 2 person assist Bed Features/Set-up: Supine->Sit: Head of bed elevated, Use of bed rail Skilled Rationale: Sequencing, Verbal cues, Full extension to upright positioning/posture, Technique of activity, Initiation and execution of task Skilled Intervention/Details: Supine->Sit: cues for log roll technique, assist for LE and trunk elevation Balance: Sitting Balance Static Sitting-Level of Assistance: Standby Dynamic Sitting-Level of Assistance: Contact guard Standing Balance Static Standing-Level of Assistance: Minimum assistance Dynamic Standing-Level of Assistance: Minimum assistance Standing-Balance Support: Hand-held assist, Bilateral Skilled Rationale: Positioning, Hand placement, Verbal cues, Full extension to upright positioning/posture, Finding/maintaining midline positioning, Breathing strategies, Maintain precautions Standing Balance Skilled Intervention/Details: arm in arm to stand and maintain stability; no overtLOB Transfer Assessment: Sit to Stand Transfer Russell Level: Sit->Stand: minimum assist (75% patient effort) Physical Assist: Sit->Stand: 2 person assist Assistive Device: Sit->Stand: hand held assist Skilled Rationale: Positioning, Verbal cues, Arm in arm, Facilitate anterior shift, Full extension to upright positioning/posture, Finding/maintaining midline positioning, Technique of activity, Initiation and execution of task Skilled Intervention/Details: Sit->Stand: x1 EOB; assist to boost and maintain stability Stand to Sit Transfer Russell Level: Stand->Sit: minimum assist (75% patient effort) Physical Assist: Stand->Sit: 2 person assist Assistive Device: Stand->Sit: hand held assist, armed chair Skilled Rationale: Hand placement, Verbal cues, Arm in arm, Controlled descent for sitting Skilled Intervention/Details: Stand->Sit: cues for reachback, assist for eccentric control Bed-Chair Transfer Russell Level: Bed<->Chair: minimum assist (75% patient effort) Physical Assist: Bed<->Chair: 2 person assist Assistive Device: Bed<->Chair: hand held assist, bilateral Skilled Rationale: Positioning, Sequencing, Verbal cues, Technique of activity Skilled Intervention/Details: Bed<->Chair: stand pivot bed to chair; cues for sequencing, rickey to stabilitze Outcome Score(s): CURRENT -[facility] Basic Mobility Inpatient Short Form Turning over in bed: 2 - A Lot of Assistance Moving from lying on back to sittin - A Lot of Assistance Moving to and from bed to chair: 3 - A Little Assistance Sitting/standing from chair: 3 - A Little Assistance Walk in hospital room: 3 - A Little Assistance Climbing 3-5 steps with a railin - A Lot of Assistance CURRENT AM-[facility] Mobility Raw Score: 15 CURRENT AM-PAC Mobility Functional Limitation: 57.70% Impaired in Basic Mobility Interventions: 1. Edu on post op spinal precautions and implication with mobility, including logroll for bed mobility, implications with ADLs as applicable and activity modification - Cues throughout the above stated mobility in order to adequately follow spinal precautions; vitals assessed as needed Assessment & Plan: Patient was admitted for s/p kicked/stomped on by a steer; CT w nondisplaced L sided rib fractures and fractured T5/T6; T4-7 PSIF to stabilize and seen for therapy evaluation related to strength, functional mobility and activity tolerance. Exam findings include impairments in: Balance, Pain, Transfers, Gait/Locomotion, Aerobic capacity/endurance. These impairments contribute to functional limitations including Decreased functional mobility. Current clinical presentation is Evolving - changing/inconsistent clinical characteristics (Moderate). Patient history factors impacting Plan Of Care include PMH. Patient will benefit from skilled physical therapy to address these impairments, functional limitations, and participation restrictions and has good rehab potential to achieve therapy goals. Planned Therapy Interventions: bed mobility training, functional activity tolerance, gait training,transfer training Patient Instruction/Education this session: Learners: Patient, Family Education provided: Bed mobility, Breathing exercises Teaching method: Verbal Education/Instruction Learner response: Applies knowledge, States/Identifies/Teaches back Learning preferences: Auditory Learning considerations: No barriers/ready to learn Plan for next session: trail gait and stairs if medically stable Acute PT Goals Plan of Care by Connie Wilder PT at 06/22/2024 10:30 AM Version 1 of 1 Problem: PT - General Goals Goal: Supine <-> Sit Transfers - Patient will perform supine to/from sit transfers with supervision and without use of hospital bed features in order to improve functional mobility and safety. Outcome: Ongoing Goal: Sit <-> Stand Transfers - Patient will perform sit to/from stand transfers with supervision and least restrictive device in order to improve functional mobility and safety. Outcome: Ongoing Goal: Ambulation - Patient will ambulate 175 feet with supervision and least restrictive device to improve ability to safely navigate home and community. Outcome: Ongoing Goal: Stairs - Patient will ascend/descend 3 stairs with contact guard assistance, least restrictive device, and single railing(s) to improve ability to safely navigate home and community. Outcome: Ongoing Goal: Precautions - Patient will successfully adhere to post-operative precautions during 100% of functional mobility without verbal cueing in order to maintain safety and reduce risk of injury. Outcome: Ongoing PT treatment consisted of the following to progress towards the above goal(s): PT Evaluation and Treatment Time PT Evaluation (Moderate) Time Entry: 18 Evaluating Therapist: Beverly Johansen Additional Details: PT Co-Eval/Treatment Information Co-evaluation/co-treatment performed?: Yes, combination of simultaneous billable and individual billable skilled care was necessary due to medical complexity and functional deficits Other discipline: OT Rationale: safety with initial mobility assessment r/t medical complexity Evaluation Complexity Components History: Moderate (1-2 personal factors and/or comorbidities) Body Systems Review: Moderate (Addressing a total of 3 or more elements) Clinical Presentation: Evolving - changing/inconsistent clinical characteristics (Moderate) Clinical Decision Making Complexity: Moderate Time In: 1006 Time Out: 1024 Total Visit Time: 18 minutes Total Treatment Time (skilled, billable minutes): 18 minutes Patient location at end of session: chair Alarms on at end of session: none Needs in reach. Upon discontinuation of Acute Care Physical Therapy Services or patient discharge from the hospitalthis note represents the current Physical Therapy Discharge Summary. Cosigned by Connie Wilder PT at 06/22/2024 3:07 PM EDT Associated attestation - Connie Wilder PT - 06/22/2024 3:07 PM EDT I, Connie Wilder PT, provided line of sight supervision during this patient care session. I attest that all documentation reflects accurate skilled clinical decisions and judgements. Connie Wilder PT, DPT License # [id number] Pager # [phone] Available Fri, , Thurs, Fri 7am-5:30pm If PT assistance is needed on Wednesdays, please message the PT most recently assigned to this pts treatment team. * Irina Mcguire APRN-SAMPLE MAKER HAND - 06/22/2024 6:57 AM EDT Communication was sent to the scheduling team for follow up appointments with ortho-spine providers. Patient should follow up with advanced practice provider (MECHANISM ASSEMBLER/PA) in 2 weeks and the surgeon in 6 weeks. If the appointments are not on the patient's AVS at the time of discharge, they should receivea phone call from the scheduling team. Irina PERRY Orthopaedic Surgery Pager [phone] * VICKY Sifuentes - 06/22/2024 6:20 AM EDT TRAUMA & ACUTE CARE SURGERY DAILY PROGRESS NOTE Date: 06/22/2024 Admission: 06/20/2024 Attending: Zamzam Elias Jr., MD HD #: 2 POD #: 1 Day Post-Op Events Overnight: No acute events overnight. UPDATED PLAN OF CARE: PT/OT eval today PIC scores per nursing Multimodal pain control Discharge planning: Family member works at [facility] [facility] in [place], will likely plan for DC there when rib fractures tolerable SUBJECTIVE: Patient reports back is sore, asking when he can get out of bed PHYSICAL EXAM: Constitutional: In no acute distress HEENT: Normocephalic, atraumatic, anicteric sclera Neurological: Awake, alert, follows commands, moves all extremities to commands Pulmonary: Respirations easy and regular, no accessory muscle use, no audible wheezing noted GI: Abdomen rounded, soft, non-distended, non-tender to palpation - no rebound, guarding or peritonitis : No suprapubic tenderness with palpation. Musculoskeletal: Good pulse, motor and sensory to all four extremities. Psych: Normal affect, asks appropriate questions, no evidence of psychosis TRAUMA CATALOGUE OF INJURIES & INCIDENTAL FINDINGS: Left minimally displaced 4-6 anterolateral rib fractures Left minimally displaced 8-11 posterior rib fractures T5/T6 hyperextension injury/ fractured osteophyte Incidental Findings: Hepatic steatosis ASSESSMENT: Darci Hamm is a 64 y.o.male admitted to the Trauma & Acute Care Surgery service with personal history of Snuff use who presented to [facility] on 06/21 as direct admit transfer from [facility] where he had initially presented 06/19 after suffering from a kick/stomp from a steer. 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 Trauma imaging revealed acute rib fractures and fractured osteophyte for which he was transferred for higher level of care (spine availability). PLAN: Findings, medications and treatment plan discussed with Attending Physician NEUROLOGICAL: Acute Traumatic Closed, Unstable T4/T5 Osteophyte Fracture: POA Orthopedic Spine Surgery consulted and following Hold chem ppx for 24hr post op (06/22 1600) 1 Day Post-Op Posterior thoracic Fusion WBAT with No bending twisting lifting greater than 5 pounds Follow up to be scheduled by Ortho - if not on AVS by discharge, pt should get a call from scheduling team RESPIRATORY: Acute Atelectasis Secondary to Morbid Obesity: POA Acute Bilateral Pleural Effusions Secondary to Acute Traumatic Injury: POA Traumatic Closed, Minimally Displaced Left Anterolateral Ribs 4-6 Fractures: POA Traumatic Closed, Minimally Displaced Left Posterior Ribs 8-10 Fractures: POA Oxygen Therapy O2 Sat (%): 96 % O2 Device: nasal cannula Flow (L/min): 4 PIC Score: PIC Score Total:: 7 Supplemental oxygen as needed to keep oxygen saturation > 92%, wean oxygen as able HOB elevated 30 degrees, OOB as much as possible Aggressive pulmonary toilet, frequent IS, positive pressure treatments and coughing and deep breathing MUSCULOSKELETAL/INTEGUMENTARY: Acute Physical Deconditioning PT/OT consulted for post op recommendations HEMATOLOGIC: Precipitous Drop in Hemoglobin Secondary to Fluid Resuscitation Admission Hemoglobin: 13.1 Optimize diet with oral supplements MENTAL HEALTH: Nicotine Dependence and Abuse Disorder - Snuff Cessation discussed with patient Complexity. Obesity, Class III Body mass index is 43.74 kg/m . - Follow with PCP for dietary and lifestyle modifications. Wound Documentation Wound Incision 06/21/24 1313 Thoracic Spine (Active) Date First Assessed/Time First Assessed: 06/21/24 1313 Primary Wound Type: Incision Incision Closure/Dressing: [place] Wound Description: percutaneous punctures x9 Location: Thoracic Spine Prophylaxis/Treatment: DVT Prophylaxis: SCD's Bowel Regimen: Senna and Miralax Restraints - Discussed During Rounds - None CENTRAL LINES:No line currently in place Fall Risk: Assessed for patient fall risk and discussed safety measures during rounding. ATB Time Out: An Antibiotic Time-Out was performed during patient rounds. Discharge Planning: Follow up: No follow up with ACS/Trauma attending Planned Discharge To: Inpatient Rehabilitation Please call with any questions - VICKY Sifuentes Pager # [phone] Cosigned by Zamzam Elias Jr., MD at 06/22/2024 2:56 PM EDT Associated attestation - Zamzam Elias Jr., MD - 06/22/2024 2:56 PM EDT Attending Attestation: I saw and examined Darci Hamm and agree with the resident/ANNIE's note above. Ongoing pain from spine and ribs PT/OT mobilization today Zamzam Elias Jr., MD Division of Trauma, Critical Care, and [facility] Department of Surgery * KOBY Mari - 06/21/2024 3:20 PM EDT Discharge Planning Assessment Is the patient able to participate in the assessment?: No Explanation of why patient is unable to participate: In Surgery Care Management Plan SW met w/pt's family (exwife Nikkie, sister & Lor) to complete IA. 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 Pt completed HCPOA at [facility]. It's been fax'd into chart. Pt is planning to go to the [facility] at discharge. His stepdaughter is a manager social at that hospital. Initial Discharge Planning Expected Discharge Disposition: Inpatient Rehab Facility Transportation Available for Discharge: Ambulance Patient Assessment Completed: Initial Legal Next of Kin Does the patient have a Guardian?: No Spouse: No Adult Child(jelly), List All Adult Children: Yes - Estranged Name and Contact information: Tomy Hamm Would you like to add additional adult children?: No Adult Sibling(s), List All Adult Siblings: Yes Name and Contact information: Lor De Leon [phone] Would you like to add additional adult siblings?: Yes Name and Contact information: Nikkie France [phone] Referral to Social Work to Identify Legal Next of Kin?: No Reviewed and Updated in Demographics? : Yes Advanced Care Planning Has the patient completed Advance Directives?: Completed, Available in Medical Record Medication Management Does the patient have prescription insurance coverage? : Yes Is the patient on Anticoagulation? : No [address] [place] [address] [address] [place] [address] [facility] [address] Living Environment and Support System Is the patient from a facility or longterm?: No Living Environment: Mobile Home Patient Caregiving Responsibilities: Self Patient-identified caregiver/support network: Family Who does the patient identify as a teachable caregiver(s)?: Other Family Services Does the patient use a home health or hospice agency?: No Current with dialysis?: No Does the patient use any community programs or services?: No Does patient use DME? : none Does the patient use oxygen?: No Does patient use medical supplies? : none Anticipated Changes Related to Illness/Injury? : Yes Inability to care for self?: Yes Inability to care for dependents?: N/A Inability to return to school/work?: Yes Initial ADLs Prior to Arrival What is the patient's baseline physical functioning prior to this acute illness?: independent What is the patient's baseline cognitive functioning prior to this acute illness?: independent Is the patient's baseline functioning changed by this acute illness? : Yes Changes observed : Physical Concerns with patient being able to care for themselves at home? : Yes Visual Specialist Does the patient or food service sales representatives express financial concerns? : No SW to follow pt for discharge needs. SHAUN Solomon Floliliya Leaf Sorter Available via secure chat * DALE Musa - 06/21/2024 9:32 AM EDT Acute Care VENEER LAYER Speech/Language/Cognitive Evaluation Best mode of Communication: spoken language (regular speech) Discharge Recommendations: Based on the below outcome measures/assessment score(s) and VENEER LAYER clinicaljudgment, discharge destination recommendation is:pending further assessment (limited assessment this date given director of digital technology arrived to take pt to MRI and subsequently to OR) Acute VENEER LAYER Outcomes Tracking Communicate basic wants and needs?: yes Demo insight/appreciation of deficits?: yes Complete basic problem solving?: unable to determine Current therapy frequency recommendation in acute: Speech/Lang/Cog Therapy Frequency: 3 times a week Clinical Impression: Darci Hamm presents at risk for cognitive-linguistic deficits/concussion symptoms after being kicked/stomped on 06/19 by a steer with LOC. Limited assessment this date given director of digital technology arrived to take pt to MRI and pt subsequently went to the OR. With limited assessment, pt was oriented to self, location (required cues for name of hospital), month, year, day of month, and etiology for hospital. Pt endorsed feeling drowsy due to medications however reported he feels he is at his cognitive baseline. Pt's speech was intelligible with no noted paraphasias/anomia and pt observed following basic 1-step commands with no difficulty. Given limited assessment due to pt scheduling constraints, VENEER LAYER to follow-up for further assessment and to complete questionnaire re: potential concussion symptoms. Patient Education/Instruction Learners: Patient, Family Education provided: Role of this discipline Teaching method: Verbal Education/Instruction Learner response: Applies knowledge Learning preferences: Auditory Plan for next session: 06/21: cog-log and concussion screen Subjective information: Pt drowsy laying flat in bed with two family members present at bedside. Ptagreeable to participate. Pain: General Pain Documentation (Adult, OB, Peds) Presence of Pain: reports pain/discomfort Presence of Pain Score (Auto-calculated): 0 Comfort/Acceptable General Pain Level/Goal: 3 DVPRS (Defense and Veterans Pain Rating Scale) DVPRS: Rest: 5- moderate pain DVPRS: Activity: 5- moderate pain Precautions: Patient Safety Communication Prior to Visit: Nursing VENEER LAYER Existing Precautions/Restrictions: fall (bed rest, lumbar precautions) Patient History Comments: Darci Hamm is a 64 y.o. male with PMH of HTN, morbid obesity, basal cellcarcinoma (facial skin), diastasis of rectus abdominis and colonic polyps who presents with spinal fracture. Patient initially seen at [facility] after being kicked/stomped on 06/19 by a steer; simpson CT at that time demonstrating multiple, nondisplaced L sided rib fractures and fractured osteophyte at T4/T5 now s/p rib block. He was evaluated by neurosurgery team who were unable to care for patient there due to body habitus and anatomy of small fracture. Patient transferred to [facility] for further care. On my evaluation at bedside patient is afebrile, HR 74, BP 175/77 and maintaining SpO2 above 95% on2L NC. He sustained LOC and is unable to recall events of the accident however states he ws cleaning a steers huffs when he suddenly became wrapped by a rope, pulled to the ground and was either kicked or stomped on by steer. Patient does have whole body soreness however pain is predominately been located at the R shoulder, L costal region back with some abdominal cramping. Pain is rated 4/10 while lying still and 10/10 with movement. Demonstrated PIC score of 8. No cervical collar in place. Patient denies sensorimotor changes, vision changes, AVILA, SOB, fevers/chill, still passing flatus. The patient is not anticoagulated. Does take daily ASA 81mg. The patient is not on steroids or chemotherapy Prior Level of Function: IADL History IADLs: independent IADL Comments: Pt reported he lives alone, independently manages his medications/finances, drives daily, and works almost 7 days a week [employer]. Pt reported he feels he is at his cognitive baseline. VENEER LAYER Existing Precautions/Restrictions: fall (bed rest, lumbar precautions) Respiratory Status: O2 Sat (%): 95 % (06/21 1153) O2 Device: nasal cannula (06/21 115) Flow (L/min): 3 (06/21 115) EXPRESSIVE LANGUAGE: Functional Task: Imitates Gestures Functional Automatic Speech Phrase Completion Confrontation Naming Answering 'wh' Questions Functional Repetition Verbalize Basic Wants and Needs Functional Functional Participation in Conversation Functional Expressive Language Characteristics: Fluent RECEPTIVE LANGUAGE: Functional Task: Identify Functional Objects Follow 1-Step Commands Functional Follow 2+ Step Commands Answers Basic Y/N Questions Functional Answers Complex Y/N Questions Conversational Comprehension Functional COGNITION: Within Functional Limits (however limited assessment this date) Task: Arousal/Alertness Appropriate responses to stimuli Orientation Level Oriented to person, Oriented to place, Oriented to situation, Oriented to time Safety Judgment Awareness of Errors Good awareness of errors made Deficits Attention Span Appears intact Memory Unable to assess Problem Solving Unable to assess Cognition Comments Limited assessment given scheduling constraints (tech arrived to take pt to MRI then subsequently to his lumbar procedure). Further dynamic assessment to be completed. MOTOR SPEECH TASKS: Functional Task: Imitate Motor Movements Functional Imitate Sounds and Words Functional Rapid Alternating Movements Speech Intelligibility Functional Fluency Functional Saliva Management Functional VOCAL PARAMETERS: Functional Task: Breath Support Coordination of Respiration and Phonation Duration of Phonation Pitch Control Loudness Vocal Quality WDL Subjective Voice Evaluation Grade of dysphonia (G): 0 Roughness (R): 0 Breathiness (B): 0 Asthenia (A): 0 Strain (S): 0 VENEER LAYER Outcomes: The Orientation Log (O-Log) is designed to be a quick quantitative measure of orientational status for use at bedside with rehabilitation inpatients. Place, time, and situational (Etiology/Event + Pathology/Deficits) domains are assessed. Patient responses are scored according to the following criteria: 3 = correct spontaneously or upon first free recall attempt; 2 = correct upon logical cueing (e.g., That was yesterday, so today must be ); 1 = correct upon multiple choice or phonemic cuing; and 0 = incorrect despite cueing, inappropriate response, or unable to respond. Prompt Score [facility]: correct spontaneously or upon first free recall attempt Kind of Place Kind of Place: correct spontaneously or upon first free recall attempt Name of Hospital Name of Hospital: correct spontaneously or upon first free recall attempt Month Month: correct spontaneously or upon first free recall attempt Date Date: correct spontaneously or upon first free recall attempt Year Year: correct spontaneously or upon first free recall attempt Day of Week Day of Week: correct upon logical cueing Clock Time Clock Time: correct upon multiple choice or phonemic cueing Etiology/Event Etiology / Event: correct spontaneously or upon first free recall attempt Pathology/Deficits Pathology Deficits: correct spontaneously or upon first free recall attempt Total Total Score: 27/30 Acute VENEER LAYER Goals Plan of Care by DALE Musa at 06/21/2024 9:32 AM Version 1 of 1 Problem: VENEER LAYER - Cognition Goal: Ongoing Assessment - Patient will participate in ongoing dynamic assessment of motor speech, expressive/receptive language, and cognitive- linguistic skills across 1 session to better assess deficits and most appropriately guide VENEER LAYER plan of care Outcome: Ongoing Speech Language Pathologist: DALE Musa Time In: 931 Time Out: 940 Total Visit Time: 9 minutes Total Treatment Time (skilled, billable minutes): 9 minutes Non-billable assistance during session: n/a Assisted by during session: n/a PPE used during patient interaction: gloves Patient location/status at end of session: bed - flat Patient alarms at end of session: none altered Needs in reach. VENEER LAYER Evaluation and Treatment Time Speech Eval - Sound Production W/Lang Comp and Exp [id number]: 9 Upon discontinuation of Acute Care Speech Therapy Services or patient discharge from the hospital this note represents the current Speech Therapy Discharge Summary * Connie Wilder PT - 06/21/2024 8:32 AM EDT Physical Therapy Attempt Note 06/21/2024 PT Therapy Completed: Attempted Attempted Reason: Patient is on strict bedrest (hold; Per OS note- Bedrest with potential OR) Connie Wilder PT Time In: 08 Time Out: 08 Total Visit Time: 0 minutes Total Treatment Time (skilled, billable minutes): 0 minutes * Francesca Pace OT - 06/21/2024 8:00 AM EDT Occupational Therapy Attempt Note 06/21/2024 OT Therapy Completed: Attempted Attempted Reason: Patient is not medically optimized to tolerate therapy program, Patient is on strict bedrest (per most recent ortho surg note, pt on bedrest at this time) Francesca Pace OT Time In: 0800 Time Out: 0800 Total Visit Time: 0 minutes Total Treatment Time (skilled, billable minutes): 0 minutes * Rahel Chin APRN-EPI - 06/21/2024 7:30 AM EDT TRAUMA & ACUTE CARE SURGERY DAILY PROGRESS NOTE Date: 06/21/2024 Admission: 06/20/2024 Attending: Zamzam Elias Jr., MD HD #: 1 POD #: * Day of Surgery * Events Overnight: No acute events overnight. UPDATED PLAN OF CARE: Spine planning for OR today MRI pending PIC scores per nursing Multimodal pain control SUBJECTIVE: Patient reports sleepy from pain med administration; pain is controlled PHYSICAL EXAM: Constitutional: In no acute distress HEENT: Normocephalic, atraumatic, anicteric sclera Neurological: Awake, alert, follows commands, moves all extremities to commands Pulmonary: Respirations easy and regular, no accessory muscle use, no audible wheezing noted GI: Abdomen rounded, soft, non-distended, non-tender to palpation - no rebound, guarding or peritonitis : No suprapubic tenderness with palpation. Musculoskeletal: Good pulse, motor and sensory to all four extremities. Psych: Normal affect, asks appropriate questions, no evidence of psychosis TRAUMA CATALOGUE OF INJURIES & INCIDENTAL FINDINGS: Left minimally displaced 4-6 anterolateral rib fractures Left minimally displaced 8-11 posterior rib fractures T5/T6 hyperextension injury/ fractured osteophyte Incidental Findings: Hepatic steatosis ASSESSMENT: Darci Hamm is a 64 y.o.male admitted to the Trauma & Acute Care Surgery service with personal history of Snuff use who presented to [facility] on 06/21 as direct admit transfer from [facility] where he had initially presented 06/19 after suffering from a kick/stomp from a steer. 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 Trauma imaging revealed acute rib fractures and fractured osteophyte for which he was transferred for higher level of care (spine availability). PLAN: Findings, medications and treatment plan discussed with Attending Physician NEUROLOGICAL: Acute Traumatic Closed, Unstable T4/T5 Osteophyte Fracture: POA Orthopedic Spine Surgery consulted and following Hold chem ppx Bedrest, spine precautions, logroll Plan for OR today MRI pending for pre op planning RESPIRATORY: Acute Atelectasis Secondary to Morbid Obesity: POA Acute Bilateral Pleural Effusions Secondary to Acute Traumatic Injury: POA Traumatic Closed, Minimally Displaced Left Anterolateral Ribs 4-6 Fractures: POA Traumatic Closed, Minimally Displaced Left Posterior Ribs 8-10 Fractures: POA Oxygen Therapy O2 Sat (%): 96 % O2 Device: nasal cannula Flow (L/min): 3 PIC Score: PIC Score Total:: 8 Supplemental oxygen as needed to keep oxygen saturation > 92%, wean oxygen as able HOB elevated 30 degrees, OOB as much as possible Aggressive pulmonary toilet, frequent IS, positive pressure treatments and coughing and deep breathing MUSCULOSKELETAL/INTEGUMENTARY: Acute Physical Deconditioning PT/OT consulted for post op recommendations HEMATOLOGIC: Precipitous Drop in Hemoglobin Secondary to Fluid Resuscitation Admission Hemoglobin: 13.1 Optimize diet with oral supplements MENTAL HEALTH: Nicotine Dependence and Abuse Disorder - Snuff Cessation discussed with patient Complexity. Obesity, Class III Body mass index is 43.74 kg/m . - Follow with PCP for dietary and lifestyle modifications. Wound Documentation Prophylaxis/Treatment: DVT Prophylaxis: SCD's Bowel Regimen: Senna and Miralax Restraints - Discussed During Rounds - None CENTRAL LINES:No line currently in place Fall Risk: Assessed for patient fall risk and discussed safety measures during rounding. ATB Time Out: An Antibiotic Time-Out was performed during patient rounds. Discharge Planning: Follow up: No follow up with ACS/Trauma attending Planned Discharge To: Pending clinical course Please call with any questions - VICKY Sifuentes Pager # [phone] Cosigned by Zamzam Elias Jr., MD at 06/21/2024 2:33 PM EDT Associated attestation - Zamzam Elias Jr., MD - 06/21/2024 2:33 PM EDT Attending Attestation: I saw and examined Darci Hamm and agree with the resident/ANNIE's note above. MRI of T/L spine and possible fixation by spine Multimodal pain control for rib fractures Zamzam Elias Jr., MD Division of Trauma, Critical Care, and [facility] Department of Surgery * Pancho Sheldon MD - 06/21/2024 7:00 AM EDT Orthopedic Spine Progress Note Subjective: Patient is a 64 y.o. 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 He endorses belly pain from the rope, back and rib pain, as well as right arm pain. Patient says he ambulated until he was found to have this spine fracture type at OSH He denies any radicular pain He denies any bowel or bladder changes, and has been voiding spontaneously with full awareness since his injury. This morning, the patient's back, chest and right arm pain are controlled at rest. He confirms prior history. Still denies any other sources of pain. Denies numbness/tingling/weakness in the extremities. Denies bowel/bladder incontinence. Vocalized understanding of plan below and wishes to proceed.Sister and [id number] at bedside Physical Exam: General: Vitals: 06/21/24 0000 06/21/24 0350 BP: 175/77 144/64 Pulse: 74 67 Resp: 22 20 Temp: 98.2 degrees F (36.8 degrees C) 98.3 degrees F (36.8 degrees C) TempSrc: Oral Oral SpO2: 97% 93% Weight: 122.9 kg (271 lb) Height: 1.676 m (5' 6) No acute distress Spine Physical Exam: No tenderness to palpation in the cervical midline. TTP of thoracic and lumbar midline. No step offdeformities noticed. Upper Extremity: Strength: Right Left C5 Deltoids 4/5 5/5 C6 Biceps 4/5 5/5 Wrist Extensors 5/5 5/5 C7 Triceps 5/5 5/5 C8 Finger Flexors 5/5 5/5 First Dorsal Interossei 5/5 5/5 R deltoid and biceps strength limited by pain from his injury Right supraspinatus and infraspinatus 4/5 strength due to pain Right subscap 5/5 strength Sensory Right Left C5 Lateral Deltoid Intact Intact C6 Radial Forearm Intact Intact C7 Middle Finger Intact Intact C8 Ulnar Forearm Intact Intact T1 Medial Arm Intact Intact Right Left Biceps C5 2+ 2+ Lower Extremity Strength: Right Left Hip Flexors L2 5/5 *4/5 Quadriceps L3 5/5 5/5 Anterior Tibialis L4 5/5 5/5 EHL L5 5/5 5/5 Hamstrings 5/5 5/5 Gastroc/soleus S1 5/5 5/5 *elicits severe back pain Sensory Right Left L2 ant/med thigh intact intact L3 lat thigh intact intact L4 medial leg intact intact L5 lateral leg intact intact S1 posterior leg intact intact S2 plantar foot intact intact Reflexes: Patellar L4 2+ 2+ Special Tests: Clonus (R/L): -/- Hoffmans (R/L): -/- Straight leg raise (R/L): -/- Labs Lab Results Component Value Date WBC 7.84 06/21/2024 HGB 13.1 (L) 06/21/2024 HCT 40.6 06/21/2024 PLATELET 182 06/21/2024 MCV 90.2 06/21/2024 Lab Results Component Value Date SODIUM 137 06/21/2024 POTASSIUM 4.3 06/21/2024 CHLORIDE 101 06/21/2024 CO2 29 06/21/2024 BUN 10 06/21/2024 CREATSERUM 0.74 06/21/2024 GLUCOSE 103 06/21/2024 Lab Results Component Value Date INR 1.1 06/21/2024 PT 14.3 (H) 06/21/[address] scans - severe spondylosis C5-T1 - T5-6 hyperextension injury with syndesmophyte fracture, distraction through disc space and facet joints - chronic L2 pars defects Right humerus x-rays demonstrate no acute fracture. Anterolateral midshaft humerus with heterotopicbone formation. [id number]-[id number] degenerative changes right elbow and right glenohumeral joint. Moderate to severe degeneration acromioclavicular joint with osteophyte formation Assessment Darci Hamm is a 64 y.o. male with morbid obesity, prediabetes, nicotine use, DISH spine presentingwith rib fractures and a T5/T6 hyperextension injury after being kicked/stomped by a steer. Neuro intact. Right upper arm pain without fracture Plan ACS primary Activity: bedrest, spine precautions, logroll Brace: none Diet: NPO DVT ppx: hold chem ppx Pain Regimen: multimodal Imaging: pending STAT MRI entire spine screening without contrast to evaluate for epidural hematomaor additional occult fractures Tentative plan for T4-7 percutaneous PSIF today with Dr. Castro pending MRI findings Pancho Sheldon MD Orthopedic Spine Fellow * Gama Greer RP - 06/21/2024 3:31 AM EDT Department of Pharmacy Anticoagulant/Antithrombotic Progress Note Patient: Darci Hamm Room/Bed: [facility] Assessment/Plan: The patient's most recent renal function markers and weight/BMI include: Estimated Creatinine Clearance: 123 mL/min (by C-G formula based on SCr of 0.74 mg/dL). Body mass index is 43.74 kg/m . Weight: Wt Readings from Last 1 Encounters: 06/21/24 122.9 kg (271 lb) Based on this, I updated orders to reflect a change from Enoxaparin 30 mg subcutaneous Q12h to Enoxaparin 40 mg subcutaneous Q12h . Name: Gama Greer RPH Phone: [phone] Date/Time: 06/21/2024 3:31 AM [facility] Plan of care note* Plan of Care - Jillian Rogel RN - 06/23/2024 10:24 PM EDT Problem: Adult Inpatient Plan of Care Goal: Plan of Care Review Outcome: Progressing Goal: Patient-Specific Goal (Individualized) Outcome: Progressing Goal: Absence of Hospital-Acquired Illness or Injury Outcome: Progressing Goal: Optimal Comfort and Wellbeing Outcome: Progressing Goal: Readiness for Transition of Care Outcome: [facility]* Nursing Notes - Carla Morales RN - 06/23/2024 2:14 PM EDT Pre-cert approved and pt will be transported to [facility]. Ambulance will be here around 1130am. Phone number for report is [phone], the fax number is [phone]. Carla Morales RN [facility]04-23-2025 Nurse Note* Nursing Notes - Carla Morales RN - 06/23/2024 12:05 PM EDT A dual assessment of skin condition was performed by this writer editor and Jordan Sarabia RN. Skin Assessment: Skin not within defined limits. - Wound(s) identified: Yes - Photo taken and uploaded into notes in IHIS: Yes Dandre Score: 17 LDA Added:No Carla Morales RN [facility]04-23-2025 Plan of care note* Plan of Care - Francesca Pace OT - 06/23/2024 11:06 AM EDT Problem: OT - ADLs Goal: Lower Body Dressing - Patient will complete lower body dressing tasks with modified independence using adaptive equipment/compensatory strategies as needed for improved ability to complete self-care activities. Outcome: Progressing Goal: Grooming - Patient will complete grooming in standing with modified independence for improvedability to safely complete ADLs. Outcome: Progressing Goal: Toileting - Patient will complete toileting task with modified independence and adaptive equipment as needed for improved ability to safely complete self-care activities. Outcome: Progressing Goal: Bathing - Patient will perform full body bathing routine with modified independence while seated and standing for improved ability to complete self- care activities Outcome: Progressing Problem: OT - Endurance Goal: Endurance Functional Mobility - Patient will complete distance needed for common household mobility with modified independence for improved tolerance to safely complete I/ADL's Outcome: Progressing Problem: OT - Other Goal: Precaution Adherence - Patient will demonstrate 100% adherence to precautions during all ADLsand functional transfers to promote safety during daily routine. Outcome: Progressing [facility]04-23-2025 Plan of care note* Plan of Care - Tomy Leija, PT - 06/23/2024 7:40 AM EDT Problem: PT - General Goals Goal: Supine <-> Sit Transfers - Patient will perform supine to/from sit transfers with supervision and without use of hospital bed features in order to improve functional mobility and safety. Outcome: Progressing Goal: Sit <-> Stand Transfers - Patient will perform sit to/from stand transfers with supervision and least restrictive device in order to improve functional mobility and safety. Outcome: Progressing Goal: Ambulation - Patient will ambulate 175 feet with supervision and least restrictive device to improve ability to safely navigate home and community. Outcome: Progressing Goal: Stairs - Patient will ascend/descend 3 stairs with contact guard assistance, least restrictive device, and single railing(s) to improve ability to safely navigate home and community. Outcome: Progressing Goal: Precautions - Patient will successfully adhere to post-operative precautions during 100% of functional mobility without verbal cueing in order to maintain safety and reduce risk of injury. Outcome: Progressing [facility]04-23-2025 Plan of care note* Plan of Care - Lauryn Kirkpatrick RN - 06/23/2024 1:13 AM EDT Problem: Adult Inpatient Plan of Care Goal: Optimal Comfort and Wellbeing Intervention: Monitor Pain and Promote Comfort Flowsheets (Taken 06/23/2024 0113) Pain Management Interventions: pillow support provided care clustered position [facility] Note* Nursing Notes - Adrianne Mejía RN - 06/22/2024 2:48 PM EDT 06/22/24 1448 Patient Choice for Post-Acute Providers Resumption of care? No Establishing care? Yes Level of care for choice Inpatient Rehab Preferred geographic region Discussed and honored Source of list Aidin List was provided to Patient;Other Method of delivery In Person Is the provider part of a joint venture or have a financial relationship with discharging hospital?No Adrianne Pierson RN BSN [address] Clinical Bull Driver Available by secure chat [facility]04-22-2025 Consult note* Iraida Thompson, [facility] DIRECTOR-SAMPLE MAKER HAND - 06/22/2024 2:10 PM EDTAssociated Order(s): IP CONSULT TO GERIATRICS Geriatrics IP Consult Service - New Consult Note Assessment and Plan Geriatric trauma with Left rib fractures T4/T5 fx s/p surgery Pt uncontrolled at hs, waking up q hr -Continue scheduled acetaminophen 975mg TID -continue lidocaine 4% patch topically to affected area every day up to 12 hours for pain -short duration of cyclobenzaprine has been found to decrease respiratory complications in older patients with rib fractures. Discontinue upon discharge due to fall risk due to anticholinergic effects. Tolerating flexeril 5mg po TID. 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 Consider discontinuing once pain is under control. -consider oxycodone 5mg po tonight prior to sleep tonight to help with pain control to promote restful sleep. Defer pain management to primary - continue SLT eval for cognitive -linguistic deficits Constipation No BM since admission, no N/V or abd pain Senna 17.2 every day started yesterday Miralax 17gm po every day added today HPI Reason for consult : Geriatric trauma Admission date and reason : 06/20/2024 for Thoracic spine fracture [S22.009A] Primary Service : ACS B PCP : Brayden Chao PMH: HTN, morbid obesity, basal cell carcinoma, colonic polyps At bedside: family 64 year old male sustained left rib fracture 4-6 anterolateral rib and left 8- 11th posterior rib fxand T4-T5 fractured osteophyte s/p being kicked/ stomped by a steer while providing hoof care. He does not recall event and has had some memory loss since accident. Had closed 3 T fx surgery yesterday. Family at bedside, reports that he is doing much better. He reports that he gets 'loopy' after pain medication and did not sleep well last night as he was waking up every hour in pain. Currently prescribed Tylenol TID, Neurontin 200mg TID and lidocaine patch along with prn dilaudid. Had 0.5mg at 0403 and and at 1134. He reports pain now that is exacerbated from coughing after using incentive spi rometry. No BM since admission, post op day 1. Started on senna yesterday and Miralax today. No N/Vor abd pain. PT recs for IPR and will go to [facility] where his step daughter works and then plans to progress home with family for assistance. 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 Geriatric Screening Functional status at baseline Basic ADLs - independent Instrumental ADLs - independent Current functional status Basic ADLs - needs assist Instrumental ADLs - dependent Geriatric Syndromes Cognitive function and memory - oriented to self , setting , situation History of delirium - no Mobility and falls - none Sensory impairment - no gross hearing deficits Sleep habits - no issues at baseline Elder abuse or neglect - none suspected Tobacco/ETOH/Illegal drugs - snuff / no / no Social - lives alone, good family support Review of Systems Review of Systems: (positives in bold) Review of Systems Constitutional: Negative for activity change. Respiratory: Negative. Pain with inspiration Gastrointestinal: Negative for abdominal pain. No BM since admission Musculoskeletal: Positive for arthralgias, back pain and myalgias. Neurological: Positive for weakness. Psychiatric/Behavioral: Positive for sleep disturbance. Unable to sleep due to pain Mild forgetfulness History No past medical history on file. No past surgical history on file. No family history on file. Social History Socioeconomic History Marital status: Spouse name: Not on file Number of children: Not on file Years of education: Not on file Highest education level: Not on file Occupational History Not on file Tobacco Use Smoking status: Unknown Smokeless tobacco: Current Types: Snuff Substance and Sexual Activity Alcohol use: Not Currently Drug use: Never Sexual activity: Not on file Other Topics Concern Not on file Social History Narrative Not on file Social Drivers of Health Financial Resource Strain: Not on file Food Insecurity: No Food Insecurity (06/21/2024) NCSS - Food Insecurity Worried About Running Out of Food in the Last Year: No Ran Out of Food in the Last Year: No Transportation Needs: No Transportation Needs (06/21/2024) NCSS - Transportation Lack of Transportation: No Physical Activity: Not on file Stress: Not on file Social Connections: Not on file Personal Safety: Patient Unable To Answer (06/21/2024) NCSS - Interpersonal Safety Feels Physically and Emotionally Safe: Patient unable to answer Physically Hurt by Someone: Patient unable to answer Humiliated or Emotionally Abused by Someone: Patient unable to answer Housing Stability: Not At Risk (06/21/2024) NCSS - Housing/Utilities Has Housing: Yes Worried About Losing Housing: No Unable to Get Utilities: No Medications Allergies - Patient has no known allergies. Home Medications Reviewed No current outpatient medications Inpatient Medications Acetaminophen 975 mg Oral TID Cyclobenzaprine 5 mg Oral TID [Transfer Hold] enoxaparin 40 mg Subcutaneous Q12HNS Gabapentin 200 mg Oral TID lidocaine 2 patch Transdermal Q24H Polyethylene glycol 17 g Oral Daily Senna 17.2 mg Oral Daily alum/mag hydrox.-simethicone, HYDROmorphone OR HYDROmorphone, Melatonin, Ondansetron OR Ondansetron 4mg/2ml, oxyCODONE OR oxyCODONE, Phenol, Prochlorperazine OR Prochlorperazine, Sodium chloride 0.9% Physical Exam Blood pressure 150/70, pulse 80, temperature 98 F (36.7 C), temperature source Oral, resp. rate 16,height 1.676 m (5' 6), weight 122.9 kg (271 lb), SpO2 95%. Physical Exam Constitutional: Appearance: He is obese. HENT: Mouth/Throat: Mouth: Mucous membranes are moist. Eyes: Pupils: Pupils are equal, round, and reactive to light. Cardiovascular: Pulses: Normal pulses. Pulmonary: Effort: Pulmonary effort is normal. Breath sounds: Normal breath sounds. Abdominal: Tenderness: There is no abdominal tenderness. There is no guarding. Musculoskeletal: General: Normal range of motion. Skin: General: Skin is warm and dry. Neurological: General: No focal deficit present. Mental Status: He is alert and oriented to person, place, and time. Mental status is at baseline. Psychiatric: Mood and Affect: Mood normal. Behavior: Behavior normal. Thought Content: Thought content normal. Laboratory Data Reviewed Lab Results Component Value Date WBC 10.37 (H) 06/22/2024 HGB 12.6 (L) 06/22/2024 HCT 40.0 06/22/2024 PLATELET 190 06/22/2024 MCV 91.7 06/22/2024 Lab Results Component Value Date SODIUM 137 06/22/2024 POTASSIUM 4.2 06/22/2024 CHLORIDE 100 06/22/2024 CO2 27 06/22/2024 BUN 9 06/22/2024 CREATSERUM 0.71 06/22/2024 GLUCOSE 123 06/22/2024 Lab Results Component Value Date ALT 21 06/21/2024 AST 19 06/21/2024 ALKPHOS 35 06/21/2024 BILITOTAL 1.6 (H) 06/21/2024 BILIDIRECT 0.2 06/21/2024 Lab Results Component Value Date ALBUMIN 3.6 06/21/2024 No results found for: TSH, [id number], FZH50CLZ, TSHBASELINE, TSHULTRASEN, T3FREE, [id number], H9ATTUF, W9JZHULK, T4FREE, TPOAB, B3IAPEAF No results found for: SPGRVTYUR, SPECGRAVUR, GLUCUR, GLUCOSEURINE, BILIRUBINURI, KETONESURINE, BLOODURINE, PHURINE, NITRITEURINE, NITRITESURIN, LEUKOCESTUR, WBCURINE, RBCURINE, BACTERIAURIN Imaging Studies Reviewed XR FLUORO O-ARM > 1 HOUR OR MRI ENTIRE SPINE SCREENING WITHOUT CONTRAST Final Result IMPRESSION: No evidence of an epidural collection or cord compression in the cervical, thoracic, or lumbar spine. Multilevel degenerative changes most pronounced in the cervical and lumbar spine as outlined in detail above. There is no significant marrow edema along the adjacent T5-T6 endplate at the site of the defect/gap between the anterior osteophytes at the T5-6 level noted on recent CT. MR findings would favor this represents an incidental gap between the osteophytes over a recent osteophyte fracture. ABDOMEN/PELVIS WITH CONTRAST Final Result IMPRESSION: 1. Acute fractures of the left 4th-6th and 8th-11th ribs, stable from prior. 2. No acute traumatic findings in the abdomen or pelvis. 3. Bilateral pleural effusions with underlying atelectasis and possibly airspace disease at the left base. 4. Hepatic steatosis. No focal liver lesion. I personally viewed and interpreted these images and I have reviewed and approved this report. HUMERUS RIGHT 2+ VIEWS Final Result IMPRESSION: No acute osseous abnormality. CHEST 1 VIEW PORTABLE Final Result IMPRESSION: No acute cardiopulmonary disease. SPINE SCOLIOSIS 2-3 VIEWS (Results Pending) Total time spent today with patient and family, reviewing records and in coordinating care = 80 mins. I communicated recommendations to primary team via web exchange / IHIS For after hours and weekend needs, the Geriatrics Consult Service can be reached via [employer] Cosigned by Merry Santos MD at 06/22/2024 3:14 PM EDT [facility] Work Phone: 1(266) 429-946104-22-2025 Consult note* VICKY Matamoros - 06/22/2024 2:10 PM EDTAssociated Order(s): IP CONSULT TO GERIATRICS Geriatrics IP Consult Service - New Consult Note Assessment and Plan Geriatric trauma with Left rib fractures T4/T5 fx s/p surgery Pt uncontrolled at hs, waking up q hr -Continue scheduled acetaminophen 975mg TID -continue lidocaine 4% patch topically to affected area every day up to 12 hours for pain -short duration of cyclobenzaprine has been found to decrease respiratory complications in older patients with rib fractures. Discontinue upon discharge due to fall risk due to anticholinergic effects. Tolerating flexeril 5mg po TID. 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 Consider discontinuing once pain is under control. -consider oxycodone 5mg po tonight prior to sleep tonight to help with pain control to promote restful sleep. Defer pain management to primary - continue SLT eval for cognitive -linguistic deficits Constipation No BM since admission, no N/V or abd pain Senna 17.2 every day started yesterday Miralax 17gm po every day added today HPI Reason for consult : Geriatric trauma Admission date and reason : 06/20/2024 for Thoracic spine fracture [S22.009A] Primary Service : ACS B PCP : Brayden Chao PMH: HTN, morbid obesity, basal cell carcinoma, colonic polyps At bedside: family 64 year old male sustained left rib fracture 4-6 anterolateral rib and left 8- 11th posterior rib fxand T4-T5 fractured osteophyte s/p being kicked/ stomped by a steer while providing hoof care. He does not recall event and has had some memory loss since accident. Had closed 3 T fx surgery yesterday. Family at bedside, reports that he is doing much better. He reports that he gets 'loopy' after pain medication and did not sleep well last night as he was waking up every hour in pain. Currently prescribed Tylenol TID, Neurontin 200mg TID and lidocaine patch along with prn dilaudid. Had 0.5mg at 0403 and and at 1134. He reports pain now that is exacerbated from coughing after using incentive spi rometry. No BM since admission, post op day 1. Started on senna yesterday and Miralax today. No N/Vor abd pain. PT recs for IPR and will go to [facility] where his step daughter works and then plans to progress home with family for assistance. 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 Geriatric Screening Functional status at baseline Basic ADLs - independent Instrumental ADLs - independent Current functional status Basic ADLs - needs assist Instrumental ADLs - dependent Geriatric Syndromes Cognitive function and memory - oriented to self , setting , situation History of delirium - no Mobility and falls - none Sensory impairment - no gross hearing deficits Sleep habits - no issues at baseline Elder abuse or neglect - none suspected Tobacco/ETOH/Illegal drugs - snuff / no / no Social - lives alone, good family support Review of Systems Review of Systems: (positives in bold) Review of Systems Constitutional: Negative for activity change. Respiratory: Negative. Pain with inspiration Gastrointestinal: Negative for abdominal pain. No BM since admission Musculoskeletal: Positive for arthralgias, back pain and myalgias. Neurological: Positive for weakness. Psychiatric/Behavioral: Positive for sleep disturbance. Unable to sleep due to pain Mild forgetfulness History No past medical history on file. No past surgical history on file. No family history on file. Social History Socioeconomic History Marital status: Spouse name: Not on file Number of children: Not on file Years of education: Not on file Highest education level: Not on file Occupational History Not on file Tobacco Use Smoking status: Unknown Smokeless tobacco: Current Types: Snuff Substance and Sexual Activity Alcohol use: Not Currently Drug use: Never Sexual activity: Not on file Other Topics Concern Not on file Social History Narrative Not on file Social Drivers of Health Financial Resource Strain: Not on file Food Insecurity: No Food Insecurity (06/21/2024) NCSS - Food Insecurity Worried About Running Out of Food in the Last Year: No Ran Out of Food in the Last Year: No Transportation Needs: No Transportation Needs (06/21/2024) NCSS - Transportation Lack of Transportation: No Physical Activity: Not on file Stress: Not on file Social Connections: Not on file Personal Safety: Patient Unable To Answer (06/21/2024) NCSS - Interpersonal Safety Feels Physically and Emotionally Safe: Patient unable to answer Physically Hurt by Someone: Patient unable to answer Humiliated or Emotionally Abused by Someone: Patient unable to answer Housing Stability: Not At Risk (06/21/2024) NCSS - Housing/Utilities Has Housing: Yes Worried About Losing Housing: No Unable to Get Utilities: No Medications Allergies - Patient has no known allergies. Home Medications Reviewed No current outpatient medications Inpatient Medications Acetaminophen 975 mg Oral TID Cyclobenzaprine 5 mg Oral TID [Transfer Hold] enoxaparin 40 mg Subcutaneous Q12HNS Gabapentin 200 mg Oral TID lidocaine 2 patch Transdermal Q24H Polyethylene glycol 17 g Oral Daily Senna 17.2 mg Oral Daily alum/mag hydrox.-simethicone, HYDROmorphone OR HYDROmorphone, Melatonin, Ondansetron OR Ondansetron 4mg/2ml, oxyCODONE OR oxyCODONE, Phenol, Prochlorperazine OR Prochlorperazine, Sodium chloride 0.9% Physical Exam Blood pressure 150/70, pulse 80, temperature 98 F (36.7 C), temperature source Oral, resp. rate 16,height 1.676 m (5' 6), weight 122.9 kg (271 lb), SpO2 95%. Physical Exam Constitutional: Appearance: He is obese. HENT: Mouth/Throat: Mouth: Mucous membranes are moist. Eyes: Pupils: Pupils are equal, round, and reactive to light. Cardiovascular: Pulses: Normal pulses. Pulmonary: Effort: Pulmonary effort is normal. Breath sounds: Normal breath sounds. Abdominal: Tenderness: There is no abdominal tenderness. There is no guarding. Musculoskeletal: General: Normal range of motion. Skin: General: Skin is warm and dry. Neurological: General: No focal deficit present. Mental Status: He is alert and oriented to person, place, and time. Mental status is at baseline. Psychiatric: Mood and Affect: Mood normal. Behavior: Behavior normal. Thought Content: Thought content normal. Laboratory Data Reviewed Lab Results Component Value Date WBC 10.37 (H) 06/22/2024 HGB 12.6 (L) 06/22/2024 HCT 40.0 06/22/2024 PLATELET 190 06/22/2024 MCV 91.7 06/22/2024 Lab Results Component Value Date SODIUM 137 06/22/2024 POTASSIUM 4.2 06/22/2024 CHLORIDE 100 06/22/2024 CO2 27 06/22/2024 BUN 9 06/22/2024 CREATSERUM 0.71 06/22/2024 GLUCOSE 123 06/22/2024 Lab Results Component Value Date ALT 21 06/21/2024 AST 19 06/21/2024 ALKPHOS 35 06/21/2024 BILITOTAL 1.6 (H) 06/21/2024 BILIDIRECT 0.2 06/21/2024 Lab Results Component Value Date ALBUMIN 3.6 06/21/2024 No results found for: TSH, [id number], [id number], TSHBASELINE, TSHULTRASEN, T3FREE, S6GIYPTMG, A4OGZBS, J4AJJHYV, T4FREE, TPOAB, S0PFUSWN No results found for: SPGRVTYUR, SPECGRAVUR, GLUCUR, GLUCOSEURINE, BILIRUBINURI, KETONESURINE, BLOODURINE, PHURINE, NITRITEURINE, NITRITESURIN, LEUKOCESTUR, WBCURINE, RBCURINE, BACTERIAURIN Imaging Studies Reviewed XR FLUORO O-ARM > 1 HOUR OR MRI ENTIRE SPINE SCREENING WITHOUT CONTRAST Final Result IMPRESSION: No evidence of an epidural collection or cord compression in the cervical, thoracic, or lumbar spine. Multilevel degenerative changes most pronounced in the cervical and lumbar spine as outlined in detail above. There is no significant marrow edema along the adjacent T5-T6 endplate at the site of the defect/gap between the anterior osteophytes at the T5-[address] recent [address] MR findings would favor this represents an incidental gap between the osteophytes over a recent osteophyte fracture. ABDOMEN/PELVIS WITH CONTRAST Final Result IMPRESSION: 1. Acute fractures of the left 4th-6th and 8th-11th ribs, stable from prior. 2. No acute traumatic findings in the abdomen or pelvis. 3. Bilateral pleural effusions with underlying atelectasis and possibly airspace disease at the left base. 4. Hepatic steatosis. No focal liver lesion. I personally viewed and interpreted these images and I have reviewed and approved this report. HUMERUS RIGHT 2+ VIEWS Final Result IMPRESSION: No acute osseous abnormality. CHEST 1 VIEW PORTABLE Final Result IMPRESSION: No acute cardiopulmonary disease. SPINE SCOLIOSIS 2-3 VIEWS (Results Pending) Total time spent today with patient and family, reviewing records and in coordinating care = 80 mins. I communicated recommendations to primary team via web exchange / IHIS For after hours and weekend needs, the Geriatrics Consult Service can be reached via [email or web address] Cosigned by Merry Santos MD at 06/22/2024 3:14 PM EDT * John Montez MD - 06/21/2024 1:44 AM EDTAssociated Order(s): IP CONSULT TO SURGERY - SPINE Orthopaedic Spine Surgery Consult Note Consult indication: s/p kicked/stomped on by a steer; CT w nondisplaced L sided rib fractures and fractured T5/T6 CC: trauma Assessment & Plan: Assessment: Darci Hamm is a 64 y.o. 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 He has multiple levels of bridging osteophytes with acute vs chronic disruption with tenderness in the T and L spine. He is full neuro intact. Plan: - Will obtain C/T/L MRI to evaluate for chronicity and instability at areas other than the T5/T6 level. - This is an unstable fracture type likely needing surgical stabilization. - NPO - DVT ppx: Held pending operative plans - Diet: NPO - Activity/weight bearing: NWB. Spine precautions (log roll) Complexity. Obesity, Class III Body mass index is 43.74 kg/m . - Follow with PCP for dietary and lifestyle modifications. Wound Documentation Any conditions listed below are present on admission unless otherwise specified. . Patient will be discussed with attending physician independent crop consultant in AM. Thank you for allowing Orthopaedic Surgery to participate in this patient's care. Please do not hesitate to page the on-call resident with any questions. John Montez MD History of Present Illness Darci Hamm is a 64 y.o. male with no pmh who presents to [facility] for evaluation of a T5/T6 osteophyte fracture in the setting of dish as well as rib fractures. 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 He endorses belly pain from the rope, back and rib pain, as well as right arm pain. Patient says he ambulated until he was found to have this spine fracture type at OSH He denies any radicular pain He denies any bowel or bladder changes, and has been voiding spontaneously with full awareness since his injury. Anticoagulation? - no Prior orthopaedic/spine surgery? - no Review of Symptoms: Pertinent items are noted in the HPI. 10 point review of systems was reviewed and negative except as noted above. Past Medical History has no past medical history on file. Allergies: has no known allergies. Past Surgical History has no past surgical history on file. 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 TTP of thoracic and umbar midline. No step off deformities noticed. Upper Extremity: Strength: Right Left C5 Deltoids 4/5 5/5 C6 Biceps 4/5 5/5 Wrist Extensors 5/5 5/5 C7 Triceps 5/5 5/5 C8 Finger Flexors 5/5 5/5 First Dorsal Interossei 5/5 5/5 R deltoid and biceps strength limited by pain from his injury Sensory Right Left C5 Lateral Deltoid Intact Intact C6 Radial Forearm Intact Intact C7 Middle Finger Intact Intact C8 Ulnar Forearm Intact Intact T1 Medial Arm Intact Intact Right Left Biceps C5 2+ 2+ Lower Extremity Strength: Right Left Hip Flexors L2 4+/5 4+/5 Quadriceps L3 5/5 5/5 Anterior Tibialis L4 5/5 5/5 EHL L5 5/5 5/5 Hamstrings 5/5 5/5 Gastroc/soleus S1 5/5 5/5 Sensory Right Left L2 ant/med thigh intact intact L3 lat thigh intact intact L4 medial leg intact intact L5 lateral leg intact intact S1 posterior leg intact intact S2 plantar foot intact intact Reflexes: Patellar L4 2+ 2+ Special Tests: Clonus (R/L): 0 beats / 0 beats Hoffmans(R/L): negative / negative Babinksi (R/L): down / down SLR negative bilaterally Neuro Other: No saddle anesthesia. No bowel or bladder Incontinence reported. Relevant Vitals & Lab Results BP 175/77 (BP Location: Left arm, BP Position: Lying) Pulse 74 Temp 98.2 F (36.8 C) (Oral) Resp 22 Ht 1.676 m (5' 6) Wt 122.9 kg (271 lb) SpO2 97% BMI 43.74 kg/m Smoking Status Unknown Body mass index is 43.74 kg/m . Bun/Creat/Cl/CO2/Glucose: 10/0.74/101/29/103 (06/21 29) WBC/Hgb/Hct/Plts: 7.84/13.1/40.6/182 (06/21 29) Ptt/Pt/Inr: 34.2/14.3/1.1 (06/21 29) No results found for: CRP No results found for: SEDRATE Imaging Independent Imaging Review: CT C/T/L with DISH spine, flowing syndesmophytes spanning C5-C7, T2-L2, multiple areas of possible acute vs chronic osteophyte disruption. T5/T6 osteophyte fracture with distraction anteriorly. Spinous processes do not appear distracted. No axial L spine CT available for review Cosigned by Andre Castro MD at 06/22/2024 7:44 AM EDT Associated attestation - Andre Castro MD - 06/22/2024 7:44 AM EDT I saw and independently examined the patient 06/21/24. I agree with the history, examination, and medical decision making as noted by Dr. Montez. Patient with unstable T5-6 fx through disc space. Plan for T4-7 PSIF to stabilize. Discussed plan at length w patient along w r/b/a. Andre Castro MD [facility] Plan of care note* Plan of Care - Connie Wilder, PT - 06/22/2024 10:30 AM EDT Problem: PT - General Goals Goal: Supine <-> Sit Transfers - Patient will perform supine to/from sit transfers with supervision and without use of hospital bed features in order to improve functional mobility and safety. Outcome: Ongoing Goal: Sit <-> Stand Transfers - Patient will perform sit to/from stand transfers with supervision and least restrictive device in order to improve functional mobility and safety. Outcome: Ongoing Goal: Ambulation - Patient will ambulate 175 feet with supervision and least restrictive device to improve ability to safely navigate home and community. Outcome: Ongoing Goal: Stairs - Patient will ascend/descend 3 stairs with contact guard assistance, least restrictive device, and single railing(s) to improve ability to safely navigate home and community. Outcome: Ongoing Goal: Precautions - Patient will successfully adhere to post-operative precautions during 100% of functional mobility without verbal cueing in order to maintain safety and reduce risk of injury. Outcome: Ongoing [facility]04-22-20[facility] Plan of care note* Plan of Care - Francesca Pace OT - 06/22/2024 10:07 AM EDT Problem: OT - ADLs Goal: Lower Body Dressing - Patient will complete lower body dressing tasks with modified independence using adaptive equipment/compensatory strategies as needed for improved ability to complete self-care activities. Outcome: Ongoing Goal: Grooming - Patient will complete grooming in standing with modified independence for improvedability to safely complete ADLs. Outcome: Ongoing Goal: Toileting - Patient will complete toileting task with modified independence and adaptive equipment as needed for improved ability to safely complete self-care activities. Outcome: Ongoing Goal: Bathing - Patient will perform full body bathing routine with modified independence while seated and standing for improved ability to complete self- care activities Outcome: Ongoing Problem: OT - Endurance Goal: Endurance Functional Mobility - Patient will complete distance needed for common household mobility with modified independence for improved tolerance to safely complete I/ADL's Outcome: Ongoing Problem: OT - Other Goal: Precaution Adherence - Patient will demonstrate 100% adherence to precautions during all ADLsand functional transfers to promote safety during daily routine. Outcome: Ongoing [facility]04-21-[facility] Surgery Postoperative evaluation and management note* Op Note - Andre Castro MD - 06/21/2024 6:13 PM EDT Preop Dx: T5-6 unstable DISH fracture Postop Dx: T5-6 unstable DISH fracture Procedure: T4-7 Posterior arthrodesis T4-7 Posterior instrumentation Use of stereotactic navigation Implant: Depuy Surgeon: Andre Castro MD Art Studio Teacher: Elie Singer MD Anesthesia: GETA EBL: minimal Complication: none Condition: stable, extubated to PACU Indication for Procedure: Darci Hamm is a 64 yo M who sustained an injury to the thoracic spine. Imaging demonstrated DISH appearance of the thoracic spine and unstable nature of T5-6 fracture through the anterior annulus through the disc space. After thorough discussion, patient did wished to undergo surgical treatment tostabilize the thoracic injury. Patient gave verbal and written consents to proceeding after understanding the risks, benefits, and alternatives. Description of procedure: Darci Hamm was met preoperatively. Further questions were answered. He was then seen by anesthesianursing and taken back to the operating room. Once in the operating room, 1st time-out was performed. Following this, he was intubated without difficulty. Lines and leads were placed. He was then positioned prone on a ProAxis table. Table was placed in flexion. Fluoroscopy was brought in from reduction of the fracture. Next, thoracic spine was prepped and draped in standard sterile fashion. Following a 2nd time-out, incision was made over the T9 level and dissection was carried down to the level of spinous process. Fiduciary clamp was placed. Next, O arm spin was obtained. Next, stereotactic navigation was used to plane incisions for percutaneous placement of T4-T5 T6 and T7 pedicle screws. This has done bilaterally. Navigated bur was used followed by a navigated tap, followed by a navigated screw placement. Facet joints were decorticated at T4-5, T5-6, T6-7. Rods were placed through the Tulip heads and set screws were placed. Next, this was checked under confirmatory O arm spin. Set screws were then final tightened. Tabs were broken off in wound was irrigated thoroughly. Closure was then performed using 0 Vicryl for fascia, 2-0 Vicryl for subcutaneous tissue, jalyn for skin. Sterile dressings were placed. Patient was then transferred back to hospital bed, extubated, andtaken to PACU in stable condition. Throughout the procedure, sponge and needle counts were correct. [facility]04[facility] Plan of care note* Plan of Care - Liz Singer MD - 06/21/2024 4:07 PM EDT Spine Surgery Plan of Care Assessment 64 y.o. male, * Day of Surgery * S/P T4-[address] Castro on 06/21/24. PLEASE RELEASE SIGNED AND HELD ORDERS ONCE ON THE FLOOR! Plan Activity: WBAT, No bending twisting lifting greater than 5 pounds Antibiotics: Ancef for 24 hours postoperatively or when drain is in place Blood: Hemoglobin, Glucose control with goal of <120 Brace: None Cultures: none Diet: Liquid diet and progress to regular diet Drain: none Dressing:Ortho spine to change POD2. staff development coordinator to do daily dry dressing change afterwards. DVT Prophylaxis: SCD's, Lovenox to start 24 hours postoperatively Exercise: IS 10x/hr while awake, PT for mobilization (w/ or w/o walker TID), (walking QID) Macias: none Pain Regimen: multimodal Xrays: standing AP/Lateral Scoli spine Dispo: Anticipate discharge home/SNF in next few days. Appreciate SW assistance in placement and PTrecs. Follow-up: Follow up with Dr. Castro team 2 weeks from surgery for wound check Liz Singer MD Orthopaedic Surgery PGY-3 Pager [phone] [facility]04-[facility] Surgery Postoperative evaluation and management note* Brief Op Note - Liz Singer MD - 06/21/2024 4:06 PM EDT Darci Hamm ([id number]) PRE OPERATIVE DIAGNOSIS Closed three column fracture of thoracic vertebra [S22.008A] POST OPERATIVE DIAGNOSIS Closed three column fracture of thoracic vertebra [S22.008A] PROCEDURE PERFORMED Procedure(s) (LRB): FUSION POSTERIOR THORACIC (Midline) ASSISTANCE STEREOTACTIC NAVIGATION SPINAL ADD-ON PX (Midline) PRIMARY CLOSURE Yes INTRAOPERATIVE FINDINGS HyperExtension fracture at T5/6 SURGEON Surgeons and Role: * Andre Castro MD - Primary ANESTHESIOLOGIST Anesthesiologist: Joe Cordoba MD; Christopher Montoya MD CLIENT CARE REPRESENTATIVE: BENTLEY Nayak Russian History Professor: SERG Hernandes SURGICAL STAFF Police Crime Scene Technician: Rhona Traore RN Relief Police Crime Scene Technician: Lizbeth Torres RN Relief Scrub: Riki Shah Resident Assisting: Liz Singer MD Sales Executive Insurance: Edith Tiwari COMPLICATIONS None ESTIMATED BLOOD LOSS Minimal SPECIMENS No specimen sent * No specimens in log * Liz Singer MD June 21, 2024 4:06 PM Cosigned by Andre Castro MD at 06/22/2024 7:37 AM EDT [facility]04-[facility] Plan of care note* Plan of Care - DALE Musa - 06/21/2024 9:32 AM EDT Problem: VENEER LAYER - Cognition Goal: Ongoing Assessment - Patient will participate in ongoing dynamic assessment of motor speech, expressive/receptive language, and cognitive- linguistic skills across 1 session to better assess deficits and most appropriately guide VENEER LAYER plan of care Outcome: Ongoing [facility]04-[facility] Plan of care note* Plan of Care - VICKY Duopnt - 06/21/2024 9:16 AM EDT Geriatrics Consult Note Pt scheduled for OR today. Geriatrics team will evaluate tomorrow. Thank you for involving us in Darci Hamm's care. Please contact us with any questions. For after hours and weekend needs, the Geriatrics Consult Service can be reached via [employer]. Arleth Desai DNP, APRN-CNP Nurse Practitioner Geriatrics Inpatient Consult Service Pager #[phone] [facility] Work Phone: 1(280) 251-900804-21-2025 Plan of care note* Plan of Care - Sujatha Griffith RN - 06/21/2024 5:00 AM EDT Problem: Adult Inpatient Plan of Care Goal: Plan of Care Review Outcome: Progressing Goal: Patient-Specific Goal (Individualized) Outcome: Progressing Goal: Absence of Hospital-Acquired Illness or Injury Outcome: Progressing Goal: Optimal Comfort and Wellbeing Outcome: Progressing Goal: Readiness for Transition of Care Outcome: Progressing [facility]04-21-[facility] Consult note* John Montez MD - 06/21/2024 1:44 AM EDTAssociated Order(s): IP CONSULT TO SURGERY - SPINE Orthopaedic Spine Surgery Consult Note Consult indication: s/p kicked/stomped on by a steer; CT w nondisplaced L sided rib fractures and fractured T5/T6 CC: trauma Assessment & Plan: Assessment: Darci Hamm is a 64 y.o. 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 He has multiple levels of bridging osteophytes with acute vs chronic disruption with tenderness in the T and L spine. He is full neuro intact. Plan: - Will obtain C/T/L MRI to evaluate for chronicity and instability at areas other than the T5/T6 level. - This is an unstable fracture type likely needing surgical stabilization. - NPO - DVT ppx: Held pending operative plans - Diet: NPO - Activity/weight bearing: NWB. Spine precautions (log roll) Complexity. Obesity, Class III Body mass index is 43.74 kg/m . - Follow with PCP for dietary and lifestyle modifications. Wound Documentation Any conditions listed below are present on admission unless otherwise specified. . Patient will be discussed with attending physician independent crop consultant in AM. Thank you for allowing Orthopaedic Surgery to participate in this patient's care. Please do not hesitate to page the on-call resident with any questions. John Montez MD History of Present Illness Darci Hamm is a 64 y.o. male with no pmh who presents to [facility] for evaluation of a T5/T6 osteophyte fracture in the setting of dish as well as rib fractures. 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 He endorses belly pain from the rope, back and rib pain, as well as right arm pain. Patient says he ambulated until he was found to have this spine fracture type at OSH He denies any radicular pain He denies any bowel or bladder changes, and has been voiding spontaneously with full awareness since his injury. Anticoagulation? - no Prior orthopaedic/spine surgery? - no Review of Symptoms: Pertinent items are noted in the HPI. 10 point review of systems was reviewed and negative except as noted above. Past Medical History has no past medical history on file. Allergies: has no known allergies. Past Surgical History has no past surgical history on file. 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 TTP of thoracic and umbar midline. No step off deformities noticed. Upper Extremity: Strength: Right Left C5 Deltoids 4/5 5/5 C6 Biceps 4/5 5/5 Wrist Extensors 5/5 5/5 C7 Triceps 5/5 5/5 C8 Finger Flexors 5/5 5/5 First Dorsal Interossei 5/5 5/5 R deltoid and biceps strength limited by pain from his injury Sensory Right Left C5 Lateral Deltoid Intact Intact C6 Radial Forearm Intact Intact C7 Middle Finger Intact Intact C8 Ulnar Forearm Intact Intact T1 Medial Arm Intact Intact Right Left Biceps C5 2+ 2+ Lower Extremity Strength: Right Left Hip Flexors L2 4+/5 4+/5 Quadriceps L3 5/5 5/5 Anterior Tibialis L4 5/5 5/5 EHL L5 5/5 5/5 Hamstrings 5/5 5/5 Gastroc/soleus S1 5/5 5/5 Sensory Right Left L2 ant/med thigh intact intact L3 lat thigh intact intact L4 medial leg intact intact L5 lateral leg intact intact S1 posterior leg intact intact S2 plantar foot intact intact Reflexes: Patellar L4 2+ 2+ Special Tests: Clonus (R/L): 0 beats / 0 beats Hoffmans(R/L): negative / negative Babinksi (R/L): down / down SLR negative bilaterally Neuro Other: No saddle anesthesia. No bowel or bladder Incontinence reported. Relevant Vitals & Lab Results BP 175/77 (BP Location: Left arm, BP Position: Lying) Pulse 74 Temp 98.2 F (36.8 C) (Oral) Resp 22 Ht 1.676 m (5' 6) Wt 122.9 kg (271 lb) SpO2 97% BMI 43.74 kg/m Smoking Status Unknown Body mass index is 43.74 kg/m . Bun/Creat/Cl/CO2/Glucose: 10/0.74/101/29/103 (06/21 0030) WBC/Hgb/Hct/Plts: 7.84/13.1/40.6/182 (06/21 0030) Ptt/Pt/Inr: 34.2/14.3/1.1 (06/21 003) No results found for: CRP No results found for: SEDRATE Imaging Independent Imaging Review: CT C/T/L with DISH spine, flowing syndesmophytes spanning C5-C7, T2-L2, multiple areas of possible acute vs chronic osteophyte disruption. T5/T6 osteophyte fracture with distraction anteriorly. Spinous processes do not appear distracted. No axial L spine CT available for review Cosigned by Andre Castro MD at 06/22/2024 7:44 AM EDT Associated attestation - Andre Castro MD - 06/22/2024 7:44 AM EDT I saw and independently examined the patient 06/21/24. I agree with the history, examination, and medical decision making as noted by Dr. Montez. Patient with unstable T5-6 fx through disc space. Plan for T4-7 PSIF to stabilize. Discussed plan at length w patient along w r/b/a. Andre Castro MD [facility] Work Phone: [phone]) 143-408404-21-2025 Plan of care note* Plan of Care - Alma Rosa Anderson MD - 06/21/2024 12:53 AM EDT Surgery Chief Resident Plan of Care 64M (BMI 43.7) w PMH including HTN who is admitted as a transfer from [facility] where he had initially presented on 06/19/2024 after being pulled to the ground/?kicked by a steer, sustaining T5-6 (anterior bridging osteophyte) spinal fractures and minimally displaced left 4-6/7-10 rib fractures. Patient states that he had been cleaning the steer's hooves when his torso became wrapped up in a cord, which pulled him to the ground; he is amnesic to details of the event but was told that he was kicked in the ?head/back. Rib fracture pain managed w block prior to transfer; OSH Neurosurgery unable to manage patient's operable spinal fractures due to body habitus. On evaluation patient is afebrile, haemodynamically stable and saturating well 97% on 2.5L NC. PIC score 8, able to pull ~1200cc on IS. He reports intermittent cramping abdominal pain and does have scattered ecchymosis and abrasions along abdomen, however had been tolerating clears at OSH w/o N/V and endorses baseline bowel function. OSH scans (CT brain, C spine, C/A/P) reviewed. PCU level care Admission labs Multimodal pain control PIC scores CXR NPO, gentle MIVF Orthopaedic Spine Surgery Consult Continue spine precautions pending Spine eval Geriatrics Consult PT/OT VENEER LAYER cog eval Please see full H&P Note for details. Patient was discussed with Acute Care Surgery attending, Dr Sky. Alma Rosa Anderson MD PhD General Surgery [facility] Work Phone: [phone]) [phone] Nurse Note* Nursing Notes - Mega Cox RN - 06/21/2024 12:53 AM EDT Images from the original note were not included. On admission to [facility], from outside facility a dual RN initial assessment of skin condition was performed by Mega Cox RN and Alise Torres RN. Skin Assessment: Skin within defined limits:Yes Dandre Score: 18 LDA Added:No [facility] and physical note* Sydni Gutierrez MD - 06/21/2024 12:10 AM EDT Acute Care Surgery Admission Note Patient: Darci Hamm Date: 06/21/2024 12:10 AM Reason for Admission: s/p kicked/stomped on by a steer thoracic fracture. HPI: Darci Hamm is a 64 y.o. male with PMH of HTN, morbid obesity, basal cell carcinoma (facial skin), diastasis of rectus abdominis and colonic polyps who presents with spinal fracture. Patient initially seen at [facility] after being kicked/stomped on 06/19 by a steer; simpson CT at that time demonstrating multiple, nondisplaced L sided rib fractures and fractured osteophyte at T4/T5 now s/p rib block. He was evaluated by neurosurgery team who were unable to care for patient there due to body habitus and anatomy of small fracture. Patient transferred to [facility] for further care. On my evaluation at bedside patient is afebrile, HR 74, BP 175/77 and maintaining SpO2 above 95% on2L NC. He sustained LOC and is unable to recall events of the accident however states he ws cleaning a steers huffs when he suddenly became wrapped by a rope, pulled to the ground and was either kicked or stomped on by steer. Patient does have whole body soreness however pain is predominately been located at the R shoulder, L costal region back with some abdominal cramping. Pain is rated 4/10 while lying still and 10/10 with movement. Demonstrated PIC score of 8. No cervical collar in place. Patient denies sensorimotor changes, vision changes, AVILA, SOB, fevers/chill, still passing flatus. The patient is not anticoagulated. Does take daily ASA 81mg. The patient is not on steroids or chemotherapy. REVIEW OF SYSTEMS: (all positives in bold, otherwise negative) GENERAL: fever, chills, weight loss, fatigue, night sweats EYES: blurry vision, eye pain HENT: headache, hearing loss, sore throat, dysphagia, sinus pain CARDIO: palpitations, orthopnea PULM: chest pain, shortness of breath, wheezing, cough, sputum, hemoptysis GI: nausea, vomiting, diarrhea, abdominal pain, blood in stool : urinary frequency, urgency, dysuria, urethral discharge MSK: joint pain, back pain, swelling SKIN: rash, redness HEME: easy bruising, bleeding Medical History PAST MEDICAL/SURGICAL HISTORY has no past medical history on file. has no past surgical history on file. MEDS No current outpatient medications FAMILY HISTORY His family history is not on file. SOCIAL HISTORY has no history on file for tobacco use, alcohol use, and drug use. ALLERGIES Patient has no known allergies. Vitals/Physical Exam VITALS: Temp: [98.2 F (36.8 C)] 98.2 F (36.8 C) Pulse (Heart Rate): [74] 74 Resp Rate: [22] 22 BP: (175)/(77) 175/77 O2 Sat (%): [97 %] 97 % Weight: [122.9 kg (271 lb)] 122.9 kg (271 lb) O2 Sat (%): 97 % (06/21) O2 Device: room air (06/21) PHYSICAL EXAM Constitutional: No acute distress, appears comfortable lying in bed. HEENT: Head normocephalic, atraumatic. Cardiovascular: Regular rate and rhythm. Pulmonary/Chest: There is tenderness to palpation of the sternum and L chest. Unlabored breathing on 3L NC. PIC 8. Abdomen: Soft, rounded and non-tender to palpation. There is a small abrasion located at the LLQ Extremities: Moving all extremities equally and purposefully. Sensorimotor is 5/5 of the UE bilaterally. LE non-tender. Neurological: Alert, oriented. No gross deficits. Skin: No rash noted. Psychiatric: Mood, affect, and memory normal. Labs/Imaging LABS: No results for input(s): WBC, HGB, PLATELET, CREATSERUM, INR, LACT, CRP in the last 72 hours. No results for input(s): SODIUM, POTASSIUM, CHLORIDE, CO2, BUN, CREATSERUM, MAGNESIUM, PHOSPHORUS in the last 72 hours. No results for input(s): PT, PTT, INR in the last 72 hours. No results for input(s): AST, ALT, BILITOTAL, BILIDIRECT, TOTALPROTEIN, ALBUMIN, ALBUMINALB, ALBUMINFLD, ALBUMINCSF, ALBUMINSERUM, ALKPHOS, PREALBUMIN in the last 72 hours. Invalid input(s): ALB IMAGING Assessment/Plan Darci Hamm is a 64 y.o. male with a history of HTN, morbid obesity, basal cell carcinoma (facial skin), diastasis of rectus abdominis and colonic polyps s/p trauma by steer kick resulting multiple, nondisplaced L sided rib fractures and lumbar fracture. - Admit to [facility] surgery, PCU, Dr. Jose Roper - Diet: DIET NPO with meds - Pain: multimodal - Trend PIC score q2hr - Ortho spine consult - Spinal precautions pending ortho spine recommendations - Geriatrics consult - VENEER LAYER for cognition evaluation - PT/OT consult - Imaging: fu CXR for baseline; will hold off on CTH now as patient without motorsensory deficits - Home meds: Restarted ASA 81, atorvastatin 40 - DVT ppx: lvnx 30 BID - Dispo: Pending surgical and medical readiness The plan was discussed with [facility] chief resident, Dr. Alma Rosa Anderson and attending Dr. Jose Roper. Sydni Gutierrez MD General Surgery PGY-1 Pager# [phone] 06/21/2024 Cosigned by Sonia Sky MD, PhD at 06/22/2024 9:52 AM EDT Associated attestation - Sonia Sky MD, PhD - 06/22/2024 9:52 AM EDT Patient was seen and examined with Dr. Gutierrez; I saw and personally examined the patient on 06/21/2024. I also discussed the findings and therapeutic plan with Dr. Gutierrez, reviewed the entirety of the note and agree with the history, physical examination, and medical decisions as outlined. I have reviewed the laboratory data and the imaging provided, including CT A/P which demonstrates no acute pathology. Exam consistent with likely muscle spasms from thoracic spine fracture - however patient also having some abdominal cramping and mild distention. Despite negative CT A/P (I do not see any free fluid on that scan either), I will repeat while we await MRI of the spine to ascertain no evolving blunt hollow viscous injury. From a blunt chest injury perspective, the patient is pulling 1250 on IS, PIC 8 and is doing better with a regional block. Will consult acute pain to follow, given bilateral injuries and pleural effusions, the patient may benefit from an epidural to assist with lung recruitment - particularly as he has to lay flat for now. Keep NPO while ortho evaluates for possible OR. Will continue DVT ppx for now. Sonia kSy MD PhD senior vice president & general counsel Division of Trauma, Critical Care, and [place] Department of Surgery [facility]04-21-2025 History and physical note* Sydni Gutierrez MD - 06/21/2024 12:10 AM EDT Acute Care Surgery Admission Note Patient: Darci Hamm Date: 06/21/2024 12:10 AM Reason for Admission: s/p kicked/stomped on by a steer thoracic fracture. HPI: Darci Hamm is a 64 y.o. male with PMH of HTN, morbid obesity, basal cell carcinoma (facial skin), diastasis of rectus abdominis and colonic polyps who presents with spinal fracture. Patient initially seen at OSH after being kicked/stomped on 06/19 by a steer; simpson CT at that time demonstrating multiple, nondisplaced L sided rib fractures and fractured osteophyte at T4/T5 now s/p rib block. He was evaluated by neurosurgery team who were unable to care for patient there due to body habitus and anatomy of small fracture. Patient transferred to [facility] for further care. On my evaluation at bedside patient is afebrile, HR 74, BP 175/77 and maintaining SpO2 above 95% on2L NC. He sustained LOC and is unable to recall events of the accident however states he ws cleaning a steers huffs when he suddenly became wrapped by a rope, pulled to the ground and was either kicked or stomped on by steer. Patient does have whole body soreness however pain is predominately been located at the R shoulder, L costal region back with some abdominal cramping. Pain is rated 4/10 while lying still and 10/10 with movement. Demonstrated PIC score of 8. No cervical collar in place. Patient denies sensorimotor changes, vision changes, AVILA, SOB, fevers/chill, still passing flatus. The patient is not anticoagulated. Does take daily ASA 81mg. The patient is not on steroids or chemotherapy. REVIEW OF SYSTEMS: (all positives in bold, otherwise negative) GENERAL: fever, chills, weight loss, fatigue, night sweats EYES: blurry vision, eye pain HENT: headache, hearing loss, sore throat, dysphagia, sinus pain CARDIO: palpitations, orthopnea PULM: chest pain, shortness of breath, wheezing, cough, sputum, hemoptysis GI: nausea, vomiting, diarrhea, abdominal pain, blood in stool : urinary frequency, urgency, dysuria, urethral discharge MSK: joint pain, back pain, swelling SKIN: rash, redness HEME: easy bruising, bleeding Medical History PAST MEDICAL/SURGICAL HISTORY has no past medical history on file. has no past surgical history on file. MEDS No current outpatient medications FAMILY HISTORY His family history is not on file. SOCIAL HISTORY has no history on file for tobacco use, alcohol use, and drug use. ALLERGIES Patient has no known allergies. Vitals/Physical Exam VITALS: Temp: [98.2 F (36.8 C)] 98.2 F (36.8 C) Pulse (Heart Rate): [74] 74 Resp Rate: [22] 22 BP: (175)/(77) 175/77 O2 Sat (%): [97 %] 97 % Weight: [122.9 kg (271 lb)] 122.9 kg (271 lb) O2 Sat (%): 97 % (06/21 0000) O2 Device: room air (06/21 0000) PHYSICAL EXAM Constitutional: No acute distress, appears comfortable lying in bed. HEENT: Head normocephalic, atraumatic. Cardiovascular: Regular rate and rhythm. Pulmonary/Chest: There is tenderness to palpation of the sternum and L chest. Unlabored breathing on 3L NC. PIC 8. Abdomen: Soft, rounded and non-tender to palpation. There is a small abrasion located at the LLQ Extremities: Moving all extremities equally and purposefully. Sensorimotor is 5/5 of the UE bilaterally. LE non-tender. Neurological: Alert, oriented. No gross deficits. Skin: No rash noted. Psychiatric: Mood, affect, and memory normal. Labs/Imaging LABS: No results for input(s): WBC, HGB, PLATELET, CREATSERUM, INR, LACT, CRP in the last 72 hours. No results for input(s): SODIUM, POTASSIUM, CHLORIDE, CO2, BUN, CREATSERUM, MAGNESIUM, PHOSPHORUS in the last 72 hours. No results for input(s): PT, PTT, INR in the last 72 hours. No results for input(s): AST, ALT, BILITOTAL, BILIDIRECT, TOTALPROTEIN, ALBUMIN, ALBUMINALB, ALBUMINFLD, ALBUMINCSF, ALBUMINSERUM, ALKPHOS, PREALBUMIN in the last 72 hours. Invalid input(s): ALB IMAGING Assessment/Plan Darci Hamm is a 64 y.o. male with a history of HTN, morbid obesity, basal cell carcinoma (facial skin), diastasis of rectus abdominis and colonic polyps s/p trauma by steer kick resulting multiple, nondisplaced L sided rib fractures and lumbar fracture. - Admit to [facility] surgery, PCU, Dr. Jose Roper - Diet: DIET NPO with meds - Pain: multimodal - Trend PIC score q2hr - Ortho spine consult - Spinal precautions pending ortho spine recommendations - Geriatrics consult - V[facility]ER [facility]ER for cognition evaluation - PT/OT consult - Imaging: fu CXR for baseline; will hold off on CTH now as patient without motorsensory deficits - Home meds: Restarted ASA 81, atorvastatin 40 - DVT ppx: lvnx 30 BID - Dispo: Pending surgical and medical readiness The plan was discussed with [facility] chief resident, Dr. Alma Rosa Anderson and attending Dr. Jose Roper. Sydni Gutierrez MD General Surgery PGY-1 Pager# [phone] 06/21/2024 Cosigned by Sonia Sky MD, PhD at 06/22/2024 9:52 AM EDT Associated attestation - Sonia Sky MD, PhD - 06/22/2024 9:52 AM EDT Patient was seen and examined with Dr. Gutierrez; I saw and personally examined the patient on 06/21/2024. I also discussed the findings and therapeutic plan with Dr. Gutierrez, reviewed the entirety of the note and agree with the history, physical examination, and medical decisions as outlined. I have reviewed the laboratory data and the imaging provided, including CT A/P which demonstrates no acute pathology. Exam consistent with likely muscle spasms from thoracic spine fracture - however patient also having some abdominal cramping and mild distention. Despite negative CT A/P (I do not see any free fluid on that scan either), I will repeat while we await MRI of the spine to ascertain no evolving blunt hollow viscous injury. From a blunt chest injury perspective, the patient is pulling 1250 on IS, PIC 8 and is doing better with a regional block. Will consult acute pain to follow, given bilateral injuries and pleural effusions, the patient may benefit from an epidural to assist with lung recruitment - particularly as he has to lay flat for now. Keep NPO while ortho evaluates for possible OR. Will continue DVT ppx for now. Sonia Sky MD PhD senior vice president & general counsel Division of Trauma, Critical Care, and [place] Department of Surgery documented [facility] Nurse Note* Nursing Notes - Verna Walton RN - 06/21/2024 12:01 AM EDT Pager to ACS B (Coby Gutierrez) [phone]: [phone] Noris [phone] Direct admit is here, can we please get some orders. Thank you Verna MILES [phone] [facility]04-19-[facility] NoteChief Complaint arrived via private car. was kicked/stomped by a steer. c/o back pain. does not remember incident History of Present Illness 64-year-old male does not remember the incident he was brought in by private car reports indicate that he was cleaning a steers huffs and he was wrapped by a rope and then taken to the ground unclearif he was trampled by the horse he was awoken was confused complaining of right shoulder pain left-sided rib pain and back pain. Denies any medications no anticoagulation. Does have positive loss of consciousness. Simpson CT scans were done showing multiple left-sided rib fractures. Fractured osteophyte T4-T5. Denies any numbness no weakness no abdominal pain. He is accompanied by his sisters. Review of Systems Constitutional: No fevers, chills, sweats, weight loss or weight gain Respiratory: No shortness of breath, cough Cardiovascular: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 denies pulmonary embolism, denies shortness of breath, and denies coughing up blood. Gastrointestinal: The patient denies difficulty swallowing, denies acid reflux, denies ulcers, denies vomiting, denies jaundice/hepatitis, denies gallbladder problems, denies black or tarry stools, NOTES hemorrhoids, denies bleeding from rectum, denies diverticulitis, denies constipation, denies diarrhea, denies loss of stool control, and NOTES hernias. Kidney/Bladder: The patient denies kidney stones, denies urine infections, and denies bloody urine. Skin: The patient NOTES a history of skin cancer, denies bleeding/changing moles, and denies a history of skin rash. Neurologic: The patient denies a history of epilepsy/convulsions, denies headaches, denies head/spinal injuries, and denies stroke/TIA. Psychiatric: The patient denies psychiatric medications, denies depression, and denies voices, denies substance abuse. Endocrine: The patient denies thyroid disorders, denies diabetes, and denies hormonal problems. Hematologic: The patient denies a history of bruising, denies bleeding, and denies anemia, denies blood clots. Infections: The patient denies a history of measles and mumps, denies rheumatic fever, and denies sexually transmitted diseases. Musculoskeletal: The patient denies back pain/injury, denies back problems, denies sciatica, deniesknee/foot trouble, denies arthritis, or denies gout. When was patient's last Mammogram screening? N/A Last Colonoscopy: 09/19/2021 Kasey Gray RN PHYSICAL EXAMINATION: General: The patient is 63 year old male, well nourished, well hydrated in no acute distress. The patient is oriented to time, place, and person. VITALS: Blood pressure 130/86, pulse 68, temperature 36.2 C (97.2 F), height 165.1 cm (5' 5), weight 119.5 kg (263 lb 6.4 oz), SpO2 93%. Body mass index is 43.83 kg/m . Head: Normal cephalic, atraumatic Eyes: pupils are equally round, sclera are clear/anicteric Neck is supple with no tracheal deviation Cardiac: normal heart sounds, regular Respiratory: Normal respiratory excursion and pattern. Abdominal exam: benign Extremities: no clubbing, cyanosis or edema. Neuro: non focal Psych: normal mood Assessment IMPRESSION: rectal bleeding PLAN: I have discussed the above with the patient. I have offered colonoscopy , possible biopsies I have explained the procedure to the patient. I have counseled the patient as to the risks of the procedure, including but not limited to: infection, bleeding, injury to any intrabdominal organs such as liver/spleen, perforation of the GI tract,inability to complete the procedure, complications of anesthesia, etc. - the patient understands. I have explained to the patient the difference between IV conscious sedation and MAC anesthesia - and I have offered either, according to the patient's wishes. I have explained that with IV conscioussedation there is no anesthesia provider available and therefore there is a limitation of the amount of IV medications that can be given and that the patient may wake up in the middle of the procedure and/or experience pain/discomfort during the procedure. Further discussion was done and the patient was given the opportunity to ask questions and all questions were answered. The patient chooses IVconscious sedation The patient wishes to proceed. I have answered all questions to the patient s satisfaction and the patient has no further questions. My clinic staff has educated the patient as to the colon cleansing regimen and I have prescribed Golytely for the colon cleansing solution. The patient will be scheduled for the procedure at [facility]. Diagnoses: (K62.5) Rectal bleeding (primary encounter diagnosis) I have confirmed and edited as necessary, the PFSH and ROS obtained by others. Consultation requested by Dr. Brayden Chao for an opinion regarding patient's rectal bleeding andhistory of colon polyps. My final recommendations will be communicated back to the requesting physician by way of shared Medical record or letter to requesting physician via US mail. Medical Decision Making: Problems: Low: Stable chronic illness Risk: Moderate: Decision on minor surgery w/ risk factors Medical Decision Making Level: 3 - Low Kerline Edwards MD [facility] Telephone encounter Note * Telephone Encounter - Emi Kincaid LPN - 11/07/2023 7:39 AM EDT Patient given results and verbalized understanding of instructions given. Emi Kincaid LPN [facility]09-06-2024 Miscellaneous Notes* Telephone Encounter - Emi Kincaid LPN - 11/07/2023 7:39 AM EDT Patient given results and verbalized understanding of instructions given. Emi Kincaid LPN * Telephone Encounter - Cherise Ribeiro PA - 11/07/2023 7:18 AM EDT Negative for COVID flu RSV documented in this encounter[facility] Telephone encounter Note * Telephone Encounter - Cherise Ribeiro PA - 11/07/2023 7:18 AM EDT Negative for COVID flu RSV [facility] Work Phone: 1(412) 193-123709-05-2024 History of Present illness Narrative* Mikhail Fajardo RT(R) - 11/06/2023 6:30 PM EDT Radiology Service Progress Note PATIENT NAME: Darci Hamm DATE OF SERVICE: November 06, 2023 TIME: 6:26 PM PATIENT IDENTITY VERIFICATION COMPLETED USING TWO (2) IDENTIFIERS: Name and Date of confirmedby patient verbally. FALL SCREENING: Has the patient had 2 falls in the last year or 1 fall with injury or currently using an Ambulatory Assistive Device (Walker, Cane, Wheelchair, Crutches, etc.)? No PATIENT GENDER DATA: Male PATIENT RELEVANT IMPLANT DATA REVIEWED: Yes PATIENT PRESENTS WITH AN IMPLANTABLE OR ATTACHED DINKEY ENGINE FIRER/FIREMAN: No RADIOLOGY DEPARTMENT: General X-ray: Exam(s) Completed: Chest X-Ray PERIPHERAL IV DATA: Not applicable SIGNED BY: RT Lazaro(R) November 06, 2023 6:26 PM documented in this encounterAv[facility]24 NoteHNO ID: [id number] Author: MIKHAIL FAJARDO RT(Severiano) Service: ? Author Type: Scrap Preparation Supervisor Type: Progress Notes Filed: 11/06/2023 18:33 Note Text: Radiology Service Progress Note PATIENT NAME: Darci Hamm DATE OF SERVICE: November 06, 2023 TIME: 6:26 PM PATIENT IDENTITY VERIFICATION COMPLETED USING TWO (2) IDENTIFIERS: Name and Date of confirmed by patient verbally. FALL SCREENING: Has the patient had 2 falls in the last year or 1 fall with injury or currently using an Ambulatory Assistive Device (Walker, Cane, Wheelchair, Crutches, etc.)? No PATIENT GENDER DATA: Male PATIENT RELEVANT IMPLANT DATA REVIEWED: Yes PATIENT PRESENTS WITH AN IMPLANTABLE OR ATTACHED DINKEY ENGINE FIRER/FIREMAN: No RADIOLOGY DEPARTMENT: General X-ray: Exam(s) Completed: Chest X-Ray PERIPHERAL IV DATA: Not applicable SIGNED BY: RT Lazaro(Severiano) November 06, 2023 6:26 [facility]09-05-2024 NoteHNO ID: [id number] Author: LAVELL TRAYLOR APRN.EPI Service: ? Author Type: Nurse Practitioner Type: Progress Notes Filed: 11/06/2023 18:58 Note Text: CC: Patient presents with: Cough: Chest congestion, fever, chill, heaviness in chest, rattle x 4 days HPI: Darci Hamm is a 63 year old male who presents to the office with complaint of cough, nonproductive and fever for a few days. Symptoms are staying the same. Associated symptoms includes bodyaches and fatigue chills. Denies nausea, vomiting , and diarrhea. Treatments tried include nothing so far. with no relief of symptoms. Sick contacts: unknown. History of asthma, frequent episodes of bronchitis, chronic bronchitis, bronchiectasis or COPD: No Smoker: No Seasonal/environmental allergies: No The ROS is otherwise negative. The patient's pmh, medications, allergies, and past visits are reviewed. PHYSICAL EXAM: BP 188/96 Pulse 94 Temp (!) 38.9 ?C (102 ?F) Resp 20 Wt 121 kg (266 lb 12.1 oz) SpO2 97% BMI 44.39 kg/m? General appearance: alert, cooperative, pleasant, in no acute distress Head: Normocephalic Eyes: EOM's intact, conjunctiva pink and moist, no icterus, sclera white, non-injected Ears: Right ear: External ear/canal- Normal, TM - clear with good landmarks. Left ear: External ear/canal- Normal, TM - clear with good landmarks Oropharynx:moist without lesions, No erythema, exudates or tonsillar hypertrophy. Neck:mild cervical adenopathy Heart: Negative. RRR without obvious murmur, gallop, or rubs. No ectopy. Lungs: diminished breath sounds, wheezing expiratory right middle lobe PAST MEDICAL HISTORY 07/27/2021: Absent testis, acquired Comment: On the right No date: Arthritis 09/13/2021: Basal cell carcinoma (BCC) of skin of face Comment: Above left mid eyebrow. Removed 08/202102/16/2019: Cough syncope 04/07/2019: Diastasis of rectus abdominis 07/28/2021: Elevated hemoglobin A1c 03/07/2015: Hernia, umbilical 02/16/2019: Hypertension, essential 02/16/2019: Obesity, Class III, BMI 40-49.9 (morbid obesity) (FORM[facility]LY [facility]) 07/27/2021: Screening for prostate cancer 07/31/2022: Skin cancer screening Comment: Dr. Akbar No date: Tubular adenoma of colon 07/27/2021: Well adult exam Comment: Last done: 07/27/2021 PAST SURGICAL HISTORY No date: ABDOMINAL SURGERY HX No date: APPENDECTOMY No date: APPENDECTOMY HX 04/16/2019: COLONOSCOPY FLX DX W/COLLJ SPEC WHEN PFRMD Comment: Colonoscopy 09/19/2021: COLONOSCOPY SCREENING No date: FRACTURE SURGERY No date: HERNIA REPAIR HX : LX UMBILICAL HERNIA REPAIR Comment: [facility] No date: PAST SURGICAL HISTORY OF Comment: orif left lower leg No date: PAST SURGICAL HISTORY OF Comment: amputation left ring finger No date: PAST SURGICAL HISTORY OF Comment: removal right testicle due to trauma 03/07/2015: REPAIR UMBILICAL HERNIA No date: SKIN BIOPSY HX ALLERGIES Patient has no known allergies. MEDICATIONS fluconazole (DIFLUCAN) 200 mg tablet Take 400 mg by mouth one time a week. Per Derm: Dr. Akbar Blood Pressure Kit-Extra Large kit Check BP as directed by physician. Dx: I10 naproxen sodium (ANAPROX) 220 mg tablet Take 220 mg by mouth as needed. FAMILY HISTORY Problem Relation Age of Onset Dementia Mother Coronary Artery Disease Father Diabetes Father type 2 DM Migraines Sister Prostate Cancer Brother 57 Social History Tobacco Use Smoking status: Never Smokeless tobacco: Current Types: Snuff Vaping Use Vaping status: Never Used Substance Use Topics Alcohol use: No Drug use: No ASSESSMENT/PLAN: 1. Acute cough - ICD9: 786.2, ICD10: R05.1 (primary diagnosis) - XR CHEST 2V FRONTAL/LAT * * * * Physician Interpretation * * * * CHEST X-RAY CLINICAL HISTORY: Acute cough TECHNIQUE: Upright frontal and lateral views. COMPARISON: None. RESULT: Heart/mediastinum: Within normal limits. Lungs/pleura: Clear. Bones/soft tissues: Unremarkable. Lines/tubes/devices: None visualized. IMPRESSION IMPRESSION: No active disease in the chest. Car Storer: MALIHA Transcribe Date/Time: Nov 06 2023 6:44P Dictated by : TORI BARROW MD - COVID AND INFLUENZA A/B AND RSV PCR, ROUTINE 2. URI, acute - ICD9: 465.9, ICD10: J06.9 - COVID AND INFLUENZA A/B AND RSV PCR, ROUTINE Tessalon pearls prescribed. Potential red flag symptoms discussed with the patient. Reviewed appropriate action plan to take if red flag symptoms occur. Patient agreeable to treatment plan. Lavell Traylor APRN.[facility]09-05-2024 History of Present illness Narrative* Lavell Traylor APRN.[facility] - 11/06/2023 6:09 PM EDT CC: Patient presents with: Cough: Chest congestion, fever, chill, heaviness in chest, rattle x 4 days HPI: Darci Hamm is a 63 year old male who presents to the office with complaint of cough, nonproductiveand fever for a few days. Symptoms are staying the same. Associated symptoms includes bodyaches and fatigue chills. Denies nausea, vomiting , and diarrhea. Treatments tried include nothing so far. with no relief of symptoms. Sick contacts: unknown. History of asthma, frequent episodes of bronchitis, chronic bronchitis, bronchiectasis or COPD: No Smoker: No Seasonal/environmental allergies: No The ROS is otherwise negative. The patient's pmh, medications, allergies, and past visits are reviewed. PHYSICAL EXAM: BP 188/96 Pulse 94 Temp (!) 38.9 C (102 F) Resp 20 Wt 121 kg (266 lb 12.1 oz) SpO2 97% BMI 44.39 kg/m General appearance: alert, cooperative, pleasant, in no acute distress Head: Normocephalic Eyes: EOM's intact, conjunctiva pink and moist, no icterus, sclera white, non-injected Ears: Right ear: External ear/canal- Normal, TM - clear with good landmarks. Left ear: External ear/canal- Normal, TM - clear with good landmarks Oropharynx:moist without lesions, No erythema, exudates or tonsillar hypertrophy. Neck:mild cervical adenopathy Heart: Negative. RRR without obvious murmur, gallop, or rubs. No ectopy. Lungs: diminished breath sounds, wheezing expiratory right middle lobe PAST MEDICAL HISTORY 07/27/2021: Absent testis, acquired Comment: On the right No date: Arthritis 09/13/2021: Basal cell carcinoma (BCC) of skin of face Comment: Above left mid eyebrow. Removed 08/202102/16/2019: Cough syncope 04/07/2019: Diastasis of rectus abdominis 07/28/2021: Elevated hemoglobin A1c 03/07/2015: Hernia, umbilical 02/16/2019: Hypertension, essential 02/16/2019: Obesity, Class III, BMI 40-49.9 (morbid obesity) (FORM[facility]LY [facility]) 07/27/2021: Screening for prostate cancer 07/31/2022: Skin cancer screening Comment: Dr. Akbar No date: Tubular adenoma of colon 07/27/2021: Well adult exam Comment: Last done: 07/27/2021 PAST SURGICAL HISTORY No date: ABDOMINAL SURGERY HX No date: APPENDECTOMY No date: APPENDECTOMY HX 04/16/2019: COLONOSCOPY FLX DX W/COLLJ SPEC WHEN PFRMD Comment: Colonoscopy 09/19/2021: COLONOSCOPY SCREENING No date: FRACTURE SURGERY No date: HERNIA REPAIR HX : LX UMBILICAL HERNIA REPAIR Comment: [facility] No date: PAST SURGICAL HISTORY OF Comment: orif left lower leg No date: PAST SURGICAL HISTORY OF Comment: amputation left ring finger No date: PAST SURGICAL HISTORY OF Comment: removal right testicle due to trauma 03/07/2015: REPAIR UMBILICAL HERNIA No date: SKIN BIOPSY HX ALLERGIES Patient has no known allergies. MEDICATIONS fluconazole (DIFLUCAN) 200 mg tablet Take 400 mg by mouth one time a week. Per Derm: Dr. Akbar Blood Pressure Kit-Extra Large kit Check BP as directed by physician. Dx: I10 naproxen sodium (ANAPROX) 220 mg tablet Take 220 mg by mouth as needed. FAMILY HISTORY Problem Relation Age of Onset Dementia Mother Coronary Artery Disease Father Diabetes Father type 2 DM Migraines Sister Prostate Cancer Brother 57 Social History Tobacco Use Smoking status: Never Smokeless tobacco: Current Types: Snuff Vaping Use Vaping status: Never Used Substance Use Topics Alcohol use: No Drug use: No ASSESSMENT/PLAN: 1. Acute cough - ICD9: 786.2, ICD10: R05.1 (primary diagnosis) - XR CHEST 2V FRONTAL/LAT * * * * Physician Interpretation * * * * CHEST X-RAY CLINICAL HISTORY: Acute cough TECHNIQUE: Upright frontal and lateral views. COMPARISON: None. RESULT: Heart/mediastinum: Within normal limits. Lungs/pleura: Clear. Bones/soft tissues: Unremarkable. Lines/tubes/devices: None visualized. IMPRESSION IMPRESSION: No active disease in the chest. Car Storer: MALIHA Transcribe Date/Time: Nov 06 2023 6:44P Dictated by : TORI BARROW MD - COVID & INFLUENZA A/B & RSV PCR, ROUTINE 2. URI, acute - ICD9: 465.9, ICD10: J06.9 - COVID & INFLUENZA A/B & RSV PCR, ROUTINE Tessalon pearls prescribed. Potential red flag symptoms discussed with the patient. Reviewed appropriate action plan to take ifred flag symptoms occur. Patient agreeable to treatment plan. Lavell Traylor APRN.EPI documented in this encounterAvita [facility]07-[facility] Instructions* Patient Instructions* Kerline Edwards MD - 09/01/2023 8:27 AM EDT Images from the original note were not included. Bowel Preparation Instructions for: Golytely, Nulytely, Trilyte or Colyte (polyethylene glycol 3350and electrolytes) IF YOU DO NOT FOLLOW THESE DIRECTIONS, YOUR COLONOSCOPY WILL BE CANCELLED. [place] Instructions: Your bowel must be empty so that your doctor can clearly view your colon. Follow all of the instructions in this handout EXACTLY as they are written. Do NOT eat any solid food the ENTIRE day before your colonoscopy. Drink only clear liquids. Buy your bowel preparation at least 5 days before your colonoscopy. TRANSPORTATION on the Day of Your Exam A responsible person MUST be present with you at Check In prior to your colonoscopy and REMAIN in the endoscopy area until you are discharged. You are NOT ALLOWED to drive, take a taxi or bus, or leave the Endoscopy Center ALONE. If you do not have a responsible commercial trailer truck driver (family member or friend) with you to take you home, your exam cannot be done with sedation and will be cancelled. Please bring a list of all of your current medications, including any Over-the Counter medications with you. Medications If you take insulin, diabetic medications or blood thinners such as Coumadin (warfarin), Plavix (clopidogrel), Ticlid (ticlopidine hydrochloride), Agrylin (anagrelide), Xarelto (Rivaroxaban), Pradaxa(Dabigatran), Eliquis (Apixaban), and Effient (Prasugrel). You MUST call the doctors who orders those medicines for instructions on altering the dosage before your colonoscopy. All other medications should be taken the day of the exam with a sip of water including ASPIRIN. Five (5) Days Before Your Colonoscopy Do NOT take medicines that stop diarrhea - such as Imodium, Kaopectate, or Pepto Bismol. Do NOT take fiber supplements - such as Metamucil, Citrucel, or Perdiem. Do NOT take products that contain iron - such as multi-vitamins (the label lists what is in the products). Do NOT take Vitamin E. Buy the prescription bowel preparation solution at your local pharmacy or drugstore pharmacy. 01/2019 Bowel Preparation Instructions for: Golytely, Nulytely, Trilyte or Colyte (polyethylene glycol 3350and electrolytes) Three (3) Days Before Your Colonoscopy Do NOT eat high-fiber foods - such as popcorn, beans, seeds (flax, sunflower, quinoa), multigrain bread, nuts, salad/vegetables, or fresh and dried fruit. One (1) Day Before Your Colonoscopy Only drink clear liquids the ENTIRE DAY before your colonoscopy. Do NOT eat any solid foods. Drink at least 8 ounces of clear liquids every hour after waking up. The clear liquids you can drink include: Clear Liquid (NO RED LIQUIDS) DO NOT DRINK Gatorade, Pedialyte or Powerade Clear broth or bouillon Coffee or tea (no milk or non-dairy creamer) Carbonated and non-carbonated soft drinks Denis-Aid or other fruit flavored drinks Strained fruit juices (no pulp) Jell-O, popsicles, hard candy Water Alcohol Milk or non-dairy creamers Noodles or vegetables in soup Juice with pulp Liquid you cannot see through Do not use tobacco/vaping products The bowel preparation solution will be consumed in two parts. Mix the solution the evening before your colonoscopy and refrigerate before drinking. You may add the flavor pack that came with the bowel preparation. Do NOT add ice, sugar or any other flavorings to the solution. Part 1 At 6:00 PM - Evening before your colonoscopy Drink an 8-oz glass of bowel preparation every 10 minutes for a total of 8 glasses. You may continue to drink clear liquids until midnight. Part 2 On the day of your colonoscopy you may drink clear liquids up to (three) 3 hours before your procedure. 4 1/2 hours before your colonoscopy Drink an 8-oz glass of bowel preparation every 10 minutes for a total of 8 glasses. Fifteen (15) minutes later, drink an 8-oz glass of clear liquids every 15 minutes for a total of 2 glasses. You may continue to drink clear liquids up to (three) 3 hours before your exam. 2 01/2019 [facility]* Kasey Gray RN - 09/01/2023 8:14 AM EDT REVIEW OF SYSTEMS: General: The patient denies fatigue, denies weight loss, denies weight gain, denies feeling hot, and denies feelings of cold. Eyes: The patient denies glaucoma, denies eye injury/surgery, does not wear glasses or contacts. Ear/Nose/Throat: The patient denies allergies, denies hayfever, denies ear infections, and denies bloody noses. Cardiovascular: The patient denies chest pain, denies heart disease, NOTES high blood pressure,denies cardiac stent, denies prior heart attack, denies irregular heart beat, denies high cholesterol, denies poor circulation, denies heart failure, other cardiac issues, denies claudication, denies coldfeet, denies peripheral arterial stent. Respiratory: The patient denies tuberculosis, denies pneumonia, denies frequent cough, denies pulmonary embolism, denies shortness of breath, and denies coughing up blood. Gastrointestinal: The patient denies difficulty swallowing, denies acid reflux, denies ulcers, denies vomiting, denies jaundice/hepatitis, denies gallbladder problems, denies black or tarry stools, NOTES hemorrhoids, denies bleeding from rectum, denies diverticulitis, denies constipation, denies diarrhea, denies loss of stool control, and NOTES hernias. Kidney/Bladder: The patient denies kidney stones, denies urine infections, and denies bloody urine. Skin: The patient NOTES a history of skin cancer, denies bleeding/changing moles, and denies a history of skin rash. Neurologic: The patient denies a history of epilepsy/convulsions, denies headaches, denies head/spinal injuries, and denies stroke/TIA. Psychiatric: The patient denies psychiatric medications, denies depression, and denies voices, denies substance abuse. Endocrine: The patient denies thyroid disorders, denies diabetes, and denies hormonal problems. Hematologic: The patient denies a history of bruising, denies bleeding, and denies anemia, denies blood clots. Infections: The patient denies a history of measles and mumps, denies rheumatic fever, and denies sexually transmitted diseases. Musculoskeletal: The patient denies back pain/injury, denies back problems, denies sciatica, deniesknee/foot trouble, denies arthritis, or denies gout. When was patient's last Mammogram screening? N/A Last Colonoscopy: 09/19/2021 Kasey Gray RN [facility] Nurse Note* Kasey Gray RN - 09/01/2023 8:14 AM EDT REVIEW OF SYSTEMS: General: The patient denies fatigue, denies weight loss, denies weight gain, denies feeling hot, and denies feelings of cold. Eyes: The patient denies glaucoma, denies eye injury/surgery, does not wear glasses or contacts. Ear/Nose/Throat: The patient denies allergies, denies hayfever, denies ear infections, and denies bloody noses. Cardiovascular: The patient denies chest pain, denies heart disease, NOTES high blood pressure,denies cardiac stent, denies prior heart attack, denies irregular heart beat, denies high cholesterol, denies poor circulation, denies heart failure, other cardiac issues, denies claudication, denies coldfeet, denies peripheral arterial stent. Respiratory: The patient denies tuberculosis, denies pneumonia, denies frequent cough, denies pulmonary embolism, denies shortness of breath, and denies coughing up blood. Gastrointestinal: The patient denies difficulty swallowing, denies acid reflux, denies ulcers, denies vomiting, denies jaundice/hepatitis, denies gallbladder problems, denies black or tarry stools, NOTES hemorrhoids, denies bleeding from rectum, denies diverticulitis, denies constipation, denies diarrhea, denies loss of stool control, and NOTES hernias. Kidney/Bladder: The patient denies kidney stones, denies urine infections, and denies bloody urine. Skin: The patient NOTES a history of skin cancer, denies bleeding/changing moles, and denies a history of skin rash. Neurologic: The patient denies a history of epilepsy/convulsions, denies headaches, denies head/spinal injuries, and denies stroke/TIA. Psychiatric: The patient denies psychiatric medications, denies depression, and denies voices, denies substance abuse. Endocrine: The patient denies thyroid disorders, denies diabetes, and denies hormonal problems. Hematologic: The patient denies a history of bruising, denies bleeding, and denies anemia, denies blood clots. Infections: The patient denies a history of measles and mumps, denies rheumatic fever, and denies sexually transmitted diseases. Musculoskeletal: The patient denies back pain/injury, denies back problems, denies sciatica, deniesknee/foot trouble, denies arthritis, or denies gout. When was patient's last Mammogram screening? N/A Last Colonoscopy: 09/19/2021 Kasey Gray RN documented in this encounterAv[facility] NoteHNO ID: [id number] Author: KERLINE EDWARDS MD Service: ? Author Type: Physician Type: Progress Notes Filed: 09/02/2023 07:33 Note Text: HISTORY AND PHYSICAL Darci Markham Noris 1960 REFERRING PHYSICIAN: Brayden Chao MD CHIEF COMPLAINT: Consult (colonoscopy) HPI: The patient is a 63 year old male referred for endoscopy. Darci notes rectal bleeding. It is intermittent and noted for unknown period of time He had undergone colonoscopy in 2021 with findings of < 1 cm tubular adenoma. He denies chronic abdominal pain. He denies changes in bowel habits. He notes no family history of colon cancer. Patient has BMI 43, DM with persistent elevated HgbA1c, hypertension - anesthesia assessment - ASA III PAST MEDICAL HISTORY Diagnosis Date Absent testis, acquired 07/27/2021 On the right Arthritis Basal cell carcinoma (BCC) of skin of face 09/13/2021 Above left mid eyebrow. Removed 08/2021 Cough syncope 02/16/2019 Diastasis of rectus abdominis 04/07/2019 Elevated hemoglobin A1c 07/28/2021 Hernia, umbilical 03/07/2015 Hypertension, essential 02/16/2019 Obesity, Class III, BMI 40-49.9 (morbid obesity) ([facility]) 02/16/2019 Screening for prostate cancer 07/27/2021 Skin cancer screening 07/31/2022 Dr. Akbar Tubular adenoma of colon Well adult exam 07/27/2021 Last done: 07/27/2021 PAST SURGICAL HISTORY Procedure Laterality Date ABDOMINAL SURGERY HX APPENDECTOMY APPENDECTOMY HX COLONOSCOPY FLX DX W/COLLJ SPEC WHEN PFRMD 04/16/2019 Colonoscopy COLONOSCOPY SCREENING 09/19/2021 FRACTURE SURGERY HERNIA REPAIR HX LX UMBILICAL HERNIA REPAIR [facility] PAST SURGICAL HISTORY OF orif left lower leg PAST SURGICAL HISTORY OF amputation left ring finger PAST SURGICAL HISTORY OF removal right testicle due to trauma REPAIR UMBILICAL HERNIA 03/07/2015 SKIN BIOPSY HX Current Outpatient Medications Medication Sig fluconazole (DIFLUCAN) 200 mg tablet Take 400 mg by mouth one time a week. Per Derm: Dr. Akbar Blood Pressure Kit-Extra Large kit Check BP as directed by physician. Dx: I10 naproxen sodium (ANAPROX) 220 mg tablet Take 220 mg by mouth as needed. peg 3350-Electrolytes (GOLYTELY) 236-22.74-6.74 -5.86 gram suspension Take 4,000 mL by mouth one time only for 1 dose. Refer to printed prep instructions from your provider. No current facility-administered medications for this visit. ALLERGIES: Patient has no known allergies. PERSONAL HISTORY: Social History Tobacco Use Smoking status: Never Smokeless tobacco: Current Types: Snuff Vaping Use Vaping Use: Never used Substance Use Topics Alcohol use: No Drug use: No FAMILY HISTORY Problem Relation Age of Onset Dementia Mother Coronary Artery Disease Father Diabetes Father type 2 DM Migraines Sister Prostate Cancer Brother 57 The review of systems data was entered by the nurse and reviewed by or Nursing Notes: Kasey Gray RN 09/01/2023 8:15 AM Signed REVIEW OF SYSTEMS: General: The patient denies fatigue, denies weight loss, denies weight gain, denies feeling hot, and denies feelings of cold. Eyes: The patient denies glaucoma, denies eye injury/surgery, does not wear glasses or contacts. Ear/Nose/Throat: The patient denies allergies, denies hayfever, denies ear infections, and denies bloody noses. Cardiovascular: The patient denies chest pain, denies heart disease, NOTES high blood pressure,denies cardiac stent, denies prior heart attack, denies irregular heart beat, denies high cholesterol, denies poor circulation, denies heart failure, other cardiac issues, denies claudication, denies cold feet, denies peripheral arterial stent. Respiratory: The patient denies tuberculosis, denies pneumonia, denies frequent cough, denies pulmonary embolism, denies shortness of breath, and denies coughing up blood. Gastrointestinal: The patient denies difficulty swallowing, denies acid reflux, denies ulcers, denies vomiting, denies jaundice/hepatitis, denies gallbladder problems, denies black or tarry stools, NOTES hemorrhoids, denies bleeding from rectum, denies diverticulitis, denies constipation, denies diarrhea, denies loss of stool control, and NOTES hernias. Kidney/Bladder: The patient denies kidney stones, denies urine infections, and denies bloody urine. Skin: The patient NOTES a history of skin cancer, denies bleeding/changing moles, and denies a history of skin rash. Neurologic: The patient denies a history of epilepsy/convulsions, denies headaches, denies head/spinal injuries, and denies stroke/TIA. Psychiatric: The patient denies psychiatric medications, denies depression, and denies voices, denies substance abuse. Endocrine: The patient denies thyroid disorders, denies diabetes, and denies hormonal problems. Hematologic: The patient denies a history of bruising, denies bleeding, and denies anemia, denies blood clots. Infections: The patient denies a hist (more content not included)...[facility]07-01-2024 History of Present illness Narrative* Kerline Edwards MD - 09/01/2023 8:07 AM EDT HISTORY AND PHYSICAL Darci Markham Noris 1960 REFERRING PHYSICIAN: Brayden Chao MD CHIEF COMPLAINT: Consult (colonoscopy) HPI: The patient is a 63 year old male referred for endoscopy. Darci notes rectal bleeding. It is intermittent and noted for unknown period of time He had undergone colonoscopy in 2021 with findings of < 1 cm tubular adenoma. He denies chronic abdominal pain. He denies changes in bowel habits. He notes no family history of colon cancer. Patient has BMI 43, DM with persistent elevated HgbA1c, hypertension - anesthesia assessment - ASA III PAST MEDICAL HISTORY Diagnosis Date Absent testis, acquired 07/27/2021 On the right Arthritis Basal cell carcinoma (BCC) of skin of face 09/13/2021 Above left mid eyebrow. Removed 08/2021 Cough syncope 02/16/2019 Diastasis of rectus abdominis 04/07/2019 Elevated hemoglobin A1c 07/28/2021 Hernia, umbilical 03/07/2015 Hypertension, essential 02/16/2019 Obesity, Class III, BMI 40-49.9 (morbid obesity) (HCC) 02/16/2019 Screening for prostate cancer 07/27/2021 Skin cancer screening 07/31/2022 Dr. Akbar Tubular adenoma of colon Well adult exam 07/27/2021 Last done: 07/27/2021 PAST SURGICAL HISTORY Procedure Laterality Date ABDOMINAL SURGERY HX APPENDECTOMY APPENDECTOMY HX COLONOSCOPY FLX DX W/COLLJ SPEC WHEN PFRMD 04/16/2019 Colonoscopy COLONOSCOPY SCREENING 09/19/2021 FRACTURE SURGERY HERNIA REPAIR HX LX UMBILICAL HERNIA REPAIR [facility] PAST SURGICAL HISTORY OF orif left lower leg PAST SURGICAL HISTORY OF amputation left ring finger PAST SURGICAL HISTORY OF removal right testicle due to trauma REPAIR UMBILICAL HERNIA 03/07/2015 SKIN BIOPSY HX Current Outpatient Medications Medication Sig fluconazole (DIFLUCAN) 200 mg tablet Take 400 mg by mouth one time a week. Per Derm: Dr. Akbar Blood Pressure Kit-Extra Large kit Check BP as directed by physician. Dx: I10 naproxen sodium (ANAPROX) 220 mg tablet Take 220 mg by mouth as needed. peg 3350-Electrolytes (GOLYTELY) 236-22.74-6.74 -5.86 gram suspension Take 4,000 mL by mouth one time only for 1 dose. Refer to printed prep instructions from your provider. No current facility-administered medications for this visit. ALLERGIES: Patient has no known allergies. PERSONAL HISTORY: Social History Tobacco Use Smoking status: Never Smokeless tobacco: Current Types: Snuff Vaping Use Vaping Use: Never used Substance Use Topics Alcohol use: No Drug use: No FAMILY HISTORY Problem Relation Age of Onset Dementia Mother Coronary Artery Disease Father Diabetes Father type 2 DM Migraines Sister Prostate Cancer Brother 57 The review of systems data was entered by the nurse and reviewed by or Nursing Notes: Kasey Gray RN 09/01/2023 8:15 AM Signed REVIEW OF SYSTEMS: General: The patient denies fatigue, denies weight loss, denies weight gain, denies feeling hot, and denies feelings of cold. Eyes: The patient denies glaucoma, denies eye injury/surgery, does not wear glasses or contacts. Ear/Nose/Throat: The patient denies allergies, denies hayfever, denies ear infections, and denies bloody noses. Cardiovascular: The patient denies chest pain, denies heart disease, NOTES high blood pressure,denies cardiac stent, denies prior heart attack, denies irregular heart beat, denies high cholesterol, denies poor circulation, denies heart failure, other cardiac issues, denies claudication, denies coldfeet, denies peripheral arterial stent. Respiratory: The patient denies tuberculosis, denies pneumonia, denies frequent cough, denies pulmonary embolism, denies shortness of breath, and denies coughing up blood. Gastrointestinal: The patient denies difficulty swallowing, denies acid reflux, denies ulcers, denies vomiting, denies jaundice/hepatitis, denies gallbladder problems, denies black or tarry stools, NOTES hemorrhoids, denies bleeding from rectum, denies diverticulitis, denies constipation, denies diarrhea, denies loss of stool control, and NOTES hernias. Kidney/Bladder: The patient denies kidney stones, denies urine infections, and denies bloody urine. Skin: The patient NOTES a history of skin cancer, denies bleeding/changing moles, and denies a history of skin rash. Neurologic: The patient denies a history of epilepsy/convulsions, denies headaches, denies head/spinal injuries, and denies stroke/TIA. Psychiatric: The patient denies psychiatric medications, denies depression, and denies voices, denies substance abuse. Endocrine: The patient denies thyroid disorders, denies diabetes, and denies hormonal problems. Hematologic: The patient denies a history of bruising, denies bleeding, and denies anemia, denies blood clots. Infections: The patient denies a history of measles and mumps, denies rheumatic fever, and denies sexually transmitted diseases. Musculoskeletal: The patient denies back pain/injury, denies back problems, denies sciatica, deniesknee/foot trouble, denies arthritis, or denies gout. When was patient's last Mammogram screening? N/A Last Colonoscopy: 09/19/2021 Kasey Gray RN PHYSICAL EXAMINATION: General: The patient is 63 year old male, well nourished, well hydrated in no acute distress. The patient is oriented to time, place, and person. VITALS: Blood pressure 130/86, pulse 68, temperature 36.2 C (97.2 F), height 165.1 cm (5' 5), weight 119.5 kg (263 lb 6.4 oz), SpO2 93%. Body mass index is 43.83 kg/m . Head: Normal cephalic, atraumatic Eyes: pupils are equally round, sclera are clear/anicteric Neck is supple with no tracheal deviation Cardiac: normal heart sounds, regular Respiratory: Normal respiratory excursion and pattern. Abdominal exam: benign Extremities: no clubbing, cyanosis or edema. Neuro: non focal Psych: normal mood Assessment IMPRESSION: rectal bleeding PLAN: I have discussed the above with the patient. I have offered colonoscopy , possible biopsies I have explained the procedure to the patient. I have counseled the patient as to the risks of the procedure, including but not limited to: infection, bleeding, injury to any intrabdominal organs such as liver/spleen, perforation of the GI tract,inability to complete the procedure, complications of anesthesia, etc. - the patient understands. I have explained to the patient the difference between IV conscious sedation and MAC anesthesia - and I have offered either, according to the patient's wishes. I have explained that with IV conscioussedation there is no anesthesia provider available and therefore there is a limitation of the amount of IV medications that can be given and that the patient may wake up in the middle of the procedure and/or experience pain/discomfort during the procedure. Further discussion was done and the patient was given the opportunity to ask questions and all questions were answered. The patient chooses IVconscious sedation The patient wishes to proceed. I have answered all questions to the patient s satisfaction and the patient has no further questions. My clinic staff has educated the patient as to the colon cleansing regimen and I have prescribed Golytely for the colon cleansing solution. The patient will be scheduled for the procedure at [facility]. Diagnoses: (K62.5) Rectal bleeding (primary encounter diagnosis) I have confirmed and edited as necessary, the PFSH and ROS obtained by others. Consultation requested by Dr. Brayden Chao for an opinion regarding patient's rectal bleeding andhistory of colon polyps. My final recommendations will be communicated back to the requesting physician by way of shared Medical record or letter to requesting physician via US mail. Medical Decision Making: Problems: Low: Stable chronic illness Risk: Moderate: Decision on minor surgery w/ risk factors Medical Decision Making Level: 3 - Low Kerline Edwards MD documented in this encounterAv[facility] NoteHNO ID: [id number] Author: TERRI ROMERO PA-C Service: ? 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 At last visit, patient's bp was elevated. He has not been checking bp at home yet. Not sure if insurance will cover BP cuff. Last 3 Encounter BP Readings: Date: BP: 08/22/2023 124/74 08/01/2023 150/84 07/31/2022 138/84 Past medical history, appointments, medications, allergies reviewed. Previous Medical History PAST MEDICAL HISTORY Diagnosis Date Absent testis, acquired 07/27/2021 On the right Arthritis Basal cell carcinoma (BCC) of skin of face 09/13/2021 Above left mid eyebrow. Removed 08/2021 Cough syncope 02/16/2019 Diastasis of rectus abdominis 04/07/2019 Elevated hemoglobin A1c 07/28/2021 Hernia, umbilical 03/07/2015 Hypertension, essential 02/16/2019 Obesity, Class III, BMI 40-49.9 (morbid obesity) (HCC) 02/16/2019 Screening for prostate cancer 07/27/2021 Skin cancer screening 07/31/2022 Dr. Akbar Well adult exam 07/27/2021 Last done: 07/27/2021 Previous Surgical History PAST SURGICAL HISTORY Procedure Laterality Date ABDOMINAL SURGERY HX APPENDECTOMY APPENDECTOMY HX COLONOSCOPY FLX DX W/COLLJ SPEC WHEN PFRMD 04/16/2019 Colonoscopy COLONOSCOPY SCREENING 09/19/2021 FRACTURE SURGERY HERNIA REPAIR HX LX UMBILICAL HERNIA REPAIR [facility] PAST SURGICAL HISTORY OF orif left lower leg PAST SURGICAL HISTORY OF amputation left ring finger PAST SURGICAL HISTORY OF removal right testicle due to trauma REPAIR UMBILICAL HERNIA 03/07/2015 SKIN BIOPSY HX Family History FAMILY HISTORY Problem Relation Age of Onset Dementia Mother Coronary Artery Disease Father Diabetes Father type 2 DM Migraines Sister Prostate Cancer Brother 57 Patient Allergies ALLERGIES No Known Allergies Current Medications Current Outpatient Medications on File Prior to Visit Medication Sig fluconazole (DIFLUCAN) 200 mg tablet Take 400 mg by mouth one time a week. Per Derm: Dr. Akbar naproxen sodium (ANAPROX) 220 mg tablet Take 220 mg by mouth as needed. Blood Pressure Kit-Extra Large kit Check BP as directed by physician. Dx: I10 No current facility-administered medications on file prior to visit. Social History Social History Tobacco Use Smoking status: Never Smokeless tobacco: Current Types: Snuff Vaping Use Vaping Use: Never used Substance Use Topics Alcohol use: No Drug use: No Review of Symptoms REVIEW OF SYSTEMS GENERAL: No weight loss, malaise or fevers EXAM: BP 124/74 (BP Site: Right Arm, BP Position: Sitting, BP Cuff Size: Large Adult) Pulse 60 Temp 36.5 ?C (97.7 ?F) Resp 18 Wt 119.3 kg (263 lb) BMI 43.10 kg/m? General Appearance: Well appearing, alert, in no acute distress, well-hydrated, well nourished. and Morbidly obese. Health Maintenance List Colorectal Cancer Screening due on 09/20/2023 Behavioral Health Screening due on 03/02/2024 RSV Vaccine(1 - 1-dose 60+ series) due on 07/31/2024 Influenza Vaccine(Season Ended) due on 11/02/2023 Annual PCP Team Chronic Disease Visit due on 07/31/2024 BP Controlled (<130/80) due on 07/31/2024 DTaP,Tdap,Td Vaccine(3 - Td or Tdap) due on 08/09/2025 Diabetes Screening due on 07/31/2026 Lipid Screening due on 07/31/2028 Prostate Cancer Screening Discussion due on 07/31/2028 Hepatitis C Screening Completed HPV Vaccine Aged Out HIV Screening Discontinued Shingrix Vaccine Discontinued Covid-19 Vaccine Discontinued Data reviewed ASSESSMENT/PLAN: 1. Hypertension, essential - ICD9: 401.9, ICD10: I10 (primary diagnosis) - Improving control - Recommend home blood pressure monitoring, to bring results to next visit - Encouraged sodium restriction, DASH or Mediterranean diet - Recommend regular aerobic exercise 2. Obesity, Class III, BMI 40-49.9 (morbid obesity) (HCC) - ICD9: 278.01, ICD10: E66.01 Stable - Behavioral intervention [facility]06-21-[facility]24 History of Present illness Narrative* Terri Romero PA-C - 08/22/2023 8:10 AM EDT Chief Complaint Patient presents with: Recheck: Blood pressure HPI Darci Hamm is a 63 year old male who presents here today for BP recheck. At last visit, patient's bp was elevated. He has not been checking bp at home yet. Not sure if insurance will cover BP cuff. Last 3 Encounter BP Readings: Date: BP: 08/22/2023 124/74 08/01/2023 150/84 07/31/2022 138/84 Past medical history, appointments, medications, allergies reviewed. Previous Medical History PAST MEDICAL HISTORY Diagnosis Date Absent testis, acquired 07/27/2021 On the right Arthritis Basal cell carcinoma (BCC) of skin of face 09/13/2021 Above left mid eyebrow. Removed 08/2021 Cough syncope 02/16/2019 Diastasis of rectus abdominis 04/07/2019 Elevated hemoglobin A1c 07/28/2021 Hernia, umbilical 03/07/2015 Hypertension, essential 02/16/2019 Obesity, Class III, BMI 40-49.9 (morbid obesity) ([facility]) 02/16/2019 Screening for prostate cancer 07/27/2021 Skin cancer screening 07/31/2022 Dr. Akbar Well adult exam 07/27/2021 Last done: 07/27/2021 Previous Surgical History PAST SURGICAL HISTORY Procedure Laterality Date ABDOMINAL SURGERY HX APPENDECTOMY APPENDECTOMY HX COLONOSCOPY FLX DX W/COLLJ SPEC WHEN PFRMD 04/16/2019 Colonoscopy COLONOSCOPY SCREENING 09/19/2021 FRACTURE SURGERY HERNIA REPAIR HX LX UMBILICAL HERNIA REPAIR [facility] PAST SURGICAL HISTORY OF orif left lower leg PAST SURGICAL HISTORY OF amputation left ring finger PAST SURGICAL HISTORY OF removal right testicle due to trauma REPAIR UMBILICAL HERNIA 03/07/2015 SKIN BIOPSY HX Family History FAMILY HISTORY Problem Relation Age of Onset Dementia Mother Coronary Artery Disease Father Diabetes Father type 2 DM Migraines Sister Prostate Cancer Brother 57 Patient Allergies ALLERGIES No Known Allergies Current Medications Current Outpatient Medications on File Prior to Visit Medication Sig fluconazole (DIFLUCAN) 200 mg tablet Take 400 mg by mouth one time a week. Per Derm: Dr. Akbar naproxen sodium (ANAPROX) 220 mg tablet Take 220 mg by mouth as needed. Blood Pressure Kit-Extra Large kit Check BP as directed by physician. Dx: I10 No current facility-administered medications on file prior to visit. Social History Social History Tobacco Use Smoking status: Never Smokeless tobacco: Current Types: Snuff Vaping Use Vaping Use: Never used Substance Use Topics Alcohol use: No Drug use: No Review of Symptoms REVIEW OF SYSTEMS GENERAL: No weight loss, malaise or fevers EXAM: BP 124/74 (BP Site: Right Arm, BP Position: Sitting, BP Cuff Size: Large Adult) Pulse 60 Temp 36.5 C (97.7 F) Resp 18 Wt 119.3 kg (263 lb) BMI 43.10 kg/m General Appearance: Well appearing, alert, in no acute distress, well-hydrated, well nourished. andMorbidly obese. Health Maintenance List Colorectal Cancer Screening due on 09/20/2023 Behavioral Health Screening due on 03/02/2024 RSV Vaccine(1 - 1-dose 60+ series) due on 07/31/2024 Influenza Vaccine(Season Ended) due on 11/02/2023 Annual PCP Team Chronic Disease Visit due on 07/31/2024 BP Controlled (<130/80) due on 07/31/2024 DTaP,Tdap,Td Vaccine(3 - Td or Tdap) due on 08/09/2025 Diabetes Screening due on 07/31/2026 Lipid Screening due on 07/31/2028 Prostate Cancer Screening Discussion due on 07/31/2028 Hepatitis C Screening Completed HPV Vaccine Aged Out HIV Screening Discontinued Shingrix Vaccine Discontinued Covid-19 Vaccine Discontinued Data reviewed ASSESSMENT/PLAN: 1. Hypertension, essential - ICD9: 401.9, ICD10: I10 (primary diagnosis) - Improving control - Recommend home blood pressure monitoring, to bring results to next visit - Encouraged sodium restriction, DASH or Mediterranean diet - Recommend regular aerobic exercise 2. Obesity, Class III, BMI 40-49.9 (morbid obesity) (HCC) - ICD9: 278.01, ICD10: E66.01 Stable - Behavioral intervention Terri Romero PA-C [facility] Telephone encounter Note * Telephone Encounter - Ryder Traylor MA - 08/04/2023 10:05 AM EDT Patient notified and voiced understanding. Ryder Traylor MA [facility]06-03-[facility] Miscellaneous Notes* Telephone Encounter - Ryder Traylor MA - 08/04/2023 10:05 AM EDT Patient notified and voiced understanding. Ryder Traylor MA * Telephone Encounter - Brayden Chao MD - 08/03/2023 8:06 PM EDT Let patient now his lipid panel showed his Trigs elevated at 231 (goal<150), HDL low at 33 (goal>40) and LDL good at 82. Increased exercise such as walking can help and reduced fat in diet. HIs A1c is higher at 5.9%, goal is 5.6% or less and diabetes is 6.5% and higher and was 5.7%. work on reduced carbs, sugars, sweets and starches in diet. The rest of his labs and UA were all ok. documented in this encounterAv[facility] Telephone encounter Note * Telephone Encounter - Brayden Chao MD - 08/03/2023 8:06 PM EDT Let patient now his lipid panel showed his Trigs elevated at 231 (goal<150), HDL low at 33 (goal>40) and LDL good at 82. Increased exercise such as walking can help and reduced fat in diet. HIs A1c is higher at 5.9%, goal is 5.6% or less and diabetes is 6.5% and higher and was 5.7%. work on reduced carbs, sugars, sweets and starches in diet. The rest of his labs and UA were all ok. [facility] History of Present illness Narrative* Brayden Chao MD - 08/01/2023 8:00 AM EDT Chief Complaint Patient presents with: Physical HPI Darci Hamm is a 63 year old male who presents here today for Physical. Patient with hx of HTN, obesity, cough syncope, umbilical hernia as well as those reviewed and addressed below and in ROS Patient indicated that his heels have been hurting for about 2 months and now recently the knees. Dr. Akbar does have the patient on antibiotic (diflucan) for the past year for his foot/toe fungus. Has almost cleared up. Past medical history, appointments, medications, allergies reviewed. Previous Medical History PAST MEDICAL HISTORY Diagnosis Date Absent testis, acquired 07/27/2021 On the right Arthritis Basal cell carcinoma (BCC) of skin of face 09/13/2021 Above left mid eyebrow. Removed 08/2021 Cough syncope 02/16/2019 Diastasis of rectus abdominis 04/07/2019 Elevated hemoglobin A1c 07/28/2021 Hernia, umbilical 03/07/2015 Hypertension, essential 02/16/2019 Obesity, Class III, BMI 40-49.9 (morbid obesity) (FORM[facility]LY [facility]) 02/16/2019 Screening for prostate cancer 07/27/2021 Skin cancer screening 07/31/2022 Dr. Akbar Well adult exam 07/27/2021 Last done: 07/27/2021 Previous Surgical History PAST SURGICAL HISTORY Procedure Laterality Date ABDOMINAL SURGERY HX APPENDECTOMY APPENDECTOMY HX COLONOSCOPY FLX DX W/COLLJ SPEC WHEN PFRMD 04/16/2019 Colonoscopy COLONOSCOPY SCREENING 09/19/2021 FRACTURE SURGERY HERNIA REPAIR HX LX UMBILICAL HERNIA REPAIR [facility] PAST SURGICAL HISTORY OF orif left lower leg PAST SURGICAL HISTORY OF amputation left ring finger PAST SURGICAL HISTORY OF removal right testicle due to trauma REPAIR UMBILICAL HERNIA 03/07/2015 SKIN BIOPSY HX Family History FAMILY HISTORY Problem Relation Age of Onset Dementia Mother Coronary Artery Disease Father Diabetes Father type 2 DM Migraines Sister Prostate Cancer Brother 57 Patient Allergies ALLERGIES No Known Allergies Current Medications Current Outpatient Medications on File Prior to Visit Medication Sig naproxen sodium (ANAPROX) 220 mg tablet Take 220 mg by mouth as needed. No current facility-administered medications on file prior to visit. Social History Social History Tobacco Use Smoking status: Never Smokeless tobacco: Current Types: Snuff Vaping Use Vaping Use: Never used Substance Use Topics Alcohol use: No Drug use: No Review of Symptoms REVIEW OF SYSTEMS GENERAL: No weight loss, malaise or fevers HEENT: Negative for frequent or significant headaches, No changes in hearing or vision, no nose bleeds or other nasal problems NECK: Negative for lumps, goiter, pain and significant neck swelling RESPIRATORY: Negative for hemoptysis, wheezing, COPD, dyspnea or shortness of breath. Has a daily cough with clear mucus for about 18 yrs. CARDIOVASCULAR: Negative for chest pain, leg swelling, hypertension, CHF or palpitations GI: No nausea, vomiting, or diarrhea, No heartburn or reflux symptoms, and no blood : No history of dysuria, frequency or blood MUSCULOSKELETAL: has been getting pain in his heels when he firsts gets up in the AM or after stilting for awhile. The left heel started about 6 months ago and the right started about 3 months ago. Both knees have recently started to hurt when he first gets up and eases up with movement. Has been wearing heel pads in his shoes that have helped some. SKIN: seeing Derm PSYCH: Negative for sleep disturbance, mood disorder and recent psychosocial stressors HEMATOLOGY/LYMPHOLOGY: Negative for prolonged bleeding, bruising easily or swollen nodes ENDOCRINE: Negative for polyuria, polydipsia, Positive for cold intolerance: , heat intolerance: NEURO: No history of headaches, syncope, paralysis, seizures or tremors EXAM: BP 150/84 Pulse 74 Resp 18 Ht 166.4 cm (5' 5.5) Wt 118.8 kg (262 lb) BMI 42.94 kg/m Last 5 Encounter Wt Readings: Date: Wt: 08/01/2023 118.8 kg (262 lb) 07/31/2022 115.2 kg (254 lb) 10/15/2021 115.7 kg (255 lb) 10/04/2021 112.9 kg (249 lb) 10/03/2021 111.6 kg (246 lb) Last 6 Encounter BP Readings: Date: BP: 08/01/2023 138/84 07/31/2022 138/84 10/15/2021 138/86 10/04/2021 140/80 10/03/2021 150/70 09/19/2021 120/70 General Appearance: Well appearing, alert, in no acute distress, well-hydrated, well nourished. andMorbidly obese. Skin: Skin color, texture, turgor normal, no suspicious rashes or lesions. Head: Normocephalic, no masses, lesions, tenderness or abnormalities. Eyes: Anicteric sclera. Pupils are equally round and reactive to light. Extraocular movements are intact. . Ears: External ears, TM's normal, canals clear. Nose/Sinuses: Nares normal, septum midline, mucosa normal, no drainage or sinus tenderness. Oropharynx: Lips, mucosa, and tongue normal, teeth and gums normal, oropharynx normal. Neck: Supple, no adenopathy; thyroid symmetric, normal size, no bruits. Lungs: Lungs clear to auscultation. No wheezing, rhonchi, rales.. Heart: RRR without murmur, gallop, or rubs. No ectopy. Abdomen: Normal abdominal exam, Abdomen soft, non-tender. Bowel sounds normal. No masses, organomegaly. Extremities: No deformities, edema, skin discoloration, clubbing or cyanosis. Good capillary refill. . Musculoskeletal: Spine range of motion normal. Muscular strength intact, No joint swelling, deformitty. Has tenderness to p[alpatin over both heels. Lt>Rt. Peripheral Pulses: Normal. Neurologic: Gait normal. Reflexes normal and symmetric. Sensation to light touch and crainal nerves2-12 intact.. Genitalia: Normal, Penis normal. No urethral discharge. Scrotum normal to palpation. No hernia.. Rectal: Normal exam. Prostate slightly enlarged with smooth firm capsule. Health Maintenance List RSV Vaccine(1 - 1-dose 60+ series) Never done BP Controlled (<130/80) due on 07/27/2022 Covid-19 Vaccine(2022- season) Never done Behavioral Health Screening Never done Annual PCP Team Chronic Disease Visit due on 08/01/2023 Colorectal Cancer Screening due on 09/20/2023 Influenza Vaccine(Season Ended) due on 11/02/2023 Diabetes Screening due on 07/31/2025 DTaP,Tdap,Td Vaccine(3 - Td or Tdap) due on 08/09/2025 Lipid Screening due on 08/01/2027 Prostate Cancer Screening Discussion due on 08/01/2027 Hepatitis C Screening Completed HPV Vaccine Aged Out HIV Screening Discontinued Shingrix Vaccine Discontinued Data reviewed A/P ASSESSMENT/PLAN: 1. Well adult exam - ICD9: V70.0, ICD10: Z00.00 (primary diagnosis) - Counseled on healthy diet and regular exercise - Discussed need for and benefit of weight loss. BMI 42.94 kg/(m^2) - Colorectal cancer screening recommended - agrees to Colonoscopy - Follow up for annual exam in one year - advised on RSV 2. Hypertension, essential - ICD9: 401.9, ICD10: I10 - uncontrolled - Recommend home blood pressure monitoring, to bring results to next visit - Encouraged sodium restriction, DASH or Mediterranean diet - Recommend regular aerobic exercise - Discussed need for and benefit of weight loss. BMI 42.94 kg/(m^2) Check CMP, Lipid and UA 3. Elevated hemoglobin A1c - ICD9: 790.29, ICD10: R73.09 - check A1c 4. Obesity, Class III, BMI 40-49.9 (morbid obesity) (HCC) - ICD9: 278.01, ICD10: E66.01 Weight increasing - Behavioral intervention 5. Cold intolerance - ICD9: 780.99, ICD10: R68.89 - check TSH and CBC 6. Heat intolerance - ICD9: 780.99, ICD10: R68.89 - check TSH and CBC 7. Plantar fasciitis, bilateral - ICD9: 728.71, ICD10: M72.2 - discussed Tx and HEP sheet provided. 8. History of colonic polyps - ICD9: V12.72, ICD10: Z86.010 - consult Gen Surgery 9. Skin cancer screening - ICD9: V76.43, ICD10: Z12.83 - seeing Derm 10. Screening for colon cancer - ICD9: V76.51, ICD10: Z12.11 - as per #8 11. Screening for prostate cancer - ICD9: V76.44, ICD10: Z12.5 Check PSA. F/u in a year for WAE. F/u 3 weeks BP check and if still elevated would start lisinopril 20 mg a day. Brayden Chao MD documented in this encounterAv[facility] Miscellaneous Notes* Telephone Encounter - Millie Villegas LPN - 08/02/2022 8:48 AM EDT Patient notified of results and provider's instructions. Patient verbalizes understanding. Millie Villegas LPN * Telephone Encounter - Brayden Chao MD - 08/01/2022 9:48 PM EDT Let patient know UA, prostate lab, electrolytes, liver and kidney functions were ok. Lipid panel was ok except his good cholesterol (HDL) is low at 31 and goal is >40. Exercise can help raise this. His blood sugar test is elevated at 5.7% but better then a year ago and almost normal. Cont to workon reduced sweets, sugars, carbs and starches in diet. documented in this encounterAv[facility]05-31[facility] History of Present illness Narrative* Brayden Chao MD - 07/31/2022 8:00 AM EDT Chief Complaint Patient presents with: Physical HPI Darci Hamm is a 62 year old male who presents here today for Physical. Office visit - Physical Patient with hx of HTN, obesity, cough syncope, umbilical hernia as well as those reviewed and addressed below and in ROS Has been doing ok. Seen a chiropractor for some low back pain and seems to be improving. Will see Derm for a skin check in October. Office visit - 07/2021 - physical Concerns: Spot on forehead; spots on head; umbilical hernia. 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 Patient with hx of HTN, obesity, cough syncope, umbilical hernia as well as those reviewed and addressed below and in Past medical history, appointments, medications, allergies reviewed. Previous Medical History PAST MEDICAL HISTORY Diagnosis Date Absent testis, acquired 07/27/2021 On the right Arthritis Basal cell carcinoma (BCC) of skin of face 09/13/2021 Above left mid eyebrow. 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 Obesity, Class III, BMI 40-49.9 (morbid obesity) (FORM[facility]) 02/16/2019 Screening for prostate cancer 07/27/2021 Well adult exam 07/27/2021 Last done: 07/27/2021 Previous Surgical History PAST SURGICAL HISTORY Procedure Laterality Date ABDOMINAL SURGERY HX APPENDECTOMY APPENDECTOMY HX COLONOSCOPY FLX DX W/COLLJ SPEC WHEN PFRMD 04/16/2019 Colonoscopy COLONOSCOPY SCREENING 09/19/2021 FRACTURE SURGERY HERNIA REPAIR HX LX UMBILICAL HERNIA REPAIR [facility] PAST SURGICAL HISTORY OF orif left lower leg PAST SURGICAL HISTORY OF amputation left ring finger PAST SURGICAL HISTORY OF removal right testicle due to trauma REPAIR UMBILICAL HERNIA 03/07/2015 SKIN BIOPSY HX Family History FAMILY HISTORY Problem Relation Age of Onset Dementia Mother Coronary Artery Disease Father Diabetes Father type 2 DM Migraines Sister Prostate Cancer Brother Patient Allergies ALLERGIES No Known Allergies Current Medications Current Outpatient Medications on File Prior to Visit Medication Sig peg 3350-Electrolytes (GOLYTELY) 236-22.74-6.74 -5.86 gram suspension Refer to printed patient instructions that will be mailed to you. (Patient not taking: Reported on 10/03/2021 ) naproxen sodium (ANAPROX) 220 mg tablet Take 220 mg by mouth as needed. No current facility-administered medications on file prior to visit. Social History Social History Tobacco Use Smoking status: Never Smokeless tobacco: Current Types: Snuff Vaping Use Vaping Use: Never used Substance Use Topics Alcohol use: No Drug use: No Review of Symptoms REVIEW OF SYSTEMS GENERAL: No weight loss, malaise or fevers HEENT: Negative for frequent or significant headaches, No changes in hearing or vision, no nose bleeds or other nasal problems NECK: Negative for lumps, goiter, pain and significant neck swelling RESPIRATORY: Negative for cough, hemoptysis, wheezing, COPD, dyspnea or shortness of breath CARDIOVASCULAR: Negative for chest pain, leg swelling, hypertension, CHF or palpitations GI: No nausea, vomiting, or diarrhea, No heartburn or reflux symptoms, and no blood : No history of dysuria, blood MUSCULOSKELETAL: see HPI SKIN: Negative for lesions, rash, and itching PSYCH: Negative for sleep disturbance, mood disorder and recent psychosocial stressors HEMATOLOGY/LYMPHOLOGY: Negative for prolonged bleeding, bruising easily or swollen nodes ENDOCRINE: Negative for cold or heat intolerance, polyuria, polydipsia and goiter NEURO: No history of headaches, syncope, paralysis, seizures or tremors EXAM: BP 138/84 Pulse 78 Resp 14 Ht 166 cm (5' 5.35) Wt 115.2 kg (254 lb) BMI 41.81 kg/m Last 4 Encounter Wt Readings: Date: Wt: 07/31/2022 115.2 kg (254 lb) 10/15/2021 115.7 kg (255 lb) 10/04/2021 112.9 kg (249 lb) 10/03/2021 111.6 kg (246 lb) General Appearance: Well appearing, alert, in no acute distress, well-hydrated, well nourished. andObese. Skin: Skin color, texture, turgor normal, no suspicious rashes. Has suspected AK on right side of head near eye. Head: Normocephalic, no masses, lesions, tenderness or abnormalities. Eyes: Anicteric sclera. Pupils are equally round and reactive to light. Extraocular movements are intact. . Ears: External ears, TM's normal, canals clear. Nose/Sinuses: Nares normal, septum midline, mucosa normal, no drainage or sinus tenderness. Oropharynx: Lips, mucosa, and tongue normal, teeth and gums normal, oropharynx normal. Neck: Supple, no adenopathy; thyroid symmetric, normal size, no bruits. Lungs: Lungs clear to auscultation. No wheezing, rhonchi, rales.. Heart: RRR without murmur, gallop, or rubs. No ectopy. Abdomen: Normal abdominal exam, Abdomen soft, non-tender. Bowel sounds normal. No masses, organomegaly. Extremities: No deformities, edema, skin discoloration, Good capillary refill. . Musculoskeletal:Muscular strength intact, No joint swelling, deformity, or tenderness. Peripheral Pulses: Normal. Neurologic: Gait normal. Reflexes normal and symmetric. Sensation to light touch and crainal nerves2-12 intact.. Genitalia: Normal, Penis normal. No urethral discharge. Scrotum normal to palpation. No hernia. Absent right testicle. Rectal: Normal exam. Prostate slightly enlarged with smooth firm capsule. Health Maintenance List DEPRESSION ASSESSMENT Never done COVID-19 VACCINE(1) due on 07/27/2022 BP CONTROLLED (<130/80) due on 07/27/2022 ANNUAL PCP TEAM CHRONIC DISEASE VISIT due on 10/15/2022 INFLUENZA(Season Ended) due on 11/01/2022 COLORECTAL CANCER SCREENING due on 09/20/2023 DIABETES SCREEN due on 07/27/2024 DTAP,TDAP,TD(3 - Td or Tdap) due on 08/09/2025 LIPID SCREEN due on 07/27/2026 PROSTATE CANCER SCREENING DISCUSSION due on 07/27/2026 HEPATITIS C SCREENING Completed HIV SCREENING Discontinued SHINGRIX VACCINE Discontinued Data reviewed A/P ASSESSMENT/PLAN: 1. Well adult exam - ICD9: V70.0, ICD10: Z00.00 (primary diagnosis) - Counseled on healthy diet and regular exercise - Discussed need for and benefit of weight loss. BMI 41.81 kg/(m^2) - Follow up for annual exam in one year - HGB A1C - PSA/PROSTSPECAG DIAG 2. Hypertension, essential - ICD9: 401.9, ICD10: I10 - good control - Continue current medication(s) - Recommended regular aerobic exercise. - Recommend home blood pressure monitoring, to bring results in on next visit - Goal of BP <130/80 Check - COMP METABOLIC PANEL - URINALYSIS, WITH MICROSCOPIC - LIPID PANEL, NONFASTING 3. Elevated hemoglobin A1c - ICD9: 790.29, ICD10: R73.09 Check A1c 4. Obesity, Class III, BMI 40-49.9 (morbid obesity) (HCC) - ICD9: 278.01, ICD10: E66.01 Stable - Behavioral intervention 5. AK (actinic keratosis) - ICD9: 702.0, ICD10: L57.0 - discussed Tx with cryo and verbal consent given. Area treated with cryo with 40 sec thaw phase. Patient tolerated well. - encouraged patient to have derm recheck area when he sees them in October. 6. Screening for prostate cancer - ICD9: V76.44, ICD10: Z12.5 Check - PSA/PROSTSPECAG DIAG 7. Encounter for screening for diabetes mellitus - ICD9: V77.1, ICD10: Z13.1 Check - HGB A1C F/u in a year WAE or sooner if issues. Brayden Chao MD documented in this encounterAv[facility] Miscellaneous Notes* Telephone Encounter - Terri Romero PA-C - 11/22/2021 2:49 PM EDT Noted. * Telephone Encounter - Sigrid Wilson LPN - 11/22/2021 2:25 PM EDT Rhea from [facility] sleep center calling to report pt canceled appt & is going else where to have completed. Sigrid Wilson LPN * Telephone Encounter - Svitlana Ridley LPN - 11/20/2021 10:01 AM EDT Pt notified of provider message. Pt will check with insurance to see who they want pt to go throughfor titration study. Pt will call back when he has this information. Svitlana Ridley LPN * Telephone Encounter - Millie Villegas LPN - 11/19/2021 12:19 PM EDT Left message for pt to contact office. Millie Villegas LPN * Telephone Encounter - Terri Romero PA-C - 11/19/2021 11:58 AM EDT Sleep study shows evidence of sever sleep apnea. I would like to get a titration study so that we can see what CPAP setting are needed. Also please help get patient set up with sleep medicine. Order placed. Consult to sleep med still active in chart from previous note. Terri Romero PA-C documented in this encounterAvita [facility]08-29-2022 Miscellaneous Notes* Addendum Note - Terri Romero PA-C - 10/29/2021 11:41 AM EDTAddended by: TERRI SMITH on: 10/29/2021 11:41 AM Modules accepted: Orders * Telephone Encounter - Terri Romero PA-C - 10/29/2021 11:41 AM EDT What was scheduled is the home test send out, but patient states it wasn't going to be covered. Consult to sleep med ordered * Telephone Encounter - Alejandra Phan - 10/29/2021 11:32 AM EDT This is scheduled. Thank you, Alejandra Phan * Telephone Encounter - Millie Villegas LPN - 10/29/2021 9:44 AM EDT Pt confirms that insurance will not pay for home sleep study or sleep study in the lab. States he was just going to pay the $900 for the testing. Pt would like referral to sleep medicine. Pt is awarescheduling will contact him to schedule once order has been placed. Millie Villegas LPN * Telephone Encounter - Terri Romero PA-C - 10/29/2021 9:37 AM EDT Other option is we set him up with sleep medicine specialist and see if they can get insurance to cover the testing. Terri Romero PA-C * Telephone Encounter - Azul Ellsworth Pss - 10/19/2021 12:44 PM EDT 1st attempt to speak with patient. Patient states that he will have to pay out of pocket for this test as insurance will not cover the cost. Patient waiting on new credit card to arrive to pay for HSAT test. Patient will call to schedule. * Telephone Encounter - Millie Villegas LPN - 10/01/2021 10:54 AM EDT Please assist pt in scheduling home sleep study. Millie Villegas LPN * Telephone Encounter - Terri Romero PA-C - 10/01/2021 10:26 AM EDT Order placed. * Telephone Encounter - Millie Villegas LPN - 10/01/2021 10:12 AM EDT Spoke with pt and he is agreeable to do home sleep study. Aware he will be contacted by scheduling to set this up. Millie Villegas LPN * Telephone Encounter - Mary Jane Mc Ma - 09/28/2021 10:47 AM EDT Tried calling pt but unable to LM due to VM being full. Will try calling again later. Mary Jane Mc Ma * Telephone Encounter - Terri Romero PA-C - 09/28/2021 10:27 AM EDT Let patient know that insurance is denying sleep study to be done in lab. They want a home sleep study done first. Would they be willing to do home test? Terri Romero PA-C * Telephone Encounter - Terri Romero PA-C - 09/28/2021 10:27 AM EDT ----- Message from Chang Tinoco sent at 09/28/2021 10:00 AM EDT ----- Regarding: Confidential // Denial: PtJocelynn Chint // Good morning Terri, The below information is for a peer to peer/appeal for a service you have requested. Peer to Peer Information Is a Peer to Peer available?Yes Does Peer to Peer need to be scheduled?No Who can schedule?N/A Who can complete the Peer to Peer?DoctorSANDY, MECHANISM ASSEMBLER Allowable Peer to Peer timeframe?10 calendar days from 09/25/2021 Payer Information Insurance Name[employer] Phone [phone] Case #[id number] Appeal Information Appeal Address[address] [place] [address] Appeal Special Appeal InstructionsInclude: coversheet with patient's and case information, a formal appealletter and attach any pertinent supporting clinical documentation. Allowable Timeframe for Mszcaf555 calendar days from 09/25/2021 Facility Information [facility] [id number] Tax ID#[id number] Patient Demographics Patient Last NameLITT Patient First NameJOEL Date of Birth1960 [id number] Clinical/Denial Information Ordering ProviderTerri Romero Approved Services N/A Denied Services 13371 - POLYSOMNOGRAM (PSG) Alternative Recommendation : N/A Date of Service (DOS)TBS Denial Reason Your doctor told us that you have severe fatigue and fci snoring. Your doctor ordered a sleep test to see how a person breathes when asleep. Your doctor wants this test to be donein a sleep lab setting. It is common for people to have this test done at home. You need to have a reason why this test cannot be done at home. These reasons might include lung or heart disease. We reviewed the notes we have. The notes do not show that you cannot have this test done at home. Based on the information we have, this test is not medically necessary. Clinical Documentation ProvidedNot listed For questions, please contact Barbara Dash ( ) Thanks, Chang Tinoco documented in this encounterAvita [facility]-15-[facility] History of Present illness Narrative* Terri Romero PA-C - 10/15/2021 9:23 AM EDT Chief Complaint Patient presents with: Suture Removal: forehead HPI Darci Hamm is a 61 year old male who presents here today for suture removal. Patient had a lesion re excised by Dr. Chao on 10/04 for a basal cell carcinoma. Patient hasn't had any issues with the area. Denies concerns. Past medical history, appointments, medications, allergies reviewed. Previous Medical History PAST MEDICAL HISTORY Diagnosis Date Absent testis, acquired 07/27/2021 On the right Arthritis Basal cell carcinoma (BCC) of skin of face 09/13/2021 Above left mid eyebrow. 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 Obesity, Class III, BMI 40-49.9 (morbid obesity) ([facility]) 02/16/2019 Screening for prostate cancer 07/27/2021 Well adult exam 07/27/2021 Last done: 07/27/2021 Previous Surgical History PAST SURGICAL HISTORY Procedure Laterality Date ABDOMINAL SURGERY HX APPENDECTOMY APPENDECTOMY HX COLONOSCOPY FLX DX W/COLLJ SPEC WHEN PFRMD 04/16/2019 Colonoscopy COLONOSCOPY SCREENING 09/19/2021 FRACTURE SURGERY HERNIA REPAIR HX LX UMBILICAL HERNIA REPAIR [facility] PAST SURGICAL HISTORY OF orif left lower leg PAST SURGICAL HISTORY OF amputation left ring finger PAST SURGICAL HISTORY OF removal right testicle due to trauma REPAIR UMBILICAL HERNIA 03/07/2015 SKIN BIOPSY HX Family History FAMILY HISTORY Problem Relation Age of Onset Coronary Artery Disease Father Patient Allergies ALLERGIES No Known Allergies Current Medications Current Outpatient Medications on File Prior to Visit Medication Sig naproxen sodium (ANAPROX) 220 mg tablet Take 220 mg by mouth as needed. peg 3350-Electrolytes (GOLYTELY) 236-22.74-6.74 -5.86 gram suspension Refer to printed patient instructions that will be mailed to you. (Patient not taking: Reported on 10/03/2021 ) No current facility-administered medications on file prior to visit. Social History Social History Tobacco Use Smoking status: Never Smokeless tobacco: Current Types: Snuff Vaping Use Vaping Use: Never used Substance Use Topics Alcohol use: No Drug use: No Review of Symptoms REVIEW OF SYSTEMS See hpi EXAM: BP 138/86 (BP Site: Left Arm, BP Position: Sitting, BP Cuff Size: Large Adult) Pulse 60 Temp 36.3 C (97.4 F) Resp 18 Wt 115.7 kg (255 lb) BMI 41.16 kg/m General Appearance: Well appearing, alert, in no acute distress, well-hydrated, well nourished.. Skin: 5 sutures noted. No surround erythema or swelling. No drainage. . Sutures removed and 2 steristrips placed. Health Maintenance List COVID-19 VACCINE(1) due on 07/27/2022 INFLUENZA(1) due on 11/01/2021 BP CONTROLLED (<130/80) due on 07/27/2022 DEPRESSION SCREENING due on 07/27/2022 ANNUAL PCP TEAM CHRONIC DISEASE VISIT due on 10/15/2022 COLORECTAL CANCER SCREENING due on 09/20/2023 DIABETES SCREEN due on 07/27/2024 DTAP,TDAP,TD(3 - Td or Tdap) due on 08/09/2025 LIPID SCREEN due on 07/27/2026 PROSTATE CANCER SCREENING DISCUSSION due on 07/27/2026 HEPATITIS C SCREENING Completed HIV SCREENING Discontinued SHINGRIX VACCINE Discontinued Data reviewed ASSESSMENT/PLAN: 1. Visit for suture removal - ICD9: V58.32, ICD10: Z48.02 (primary diagnosis) Care instructions given Follow up prn 2. Basal cell carcinoma (BCC) of skin of face, unspecified part of face - ICD9: 173.31, ICD10: C44.310 As above 3. Epidermal inclusion cyst - ICD9: 706.2, ICD10: L72.0 As above. Terri Romero PA-C documented in this encounterAvita [facility]08-10-2022 History of Present illness Narrative* Mary Schuster PA-C - 10/10/2021 10:14 PM EDT FOLLOW UP VISIT - ENDOSCOPY NAME: Darci Hamm [facility] NO.: [id number] DATE OF SERVICE: 10/03/2021 : 1960 REFERRING PHYSICIAN: Brayden Chao MD Darci is a patient I am following with Dr. Edwards for screening colonoscopy. Dr. Edwards performed lower endoscopy on 09/19/21. The patient was found to have a small polyp in the rectum which was removed. Pathology demonstrated: FINAL DIAGNOSIS A. Rectum, polyp, biopsy: - Tubular adenoma The patient notes no complaints since the procedure. VITALS: Blood pressure 150/70, pulse 76, temperature 36.3 C (97.4 F), height 167.6 cm (5' 6), weight 111.6 kg (246 lb), SpO2 94 %. General: patient is alert, cooperative, pleasant and in no acute distress On examination, the abdomen is benign. Assessment IMPRESSION: s/p colonoscopy with polypectomy-tubular adenoma PLAN: The operative findings and pathology report were reviewed with the patient, and the patient has hadthe opportunity to ask questions and have questions answered. If the patient notes any problems or changes in bowel function, the patient should contact me immediately. Otherwise I recommend follow up endoscopy in 2-3 years based on prep and prior history of polyps. Patient verbalized understanding of all above and agreed with the plan Diagnoses: (D36.9) Tubular adenoma (primary encounter diagnosis) I spent a total of 22 minutes on the date of the service which included preparing to see the patient, [id number] patient care, completing clinical documentation, obtaining and/or reviewing separately obtained history, counseling and educating the patient/family/caregiver, independently interpretin g results (not separately reported), and communicating results to the patient/family/caregiver. Mary Schuster PA-C documented in this encounterAvita [facility]08-10-2022 Miscellaneous Notes* Telephone Encounter - Ryder Traylor MA - 10/10/2021 2:27 PM EDT Patient notified and voiced understanding. Ryder Traylor MA * Telephone Encounter - Danitza Del Rio Ma - 10/09/2021 3:49 PM EDT Tried calling phone no answer and voicemail was full Danitza Del Rio Ma * Telephone Encounter - Brayden Chao MD - 10/09/2021 3:01 PM EDT Patient know the repeat biopsy was negative for any residual cancer. There was a ruptured epidermoid cyst which is benign and most likely what I saw and was not able to get on the initial biopsy. documented in this encounterAvita Health [facility]08-09-2022 NoteA. Skin, forehead, reexcision: -Skin with scar and reactive changes compatible with prior procedure. -Ruptured epidermoid cyst. MORENA / deniz 2CLicking [facility] [id number] Procedure note* Brayden Chao MD - 10/04/2021 7:43 PM EDTProcedure(s): SKIN LESION BIOPSY Pre-Procedure Diagnose(s): Basal cell carcinoma (BCC) of skin of face, unspecified part of face Post-Procedure Diagnose(s): Basal cell carcinoma (BCC) of skin of face, unspecified part of face UNIVERSAL PROTOCOL / SAFETY CHECKLIST Procedure to be Performed: skin cancer excision Sign In: A Moment of CARE was completed. Personnel directly involved with the procedure wore the appropriate PPE (Personal Protective Equipment). Patient/Surrogate Stated/Verified: PATIENT VERIFIED(optional for EMERGENT procedures): Patient name, Date of , Relevant allergies and The intended procedure Time Out Communication: Intended patient and procedure match the source documents. Consent documented and matches the intended procedure. Correct side/site marked and visible. Medications required for procedure verified. No implant(s) inserted. Sign Out: SIGN OUT (optional for EMERGENT procedures): All specimen containers correctly labeled. All instruments, equipment, possible retained foreign bodies accounted for. Post-procedure follow-up management communicated and Plan of Care Visit completed when applicable. Area was cleansed with betadine and alcohol then anesthetized with 2% Lido without Epi. The area was draped in sterile fashion. Lesion was excised in an elliptical fashion with a #15 blade a smaller deeper section medially was also excised.. Electrocaughtery set at 28 was used to assist in hemostasis. The margins were re-approximated using 3-0 Ethilon with 5 interrupted mattress sutures. The areawas cleansed and antibiotic ointment and a sterile bandage was applied. Patient tolerated well and minimal blood loss. Lesion size #1: 1.8 cm x 0.5 cm Lesion #2: 0.8 cm x 0.5 cm Brayden Chao MD documented in this encounterAvita Health [facility]08-04-2022 History of Present illness Narrative* Brayden Chao MD - 10/04/2021 8:00 AM EDT Chief Complaint Patient presents with: Excision HPI Darci Hamm is a 61 year old male who presents here today for Re-excision of Basal Cell on Forehead. Patient had lesion removed from the left forehead a few weeks ago and here for re-excision for completeness. Past medical history, appointments, medications, allergies reviewed. Previous Medical History PAST MEDICAL HISTORY Diagnosis Date Absent testis, acquired 07/27/2021 On the right Arthritis Basal cell carcinoma (BCC) of skin of face 09/13/2021 Above left mid eyebrow. 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 Obesity, Class III, BMI 40-49.9 (morbid obesity) (HCC) 02/16/2019 Screening for prostate cancer 07/27/2021 Well adult exam 07/27/2021 Last done: 07/27/2021 Previous Surgical History PAST SURGICAL HISTORY Procedure Laterality Date ABDOMINAL SURGERY HX APPENDECTOMY APPENDECTOMY HX COLONOSCOPY FLX DX W/COLLJ SPEC WHEN PFRMD 04/16/2019 Colonoscopy COLONOSCOPY SCREENING 09/19/2021 FRACTURE SURGERY HERNIA REPAIR HX LX UMBILICAL HERNIA REPAIR [facility] PAST SURGICAL HISTORY OF orif left lower leg PAST SURGICAL HISTORY OF amputation left ring finger PAST SURGICAL HISTORY OF removal right testicle due to trauma REPAIR UMBILICAL HERNIA 03/07/2015 SKIN BIOPSY HX Family History FAMILY HISTORY Problem Relation Age of Onset Coronary Artery Disease Father Patient Allergies ALLERGIES No Known Allergies Current Medications Current Outpatient Medications on File Prior to Visit Medication Sig peg 3350-Electrolytes (GOLYTELY) 236-22.74-6.74 -5.86 gram suspension Refer to printed patient instructions that will be mailed to you. (Patient not taking: Reported on 10/03/2021 ) naproxen sodium (ALEVE) 220 mg tablet Take 220 mg by mouth as needed. No current facility-administered medications on file prior to visit. Social History Social History Tobacco Use Smoking status: Never Smoker Smokeless tobacco: Current User Types: Snuff Vaping Use Vaping Use: Never used Substance Use Topics Alcohol use: No Drug use: No Review of Symptoms REVIEW OF SYSTEMS EXAM: BP 140/80 (BP Site: Left Arm, BP Position: Sitting, BP Cuff Size: Large Adult) Pulse 60 Resp 16 Wt 112.9 kg (249 lb) BMI 40.19 kg/m General Appearance: Well appearing, alert, in no acute distress, well-hydrated, well nourished.. Skin: healed scar over left eye brow.. Health Maintenance List COVID-19 VACCINE(1) due on 07/27/2022 INFLUENZA(1) due on 11/01/2021 BP CONTROLLED (<130/80) due on 07/27/2022 DEPRESSION SCREENING due on 07/27/2022 ANNUAL PCP TEAM CHRONIC DISEASE VISIT due on 09/19/2022 DIABETES SCREEN due on 07/27/2024 DTAP,TDAP,TD(3 - Td or Tdap) due on 08/09/2025 LIPID SCREEN due on 07/27/2026 PROSTATE CANCER SCREENING DISCUSSION due on 07/27/2026 COLORECTAL CANCER SCREENING due on 09/20/2031 HEPATITIS C SCREENING Completed HIV SCREENING Discontinued SHINGRIX VACCINE Discontinued Data reviewed A/P ASSESSMENT/PLAN: 1. Basal cell carcinoma (BCC) of skin of face, unspecified part of face - ICD9: 173.31, ICD10: C44.310 - Re-exesion as per procedure note. - SURGICAL PATHOLOGY Brayden Chao MD documented in this encounterAvita Health [facility]08-03-2022 Instructions* Patient Instructions* Mary Schuster PA-C - 10/03/2021 10:58 AM EDT The following instructions are important for you related to your office visit today with the [facility] General Surgeons. INSTRUCTIONS FOLLOWING A POLYP FOUND AT COLONOSCOPY You were found to have an adenomatous colon polyp. I recommend you undergo repeat endoscopy in 2-3 years based on prep and prior history of polyps. If you note bleeding, change in bowel habits, or other suspicious colon related symptoms before that time, those symptoms should be evaluated as necessary. If you have any difficulties or concerns, you should contact our office immediately. If you note any additional difficulties, questions, or concerns, you should contact our office immediately @ [phone] and ask to be transferred to the General Surgery department. documented in this encounterAvita Health [facility]07-20-2022 History of Present illness Narrative* Terri Romero PA-C - 09/19/2021 9:28 AM EDT Chief Complaint Patient presents with: Suture Removal: forehead HPI Darci Hamm is a 61 year old male who presents here today for Above Complaints.. Patient is here for suture removal from basal cell carcinoma on his forehead. Is scheduled next month for repeat excision for borders. Patient had his colonoscopy this morning. While sedated he had 2 dips into 80s on his pulse ox. STOP BANG Questionnaire 1. Snoring Do you snore loudly (louder than talking or loud enough to be heard through closed doors)? YES 2. Tired Do you often feel tired, fatigued, or sleepy during daytime? YES 3. Observed Has anyone observed you stop breathing during your sleep? NO 4. Blood Pressure Do you have or are you being treated for high blood pressure? NO 5. BMI BMI more than 35 kg/m2? YES 6. Age Age over 50 yr old? YES 7. Neck circumference Neck circumference greater than 40 cm? YES 8. Gender Gender male? YES * Neck circumference is measured by staff High risk of ROBSON: answering yes to three or more items Low risk of ROBSON: answering yes to less than three items Past medical history, appointments, medications, allergies reviewed. Previous Medical History PAST MEDICAL HISTORY Diagnosis Date Absent testis, acquired 07/27/2021 On the right Arthritis Basal cell carcinoma (BCC) of skin of face 09/13/2021 Above left mid eyebrow. 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 Obesity, Class III, BMI 40-49.9 (morbid obesity) (FORM[facility]LY [facility]) 02/16/2019 Screening for prostate cancer 07/27/2021 Well adult exam 07/27/2021 Last done: 07/27/2021 Previous Surgical History PAST SURGICAL HISTORY Procedure Laterality Date ABDOMINAL SURGERY HX APPENDECTOMY APPENDECTOMY HX COLONOSCOPY FLX DX W/COLLJ SPEC WHEN PFRMD 04/16/2019 Colonoscopy FRACTURE SURGERY HERNIA REPAIR HX LX UMBILICAL HERNIA REPAIR [facility] PAST SURGICAL HISTORY OF orif left lower leg PAST SURGICAL HISTORY OF amputation left ring finger PAST SURGICAL HISTORY OF removal right testicle due to trauma REPAIR UMBILICAL HERNIA 03/07/2015 SKIN BIOPSY HX Family History FAMILY HISTORY Problem Relation Age of Onset Coronary Artery Disease Father Patient Allergies ALLERGIES No Known Allergies Current Medications Current Outpatient Medications on File Prior to Visit Medication Sig naproxen sodium (ALEVE) 220 mg tablet Take 220 mg by mouth as needed. peg 3350-Electrolytes (GOLYTELY) 236-22.74-6.74 -5.86 gram suspension Refer to printed patient instructions that will be mailed to you. Current Facility-Administered Medications on File Prior to Visit Medication fentaNYL 50 mcg/mL 25-100 mcg injection (SUBLIMAZE) midazolam (PF) 1-5 mg injection (VERSED) diphenhydrAMINE 12.5-50 mg injection (BENADRYL) Social History Social History Tobacco Use Smoking status: Never Smoker Smokeless tobacco: Current User Types: Snuff Vaping Use Vaping Use: Never used Substance Use Topics Alcohol use: No Drug use: No Review of Symptoms REVIEW OF SYSTEMS see hpi EXAM: BP 120/70 (BP Site: Left Arm, BP Position: Sitting, BP Cuff Size: Large Adult) Pulse 60 Temp 36.3 C (97.4 F) Resp 16 Wt 111.6 kg (246 lb) BMI 40.31 kg/m General Appearance: Well appearing, alert, in no acute distress, well-hydrated, well nourished. andObese. Skin: [address]. No swelling or significant erythema, no drainage. Sutures removed and steri strips placed.. Health Maintenance List COVID-19 VACCINE(1) due on 07/27/2022 INFLUENZA(1) due on 11/01/2021 BP CONTROLLED (<130/80) due on 07/27/2022 DEPRESSION SCREENING due on 07/27/2022 ANNUAL PCP TEAM CHRONIC DISEASE VISIT due on 09/05/2022 DIABETES SCREEN due on 07/27/2024 DTAP,TDAP,TD(3 - Td or Tdap) due on 08/09/2025 LIPID SCREEN due on 07/27/2026 PROSTATE CANCER SCREENING DISCUSSION due on 07/27/2026 COLORECTAL CANCER SCREENING due on 09/20/2031 HEPATITIS C SCREENING Completed HIV SCREENING Discontinued SHINGRIX VACCINE Discontinued Data reviewed ASSESSMENT/PLAN: 1. Visit for suture removal - ICD9: V58.32, ICD10: Z48.02 (primary diagnosis) Sutures removed without incident. Keep f/u as scheduled 2. Basal cell carcinoma (BCC) of skin of face, unspecified part of face - ICD9: 173.31, ICD10: C44.310 As above 3. Snoring - ICD9: 786.09, ICD10: R06.83 Set up for sleep testing. 4. Hypersomnia - ICD9: 780.54, ICD10: G47.10 As #3 Terri Romero PA-C documented in this encounterAvita Health [facility]07-20-2022 Nurse Note* Sienna Muniz RN - 09/19/2021 8:30 AM EDT Pt received in PACU. Pt moderately drowsy, but arouses easily. Denies pain or nausea. Abd soft and non distended. Sienna Muniz RN documented in this encounterAvita Health [facility]07-20-2022 History and physical note * Kerline Edwards MD - 09/19/2021 8:00 AM EDT HISTORY AND PHYSICAL Darci Rashi Noris 1960 REFERRING PHYSICIAN: Kerline Edwards MD CHIEF COMPLAINT: No chief complaint on file. HPI: The patient is a 61 year old male presents for surveillance colonoscopy for history of colon polyps The patient denies blood in stools, denies abdominal pain, and denies changes in bowel habits. The patient notes no colon cancer in immediate family. The patient has had previous colonoscopy 2019 PAST MEDICAL HISTORY Diagnosis Date Absent testis, acquired 07/27/2021 On the right Arthritis Basal cell carcinoma (BCC) of skin of face 09/13/2021 Above left mid eyebrow. 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 Obesity, Class III, BMI 40-49.9 (morbid obesity) (HCC) 02/16/2019 Screening for prostate cancer 07/27/2021 Well adult exam 07/27/2021 Last done: 07/27/2021 PAST SURGICAL HISTORY Procedure Laterality Date ABDOMINAL SURGERY HX APPENDECTOMY APPENDECTOMY HX COLONOSCOPY FLX DX W/COLLJ SPEC WHEN PFRMD 04/16/2019 Colonoscopy FRACTURE SURGERY HERNIA REPAIR HX LX UMBILICAL HERNIA REPAIR [facility] PAST SURGICAL HISTORY OF orif left lower leg PAST SURGICAL HISTORY OF amputation left ring finger PAST SURGICAL HISTORY OF removal right testicle due to trauma REPAIR UMBILICAL HERNIA 03/07/2015 SKIN BIOPSY HX Current Outpatient Medications Medication Sig peg 3350-Electrolytes (GOLYTELY) 236-22.74-6.74 -5.86 gram suspension Refer to printed patient instructions that will be mailed to you. naproxen sodium (ALEVE) 220 mg tablet Take 220 mg by mouth as needed. ALLERGIES: Patient has no known allergies. PERSONAL HISTORY: Social History Tobacco Use Smoking status: Never Smoker Smokeless tobacco: Current User Types: Snuff Vaping Use Vaping Use: Never used Substance Use Topics Alcohol use: No Drug use: No FAMILY HISTORY Problem Relation Age of Onset Coronary Artery Disease Father REVIEW OF SYSTEMS: General - denies fevers HEENT - denies trauma/infections Resp - denies coughing up blood, denies breathing difficulties Cardiac - denies chest pain GI - denies abdominal pain, denies blood in stools, denies vomiting up of blood - denies blood in urine Endocrine - denies diabetes Psych - denies hallucinations Physical examination: Vital signs in chart, reviewed and noted by me General WD/WN WM in no apparent distress, alert and oriented Head Normocephalic. EOM intact with sclera clear. Mouth with mucus membranes moist. Neck - supple with no jugular venous distention noted. Trachea is midline. Lungs clear to auscultation. Normal breath sounds. No rales/rhonchi/wheezing noted. Heart normal heart sounds. No rubs/clicks/murmurs noted. Regular rate. Abdomen soft and benign. Extremities no pitting edema noted. Skin Normal skin integrity. Neurological non focal Psych calm and appropriate Impression: surveillance colonoscopy for history of colon polyps, Discussion/Plan/Recommendations: I have discussed the above with the patient. I have offered colonoscopy , possible biopsies I have explained the procedure to the patient. I have counseled the patient as to the risks of the procedure, including but not limited to: infection, bleeding, injury to any intrabdominal organs such as liver/spleen, perforation of the GI tract,inability to complete the procedure, complications of anesthesia, etc. the patient understands. The patient was offered a surgery/procedure at a [facility]. The provider and patient have discussed in detail the risk of exposure to and/or potential harm posed by the COVID-19 viruswith having a surgery/procedure at this time versus the risk of delaying the surgery/procedure. It is not possible to know either the risk of delaying the surgery or procedure or chance of getting aninfection with perfect accuracy, but a joint decision was made between the patient and the providerto proceed at this time with the scheduled surgery/procedure. The patient wishes to proceed. I have answered all questions to the patient s satisfaction and the patient has no further questions. Diagnoses: (Z86.010) History of colonic polyps Kerline Edwards MD * Kerline Edwards MD - 09/19/2021 7:58 AM EDT UPDATED PROCEDURAL SEDATION HISTORY AND PHYSICAL EXAMINATION SERVICE DATE: 09/19/2021 SERVICE TIME: 8:05 PHYSICAL EXAM MUST BE COMPLETED ON ADMISSION PROCEDURE: colonoscopy possible biopsies Procedure Indications: history of colon polyps The History and Physical (completed in the past 30 days) has been reviewed and the patient has beenexamined. The contents accurately reflect the patient's condition with the following additions or revisions since the H&P was completed. ASA Class: ASA Class:: Patient with severe systemic disease Examination indicates no changes. AIRWAY: Airway Visualization of Uvula: Yes Mouth opening greater than 2 fingerbreadths: Yes Neck Full Range of Motion: Yes LUNGS: Lungs clear to auscultation CARDIAC: Regular rhythm,Regular rate Provisional Diagnosis/Treatment Plan: colonoiscopy possible biopsies SEDATION GOAL: Moderate This H&P can be found in the Electronic Medical Record. SIGNATURE: Kerline Edwards MD PATIENT NAME: Darci Hamm DATE: September 19, 2021 TIME: 8:05 AM documented in this encounter[facility] Miscellaneous Notes* Telephone Encounter - Chantell Guy LPN - 09/14/2021 8:45 AM EDT Spoke with pt and information listed below given. Pt verbalizes understanding. Pt transferred to outsole scheduler [facility] for apt to be booked on 10-04-21 8 am for 40 minutes. Chantell Guy LPN * Telephone Encounter - Ryder Traylor MA - 09/14/2021 8:36 AM EDT Gave patient results and instructions. We got disconnected. Patient needs scheduled with Dr. Chao in 4-5 weeks. Please give 40 minutes and you can open slot if needed. Ryder Traylor MA * Telephone Encounter - Brayden Chao MD - 09/13/2021 10:14 PM EDT Let patient know the biopsy was basal cell cancer. The path report says it appears it was excised. However I'm not convinced. On biopsy there appeared to be a small area left but due to the bleeding I was not able to completely remove. I wanted to make sure this was not melanoma incase I needed himto see a surgeon. I would like to have him come back in 4-5 weeks to re-excise to make sure it has all been removed. 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 Personnel directly involved with the procedure wore the appropriate PPE (Personal Protective Equipment). Patient/Surrogate Stated/Verified: PATIENT VERIFIED(optional for EMERGENT procedures): Patient name, Date of , Relevant allergies and The intended procedure Time Out Communication: Intended patient and procedure match the source documents. Consent documented and matches the intended procedure. Correct side/site marked and visible. Medications required for procedure verified. No implant(s) inserted. Sign Out: SIGN OUT (optional for EMERGENT procedures): All specimen containers correctly labeled. All instruments, equipment, possible retained foreign bodies accounted for. Post-procedure follow-up management communicated and Plan of Care Visit completed when applicable. Area was cleansed with betadine and alcohol then anesthetized with 2% Lido without Epi. The area was draped in sterile fashion. Lesion was excised in an elliptical fashion with a #15 blade. Electrocaughtery set at 28 was used to assist in hemostasis. due to some small bleeders two figure 8 sutures were placed using 4-0 Vicryl. The margins were re-approximated using 3-0 Ethilon with 5 interrupted mattress sutures. The area was cleansed and antibiotic ointment and a sterile bandage was applied. Patient tolerated well and minimal blood loss. Lesion size 1.9 cm x 1.1 cm Brayden Chao MD documented in this encounterAvita [facility]07-[facility]22 History of Present illness Narrative* Brayden Chao MD - 09/05/2021 7:13 PM EDT Chief Complaint Patient presents with: Lesion Removal HPI Darci Hamm is a 61 year old male who presents here today for Lesion Removal on forehead. abnormal lesion noted at last office visit here for excisional biopsy. Past medical history, appointments, medications, allergies reviewed. Previous Medical History PAST MEDICAL HISTORY Diagnosis Date Absent testis, acquired 07/27/2021 On the right Arthritis Cough syncope 02/16/2019 Diastasis of rectus abdominis 04/07/2019 Elevated hemoglobin A1c 07/28/2021 Hernia, umbilical 03/07/2015 Hypertension Hypertension, essential 02/16/2019 Obesity, Class III, BMI 40-49.9 (morbid obesity) ([facility]) 02/16/2019 Screening for prostate cancer 07/27/2021 Well adult exam 07/27/2021 Last done: 07/27/2021 Previous Surgical History PAST SURGICAL HISTORY Procedure Laterality Date ABDOMINAL SURGERY HX APPENDECTOMY APPENDECTOMY HX COLONOSCOPY FLX DX W/COLLJ SPEC WHEN PFRMD 04/16/2019 Colonoscopy FRACTURE SURGERY HERNIA REPAIR HX LX UMBILICAL HERNIA REPAIR [facility] PAST SURGICAL HISTORY OF orif left lower leg PAST SURGICAL HISTORY OF amputation left ring finger PAST SURGICAL HISTORY OF removal right testicle due to trauma REPAIR UMBILICAL HERNIA 03/07/2015 Family History FAMILY HISTORY Problem Relation Age of Onset Coronary Artery Disease Father Patient Allergies ALLERGIES No Known Allergies Current Medications Current Outpatient Medications on File Prior to Visit Medication Sig peg 3350-Electrolytes (GOLYTELY) 236-22.74-6.74 -5.86 gram suspension Refer to printed patient instructions that will be mailed to you. naproxen sodium (ALEVE) 220 mg tablet Take 220 mg by mouth as needed. No current facility-administered medications on file prior to visit. Social History Social History Tobacco Use Smoking status: Never Smoker Smokeless tobacco: Current User Types: Snuff Vaping Use Vaping Use: Never used Substance Use Topics Alcohol use: No Drug use: No Review of Symptoms REVIEW OF SYSTEMS See HPI EXAM: BP 136/84 (BP Site: Right Arm, BP Position: Sitting, BP Cuff Size: Large Adult) Wt 114.3 kg (252 lb) BMI 41.30 kg/m General Appearance: Well appearing, alert, in no acute distress, well-hydrated, well nourished.. Skin: Has a atypical mole on the left forehead. . Health Maintenance List COVID-19 VACCINE(1) due on 07/27/2022 INFLUENZA(1) due on 11/01/2021 ANNUAL PCP TEAM CHRONIC DISEASE VISIT due on 07/27/2022 BP CONTROLLED (<130/80) due on 07/27/2022 DEPRESSION SCREENING due on 07/27/2022 DIABETES SCREEN due on 07/27/2024 DTAP,TDAP,TD(3 - Td or Tdap) due on 08/09/2025 LIPID SCREEN due on 07/27/2026 PROSTATE CANCER SCREENING DISCUSSION due on 07/27/2026 COLORECTAL CANCER SCREENING due on 07/12/2030 HEPATITIS C SCREENING Completed HIV SCREENING Discontinued SHINGRIX VACCINE Discontinued Data reviewed A/P ASSESSMENT/PLAN: 1. 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 - See procedure note. - Patient given care sheet - SURGICAL PATHOLOGY F/u 10-12 days for suture removal or sooner if issues as discussed. Brayden Chao MD documented in this encounterAvita [facility]06-06-2022 Miscellaneous Notes* Telephone Encounter - Kinjal Yi - 08/06/2021 5:00 PM EDT Patient is scheduled 09/19/[address] Edwards at [facility] per patient request. documented in this encounterAvita [facility]06-01-2022 Miscellaneous Notes* Telephone Encounter - Zoya Griffith - 08/01/2021 1:34 PM EDT Created in error documented in this encounterAvita [facility]06-01-2022 Miscellaneous Notes* Telephone Encounter - Mary Jane Mc Ma - 08/01/2021 10:33 AM EDT Call to pt and notified him of results below. Pt verbalized understanding. Going to cut out his . Mary Jane Mc Ma * Telephone Encounter - Danitza Del Rio Ma - 07/28/2021 8:41 AM EDT Tried calling patient no answer and vm was full so not able to leave message Danitza Del Rio Ma * Telephone Encounter - Brayden Chao MD - 07/28/2021 8:24 AM EDT Let patient know UA, Lipid panel, PSA and CMP were ok. Blood sugar test slightly elevated indicating risk for developing diabetes. Patient should try to work on diet with reduced sugars, carbs and starches. documented in this encounterAvita [facility]05-31-2022 Miscellaneous Notes* Telephone Encounter - Kerline Edwards MD - 07/31/2021 4:53 PM EDT Images from the original note were not included. Kinjal Edwards MD; Zoya Griffith 1st attempt to reach patient. Unable to leave voicemail as mailbox was full and no MyChart is set up. Will try again later. Kinjal Yi documented in this encounterAvita [facility]09-14-2015 History of Past illness Narrative* Problem Noted Date Resolved Date Umbilical hernia without obstruction or gangrene 11/14/2014 07/27/2021 documented as of this encounter (statuses as of 07/27/2021) [place] [id number] History of Past illness Narrative* Problem Noted Date Resolved Date Umbilical hernia without obstruction or gangrene 11/14/2014 07/27/2021 documented as of this encounter (statuses as of 07/31/2021) [address]14-2015 History of Past illness Narrative* Problem Noted Date Resolved Date Umbilical hernia without obstruction or gangrene 11/14/2014 07/27/2021 documented as of this encounter (statuses as of 08/01/2021) [place] [id number] History of Past illness Narrative* Problem Noted Date Resolved Date Umbilical hernia without obstruction or gangrene 11/14/2014 07/27/2021 documented as of this encounter (statuses as of 08/01/2021) [address]14-2015 History of Past illness Narrative* Problem Noted Date Resolved Date Umbilical hernia without obstruction or gangrene 11/14/2014 07/27/2021 documented as of this encounter (statuses as of 09/14/2021) [address]14-2015 History of Past illness Narrative* Problem Noted Date Resolved Date Umbilical hernia without obstruction or gangrene 11/14/2014 07/27/2021 documented as of this encounter (statuses as of 09/14/2021) [address]14-2015 History of Past illness Narrative* Problem Noted Date Resolved Date Umbilical hernia without obstruction or gangrene 11/14/2014 07/27/2021 documented as of this encounter (statuses as of 09/19/2021) [address]14[address]2015 History of Past illness Narrative* Problem Noted Date Resolved Date Umbilical hernia without obstruction or gangrene 11/14/2014 07/27/2021 documented as of this encounter (statuses as of 09/20/2021) [address]14-2015 History of Past illness Narrative* Problem Noted Date Resolved Date Umbilical hernia without obstruction or gangrene 11/14/2014 07/27/2021 documented as of this encounter (statuses as of 10/09/2021) [address]14-2015 History of Past illness Narrative* Problem Noted Date Resolved Date Umbilical hernia without obstruction or gangrene 11/14/2014 07/27/2021 documented as of this encounter (statuses as of 10/10/2021) [address]14-2015 History of Past illness Narrative* Problem Noted Date Resolved Date Umbilical hernia without obstruction or gangrene 11/14/2014 07/27/2021 documented as of this encounter (statuses as of 10/11/2021) [address]14-2015 History of Past illness Narrative* Problem Noted Date Resolved Date Umbilical hernia without obstruction or gangrene 11/14/2014 07/27/2021 documented as of this encounter (statuses as of 10/15/2021) [address]14-2015 History of Past illness Narrative* Problem Noted Date Resolved Date Umbilical hernia without obstruction or gangrene 11/14/2014 07/27/2021 documented as of this encounter (statuses as of 10/29/2021) [address]14[address]2015 History of Past illness Narrative* Problem Noted Date Resolved Date Umbilical hernia without obstruction or gangrene 11/14/2014 07/27/2021 documented as of this encounter (statuses as of 11/08/2021) [address]14-2015 History of Past illness Narrative* Problem Noted Date Resolved Date Umbilical hernia without obstruction or gangrene 11/14/2014 07/27/2021 documented as of this encounter (statuses as of 11/22/2021) [address]14[address]2015 History of Past illness Narrative* Problem Noted Date Resolved Date Umbilical hernia without obstruction or gangrene 11/14/2014 07/27/2021 documented as of this encounter (statuses as of 07/31/2022) [address]14-2015 History of Past illness Narrative* Problem Noted Date Resolved Date Umbilical hernia without obstruction or gangrene 11/14/2014 07/27/2021 documented as of this encounter (statuses as of 08/02/2022) [facility]* Diagnosis History of colonic polyps- Primary Personal history of colonic polyps Colon cancer screening Special screening for malignant neoplasms, colon [facility] Diagnosis Elevated hemoglobin A1c Other abnormal blood chemistry documented in this encounter [facility]* Diagnosis Basal cell carcinoma (BCC) of skin of face, unspecified part of face- Primary Neoplasm of uncertain behavior of skin of forehead Neoplasm of uncertain behavior of skin [facility]* Diagnosis Basal cell carcinoma (BCC) of skin of face, unspecified part of face [facility]* Diagnosis Visit for suture removal- Primary Encounter for removal of sutures Basal cell carcinoma (BCC) of skin of face, unspecified part of face Snoring Other dyspnea and respiratory abnormality Hypersomnia Hypersomnia, unspecified [facility]* Diagnosis History of colonic polyps Personal history of colonic polyps [facility]* Diagnosis Basal cell carcinoma (BCC) of skin of face, unspecified part of face- Primary Epidermal inclusion cyst Sebaceous cyst [facility]* Diagnosis Tubular adenoma- Primary Benign neoplasm of unspecified site History of colonic polyps Personal history of colonic polyps [facility]* Diagnosis Visit for suture removal- Primary Encounter for removal of sutures Basal cell carcinoma (BCC) of skin of face, unspecified part of face Epidermal inclusion cyst Sebaceous cyst [facility]* Diagnosis Hypersomnia- Primary Hypersomnia, unspecified Snoring Other dyspnea and respiratory abnormality [facility]* Diagnosis ROBSON (obstructive sleep apnea)- Primary Obstructive sleep apnea (adult) (pediatric) documented [facility]* Diagnosis Well adult exam- Primary Routine general medical examination at a health care facility Hypertension, essential Unspecified essential hypertension Elevated hemoglobin A1c Other abnormal blood chemistry Obesity, Class III, BMI 40-49.9 (morbid obesity) (HCC) Morbid obesity [place] (actinic keratosis) Actinic keratosis Screening for prostate cancer Special screening for malignant neoplasm of prostate Encounter for screening for diabetes mellitus Screening for diabetes mellitus [facility]* Diagnosis Well adult exam- Primary Routine general medical examination at a health care facility Hypertension, essential Unspecified essential hypertension Elevated hemoglobin A1c Other abnormal blood chemistry Obesity, Class III, BMI 40-49.9 (morbid obesity) (HCC) Morbid obesity Cold intolerance Other general symptoms Heat intolerance Unspecified effects of heat and light Plantar fasciitis, bilateral Plantar fascial fibromatosis History of colonic polyps Personal history of colonic polyps Skin cancer screening Screening for malignant neoplasm of the skin Screening for colon cancer Special screening for malignant neoplasms, colon Screening for prostate cancer Special screening for malignant neoplasm of prostate documented in this encounter [facility]* Diagnosis Hypertension, essential- Primary Unspecified essential hypertension Obesity, Class III, BMI 40-49.9 (morbid obesity) (HCC) Morbid obesity documented in this encounter [facility]* Diagnosis Rectal bleeding- Primary Hemorrhage of rectum and anus History of colonic polyps Personal history of colonic polyps Screening for colon cancer Special screening for malignant neoplasms, colon [facility]* Diagnosis Acute cough- Primary URI, acute Acute upper respiratory infections of unspecified site Acute cough documented [facility]* Diagnosis Acute cough documented in this encounter [facility]* Diagnosis Screening for colon cancer- Primary Special screening for malignant neoplasms, colon History of colonic polyps Personal history of colonic polyps Rectal bleeding Hemorrhage of rectum and anus documented in this encounter [facility]* Diagnosis History of colonic polyps- Primary Personal history of colonic polyps documented [facility]* Diagnosis Thoracic spine fracture- Primary Closed fracture of dorsal (thoracic) vertebra without mention of spinal cord injury Closed fracture of fifth thoracic vertebra with delayed healing, unspecified fracture morphology, subsequent encounter Trauma Injury, other and unspecified, unspecified site Closed fracture of multiple ribs of left side, initial encounter Trauma Injury, other and unspecified, unspecified site Closed fracture of multiple ribs of left side [facility] Diagnosis Status post thoracic spinal fusion- Primary [facility]* Diagnosis Spinal stenosis, lumbar region, without neurogenic claudication- Primary documented in this encounter [facility] Discharge instructions* Attachments The following attachments cannot be sent through Care Everywhere. * Spine Fracture (Tongan) * Rib Fracture (Tongan) * Incentive Spirometer ([facility]) ([place]ong[place]) [facility] Diagnostic Procedure Only (Routine) - Authorized Specialty Diagnoses / Procedures Referred By Contac t Referred To Contact [facility] Diagnoses History of colonic polyps Procedures COLONOSCOPY SCREENING COLONOSCOPY FLX DX W/COLLJ SPEC WHEN Kerline Gaitan MD [address] [place] [address] [facility] [address] [place] [id number] Referral ID Status Reason Start Date Expiration Date V isits Requested Visits Authorized [id number] Authorized 07/27/2021 09/24/2021 1 1 [facility] for referral (narrative)* Diagnostic Procedure Only (Routine) - Closed Specialty Diagnoses / Procedures Referred By Contac t Referred To Contact [facility] Diagnoses History of colonic polyps Procedures COLONOSCOPY SCREENING COLONOSCOPY FLX DX W/COLLJ SPEC WHEN Kerline Gaitan MD [address] [place] [address] [facility] [place] [address] [place] [id number] Referral ID Status Reason Start Date Expiration Date V isits Requested Visits Authorized [id number] Closed OON/Self Pay Override 07/27/2021 09/24/2021 1 1 [facility] for referral (narrative)* Outpatient Procedure (Routine) - Authorized Specialty Diagnoses / Procedures Referred By Contac t Referred To Contact [facility] Diagnoses Rectal bleeding Procedures COLONOSCOPY DIAGNOSTIC COLONOSCOPY FLX DX W/COLLJ SPEC WHEN Kerline Gaitan MD [address] [place] [address] [facility] [place] [address] [place] [id number] Referral ID Status Reason Start Date Expiration Date Visits Requested Visits Authorized [id number] Authorized Auto-Generat ed Referral OON/Self Pay Override 09/01/2023 08/31/2024 1 1 [facility] for referral (narrative)* Outpatient Procedure (Routine) - Closed Specialty Diagnoses / Procedures Referred By Contac t Referred To Contact [facility] Diagnoses Rectal bleeding Procedures COLONOSCOPY DIAGNOSTIC COLONOSCOPY FLX DX W/COLLJ SPEC WHEN Kerline Gaitan MD [address] [place] [address] [address] Referral ID Status Reason Start Date Expiration Date V isits Requested Visits Authorized [id number] Closed Auto-Generate d Referral OON/Self Pay Override 09/01/2023 08/31/2024 1 1 [facility] for referral (narrative)* Unlisted Procedure Code (Routine) - New Request Specialty Diagnoses / Procedures Referred By Contac t Referred To Contact Procedures DVT/VTE RISK ASSESSMENT Andre Castro MD [address] [place] [id number] Phone: tel: fax: Referral ID Status Reason Start Date Expiration Date V isits Requested Visits Authorized [id number] New Request 06/21/2024 07/16/2025 1 1 [facility] for referral (narrative)No reason for referral information availableWSouthwest [facility] Work Phone: [facility]* Diagnostic Procedure Only (Routine) - Closed Specialty Diagnoses / Procedures Referred By Contac t Referred To Contact [facility] Diagnoses History of colonic polyps Procedures COLONOSCOPY SCREENING COLONOSCOPY FLX DX W/COLLJ SPEC WHEN Kerline Gaitan MD [address] [place] [address] [place] [address] Referral ID Status Reason Start Date Expiration Date V isits Requested Visits Authorized [id number] Closed OON/Self Pay Override 07/27/2021 09/24/2021 1 1 [facility] for visit Narrative* Outpatient Procedure (Routine) - Closed Specialty Diagnoses / Procedures Referred By Contac t Referred To Contact [facility] Diagnoses Rectal bleeding Procedures COLONOSCOPY DIAGNOSTIC COLONOSCOPY FLX DX W/COLLJ SPEC WHEN PFRMD Kerline Edwards MD [address] [place] [address] [facility] [facility] [address] [place] [address] Referral ID Status Reason Start Date Expiration Date V isits Requested Visits Authorized [id number] Closed Auto-Generate d Referral OON/Self Pay Override 09/01/2023 08/31/2024 1 1 [facility] for visit Narrative* Auth/Cert Specialty Diagnoses / Procedures Referred By Contac t Referred To Contact Diagnoses Rib Injury (Thoracic Fracture) Jose Roper MD [address] [place] [address] Phone: tel: fax: [facility] [address] [place] [address] Referral ID Status Reason Start Date Expiration Date Visits Re quested Visits Authorized [id number] 1 1 [facility] Advance Directives No Advanced Directives Records FoundDocuments on File Type Date Recorded 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 Advance Directive(s) 06/19/2020 11:58 AM Advance Directive(s) 05/05/2019 12:27 PM Advance Directive(s) 04/16/2019 9:49 AM Advance Directive(s) 04/08/2019 4:10 PM Documents on File Type Date Recorded 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 Advance Directive(s) 06/19/2020 11:58 AM Advance Directive(s) 05/05/2019 12:27 PM Advance Directive(s) 04/16/2019 9:49 AM Advance Directive(s) 04/08/2019 4:10 PM Documents on File Type Date Recorded 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 Advance Directive(s) 09/19/2021 7:16 AM Advance Directive(s) 06/19/2020 11:58 AM Advance Directive(s) 05/05/2019 12:27 PM Advance Directive(s) 04/16/2019 9:49 AM Advance Directive(s) 04/08/2019 4:10 PM Documents on File Type Date Recorded 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 Advance Directive(s) 09/19/2021 7:16 AM Advance Directive(s) 06/19/2020 11:58 AM Advance Directive(s) 05/05/2019 12:27 PM Advance Directive(s) 04/16/2019 9:49 AM Advance Directive(s) 04/08/2019 4:10 PM Documents on File Type Date Recorded 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 HealthCare Power of Quality Improvement Manager 06/21/2024 1:23 PM HealthCare Power of Quality Improvement Manager 06/20/2024 Date Activated Date Inactivated Comments 06/21/2024 12:07 AM Healthcare Agents on File Name Relationship Healthcare Agent Relationship Communication Nikkie-HCPOA Noris Other Health Care Agent Simon-HCPOA 2 Ed Other First Alternate Health Care Agent Nikkie-HCPOA 3 Noris-Garst Sibling Second Alternate Health Care Agent Medications Administered Section Inactive Administered Medications - up to 3 most recent administrations Medication Order MAR Action Action Date Dose Rate Site fentaNYL 50 mcg/mL 25-100 mcg injection (SUBLIMAZE) 25-100 mcg, INTRAVENOUS, DIRECTED, Starting on Fri09/19/21 at 0830, Until Fri09/19/21 at 1229, DOSING DIRECTED BY PHYSICIAN FOR PROCEDURAL SEDATION ONLY, Intraprocedure Given 09/19/2021 8:17 AM EDT 50 mcg Given 09/19/2021 8:06 AM EDT 50 mcg lactated ringers iv infusion 75 mL/hr, INTRAVENOUS, CONTINUOUS, Starting on Fri09/19/21 at 0800, Until Fri09/19/21 at 0833, Preprocedure New Bag/Syringe/Bottle 09/19/2021 7:40 AM EDT 75 mL/hr 75 mL/hr midazolam (PF) 1-5 mg injection (VERSED) 1-5 mg, INTRAVENOUS, DIRECTED, Starting on Fri09/19/21 at 0830, Until Fri09/19/21 at 1229, DOSING DIRECTED BY PHYSICIAN FOR PROCEDURAL SEDATION ONLY, Intraprocedure Given 09/19/2021 8:06 AM EDT 3 mg Reason for Referral Specialty Diagnoses / Procedures Referred By Rob garcia Referred To Contact Diagnoses Hypersomnia Snoring Procedures CONSULT TO SLEEP MEDICINE - ADULT OFFICE/OUTPATIENT [facility] 60-74 MINUTES Terri Romero PA-C [address] [place] [address] Referral ID Status Reason Start Date Expiration Date Visits Requested Visits Authorized [id number] Pending Review PCP Requested Referral 10/29/2021 10/29/2022 1 1 Specialty Diagnoses / Procedures Referred By Rob garcia Referred To [facility] Diagnoses Hypersomnia Snoring Procedures HOME SLEEP APNEA TEST (HSAT) SLEEP STD AIRFLOW HRT RATE&O2 SAT EFFORT UNATT Terri Romero PA-C [address] [place] [address] [facility] [address] [place] [address] Referral ID Status Reason Start Date Expiration Date Visits Requested Visits Authorized [id number] Closed Auto-Generated Referral Financial Clearance Required - OON Payor OON Notification Letter Clearance Not Met - Pt Rescheduled/Canc elled/Chose Not to Proceed 10/01/2021 10/01/2022 1 1 Specialty Diagnoses / Procedures Referred By Contac t Referred To Contact General Surgery Diagnoses History of colonic polyps Screening for colon cancer Procedures CONSULT TO GENERAL SURGERY OFFICE/OUTPATIENT [facility] 60 MINUTES Brayden Chao MD [address] [place] [address] Referral ID Status Reason Start Date Expiration Date Visits Requested Visits Authorized [id number] Pending Review PCP Requested Referral 08/01/2023 07/31/2024 1 1 Chief Complaint and Reason for Visit Chief Complaint Admit Date MULTIPLE TRAUMA June 24, 2024 2:3 7pm MULTIPLE TRAUMA June 24, 2024 4:2 3pm MULTIPLE TRAUMA June 25, 2024 9:3 3am MULTIPLE TRAUMA June 28, 2024 8:5 5am MULTIPLE TRAUMA June 30, 2024 8:2 0am MULTIPLE TRAUMA July 02, 2024 2:30pm MULTIPLE TRAUMA July 05, 2024 9:15am MULTIPLE TRAUMA July 06, 2024 1:29pm ROBSON July 06, 2024 8:10pm Reason for Visit Admit Date History of thoracic spinal fusion June 24, 2024 2:37pm Multiple fractures of ribs June 24, 025 2:37pm Multiple injuries due to trauma June 242024 2:37pm Physical debility June 24, 2024 2:3 7pm Cardiomegaly June 24, 2024 2:3 7pm Colon polyps June 24, 2024 2:3 7pm Coronary artery calcification seen on CA T scan June 24, 2024 2:37pm Degenerative disc disease, thoracic Apri l 2024 2:37pm Diverticulosis June 24, 2024 2:3 7pm Fatty infiltration of liver June 24, 2024 2:37pm Foraminal stenosis of cervical region Ap ril 2024 2:37pm HTN (hypertension) June 24, 2024 2:3 7pm Hypertriglyceridemia without hypercholes terolemia June 24, 2024 2:37pm Interatrial cardiac shunt June 24 2:37pm Low HDL (under 40) June 24, 2024 2:3 7pm Lumbar canal stenosis June 24, 2024 2 :37pm Mild aortic stenosis by prior echocardio gram June 24, 2024 2:37pm Morbid obesity with BMI of 40.0-44.9, ad ult June 24, 2024 2:37pm Neural foraminal stenosis of lumbar spin e June 24, 2024 2:37pm ROBSON (obstructive sleep apnea) June 2:37pm PFO (patent foramen ovale) June 24, 2 025 2:37pm Prediabetes June 24, 2024 2:3 7pm Protrusion of cervical intervertebral di sc June 24, 2024 2:37pm Protrusion of lumbar intervertebral disc June 24, 2024 2:37pm Radicular pain of lower extremity June 24, 2024 2:37pm Spinal stenosis of cervicothoracic regio n June 24, 2024 2:37pm Thoracic disc herniation June 24 2:37pm DISH (diffuse idiopathic skeletal hypero stosis) June 24, 2024 2:37pm Cough June 24, 2024 2:3 7pm Hyperbilirubinemia June 24, 2024 2:3 7pm Pleural effusion June 24, 2024 2:3 7pm Heart murmur, systolic June 24, 2024 2:37pm Chief Complaint Admit Date MULTIPLE TRAUMA June 24, 2024 2:3 7pm MULTIPLE TRAUMA June 24, 2024 4:2 3pm MULTIPLE TRAUMA June 25, 2024 9:3 3am MULTIPLE TRAUMA June 28, 2024 8:5 5am MULTIPLE TRAUMA June 30, 2024 8:2 0am MULTIPLE TRAUMA July 02, 2024 2:30pm MULTIPLE TRAUMA July 05, 2024 9:15am MULTIPLE TRAUMA July 06, 2024 1:29pm ROBSON July 06, 2024 8:10pm RIGHT SHOULDER July 12, 2024 10:43 am Room 2 July 12, 2024 10:59 am Reason for Visit Admit Date History of thoracic spinal fusion June 24, 2024 2:37pm Multiple fractures of ribs June 24, 2 025 2:37pm Multiple injuries due to trauma June 242024 2:37pm Physical debility June 24, 2024 2:3 7pm Cardiomegaly June 24, 2024 2:3 7pm Colon polyps June 24, 2024 2:3 7pm Coronary artery calcification seen on CA T scan June 24, 2024 2:37pm Degenerative disc disease, thoracic Apri l 2024 2:37pm Diverticulosis June 24, 2024 2:3 7pm Fatty infiltration of liver June 24, 2024 2:37pm Foraminal stenosis of cervical region Ap ril 2024 2:37pm HTN (hypertension) June 24, 2024 2:3 7pm Hypertriglyceridemia without hypercholes terolemia June 24, 2024 2:37pm Interatrial cardiac shunt June 24 2:37pm Low HDL (under 40) June 24, 2024 2:3 7pm Lumbar canal stenosis June 24, 2024 2 :37pm Mild aortic stenosis by prior echocardio gram June 24, 2024 2:37pm Morbid obesity with BMI of 40.0-44.9, ad ult June 24, 2024 2:37pm Neural foraminal stenosis of lumbar spin e June 24, 2024 2:37pm ROBSON (obstructive sleep apnea) June 2:37pm PFO (patent foramen ovale) June 24, 025 2:37pm Prediabetes June 24, 2024 2:3 7pm Protrusion of cervical intervertebral di sc June 24, 2024 2:37pm Protrusion of lumbar intervertebral disc June 24, 2024 2:37pm Radicular pain of lower extremity June 24, 2024 2:37pm Spinal stenosis of cervicothoracic regio n June 24, 2024 2:37pm Thoracic disc herniation June 24 2:37pm DISH (diffuse idiopathic skeletal hypero stosis) June 24, 2024 2:37pm Cough June 24, 2024 2:3 7pm Hyperbilirubinemia June 24, 2024 2:3 7pm Pleural effusion June 24, 2024 2:3 7pm Heart murmur, systolic June 24, 2024 2:37pm Right shoulder pain July 12, 2024 10:43 am Chief Complaint Admit Date MULTIPLE TRAUMA June 24, 2024 2:3 7pm MULTIPLE TRAUMA June 24, 2024 4:2 3pm MULTIPLE TRAUMA June 25, 2024 9:3 3am MULTIPLE TRAUMA June 28, 2024 8:5 5am MULTIPLE TRAUMA June 30, 2024 8:2 0am MULTIPLE TRAUMA July 02, 2024 2:30pm MULTIPLE TRAUMA July 05, 2024 9:15am MULTIPLE TRAUMA July 06, 2024 1:29pm ROBSON July 06, 2024 8:10pm RIGHT SHOULDER July 12, 2024 10:43 am Room 2 July 12, 2024 10:59 am Sleep problems July 21, 2024 12:43 pm Reason for Visit Admit Date History of thoracic spinal fusion June 24, 2024 2:37pm Multiple fractures of ribs June 24 025 2:37pm Multiple injuries due to trauma June 242024 2:37pm ROBSON (obstructive sleep apnea) June 2:37pm Physical debility June 24, 2024 2:3 7pm Interatrial cardiac shunt June 24 2:37pm PFO (patent foramen ovale) June 24, 025 2:37pm Prediabetes June 24, 2024 2:3 7pm DISH (diffuse idiopathic skeletal hypero stosis) June 24, 2024 2:37pm Cough June 24, 2024 2:3 7pm Hyperbilirubinemia June 24, 2024 2:3 7pm Pleural effusion June 24, 2024 2:3 7pm Cardiomegaly June 24, 2024 2:3 7pm Colon polyps June 24, 2024 2:3 7pm Coronary artery calcification seen on CA T scan June 24, 2024 2:37pm Degenerative disc disease, thoracic Apri l 2024 2:37pm Diverticulosis June 24, 2024 2:3 7pm Fatty infiltration of liver June 24, 2024 2:37pm Foraminal stenosis of cervical region Ap ril 2024 2:37pm HTN (hypertension) June 24, 2024 2:3 7pm Hypertriglyceridemia without hypercholes terolemia June 24, 2024 2:37pm Low HDL (under 40) June 24, 2024 2:3 7pm Lumbar canal stenosis June 24, 2024 2 :37pm Mild aortic stenosis by prior echocardio gram June 24, 2024 2:37pm Morbid obesity with BMI of 40.0-44.9, ad ult June 24, 2024 2:37pm Neural foraminal stenosis of lumbar spin e June 24, 2024 2:37pm Protrusion of cervical intervertebral di sc June 24, 2024 2:37pm Protrusion of lumbar intervertebral disc June 24, 2024 2:37pm Radicular pain of lower extremity June 24, 2024 2:37pm Spinal stenosis of cervicothoracic regio n June 24, 2024 2:37pm Thoracic disc herniation June 24 2:37pm Heart murmur, systolic June 24, 2024 2:37pm Right shoulder pain July 12, 2024 10:43 am ROBSON (obstructive sleep apnea) July 21, 2024 12:43pm Summary Purpose Family History No Family History Records FoundNo Family History Records FoundNo Family History Records FoundNo Family History Records Found Additional Source Comments Source Comments (unrecognize d section and content) In the event this informatio n is protected by the Federal Confidentiality of Alcohol and Drug Abuse Patient Records regulations: The Federal rules restrict any use of the information to criminally investigate or prosecute any alcohol or drug abuse patient.[facility] the event this information is protected by the Federal Confidentiality of Alcohol and Drug Abuse Patient Records regulations: The Federal rules restrict any use of the information to criminally investigate or prosecute any alcohol or drug abuse patient.[facility] the event this information is protected by the Federal Confidentiality of Alcohol and Drug Abuse Patient Records regulations: The Federal rules restrict any use of the information to criminally investigate or prosecute any alcohol or drug abuse patient.[facility] the event this information is protected by the Federal Confidentiality of Alcohol and Drug Abuse Patient Records regulations: The Federal rules restrict any use of the information to criminally investigate or prosecute any alcohol or drug abuse patient.[facility] Hospital[facility] the event this information is protected by the Federal Confidentiality of Alcohol and Drug Abuse Patient Records regulations: The Federal rules restrict any use of the information to criminally investigate or prosecute any alcohol or drug abuse patient.[facility] Hospital[facility] the event this information is protected by the Federal Confidentiality of Alcohol and Drug Abuse Patient Records regulations: The Federal rules restrict any use of the information to criminally investigate or prosecute any alcohol or drug abuse patient.[facility] HospitalIn the event this information is protected by the Federal Confidentiality of Alcohol and Drug Abuse Patient Records regulations: The Federal rules restrict any use of the information to criminally investigate or prosecute any alcohol or drug abuse patient.[facility] HospitalIn the event this information is protected by the Federal Confidentiality of Alcohol and Drug Abuse Patient Records regulations: The Federal rules restrict any use of the information to criminally investigate or prosecute any alcohol or drug abuse patient.[facility] HospitalIn the event this information is protected by the Federal Confidentiality of Alcohol and Drug Abuse Patient Records regulations: The Federal rules restrict any use of the information to criminally investigate or prosecute any alcohol or drug abuse patient.[facility] HospitalIn the event this information is protected by the Federal Confidentiality of Alcohol and Drug Abuse Patient Records regulations: The Federal rules restrict any use of the information to criminally investigate or prosecute any alcohol or drug abuse patient.[facility] HospitalIn the event this information is protected by the Federal Confidentiality of Alcohol and Drug Abuse Patient Records regulations: The Federal rules restrict any use of the information to criminally investigate or prosecute any alcohol or drug abuse patient.[facility] HospitalIn the event this information is protected by the Federal Confidentiality of Alcohol and Drug Abuse Patient Records regulations: The Federal rules restrict any use of the information to criminally investigate or prosecute any alcohol or drug abuse patient.[facility] HospitalIn the event this information is protected by the Federal Confidentiality of Alcohol and Drug Abuse Patient Records regulations: The Federal rules restrict any use of the information to criminally investigate or prosecute any alcohol or drug abuse patient.[facility] HospitalIn the event this information is protected by the Federal Confidentiality of Alcohol and Drug Abuse Patient Records regulations: The Federal rules restrict any use of the information to criminally investigate or prosecute any alcohol or drug abuse patient.[facility] HospitalIn the event this information is protected by the Federal Confidentiality of Alcohol and Drug Abuse Patient Records regulations: The Federal rules restrict any use of the information to criminally investigate or prosecute any alcohol or drug abuse patient.[facility] HospitalIn the event this information is protected by the Federal Confidentiality of Alcohol and Drug Abuse Patient Records regulations: The Federal rules restrict any use of the information to criminally investigate or prosecute any alcohol or drug abuse patient.[facility] HospitalIn the event this information is protected by the Federal Confidentiality of Alcohol and Drug Abuse Patient Records regulations: The Federal rules restrict any use of the information to criminally investigate or prosecute any alcohol or drug abuse patient.[facility] HospitalIn the event this information is protected by the Federal Confidentiality of Alcohol and Drug Abuse Patient Records regulations: The Federal rules restrict any use of the information to criminally investigate or prosecute any alcohol or drug abuse patient.[facility] HospitalIn the event this information is protected by the Federal Confidentiality of Alcohol and Drug Abuse Patient Records regulations: The Federal rules restrict any use of the information to criminally investigate or prosecute any alcohol or drug abuse patient.[facility] the event this information is protected by the Federal Confidentiality of Alcohol and Drug Abuse Patient Records regulations: The Federal rules restrict any use of the information to criminally investigate or prosecute any alcohol or drug abuse patient.[facility] HospitalIn the event this information is protected by the Federal Confidentiality of Alcohol and Drug Abuse Patient Records regulations: The Federal rules restrict any use of the information to criminally investigate or prosecute any alcohol or drug abuse patient.[facility] HospitalIn the event this information is protected by the Federal Confidentiality of Alcohol and Drug Abuse Patient Records regulations: The Federal rules restrict any use of the information to criminally investigate or prosecute any alcohol or drug abuse patient.[facility] the event this information is protected by the Federal Confidentiality of Alcohol and Drug Abuse Patient Records regulations: The Federal rules restrict any use of the information to criminally investigate or prosecute any alcohol or drug abuse patient.[facility] HospitalIn the event this information is protected by the Federal Confidentiality of Alcohol and Drug Abuse Patient Records regulations: The Federal rules restrict any use of the information to criminally investigate or prosecute any alcohol or drug abuse patient.[facility] HospitalIn the event this information is protected by the Federal Confidentiality of Alcohol and Drug Abuse Patient Records regulations: The Federal rules restrict any use of the information to criminally investigate or prosecute any alcohol or drug abuse patient.[facility] HospitalIn the event this information is protected by the Federal Confidentiality of Alcohol and Drug Abuse Patient Records regulations: The Federal rules restrict any use of the information to criminally investigate or prosecute any alcohol or drug abuse patient.[facility] HospitalIn the event this information is protected by the Federal Confidentiality of Alcohol and Drug Abuse Patient Records regulations: The Federal rules restrict any use of the information to criminally investigate or prosecute any alcohol or drug abuse patient.[facility] HospitalIn the event this information is protected by the Federal Confidentiality of Alcohol and Drug Abuse Patient Records regulations: The Federal rules restrict any use of the information to criminally investigate or prosecute any alcohol or drug abuse patient.[facility] HospitalIn the event this information is protected by the Federal Confidentiality of Alcohol and Drug Abuse Patient Records regulations: The Federal rules restrict any use of the information to criminally investigate or prosecute any alcohol or drug abuse patient.[facility] HospitalIn the event this information is protected by the Federal Confidentiality of Alcohol and Drug Abuse Patient Records regulations: The Federal rules restrict any use of the information to criminally investigate or prosecute any alcohol or drug abuse patient.[facility] HospitalIn the event this information is protected by the Federal Confidentiality of Alcohol and Drug Abuse Patient Records regulations: The Federal rules restrict any use of the information to criminally investigate or prosecute any alcohol or drug abuse patient.[facility] HospitalIn the event this information is protected by the Federal Confidentiality of Alcohol and Drug Abuse Patient Records regulations: The Federal rules restrict any use of the information to criminally investigate or prosecute any alcohol or drug abuse patient.[facility] Care Teams (unrecognized sec tion and content) Patient Flow Coordinator Relationship Specialty Start Date End Date Brayden Chao MD [address] [place], [place] [id number] PCP - General Family Practice 01/19/21 Patient Flow Coordinator Relationship Specialty Start Date End Date Brayden Chao MD [address] [place] [address] PCP - General Family Practice 01/19/21 Patient Flow Coordinator Relationship Specialty [place] [address] [place] [id number] PCP - General Family Practice 01/19/21 Patient Flow Coordinator Relationship Specialty Start Date End Date Brayden Chao MD [facility] [place] [address] PCP - General Family Practice 01/19/21 Patient Flow Coordinator Relationship Specialty Start Date End Date Brayden Chao MD [address] [place] [address] [place] [address] PCP - General Family Practice 01/19/21 Patient Flow Coordinator Relationship Specialty Start Date End Date Brayden Chao MD [address] [place] [address] [place] [address] PCP - General Family Practice 01/19/21 Patient Flow Coordinator Relationship Specialty Start Date End Date Brayden Chao MD [address] [place] [address] PCP - General Family Practice 01/19/21 Patient Flow Coordinator Relationship Specialty Start Date End Date Brayden Chao MD [address] [place] [address] PCP - General Family Practice 01/19/21 Patient Flow Coordinator Relationship Specialty Start Date End Date Brayden Chao MD [address] [place] [address] PCP - General Family Practice 01/19/21 Patient Flow Coordinator Relationship Specialty Start Date End Date Brayden Chao MD [address] [place] [address] PCP - General Family Practice 01/19/21 Patient Flow Coordinator Relationship Specialty Start Date End Date Brayden Chao MD [address] [place] [address] [place] [address] PCP - General Family Medicine 01/19/21 Patient Flow Coordinator Relationship Specialty Start Date End Date Brayden Chao MD [address] [place] [address] [place] [address] PCP - General Family Medicine 01/19/21 Patient Flow Coordinator Relationship Specialty Start Date End Date Brayden Chao MD [address] [place] [address] PCP - General Family Medicine 01/19/21 Patient Flow Coordinator Relationship Specialty Start Date End Date Brayden Chao MD [address] [place] [address] PCP - General Family Medicine 01/19/21 Patient Flow Coordinator Relationship Specialty Start Date End Date Brayden Chao MD [address] [place] [address] PCP - General Family Medicine 01/19/21 Patient Flow Coordinator Relationship Specialty Start Date End Date Brayden Chao MD [address] [place] [address] PCP - General Family Medicine 01/19/21 Patient Flow Coordinator Relationship Specialty Start Date End Date Brayden Chao MD [address] [place] [address] PCP - General Family Medicine 01/19/21 Patient Flow Coordinator Relationship Specialty Start Date End Date Brayden Chao MD [address] [place] [address] PCP - General Family Medicine 01/19/21 Patient Flow Coordinator Relationship Specialty Start Date End Date Brayden Chao MD [address] [place] [address] PCP - General Family Medicine 01/19/21 Patient Flow Coordinator Relationship Specialty Start Date End Date Brayden Chao MD [address] [place] [address] PCP - General Family Medicine 01/19/21 Patient Flow Coordinator Relationship Specialty [place] [address] [place] [id number] PCP - General Family Medicine 06/21/24 Patient Flow Coordinator Relationship Specialty Start Date End Date Brayden Chao MD [address] [place] [id number] PCP - General Family Medicine 06/07/24 Mariano Gifford APRN.[employer] [address] [place] [address] Poly Area Supervisor [facility] 02/07/24 Terri Romero PA-C [address] [place] [address] [id number] [facility]/07/24 Team Status: Active Member Role Status Dates Dr. Brayden Chao MD Primary Care Provider Active Team Status: Inactive Member Role Status Dates Dr. Brayden Chao MD Primary Care Provider Active Start: June 24, 2024 End: July 06, 2024 Dr. Kelly Garcia DO Admit Provider Active Start: June 24, 2024 End: July 06, 2024 Dr. Kelly Garcia DO Attending Provider Act jannie Start: June 24, 2024 End: July 06, 2024 Dr. Kelly Garcia DO Referring Provider Act jannie Start: June 24, 2024 End: July 06, 2024 Team Status: Active Member Role Status Dates Dr. Brayden Chao MD Primary Care Provider Active Start: June 24, 2024 Dr. Kelly Garcia DO Admit Provider Active Start: June 24, 2024 Dr. Kelly Garcia DO Attending Provider Act jannie Start: June 24, 2024 Dr. Kelly Garcia DO Other Provider Active Start: June 24, 2024 Team Status: Active Member Role Status Dates Dr. Brayden Chao MD Primary Care Provider Active Start: June 25, 2024 Dr. Kelly Garcia , DO Admit Provider Active Start: June 25, 2024 Dr. Kelly Garcia , DO Attending Provider Act jannie Start: June 25, 2024 Dr. Kelly Garcia , DO Other Provider Active Start: June 25, 2024 Team Status: Active Member Role Status Dates Dr. Brayden Chao MD Primary Care Provider Active Start: June 28, 2024 Dr. Kelly Garcia , DO Admit Provider Active Start: June 28, 2024 Dr. Kelly Garcia , DO Attending Provider Act jannie Start: June 28, 2024 Dr. Kelly Garcia , DO Referring Provider Act jannie Start: June 28, 2024 Dr. Kelly Garcia , DO Other Provider Active Start: June 28, 2024 Team Status: Active Member Role Status Dates Dr. Brayden Chao MD Primary Care Provider Active Start: June 29, 2024 Dr. Randall Moscoso MD Attending Provider Activ e Start: June 29, 2024 Team Status: Active Member Role Status Dates Dr. Brayden Chao MD Primary Care Provider Active Start: June 30, 2024 Dr. Kelly Garcia , Admit Provider Active Start: June 30, 2024 Dr. Kelly Garcia , DO Attending Provider Act jannie Start: June 30, 2024 Dr. Kelly Garcia , DO Referring Provider Act jannie Start: June 30, 2024 Dr. Kelly Garcia , DO Other Provider Active Start: June 30, 2024 Team Status: Active Member Role Status Dates Dr. Brayden Chao MD Primary Care Provider Active Start: July 02, 2024 Dr. Kelly Garcia , DO Admit Provider Active Start: July 02, 2024 Dr. Kelly Garcia , DO Attending Provider Act jannie Start: July 02, 2024 Dr. Kelly Garcia , DO Referring Provider Act jannie Start: July 02, 2024 Dr. Kelly Garcia , DO Other Provider Active Start: July 02, 2024 Dr. Shashank Downs MD Other Provider Active Star t: July 02, 2024 Dr. Sadi Toscano MD Other Provider Active Start: July 02, 2024 Team Status: Active Member Role Status Dates Dr. Brayden Chao MD Primary Care Provider Active Start: July 05, 2024 Dr. Kelly Garcia DO Admit Provider Active Start: July 05, 2024 Dr. Kelly Garcia DO Attending Provider Act jannie Start: July 05, 2024 Dr. Kelly Garcia DO Referring Provider Act jannie Start: July 05, 2024 Dr. Kelly Garcia DO Other Provider Active Start: July 05, 2024 Dr. Shashank Downs MD Other Provider Active Star t: July 05, 2024 Dr. Sadi Toscano MD Other Provider Active Start: July 05, 2024 Team Status: Active Member Role Status Dates Dr. Brayden Chao MD Primary Care Provider Active Start: July 06, 2024 Dr. Kelly Garcia DO Admit Provider Active Start: July 06, 2024 Dr. Kelly Garcia DO Attending Provider Act jannie Start: July 06, 2024 Dr. Kelly Garcia DO Referring Provider Act jannie Start: July 06, 2024 Dr. Kelly Garcia DO Other Provider Active Start: July 06, 2024 Team Status: Active Member Role Status Dates Dr. Brayden Chao MD Primary Care Provider Active Start: July 06, 2024 Dr. Kelly Garcia DO Attending Provider Act jannie Start: July 06, 2024 Dr. Kelly Garcia DO Referring Provider Act jannie Start: July 06, 2024 Patient Flow Coordinator Relationship Specialty Start Date End Date Brayden Chao MD [address] [place] [address] PCP - General Family Medicine 06/21/24 Team Status: Active Member Role Status Dates Dr. Brayden Chao MD Primary Care Provider Active Start: June 28, 2024 Dr. Kelly Garcia DO Admit Provider Active Start: June 28, 2024 Dr. Kelly Garcia DO Attending Provider Act jannie Start: June 28, 2024 Dr. Kelly Garcia DO Other Provider Active Start: June 28, 2024 Team Status: Active Member Role Status Dates Dr. Brayden Chao MD Primary Care Provider Active Start: June 30, 2024 Dr. Kelly Garcia DO Admit Provider Active Start: June 30, 2024 Dr. Kelly Garcia DO Attending Provider Act jannie Start: June 30, 2024 Dr. Kelly Garcia DO Other Provider Active Start: June 30, 2024 Team Status: Active Member Role Status Dates Dr. Brayden Chao MD Primary Care Provider Active Start: July 02, 2024 Dr. Kelly Garcia DO Admit Provider Active Start: July 02, 2024 Dr. Kelly Garcia DO Attending Provider Act jannie Start: July 02, 2024 Dr. Kelly Garcia DO Other Provider Active Start: July 02, 2024 Dr. Shashank Downs MD Other Provider Active Star t: July 02, 2024 Dr. Sadi Toscano MD Other Provider Active Start: July 02, 2024 Team Status: Inactive Member Role Status Dates Dr. Brayden Chao MD Primary Care Provider Active Start: July 06, 2024 End: July 06, 2024 Dr. Kelly Garcia DO Attending Provider Act jannie Start: July 06, 2024 End: July 06, 2024 Dr. Kelly Garcia DO Referring Provider Act jannie Start: July 06, 2024 End: July 06, 2024 Team Status: Active Member Role Status Dates Dr. Brayden Chao MD Primary Care Provider Active Start: July 12, 2024 Dr. Brayden Chao MD Referring Provider Active Start: July 12, 2024 Bola Brown MD Attending Provider Active St art: July 12, 2024 Team Status: Active Member Role Status Dates Dr. Brayden Chao MD Primary Care Provider Active Start: July 12, 2024 Dr. Darell Peguero MD Attending Provider Active S tart: July 12, 2024 Patient Flow Coordinator Relationship Specialty Start Date End Date Brayden Chao MD [address] [place] [id number] PCP - General Family Medicine 06/07/24 Mariano Gifford APRN.[employer] [address] [place] [address] Formerly [facility], [facility]–1983 02/07/24 Terri Romero PA-C [address] [place], [place] [id number] Formerly [facility], [facility] 02/07/24 Team Status: Active Member Role Status Dates Dr. Brayden Chao MD Primary Care Provider Active Start: July 05, 2024 Dr. Kelly Garcia DO Admit Provider Active Start: July 05, 2024 Dr. Kelly Garcia DO Attending Provider Act jannie Start: July 05, 2024 Dr. Kelly Garcia DO Other Provider Active Start: July 05, 2024 Dr. Shashank Downs MD Other Provider Active Star t: July 05, 2024 Dr. Sadi Toscano MD Other Provider Active Start: July 05, 2024 Team Status: Active Member Role Status Dates Dr. Brayden Chao MD Primary Care Provider Active Start: July 06, 2024 Dr. Kelly Garcia DO Admit Provider Active Start: July 06, 2024 Dr. Kelly Garcia DO Attending Provider Act jannie Start: July 06, 2024 Dr. Kelly Garcia DO Other Provider Active Start: July 06, 2024 Team Status: Inactive Member Role Status Dates Dr. Brayden Chao MD Primary Care Provider Active Start: July 12, 2024 End: July 12, 2024 Dr. Brayden Chao MD Referring Provider Active Start: July 12, 2024 End: July 12, 2024 Bola Brown MD Attending Provider Active St art: July 12, 2024 End: July 12, 2024 Team Status: Inactive Member Role Status Dates Dr. Brayden Chao MD Primary Care Provider Active Start: July 12, 2024 End: July 12, 2024 Dr. Darell Peguero MD Attending Provider Active S tart: July 12, 2024 End: July 12, 2024 Team Status: Inactive Member Role Status Dates Dr. Brayden Chao MD Primary Care Provider Active Start: July 21, 2024 End: July 21, 2024 Dr. Brayden Chao MD Referring Provider Active Start: July 21, 2024 End: July 21, 2024 Amy Campbell NP-C Attending Provider Active Start: July 21, 2024 End: July 21, 2024 Reason for Visit (unrecogniz ed section and content) Reason Comments Suture Removal forehead Specialty Diagnoses / Procedures Referred By Contac t Referred To Contact FAMILY MEDICINE Diagnoses F/u Procedures F/i Brayden Chao MD [address] [place] [address] [facility] [address] [place] [address] Referral ID Status Reason Start Date Expiration Date Visits Requested Visits Authorized [id number] Pending Review OON/Self Pay Override 07/27/2021 10/25/2021 1 1 Reason Comments Schedule Surgery Reason Comments Results Reason Comments error Reason Comments Lesion Removal Reason Comments Excision Specialty Diagnoses / Procedures [facility] FAMILY MEDICINE Diagnoses ov Procedures eduardo Falk MD [facility] [address] [place] [address] Referral ID Status Reason Start Date Expiration Date Visits Requested Visits Authorized [id number] Outside PCP OON/Self Pay Override 09/14/2021 12/13/2021 1 1 Reason Comments Follow Up colonoscopy Specialty Diagnoses / Procedures Referred By Contac t Referred To Contact General Surgery / GENERAL SURGERY Diagnoses Follow-up examination colonoscopy follow up Procedures colonoscopy follow up Kerline Edwards MD [address] [place] [address] Mary Schuster PA-C [address] [place] [address] Referral ID Status Reason Start Date Expiration Date Visits Requested Visits Authorized [id number] Pending Review OON/Self Pay Override 09/19/2021 12/18/2021 1 1 Specialty Diagnoses / Procedures [facility] Referred To Contact FAMILY MEDICINE Diagnoses Stitch removal Procedures Stitch removal Brayden Chao MD [address] [place] [address] [facility] [address] [place] [address] Referral ID Status Reason Start Date Expiration Date Visits Requested Visits Authorized [id number] Pending Review OON/Self Pay Override 10/04/2021 01/02/2022 1 1 Reason Comments Results Reason Comments 09/19 colon asc Reason Comments Physical Specialty Diagnoses / Procedures Referred By [facility] Referred To Contact FAMILY MEDICINE Diagnoses physical Procedures physical Brayden Chao MD [address] [place] [address] [facility] [address] [place] [address] Referral ID Status Reason Start Date Expiration Date Visits Requested Visits Authorized [id number] Pending Review OON/Self Pay Override 10/15/2021 08/02/2023 1 1 Reason Comments Physical Specialty Diagnoses / Procedures Referred By [facility] Referred To Contact FAMILY MEDICINE Diagnoses physical Procedures physical Brayden Chao MD [address] [place] [address] [facility] [address] [place] [address] Referral ID Status Reason Start Date Expiration Date V isits Requested Visits Authorized [id number] Closed OON/Self Pay Override 10/15/2021 08/02/2023 1 1 Reason Comments Recheck Blood pressure Specialty Diagnoses / Procedures Referred By [facility] Referred To Contact FAMILY MEDICINE Diagnoses recheck bp Procedures rechecj bp Brayden Chao MD [address] [place] [address] [facility] [address] [place] [address] Referral ID Status Reason Start Date Expiration Date Visits Requested Visits Authorized [id number] Pending Review OON/Self Pay Override 08/01/2023 11/08/2024 1 1 Reason Comments Consult colonoscopy Specialty Diagnoses / Procedures [facility] Referred To Contact FAMILY MEDICINE Diagnoses BP check Z01.30 Recheck bp Procedures OFFICE/OUTPATIENT NEW HIGH MDM 60 MINUTES rechecj bp Brayden Chao MD [address] [place] [address] [facility] [address] [place] [address] Referral ID Status Reason Start Date Expiration Date V isits Requested Visits Authorized [id number] Closed OON/Self Pay Override 09/01/2023 03/02/2024 1 1 Reason Comments Cough Chest congestion, fe alka, chill, heaviness in chest, rattle x 4 days Reason Comments Follow Up Review colonoscopy r esults. Reason Comments Home Health Orders Reason Comments Post Op Visit Reason Comments Patient Update Reason Comments Hospital F/U [facility] Reason Comments Home Care Management Scheduled Active and Recently Administ ered Medications (unrecognized section and content) Medication Order 06/22/2024 06/23/2024 06/24/2024 Acetaminophen (TYLENOL) tablet 975 mg 975 mg, Oral, 3 times daily, First dose on Fri06/21/24 at 2100, Until Discontinued, Maximum dose of acetaminophen is 4000 mg from all sources in 24 hours., Post-op/Post-Proc 0825 (Given - Provider: Danitza De Leon RN)1433 (Given - Provider: Danitza De Leon RN)204 (Given - Provider: Lizbeth Garcia RN) 0809 (Given - Provider: Carla Morales RN)1355 (Given - Provider: Carla Morales, JD)2002 (Given - Provider: Jillian Rogel, JD) 0845 (Given - Provider: Danitza De Leon RN) bisacodyl (DULCOLAX) suppository 10 mg (COMPLETED) 10 mg, Rectal, ONCE, 1 dose, On Mandi 06/24/24 at 0600 0607 (Given - Provider: Jillian Rogel, RN) ceFAZolin (ANCEF) 2 g in dextrose 100 mL premix IVPB (COMPLETED) 2 g, Intravenous, Administer over 30 Minutes, EVERY 8 HOURS NON-STANDARD, 2 doses, First dose on Fri06/21/24 at 2100, Last dose on Fri06/22/24 at 0500, Post-op/Post-Proc 0457 ($$New Bag$$ - Provider: Ale Alvares RN)0529 (Stopped - Provider: Ale Alvares RN) Cyclobenzaprine (FLEXERIL) tablet 5 mg 5 mg, Oral, 3 TIMES DAILY, First dose on Fri06/21/24 at 0315, Until Discontinued 08 (Given - Provider: Danitza De Leon RN)1433 (Given - Provider: Danitza De Leon RN)2043 (Given - Provider: Lizbeth Garcia RN) 08 (Given - Provider: Carla Morales RN)1355 (Given - Provider: Carla Morales RN)2002 (Given - Provider: Jillian Rogel, RN) 0845 (Given - Provider: Danitza De Leon RN)1400 (Canceled Entry - Provider: System Discharge - Comment: Automatically canceled at discontinue of medication order) Enoxaparin Sodium (LOVENOX) injection 40 mg(Linked Group 1) 40 mg, Subcutaneous, EVERY 12 HOURS NON-STANDARD, First dose (after last modification) on Fri06/23/24 at 0630, Until Discontinued, For SUBCUTANEOUS route ONLY: alternate injection sites between left and right abdominal wall, pinching location and avoiding area around navel. If unable to use abdominal sites, may use the front or side of thighs., Indications: DVT/PE prophylaxis 0608 (Given - Provider: Lauryn Kirkpatrick RN)1732 (Given - Provider: Carla Morlaes RN) 0524 (Given - Provider: Jillian Rogel, JD) Gabapentin (NEURONTIN) capsule 200 mg (CANCELED) 200 mg, Oral, 3 TIMES DAILY, First dose on Fri06/21/24 at 0315, Until Discontinued 824 (Given - Provider: Danitza De Leon RN)143 (Given - Provider: Danitza De Leon RN) Gabapentin (NEURONTIN) capsule 200 mg 200 mg, Oral, DAILY AT BEDTIME, First dose (after last modification) on Fri06/22/24 at 2100, Until Discontinued 2043 (Given - Provider: Lizbeth Garcia RN) 2002 (Given - Provider: Jillian Rogel, RN) lidocaine 4 % patch 2 patch 2 patch, Transdermal, Administer over 12 Hours, EVERY 24 HOURS, First dose on Fri06/21/24 at 0915, Until Discontinued, Apply 1 to anterior-lateral L ribs and 1 to posterior ribs. 0825 (Patch Applied - Provider: Danitza De Leon RN)2048 (Patch Removed - Provider: Lizbeth Garcia RN) 0809 (Patch Applied - Provider: Carla Morales RN)2103 (Patch Removed - Provider: Jillian Rogel RN) 0845 (Patch Applied - Provider: Danitza De Leon RN)1255 (Due: Patch Removed - Provider: System Discharge - Comment: Time automatically adjusted from order being discontinued) Polyethylene glycol (MIRALAX) packet 17 g 17 g, Oral, DAILY, First dose on Fri06/21/24 at 0900, Until Discontinued 0825 (Given - Provider: Danitza De Leon RN) 0809 (Given - Provider: Carla Morales RN) 0840 (Not Given - Provider: Danitza De Leon RN - Reason: Patient/family refused) Senna (SENOKOT) tablet 17.2 mg 17.2 mg, Oral, DAILY, First dose on Fri06/21/24 at 0900, Until Discontinued 0825 (Given - Provider: Danitza De Leon RN) 0809 (Given - Provider: Carla Morales RN) 0845 (Given - Provider: Danitza De Leon RN) Continuous Medication Order 06/22/2024 06/23/2024 06/24/2024 Lactated ringers IV solution (CANCELED) Intravenous, at 100 mL/hr, CONTINUOUS, Starting on Fri06/21/24 at 0015, Until Fri06/22/24 at 0706 0002 (Rate/Dose Verify - Provider: Ale Alvares RN)0256 ($$New Bag$$ - Provider: Ale Alvares RN)0347 (Paused - Provider: Ale Alvares RN)0348 (Restarted - Provider: Ale Alvares RN)0456 (Stopped - Provider: Ale Alvares RN)0456 (Stopped - Provider: Ale Alvares RN)0742 (Stopped - Provider: Danitza De Leon RN) PRN Medication Order 06/22/2024 06/23/2024 06/24/2024 alum/mag hydrox.-simethicone oral suspension 30 mL 30 mL, Oral, EVERY 6 HOURS NEEDED, Starting on Fri06/21/24 at 1816, Until Fri06/24/24 at 1455, Indigestion, Per 5 mL is equivalent to: (Alum-Mag Hydroxide 200-225 mg and Simethicone 20 mg) and (Alum-Mag Hydroxide 200-200 mg and Simethicone 20 mg), Post-op/Post-Proc Benzocaine-menthol (CEPACOL) 15-3.6 MG per lozenge 1 lozenge 1 lozenge, Oral, NEEDED, Starting on Fri06/24/24 at 0410, Until Fri06/24/24 at 1455, Cough, Max 8 lozenges/day Due to product shortages and availability, 15-3.6 MG and 15-2.6 MG strengths of benzocaine-menthol (CEPACOL) lozenges may be used interchangeably at [facility]. 0526 (Given - Provider: Jillian Rogel RN)0609 (Given - Provider: Jillian Rogel RN) HYDROmorphone (DILAUDID) injection 0.5 mg (CANCELED)(Linked Group 2) 0.5 mg, Intravenous, EVERY 3 HOURS NEEDED, Starting on Fri06/21/24 at 0307, Until Fri06/23/24 at 0513, Severe Pain, Higher dose may be administered if lower dose was previously documented as ineffective and did not result in adverse effects (RR<10, decrease in level of consciousness). Decrease back to lower dose if patient has adverse effects, or no PRN used in previous 12 hours. For severe pain IF patient unable to tolerate PO. 0403 (Given - Provider: Mary Shaffer, JD)1134 (Given - Provider: Danitza De Leon, JD)2247 (Given - Provider: Lizbeth Garcia, JD) 0313 (Given - Provider: Lauryn Kirkpatrick RN) Melatonin tablet 6 mg 6 mg, Oral, DAILY AT BEDTIME NEEDED, Starting on Fri06/21/24 at 0007, Until Fri06/24/24 at 1455, Insomnia Ondansetron (ZOFRAN) tablet 4 mg(Linked Group 3) 4 mg, Oral, EVERY 6 HOURS NEEDED, Starting on Fri06/21/24 at 0004, Until Mandi 06/24/24 at 1455, Nausea / Vomiting, 1st Line Nausea / Vomiting Ondansetron 4mg/2ml (ZOFRAN) injection 4 mg(Linked Group 3) 4 mg, Intravenous, EVERY 6 HOURS NEEDED, Starting on Fri06/21/24 at 0004, Until Mandi 06/24/24 at 1455, Nausea / Vomiting, 1st Line Nausea / Vomiting, If patient is unable to tolerate PO. oxyCODONE (ROXICODONE) tablet 5 mg(Linked Group 4) 5 mg, Oral, EVERY 4 HOURS NEEDED, Starting on Fri06/21/24 at 0307, Until Mandi 06/24/24 at 1455, Mild Pain, Moderate Pain, Severe Pain 0825 (Given - Provider: Danitza De Leon RN)2044 (Given - Provider: Lizbeth Garcia RN) 0136 (Given - Provider: Lauryn Kirkpatrick RN)1147 (Given - Provider: Carla Morales RN)1925 (Given - Provider: Jillian Rogel RN) 012 (Given - Provider: Jillian Rogel RN) Phenol (CHLORASEPTIC) 1.4 % oral spray 1 spray 1 spray, Mouth/Throat, NEEDED, Starting on Fri06/21/24 at 0004, Until Mandi 06/24/24 at 1455, Sore Throat, Patient may self-administer. Prochlorperazine (COMPAZINE) injection 5 mg(Linked Group 5) 5 mg, Intravenous, EVERY 6 HOURS NEEDED, Starting on Fri06/21/24 at 0004, Until Mandi 06/24/24 at 1455, Refractory Nausea Vomiting, If unrelieved by Ondansetron. Administer IV if patient is unable to tolerate PO. Prochlorperazine (COMPAZINE) tablet 5 mg(Linked Group 5) 5 mg, Oral, EVERY 6 HOURS NEEDED, Starting on Fri06/21/24 at 0004, Until Mandi 06/24/24 at 1455, Refractory Nausea Vomiting, If unrelieved by Ondansetron. Sodium chloride 0.9% IV solution 250 mL Intravenous, at 20 mL/hr, NEEDED, Starting on Fri06/21/24 at 0004, Until Mandi 06/24/24 at 1455, Carrier Fluid - See Admin. Inst, 250mL 0.9NS to be used as carrier fluid for intermittent small volume or piggyback medication administration as needed. Infusion rate of the carrier fluid should be set at 20 mL/hr unless the rate as the intermittent medication is less than 20 mL/hr. For intermittent medications with a rate less than 20 mL/hr set the carrier fluid at that rate of the intermittent or piggy back medication. Linked Groups Order Group 1: Enoxaparin Sodium (LOVENOX) injection 40 mgJump to med 40 mg, Subcutaneous, EVERY 12 HOURS NON-STANDARD, First dose (after last modification) on Fri06/23/24 at 0630, Until Discontinued, For SUBCUTANEOUS route ONLY: alternate injection sites between left and right abdominal wall, pinching location and avoiding area around navel. If unable to use abdominal sites, may use the front or side of thighs., Indications: DVT/PE prophylaxis Group 2: HYDROmorphone (DILAUDID) injection 0.2 mg (CANCELED) 0.2 mg, Intravenous, EVERY 3 HOURS NEEDED, Starting on Fri06/21/24 at 0307, Until Fri06/23/24 at 0513, Severe Pain, Use as initial dose. Higher dose may be administered if lower dose was previously documented as ineffective and did not result in adverse effects (RR<10, decrease in level of consciousness). For severe pain IF patient unable to tolerate PO. Or HYDROmorphone (DILAUDID) injection 0.5 mg (CANCELED)Jump to med 0.5 mg, Intravenous, EVERY 3 HOURS NEEDED, Starting on Fri06/21/24 at 0307, Until Fri06/23/24 at 0513, Severe Pain, Higher dose may be administered if lower dose was previously documented as ineffective and did not result in adverse effects (RR<10, decrease in level of consciousness). Decrease back to lower dose if patient has adverse effects, or no PRN used in previous 12 hours. For severe pain IF patient unable to tolerate PO. Group 3: Ondansetron (ZOFRAN) tablet 4 mgJump to med 4 mg, Oral, EVERY 6 HOURS NEEDED, Starting on Fri06/21/24 at 0004, Until Fri06/24/24 at 1455, Nausea / Vomiting, 1st Line Nausea / Vomiting Or Ondansetron 4mg/2ml (ZOFRAN) injection 4 mgJump to med 4 mg, Intravenous, EVERY 6 HOURS NEEDED, Starting on Fri06/21/24 at 0004, Until Mandi 06/24/24 at 1455, Nausea / Vomiting, 1st Line Nausea / Vomiting, If patient is unable to tolerate PO. Group 4: oxyCODONE (ROXICODONE) tablet 2.5 mg (CANCELED) 2.5 mg, Oral, EVERY 4 HOURS NEEDED, Starting on Fri06/21/24 at 0307, Until Fri06/23/24 at 0513, Mild Pain, Moderate Pain, Severe Pain, Use as initial dose. Higher dose may be administered if lower dose was previously documented as ineffective and did not result in adverse effects (RR<10, decrease in level of consciousness). Or oxyCODONE (ROXICODONE) tablet 5 mgJump to med 5 mg, Oral, EVERY 4 HOURS NEEDED, Starting on Fri06/21/24 at 0307, Until Mandi 06/24/24 at 1455, Mild Pain, Moderate Pain, Severe Pain Group 5: Prochlorperazine (COMPAZINE) tablet 5 mgJump to med 5 mg, Oral, EVERY 6 HOURS NEEDED, Starting on Fri06/21/24 at 0004, Until Mandi 06/24/24 at 1455, Refractory Nausea Vomiting, If unrelieved by Ondansetron. Or Prochlorperazine (COMPAZINE) injection 5 mgJump to med 5 mg, Intravenous, EVERY 6 HOURS NEEDED, Starting on Fri06/21/24 at 0004, Until Mandi 06/24/24 at 1455, Refractory Nausea Vomiting, If unrelieved by Ondansetron. Administer IV if patient is unable to tolerate PO. Goals (unrecognized section and content) Goals may be documented in a n alternate sectionGoals may be documented in an alternate sectionGoals may be documented in an alternate section (unrecognized sect ion and content) No Status Records FoundNo Status Records FoundNo Status Records FoundNo Status Records Found INFORMATION SOURCE (unrecogn ized section and content) DATE CREATED AUTHOR 07/10/2024 [facility] DATE CREATED AUTHOR AUTHOR'S ORGANIZ ATION 07/31/2024 [facility] DATE CREATED AUTHOR AUTHOR'S ORGANIZ ATION 08/03/2024 [facility] DATE CREATED AUTHOR AUTHOR'S ADENIKE FOSTER 08/04/2024 [facility] FOR RECORDS PERTAINING TO PATIENTS WHO ARE OR HAVE BEEN ENROLLED IN A CHEMICAL DEPENDENCY/SUBSTANCEABUSE PROGRAM, SOME INFORMATION MAY BE OMITTED. This clinical summary was aggregated from multiple sources. Caution should be exercised in using it in the provision of clinical care. This summary normalizes information from multiple sources, and as a consequence, information in this document may materially change the coding, format and clinical context of patient data. In addition, data may be omitted in some cases. CLINICAL DECISIONS SHOULD BE BASED ON THE PRIMARY CLINICAL RECORDS. [facility] [employer] [facility]. provides no warranty or guarantee of the accuracy or completeness of information in this document.
== END | disposition home or self-care (01) ==
LOC: SL 15:32
PROVIDERS: Referring Provider Nurse Practitioner Family; Visit Provider Nurse Practitioner Family
DX: Z46.89 Encounter for fitting and adjustment of other specified devices (principal)

== ENCOUNTER → 2024-08-26 | Outpatient (CLI) | payer MEDICARE, SELFPAY ==
--- NOTE | 2024-08-26 13:18 | MRI_ITS ---
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 COMPARISON: COMPARISON: Right shoulder series of 07/12/2024. FINDINGS: A small joint effusion is seen. Complete disruption of the supraspinatus tendon with marked retraction is seen. Complete disruption of the infraspinatus tendon is seen with marked retraction Mild degenerative changes are seen of the glenohumeral joint. Moderate degenerative changes of the right acromioclavicular joint are noted, with associated nonunited ossicle superiorly No acute osseous signal changes are seen. The long head of the biceps tendon appears intact. MRI/Upper Ext Joint Only(Routine) IMPRESSION: 1. Complete disruption of the supraspinatus tendon with marked retraction. 2. Complete disruption of the infraspinatus tendon with marked retraction. 3. Degenerative changes as noted. 4. Joint effusion. Reading Location: [place] [id number]
== END | disposition home or self-care (01) ==
PROVIDERS: Referring Provider Orthopaedic Surgery Sports Medicine; Visit Provider Orthopaedic Surgery Sports Medicine
DX: M25.511 Pain in right shoulder (principal)
CPT/HCPCS: 73221

== ENCOUNTER → 2024-09-15 | Outpatient (CLI) | payer MEDICARE, SELFPAY ==
--- NOTE | 2024-09-15 11:43 | STRESSREP_ITS ---
Stress Test Report Date: 09/15/2024 Procedure: Pharmacologic stress nuclear imaging study Indications: Abnormal ECG Consent: Per the patient Procedure: The patient underwent pharmacologic (Regadenoson 0.4mg ) evaluation with a peak heart rate of 78 beats per minute (50%predicted maximal heart rate) and a peak blood pressure of 122/74 mmHg. The baseline ECG demonstrated sinus rhythm. The peak pharmacologic ECG did not show any ischemic changes. There were no cardiac dysrhythmias pretest, during pharmacologic infusion, or recovery. There was no complaint of chest discomfort during pharmacologic infusion or recovery. The patient was injected with 14.8 millicuries of technetium 99m Cardiolite and subsequently rest SPECT Cardiolite nuclear imaging was obtained in the horizontal long, vertical long, and short axis views. The patient underwent pharmacologic (Regadenoson) evaluation. The patient was injected with 45.0 millicuries of technetium 99m Cardiolite and subsequently stress SPECT Cardiolite nuclear imaging was obtained in the horizontal long, vertical long, and short axis views. A gated Cardiolite study at peak stress was obtained. The examination was stopped secondary to completion of protocol. Rest and stress SPECT Cardiolite nuclear imaging status post realignment, normalization, and attenuation correction demonstrate mildly reduced perfusion of the inferior wall both at rest as well as post pharmacological stress. No significant reversibility noted. With normal wall motion, consider diaphragmatic attenuation.. There is end systolic thickening and brightening. The gated Cardiolite study demonstrates myocardial thickening and inward wall motion. The reported LVEF is 70%. Impression: 1. Pharmacologic (Regadenoson) evaluation 2. Peak pharmacologic ECG with no ischemic changes. 3. There were no cardiac dysrhythmias pretest, during pharmacologic infusion, or recovery. 5. Rest and stress SPECT Cardiolite nuclear imaging demonstrate relative uniform tracer uptake and myocardial perfusion appearing within normal limits. 6. The gated Cardiolite study reports an LVEF of 70%. This note was generated with [employer] software. It may contain incorrect words, spelling, and punctuation that were not noted in checking the note before signing.
== END | disposition home or self-care (01) ==
LOC: CVS 06:59
PROVIDERS: Referring Provider Internal Medicine Cardiovascular Disease; Visit Provider Internal Medicine Cardiovascular Disease
DX: R94.31 Abnormal electrocardiogram [ECG] [EKG] (principal); R06.09 Other forms of dyspnea
CPT/HCPCS: 78452; 93017; A9500; A4216; J2785

== ENCOUNTER → 2025-01-06 | Outpatient (CLI) | payer MEDICARE, SELFPAY ==
[2025-01-06 16:50] LABS: Hematocrit 41.4 % (40-54); Hemoglobin 13.8 g/dL (13.0-16.5); Immature Granulocytes Count 0.030 X10^3/uL (0.0-0.0); Mean Corp Hgb Conc 33.3 g/dL (32-36); Mean Corpuscular Volume 89.0 fL (80-94); Mean Platelet Vol. 10.3 fl (6.2-12.0); NRBC Flagged by Analyzer 0 % (0-5); Platelet Count 214 K/mm3 (150-450); RBC Distribution Width CV 14.1 % (11.6-14.6); RBC Distribution Width SD 45.5 fl (35.1-43.9); Red Blood Count 4.65 M/mm3 (4.6-6.2); White Blood Count 7.2 K/mm3 (4.4-11.0)
[2025-01-06 17:21] LABS: AST(SGOT) 19 U/L (<=37); Alanine Aminotransfer ALT/SGPT 15 U/L (<=46); Albumin, Serum 4.3 g/dL (3.4-4.8); Alkaline Phosphatase 43 U/L (40-129); Anion Gap 10 (5-15); BUN 16 mg/dL (4-19); BUN/Creat Ratio 18.3 RATIO (10-20); Calcium,Total 10.1 mg/dL (7.6-11.0); Carbon Dioxide 27.7 mmol/L (21.0-32.0); Chloride 99 mmol/L (98-108); Cholesterol 147 mg/dL (<=200); Globulin 3.2 g/dL (2.2-4.2); Glucose 85 mg/dL (70-99); Low Density Lipoprotein Calc. 94 mg/dL; PSA,Total - Annual Screen 0.70 ng/mL (0.02-4.00); Potassium 4.6 mmol/L (3.3-5.1); Triglycerides 76 mg/dL; Very Low Density Lipoprotein 15 mg/dL (5-40); cholesterol:hdl ratio screen 3.84
== END | disposition home or self-care (01) ==
LOC: VSLAB 11:10
DX: I10 Essential (primary) hypertension (principal); E78.2 Mixed hyperlipidemia; R73.03 Prediabetes; Z12.5 Encounter for screening for malignant neoplasm of prostate
CPT/HCPCS: 36415; 80053; 80061; 83036; 84153; 84443; 85025; G0103